=== PATIENT | female | born 1970 | race Caucasian/White ===

== ENCOUNTER 2020-07-30 12:25 | Outpatient (REF) | payer MEDICARE, MEDICAID, SELFPAY | END 2020-07-30 12:26 | disposition home or self-care (01) | LOC: HO.LAB 12:25 | PROVIDERS: PCP Physician Assistant; Visit Provider Internal Medicine | DX: Z20.828 Contact with and (suspected) exposure to other viral communicable diseases (principal) | CPT/HCPCS: C9803; U0003 ==

== ENCOUNTER 2021-07-30 14:31 | Emergency (ER) | payer MEDICARE, MEDICAID, SELFPAY ==
--- NOTE | ~2021-07-30 | XR_ITS ---
EXAMINATION: XR CHEST CLINICAL INFORMATION: Shortness of breath, orthopnea, leg swelling COMPARISON: Chest radiograph 04/30/2013 TECHNIQUE: Frontal view of the chest was obtained. FINDINGS: Heart is within normal size. The vascularity is normal. There is no lobar or segmental airspace consolidation or effusion. Some mild coarsening bronchiolar markings are seen centrally. No atelectasis. The costophrenic sulci are clear. The hilar and mediastinal contours are normal. Bony structures show dextrocurvature thoracic spine with multilevel degenerative changes. XR/XR chest 1V IMPRESSION: Mild coarsening bronchiolar markings. Lungs clear. No vascular congestion or effusion.
--- NOTE | ~2021-07-30 | XR_ITS ---
EXAMINATION: XR SHOULDER, RIGHT CLINICAL INFORMATION: Pain right shoulder COMPARISON: Radiographs right shoulder 06/02/2018 TECHNIQUE: Right shoulder is imaged in 3 views. FINDINGS: There are osteoarthritic changes involving the glenohumeral joint with joint narrowing and subchondral sclerosis and spurring at the inferior medial humeral head. There are lesser degenerative changes acromioclavicular joint. The acromioclavicular alignment is normal. There is no fracture or dislocation or destructive process. No visible nano humeral rotator cuff calcifications. Right lung apex shows no pneumothorax or pleural reaction. XR/XR shoulder RT min 2V IMPRESSION: 1. Osteoarthritic changes glenohumeral joint and acromioclavicular joint. 2. No visible rotator cuff calcifications. 3. No fracture or destructive process.
--- NOTE | ~2021-07-30 | CT_ITS ---
EXAMINATION: CT ANGIOGRAM OF THE CHEST WITH AND WITHOUT CONTRAST (CT PULMONARY ANGIOGRAM FOR PE) CLINICAL INFORMATION: Reason for Exam SOB, leg swelling, elevated DDIMER COMPARISON: Chest x-ray 07/30/2021 TECHNIQUE: Prior to contrast administration, noncontrast localization images were obtained. Subsequently, multidetector volumetric imaging was performed from the thoracic inlet to below the diaphragms following the administration of 65 mL Omnipaque 350 intravenous contrast. No contrast reaction reported Sagittal, coronal, and MIP oblique sagittal reformatted images were obtained on the CT workstation, uploaded to PACS, and reviewed. This CT examination was performed using dose optimization techniques as appropriate, variously including the following: *Automated exposure control *Adjustment of mA and/or kV according to patient size (this includes techniques or standardized protocols for targeted exams where dose is matched to indication/reason for exam; i.e. extremities or head) *Use of iterative reconstruction technique Total exam dose-length product 561 mGy-cm FINDINGS: QUALITY OF STUDY/CONTRAST BOLUS: Satisfactory. PULMONARY ARTERIES: No central or segmental pulmonary emboli. THORACIC AORTA: No aneurysm or dissection. LUNG: No focal consolidation, nodules or masses. PLEURA: No pleural effusion or pneumothorax. MEDIASTINUM: Heart size is prominent. No pericardial effusion. No hilar or mediastinal lymphadenopathy. No evidence of septal bowing or right heart strain. CHEST WALL/AXILLA: No axillary or internal mammary lymphadenopathy. OSSEOUS STRUCTURES: No acute or suspicious osseous abnormality. Degenerative spondylosis of the dorsal spine. UPPER ABDOMEN: Unremarkable. No reflux of contrast into the hepatic veins to suggest elevated right heart pressures. CT/CT angio chest PE protocol IMPRESSION: No acute abnormality of chest. No evidence of pulmonary embolism. VTE: negative
--- NOTE | ~2021-07-30 | US_ITS ---
EXAMINATION: US VENOUS ULTRASOUND WITH DOPPLER LOWER EXTREMITY, BILATERAL CLINICAL INFORMATION: Swelling COMPARISON: None TECHNIQUE: Ultrasound of the deep veins is performed from the hip to the calf with compression sonography and color and pulse Doppler assessment. Spectral analysis with color-flow imaging is performed. FINDINGS: RIGHT: There is normal venous compression and respiratory variation and augmented flow. The visualized common femoral vein, superficial femoral vein, profunda femoral vein, popliteal vein, and the trifurcation region shows no evidence of deep venous thrombosis. There is no significant popliteal fossa cyst. The motel clerk notes the peroneals are not seen LEFT: There is normal venous compression and respiratory variation and augmented flow. The visualized common femoral vein, superficial femoral vein, profunda femoral vein, popliteal vein, and the trifurcation region shows no evidence of deep venous thrombosis. There is no significant popliteal fossa cyst. Government Documents Librarian notes the peroneals are not seen If the patient's symptoms persist, followup ultrasound in 5 days 7 days might be of value to exclude proximal propagation from a non-visualized calf vein. US/US venous duplex LE IMPRESSION: Limited exam due to patient body habitus. The motel clerk notes the peroneal veins in the calves are not visualized bilaterally. Given this there is No DVT demonstrated in the bilateral lower extremity.
[2021-07-30 14:46] VITALS: BP 151/66; PULSE 71; RESP 20; TEMP 36.9; O2SAT 99; BMI 48.6
--- NOTE | 2021-07-30 15:29 | ECG_ITS ---
Test Reason : edema Blood Pressure : / mmHG Vent. Rate : 070 BPM Atrial Rate : 070 BPM P-R Int : 162 ms QRS Dur : 082 ms QT Int : 390 ms P-R-T Axes : 031 016 008 degrees QTc Int : 421 ms Normal sinus rhythm Normal ECG When compared with ECG of 30-APR-2013 18:12, No significant change was found Referred By: Vivian Reyna Electronically Signed By:CHIO MICHAELS MD
--- NOTE | 2021-07-30 15:30 | ED_ITS ---
HPI - General Adult General Chief complaint: General Medical Stated complaint: swollen legs, constipation, heart murmur Time Seen by Provider: 07/30/21 15:07 Source: patient Mode of arrival: ambulatory Limitations: no limitations History of Present Illness HPI narrative: 51 y/o female with history of opiate dependence on methadone, SLE, asthma, chronic constipation, depression, anxiety, chronic low back pain who presents to the ER from Urgent Care clinic for evaluation of 2 weeks of worsening LE edema and reports of newly diagnosed murmur while at the clinic today. Patient reports initially going to the clinic acute on chronic right shoulder pain that has been present for years, constipation with no BM since Wednesday, and for evaluation of her leg swelling for the last 2 weeks. She states she has been having fatigue and dyspnea with exertion, mild orthopnea, difficulty sleeping because of her swelling. She denies any history of heart failure, she is not on any diuretic medications. She has no chest pain. She denies history of a murmur and has never had ultrasound of her heart. She reports her right shoulder pain has been ongoing for several years but getting worse. No recent trauma. She also states she has been using enemas and MiraLax for her chronic constipation. No bowel movement since Wednesday. No nausea or vomiting. No fever or chills. No abdominal pain. MD complaint: leg swelling and heart murmur Onset (ago): week(s) (2) Location: left, right and lower extremity Radiation: proximal Severity: moderate Severity scale (1-10): 5 Quality: aching Pain Consistency: intermittent Relieving factors: none Exacerbating factors: movement Associated symptoms: malaise, shortness of breath and weakness Treatments prior to arrival: none Related Data Home Medications Medication Instructions Recorded Confirmed fluticasone propionate 110 2 puff INHALATION BID 07/03/20 07/03/21 mcg/actuation HFA aerosol inhaler (Flovent HFA) methadone 40 mg soluble tablet 60 mg PO DAILY tab 07/03/21 07/03/21 Previous Rx's Medication Instructions Recorded gabapentin 300 mg capsule 300 mg PO TID 30 Days #90 cap 09/03/20 lidocaine HCl 2 % mucosal solution 15 ml MUCOUS MEMBRANE Q3H PRN 10 12/03/20 (Lidocaine Viscous) Days #100 ml alprazolam 0.5 mg tablet 0.5 mg PO BID 30 Days #60 tab 04/02/21 polyethylene glycol 3350 17 gram 17 g PO DAILY 30 Days #30 ea 06/04/21 oral powder packet (Miralax) albuterol sulfate 90 mcg/actuation 2 puff INHALATION Q6H PRN 30 Days 06/14/21 aerosol inhaler #8.5 g albuterol sulfate 2.5 mg (3 mL) INHALATION Q4-6H PRN 06/16/21 30 Days #90 ml clotrimazole-betamethasone 1 1 appl TOPICAL BID PRN 30 Days #45 06/22/21 %-0.05 % topical cream g gabapentin 400 mg capsule See Rx Instructions PO .COMPLEX 30 07/01/21 Days #150 cap acetaminophen 500 mg tablet 500 mg PO Q6H PRN 30 Days #120 tab 07/03/21 baclofen 20 mg tablet 20 mg PO Q8H #90 tab 07/03/21 bisacodyl 10 mg rectal suppository 10 mg [place] DAILY PRN #12 ea 07/30/21 (Gentle Laxative (bisacodyl)) ibuprofen 600 mg tablet 600 mg PO Q8H PRN #20 tab 07/30/21 sennosides 8.6 mg-docusate sodium 1 tab-cap PO BEDTIME #20 tab 07/30/21 50 mg tablet (Senna with Docusate Sodium) Allergies Allergy/AdvReac Type Severity Reaction Status Date / Time latex [Latex] Allergy Mild RASH Verified 07/30/21 13:20 Benadryl Allergy Unknown Rash Verified 07/30/21 13:20 diphenhydramine Allergy Unknown HIVES Verified 07/30/21 13:20 [From Benadryl] Review of Systems Review of Systems: Constitutional: No Fever, No Chills ENT/Mouth: No sore throat, No Rhinorrhea, No Swallowing Difficulty Eyes: No Eye Pain, No Swelling, No Redness Cardiovascular: No Chest Pain, + SOB, + Orthopnea, + Edema Respiratory: No Cough, No Sputum, + Wheezing, + dyspnea Gastrointestinal: No Nausea, No Vomiting, No Diarrhea, No abdominal Pain, No Hematochezia, No Melena, +Constipation Genitourinary: No Dysuria, + Urinary Frequency, No Hematuria Musculoskeletal: No joint pain, No Myalgias Skin: No Skin Lesions, No rash Neuro: + Weakness, No Numbness, No Dizziness, No Headache Psych: + Anxiety/Panic, +Depression Heme/Lymph: No Bruising, No Lymphadenopathy Endocrine: + Polyuria, No Polydipsia PMF Past Medical History Medical History (Updated 07/30/21 @ 18:58 by KAREN Rosales) Right shoulder pain Tinea Surgical History History of section History of umbilical hernia repair History of varicose vein ligation Plantar fasciitis of left foot Family History Family History Father High cholesterol High blood pressure Dementia Mother Diabetes Arthritis High blood pressure Paternal Grandmother Colon cancer Social History Social History (Updated 09/04/20 @ 20:53 by Rony Carr PA-C) Housing: House Alcohol intake: never Patient Tobacco Use Status: Never used Tobacco e-Cigarette/Vaping Use: Never Used Second Hand Smoke Exposure: No Substance Use Type: Opiates Advance Directives: No Advance Directives Information Provided: No Current occupational status: unemployed Physical Exam Vital Signs: Vital Signs: Last Vital Signs Temp 98.4 F 07/30/21 14:46 Pulse 66 07/30/21 16:25 Resp 18 07/30/21 16:25 BP 140/70 H 07/30/21 16:25 Pulse Ox 96 07/30/21 16:25 Body Mass Index 48.6 Appearance: Alert. Oriented X3. No acute distress. Eyes: Pupils equal, round and reactive to light. ENT: Pharynx normal. Neck: Normal inspection. Neck supple. CVS: Normal heart rate and rhythm. Pulses normal. Respiratory: No respiratory distress. Breath sounds normal. Abdomen: Obese, Softly distended and nontender. +BS x4 Skin: Skin warm and dry. Normal skin color. Normal skin turgor. No rashes. Extremities: 2+ lower extremity edema, pitting. No calf tenderness, warmth or erythema. Neuro: Oriented X 3. No motor deficit. No sensory deficit. Course Course Course Narrative: 51 y/o female with history of morbid obesity, asthma, anxiety/depression, lupus who presents to the ER for multiple complaints including bilateral LE edema x2 weeks along with SOB, nontraumatic right shoulder pain x several years, & constipation x2 days. No appreciated murmur on examination. Will get CXR, shoulder XR, EKG and basic lab workup. Reevaluation(s) Reevaluation #1: Lab workup showing no leukocytosis, normal renal function and electrolytes. Troponin is negative. BNP 22. D-dimer is elevated in the 500 range. Will need to rule out lower extremity DVT and pulmonary embolism. Lower extremity Dopplers have been ordered. CT is also ordered. Reevaluation #2: Lower extremity Dopplers are negative for DVT. CTA negative for PE or any pulmonary abnormality. She remains hemodynamically stable. Re- auscultated and not appreciate any murmur. We discussed supportive care for her new lower extremity swelling including compression stockings, leg elevation, salt restriction. She will follow-up with her PCP within 1 week and monitor her weights daily. She is also interested in seeing a supervisor harvesting for further eval uation so referral has been made for her to call. She is stable for discharge home with supportive care and plan to follow-up with her outpatient PCP. Medical Decision Making Lab Data Result diagrams: 07/30/21 16:24 07/30/21 16:24 Labs: Lab Results 07/30/21 07/30/21 07/30/21 Range/Units 16:17 16:17 16:24 WBC 8.8 (4.8-10.8) X10*3/uL RBC 4.43 (4.20-5.50) X10*6/uL Hgb 9.7 L (12.0-16.0) g/dl Hct 32.5 L (37.0-47.0) % MCV 73.4 L (80.0-98.0) fL MCH 21.9 L (27.0-33.0) pg MCHC 29.8 L (31.0-35.0) g/dl RDW 17.2 H (11.0-16.0) % Plt Count 257 (160-400) X10*3/uL MPV 10.2 (9.4-12.3) fL Immature Gran % (Auto) 0.3 (0.0-0.4) % Neut % (Auto) 68.3 (45-73) % Lymph % (Auto) 20.1 (20-40) % Pershing % (Auto) 7.4 (2-11) % Eos % (Auto) 3.4 (0-4) % Baso % (Auto) 0.5 (0-2) % Lymph # (Auto) 1.8 (1.2-4.9) X10*3/uL Pershing # (Auto) 0.7 (0.1-1.2) X10*3/uL Eos # (Auto) 0.3 (0.0-0.4) X10*3/uL Baso # (Auto) 0.0 (0.0-0.2) X10*3/uL Abs Immat Gran (auto) 0.03 (0.00-0.03) X10*3/uL Absolute Neuts (auto) 6.0 (2.0-8.3) x10*3/uL Absolute Nucleated RBC 0.000 (0.0-0.012) X10*3/uL Nucleated RBC % (auto) 0.0 (0.0-0.2) /100WBC D-Dimer High Sensitivty NG/ML Sodium (135-145) mmol/L Potassium (3.3-5.1) mmol/L Chloride (96-108) mmol/L Carbon Dioxide (22-29) mmol/L Anion Gap (12-20) BUN (9-16) mg/dL Creatinine (0.5-1.4) mg/dL Estim Creat Clear Calc Estimated GFR Random Glucose (60-115) mg/dL Calcium (8.4-10.2) mg/dL Magnesium (1.6-2.6) mg/dL Total Bilirubin (0.0-1.0) mg/dL Direct Bilirubin (0.0-0.5) mg/dL AST (5-31) U/L ALT (0-31) U/L Alkaline Phosphatase (39-117) U/L Troponin I High Sens (<3.5-17.0) ng/L B-Natriuretic Peptide (<100) pg/mL Total Protein (6.5-8.0) g/dL Albumin (3.5-5.0) g/dL Urine Color YELLOW Urine Appearance CLEAR Urine pH 7.0 (5.0-8.0) Ur Specific Jenner 1.015 (1.005-1.025) Urine Protein NEG (NEG-TRACE) MG/DL Urine Glucose (UA) NEG (NEG) MG/DL Urine Ketones NEG (NEG) MG/DL Urine Blood NEG (NEG) Urine Nitrite NEG (NEG) Ur Leukocyte Esterase NEG (NEG) COVID-19 (GRACIE) Negative (Negative) COVID-19 Clin Com See Note 07/30/21 07/30/21 07/30/21 Range/Units 16:24 16:24 16:25 WBC (4.8-10.8) X10*3/uL RBC (4.20-5.50) X10*6/uL Hgb (12.0-16.0) g/dl Hct (37.0-47.0) % MCV (80.0-98.0) fL MCH (27.0-33.0) pg MCHC (31.0-35.0) g/dl RDW (11.0-16.0) % Plt Count (160-400) X10*3/uL MPV (9.4-12.3) fL Immature Gran % (Auto) (0.0-0.4) % Neut % (Auto) (45-73) % Lymph % (Auto) (20-40) % Pershing % (Auto) (2-11) % Eos % (Auto) (0-4) % Baso % (Auto) (0-2) % Lymph # (Auto) (1.2-4.9) X10*3/uL Pershing # (Auto) (0.1-1.2) X10*3/uL Eos # (Auto) (0.0-0.4) X10*3/uL Baso # (Auto) (0.0-0.2) X10*3/uL Abs Immat Gran (auto) (0.00-0.03) X10*3/uL Absolute Neuts (auto) (2.0-8.3) x10*3/uL Absolute Nucleated RBC (0.0-0.012) X10*3/uL Nucleated RBC % (auto) (0.0-0.2) /100WBC D-Dimer High Sensitivty 530 NG/ML Sodium 139 (135-145) mmol/L Potassium 3.8 (3.3-5.1) mmol/L Chloride 102 (96-108) mmol/L Carbon Dioxide 29 (22-29) mmol/L Anion Gap 12 (12-20) BUN 9 (9-16) mg/dL Creatinine 0.70 (0.5-1.4) mg/dL Estim Creat Clear Calc 114.8 Estimated GFR > 60 Random Glucose 89 (60-115) mg/dL Calcium 9.4 (8.4-10.2) mg/dL Magnesium 1.9 (1.6-2.6) mg/dL Total Bilirubin 0.4 (0.0-1.0) mg/dL Direct Bilirubin 0.2 (0.0-0.5) mg/dL AST 23 (5-31) U/L ALT 16 (0-31) U/L Alkaline Phosphatase 92 (39-117) U/L Troponin I High Sens < 3.5 (<3.5-17.0) ng/L B-Natriuretic Peptide 22 (<100) pg/mL Total Protein 8.0 (6.5-8.0) g/dL Albumin 4.2 (3.5-5.0) g/dL Urine Color Urine Appearance Urine pH (5.0-8.0) Ur Specific Jenner (1.005-1.025) Urine Protein (NEG-TRACE) MG/DL Urine Glucose (UA) (NEG) MG/DL Urine Ketones (NEG) MG/DL Urine Blood (NEG) Urine Nitrite (NEG) Ur Leukocyte Esterase (NEG) COVID-19 (GRACIE) (Negative) COVID-19 Clin Com ECG Data Attestation: I personally reviewed and interpreted this ECG as follows: Prior ECG tracings: available for review Interpretation: normal sinus rhythm, HR 70 bpm, normal WY interval, normal QRS, no ST segment elevations or depressions. No change from 2013 Discharge Plan Discharge Clinical Impression: Bilateral edema of lower extremity, Primary osteoarthritis, right shoulder Constipation Qualifiers: Constipation type: unspecified constipation type Qualified Code(s): K59.00 - Constipation, unspecified Patient Disposition: Home, Self-Care Instructions: Constipation (ED), Osteoarthritis (ED), Edema (ED) Additional Instructions: Your lab workup today was largely unremarkable. Your shoulder x-ray showed osteoarthritis of the right shoulder. Wear the sling for the next 1-2 days as needed for pain and discomfort, then start to slowly do gentle [id number] exercises. Recommend [id number] Motrin and/or Tylenol as needed for pain. Follow-up with your orthopedic doctor for this. Your lower extremity ultrasounds did not show any blood clots. He your CT scan of your chest not show any blood clots in her lungs. No murmur was heard on examination today. For your lower leg swelling recommend getting compression stockings. When you are sitting at home make sure to elevate her legs. Decrease your salt intake. Measure your weight daily. Follow-up with your primary care doctor in 1 week. If you develop new or worsening symptoms call 911 or come back to the ER for further evaluation. Prescriptions: New sennosides-docusate sodium [Senna with Docusate Sodium] 8.6-50 mg tablet 1 tab-cap PO BEDTIME Qty: 20 RF: 0 bisacodyl [Gentle Laxative (bisacodyl)] 10 mg suppository 10 mg WY DAILY PRN (Reason: constipation) Qty: 12 RF: 0 ibuprofen 600 mg tablet 600 mg PO Q8H PRN (Reason: pain) Qty: 20 RF: 0 No Action Lidocaine Viscous 2 % solution 15 ml mucous membrane Q3H PRN (Reason: mouth pain) 10 Days Qty: 100 RF: 2 alprazolam 0.5 mg tablet 0.5 mg PO BID 30 Days Qty: 60 RF: 1 polyethylene glycol 3350 [Miralax] 17 gram powder in packet 17 g PO DAILY 30 Days Qty: 30 RF: 0 albuterol sulfate 90 mcg/actuation HFA aerosol inhaler 2 puff inhalation Q6H PRN (Reason: shortness of breath or wheezing) 30 Days Qty: 8.5 RF: 1 albuterol sulfate 2.5 mg /3 mL (0.083 %) solution for nebulization 2.5 mg inhalation Q4-6H PRN (Reason: shortness of breath or wheezing) 30 Days Qty: 90 RF: 3 clotrimazole-betamethasone 1-0.05 % cream 1 appl topical BID PRN (Reason: skin irritation) 30 Days Qty: 45 RF: 2 gabapentin 400 mg capsule See Rx Instructions PO .COMPLEX 30 Days Qty: 150 RF: 3 Flovent HFA 110 mcg/actuation HFA aerosol inhaler 2 puff inhalation BID RF: 0 gabapentin 300 mg capsule 300 mg PO TID 30 Days Qty: 90 RF: 3 methadone 40 mg tablet,soluble 60 mg PO DAILY RF: 0 baclofen 20 mg tablet 20 mg PO Q8H Qty: 90 RF: 1 acetaminophen 500 mg tablet 500 mg PO Q6H PRN (Reason: pain) 30 Days Qty: 120 RF: 3 Referrals: Rony Carr PA-C [Primary Care Provider] - 5 days (New lower extremity e doug, osteoarthritis of the right shoulder, chronic constipation) Severiano Briseno MD [Physician] - 1 week (New lower extremity edema, sob)
[2021-07-30 16:25] VITALS: BP 140/70; PULSE 66; RESP 18; O2SAT 96
[2021-07-30 16:32] LABS: MANUAL DIFF FLAG NO
[2021-07-30 16:37] LABS: Basophils Percent Auto 0.5 % (0-2); Eosinophils Absolute Auto 0.3 X10*3/uL (0.0-0.4); Eosinophils Percent Auto 3.4 % (0-4); Hematocrit 32.5 % (37.0-47.0); Hemoglobin 9.7 g/dl (12.0-16.0); Imm Gran Abs Auto 0.03 X10*3/uL (0.00-0.03); Imm Gran Pct Auto 0.3 % (0.0-0.4); Lymphocytes Absolute Auto 1.8 X10*3/uL (1.2-4.9); Lymphocytes Percent Auto 20.1 % (20-40); Mean Corpuscular HGB Conc 29.8 g/dl (31.0-35.0); Mean Corpuscular Hemoglobin 21.9 pg (27.0-33.0); Mean Corpuscular Volume 73.4 fL (80.0-98.0); Mean Platelet Volume 10.2 fL (9.4-12.3); Monocytes Absolute Auto 0.7 X10*3/uL (0.1-1.2); Monocytes Percent Auto 7.4 % (2-11); Neutrophils Percent Auto 68.3 % (45-73); Platelet Count 257 X10*3/uL (160-400); Red Blood Count 4.43 X10*6/uL (4.20-5.50); Red Cell Distribution Width 17.2 % (11.0-16.0); White Blood Count 8.8 X10*3/uL (4.8-10.8)
[2021-07-30 16:49] LABS: Appearance Urine CLEAR; Color Urine YELLOW; Glucose Urine UA NEG (NEG); Leukocyte Esterase Urine NEG (NEG); Nitrite Urine NEG (NEG); Specific Gravity - Urine 1.015 (1.005-1.025); Urine Blood NEG (NEG); Urine Ketones NEG (NEG); Urine Protein NEG (NEG-TRACE)
[2021-07-30 16:51] LABS: Alanine Aminotransferase 16 U/L (0-31); Albumin Level 4.2 g/dL (3.5-5.0); Alkaline Phosphatase 92 U/L (39-117); Anion Gap 12 (12-20); Aspartate Amino Transferase 23 U/L (5-31); Bilirubin Direct 0.2 mg/dL (0.0-0.5); Bilirubin Total 0.4 mg/dL (0.0-1.0); Blood Urea Nitrogen 9 mg/dL (9-16); Calcium 9.4 mg/dL (8.4-10.2); Carbon Dioxide 29 mmol/L (22-29); Chloride 102 mmol/L (96-108); Creatinine Clr Calc Pharmacy 114.8; Estimated Glomerular Filt Rate > 60; Glucose Random 89 mg/dL (60-115); Magnesium 1.9 mg/dL (1.6-2.6); Potassium 3.8 mmol/L (3.3-5.1); Sodium 139 mmol/L (135-145)
[2021-07-30 16:51] LABS: D Dimer High Sensitivity 530 NG/ML
[2021-07-30 16:56] LABS: B Type Natriuretic Peptide 22 pg/mL (<100); Troponin-I High Sensitivity < 3.5 ng/L (<3.5-17.0)
[2021-07-30 17:04] LABS: COVID-19 Test Negative (Negative)
[2021-07-30] MEDS: iohexoL 350 MG/ML 100 ML INFUS..BTL IV (18:09)
== END 2021-07-30 19:12 | disposition home or self-care (01) ==
PROVIDERS: Physician Assistant; Emergency Provider Emergency Medicine; PCP Physician Assistant
DX: R60.0 Localized edema (principal); M19.011 Primary osteoarthritis, right shoulder; F11.20 Opioid dependence, uncomplicated; M32.9 Systemic lupus erythematosus, unspecified; Z20.822 Contact with and (suspected) exposure to COVID-19
CPT/HCPCS: 36415; 71045; 71275; 73030; 80048; 80076; 81003; 83735; 83880; 84484; 85025; 85379; 87635; 93005; 93970; 99283; 99284; Q9967

== ENCOUNTER 2021-09-03 05:39 | Emergency (ER) | payer MEDICARE, MEDICAID, SELFPAY ==
--- NOTE | ~2021-09-03 | XR_ITS ---
EXAMINATION: XR CHEST CLINICAL INFORMATION: Chest pain on inspiration COMPARISON: 07/30/2021 TECHNIQUE: Frontal view of the chest was obtained. FINDINGS: Cardiac leads overlie the chest. The lungs are well expanded. There is no focal consolidation, edema, or effusion. No pneumothorax. The cardiomediastinal silhouette is within normal limits. No acute osseous abnormality. XR/XR chest 1V IMPRESSION: Clear lungs.
[2021-09-03 05:53] VITALS: BP 176/109; PULSE 72; RESP 16; TEMP 36.9; O2SAT 99; BMI 47.5
[2021-09-03 06:21] LABS: COVID-19 Test Negative (Negative); IDNOW Serial# 9DD0AD1C
[2021-09-03 06:27] LABS: Basophils Absolute Auto 0.1 X10*3/uL (0.0-0.2); Basophils Percent Auto 0.7 % (0-2); Eosinophils Absolute Auto 0.4 X10*3/uL (0.0-0.4); Eosinophils Percent Auto 5.9 % (0-4); Hematocrit 30.4 % (37.0-47.0); Imm Gran Abs Auto 0.02 X10*3/uL (0.00-0.03); Imm Gran Pct Auto 0.3 % (0.0-0.4); Lymphocytes Percent Auto 28.9 % (20-40); MANUAL DIFF FLAG NO; Mean Corpuscular HGB Conc 29.6 g/dl (31.0-35.0); Mean Corpuscular Hemoglobin 22.1 pg (27.0-33.0); Mean Corpuscular Volume 74.5 fL (80.0-98.0); Mean Platelet Volume 10.5 fL (9.4-12.3); Monocytes Absolute Auto 0.7 X10*3/uL (0.1-1.2); Neutrophils Absolute Auto 3.7 x10*3/uL (2.0-8.3); Neutrophils Percent Auto 54.2 % (45-73); Platelet Count 274 X10*3/uL (160-400); Red Blood Count 4.08 X10*6/uL (4.20-5.50); White Blood Count 6.8 X10*3/uL (4.8-10.8)
[2021-09-03 06:50] LABS: Anion Gap 11 (12-20); Blood Urea Nitrogen 9 mg/dL (9-16); Calcium 9.4 mg/dL (8.4-10.2); Carbon Dioxide 29 mmol/L (22-29); Chloride 105 mmol/L (96-108); Creatinine Clr Calc Pharmacy 111.7; Estimated Glomerular Filt Rate > 60; Glucose Random 103 mg/dL (60-115); Potassium 3.7 mmol/L (3.3-5.1); Sodium 141 mmol/L (135-145)
[2021-09-03 06:53] LABS: Troponin-I High Sensitivity 3.7 ng/L (<3.5-17.0)
--- NOTE | 2021-09-03 06:58 | ED_ITS ---
HPI - Chest Pain General Chief Complaint: Chest Pain Stated Complaint: chest pain, nausea Time Seen by Provider: 09/03/21 06:41 Source: patient Mode of arrival: ambulatory Limitations: no limitations History of Present Illness HPI narrative: 51-year-old female who presents emergency department for evaluation of right-sided chest pain, right shoulder pain and nausea. Patient states that yesterday at 7:00 p.m. while she was eating she developed pain and her right shoulder and right anterior chest. She states that the pain is a intermittent, sharp pain which lasts approximately 20 minutes. She states she has had 4-5 episodes of this pain since it started. The pain is worse if she moves her right shoulder. She states that she has arthritis of the right shoulder and she often gets pain in her right shoulder and chest, 1 to 2 times a month. She states that yesterday when the pain started she did take gabapentin baclofen and Tylenol. She also is on methadone for chronic pain. She states that her pain did improve however at 3:00 a.m. this morning she woke up with pain again in her right shoulder and chest which was moderate to severe in intensity. She states she also had associated nausea. She denied fever, chills, cough, shortness of breath, dyspnea on exertion. She states she has noted some swelling in her feet but this is not new. The patient has not been vaccinated against COVID-19. Related Data Home Medications Medication Instructions Recorded Confirmed fluticasone propionate 110 2 puff INHALATION BID 07/03/20 07/03/21 mcg/actuation HFA aerosol inhaler (Flovent HFA) methadone 40 mg soluble tablet 60 mg PO DAILY tab 07/03/21 07/03/21 Previous Rx's Medication Instructions Recorded gabapentin 300 mg capsule 300 mg PO TID 30 Days #90 cap 09/03/20 lidocaine HCl 2 % mucosal solution 15 ml MUCOUS MEMBRANE Q3H PRN 10 12/03/20 (Lidocaine Viscous) Days #100 ml alprazolam 0.5 mg tablet 0.5 mg PO BID 30 Days #60 tab 04/02/21 polyethylene glycol 3350 17 gram 17 g PO DAILY 30 Days #30 ea 06/04/21 oral powder packet (Miralax) albuterol sulfate 90 mcg/actuation 2 puff INHALATION Q6H PRN 30 Days 06/14/21 aerosol inhaler #8.5 g albuterol sulfate 2.5 mg (3 mL) INHALATION Q4-6H PRN 06/16/21 30 Days #90 ml clotrimazole-betamethasone 1 1 appl TOPICAL BID PRN 30 Days #45 06/22/21 %-0.05 % topical cream g gabapentin 400 mg capsule See Rx Instructions PO .COMPLEX 30 07/01/21 Days #150 cap acetaminophen 500 mg tablet 500 mg PO Q6H PRN 30 Days #120 tab 07/03/21 baclofen 20 mg tablet 20 mg PO Q8H #90 tab 07/03/21 bisacodyl 10 mg rectal suppository 10 mg OH DAILY PRN #12 ea 07/30/21 (Gentle Laxative (bisacodyl)) ibuprofen 600 mg tablet 600 mg PO Q8H PRN #20 tab 07/30/21 sennosides 8.6 mg-docusate sodium 1 tab-cap PO BEDTIME #20 tab 07/30/21 50 mg tablet (Senna with Docusate Sodium) Allergies Allergy/AdvReac Type Severity Reaction Status Date / Time latex [Latex] Allergy Mild RASH Verified 07/30/21 13:20 Benadryl Allergy Unknown Rash Verified 07/30/21 13:20 diphenhydramine Allergy Unknown HIVES Verified 07/30/21 13:20 [From Benadryl] Review of Systems Review of Systems: Yes all other systems are reviewed and are negative [facility] Past Medical History [facility] Narrative: Past medical history: Asthma, depression, anxiety, substance /opiate use disorder on methadone, lupus, chronic right shoulder pain, lumbar radiculopathy. Social history: She denies tobacco, alcohol and drug use. Medical History Right shoulder pain Tinea Surgical History History of section History of umbilical hernia repair History of varicose vein ligation Plantar fasciitis of left foot Family History Family History Father High cholesterol High blood pressure Dementia Mother Diabetes Arthritis High blood pressure Paternal Grandmother Colon cancer Social History Social History (Updated 09/04/20 @ 20:53 by TYSON Parra Housing: House Alcohol intake: never Patient Tobacco Use Status: Never used Tobacco e-Cigarette/Vaping Use: Never Used Second Hand Smoke Exposure: No Use of substances other than those prescribed or required for medical reasons: No Substance Use Type: Opiates Advance Directives: No Patient : No Current occupational status: unemployed Physical Exam Vital Signs: Vital Signs: Last Vital Signs Temp 98.5 F 09/03/21 05:53 Pulse 72 09/03/21 05:53 Resp 16 09/03/21 05:53 BP 176/109 H 09/03/21 05:53 Pulse Ox 99 09/03/21 05:53 BMI result Body Mass Index 47.5 Const: General: cooperative and no acute distress Orientation/consciousness: oriented to person and oriented to place Limitations: no limitations HENMT: Head: Yes normal to inspection, Yes normocephalic and Yes atraumatic Ears: external ears normal General nose exam: Normal external nose present Face and sinus: Yes normal facial exam Mouth: Normal oral and palatal mucosa present Throat: Yes posterior oropharynx normal Eyes: General: appearance normal, both eyes and all related structures Pupils: Equal, round and reactive pupils present Neck: Neck: Yes normal visual inspection, Yes no lymphadenopathy, Yes trachea midline and Yes supple Chest: Chest palpation & inspection: normal inspection of the chest and tenderness pectoral muscle (Moderate) Resp: Effort & Inspection: normal respiratory effort and able to speak in complete sentences Auscultation: clear to auscultation bilaterally Cardio: Rate: regular rate Rhythm: regular rhythm Heart sounds: S1 normal heart sound present, S2 normal heart sound present and no murmurs GI: Inspection: Yes normal to inspection Palpation (GI): Soft to palpation, nontender and no guarding Auscultation: normal bowel sounds : General: Yes no CVA tenderness Back/Spine/Pelvis: Back: no CVA tenderness Skin: General skin exam: no rashes or lesions noted Neuro: General: oriented to person and oriented to place Cranial nerves: Yes CN's II-XII intact bilaterally and Yes Equal, round and reactive pupils pres ent Cognition (Neuro): normal cognition Motor exam (neuro): 5/5 motor strength present throughout Extrem: Other: Pain with palpation of the right shoulder and increased pain with passive and active movement of the right shoulder General: Yes normal to inspection Psych: Appearance: grossly normal Speech and movement: Normal speech and movement present Affect: normal affect Attitude: cooperative Thought process: Normal thought process present Thought content: Normal thought content present Course Course Course Narrative: 51-year-old female who presents emergency department for evaluation of intermittent right-sided chest pain, right shoulder pain and nausea with symptoms coming on gradually yesterday at 7:00 p.m. and got worse at 3:00 a.m. on the day of arrival. The patient has had similar pain in the past and she gets at 1 to 2 times a week. She states this secondary to arthritis in her right shoulder. Vital signs did reveal an elevated blood pressure of 176/109 otherwise was unremarkable. Physical examination did reveal tenderness palpation of the right anterior chest as well as tenderness for [place] of the right shoulder and increased pain with movement of her right shoulder. The patient's 12 EKG was unremarkable. Laboratory evaluation revealed anemia with an H&H of 9 and 30.4. The patient has a detectable but not elevated troponin of 3.7. COVID-19 was negative. Chest x-ray was unremarkable. the presentation, character and physical examination of the patient's pain, I do not think that the patient has had a myocardial infarction or coronary artery disease is the cause of her symptoms. Patient's pain is most likely secondary to arthritis of her right shoulder and of her costochondral joints. Patient was treated with Toradol 15 mg IV. She was advised to continue taking her medications as prescribed by her doctor advised to follow-up with her PCP for re-evaluation and return if her symptoms get worse. MDM - Chest Pain Lab Data Result diagrams: 09/03/21 06:23 09/03/21 06:23 Labs: Lab Results 09/03/21 09/03/21 09/03/21 Range/Units 06:02 06:23 06:23 WBC 6.8 (4.8-10.8) X10*3/uL RBC 4.08 L (4.20-5.50) X10*6/uL Hgb 9.0 L (12.0-16.0) g/dl Hct 30.4 L (37.0-47.0) % MCV 74.5 L (80.0-98.0) fL MCH 22.1 L (27.0-33.0) pg MCHC 29.6 L (31.0-35.0) g/dl RDW 17.0 H (11.0-16.0) % Plt Count 274 (160-400) X10*3/uL MPV 10.5 (9.4-12.3) fL Immature Gran % (Auto) 0.3 (0.0-0.4) % Neut % (Auto) 54.2 (45-73) % Lymph % (Auto) 28.9 (20-40) % [place] % (Auto) 10.0 (2-11) % Eos % (Auto) 5.9 H (0-4) % Baso % (Auto) 0.7 (0-2) % Lymph # (Auto) 2.0 (1.2-4.9) X10*3/uL [place] # (Auto) 0.7 (0.1-1.2) X10*3/uL Eos # (Auto) 0.4 (0.0-0.4) X10*3/uL Baso # (Auto) 0.1 (0.0-0.2) X10*3/uL Abs Immat Gran (auto) 0.02 (0.00-0.03) X10*3/uL Absolute Neuts (auto) 3.7 (2.0-8.3) x10*3/uL Absolute Nucleated RBC 0.000 (0.0-0.012) X10*3/uL Nucleated RBC % (auto) 0.0 (0.0-0.2) /100WBC Sodium 141 (135-145) mmol/L Potassium 3.7 (3.3-5.1) mmol/L Chloride 105 (96-108) mmol/L Carbon Dioxide 29 (22-29) mmol/L Anion Gap 11 L (12-20) BUN 9 (9-16) mg/dL Creatinine 0.71 (0.5-1.4) mg/dL Estim Creat Clear Calc 111.7 Estimated GFR > 60 Random Glucose 103 (60-115) mg/dL Calcium 9.4 (8.4-10.2) mg/dL Troponin I High Sens (<3.5-17.0) ng/L COVID-19 (GRACIE) Negative (Negative) COVID-19 Clin Com See Note 09/03/21 Range/Units 06:23 WBC (4.8-10.8) X10*3/uL RBC (4.20-5.50) X10*6/uL Hgb (12.0-16.0) g/dl Hct (37.0-47.0) % MCV (80.0-98.0) fL MCH (27.0-33.0) pg MCHC (31.0-35.0) g/dl RDW (11.0-16.0) % Plt Count (160-400) X10*3/uL MPV (9.4-12.3) fL Immature Gran % (Auto) (0.0-0.4) % Neut % (Auto) (45-73) % Lymph % (Auto) (20-40) % [place] % (Auto) (2-11) % Eos % (Auto) (0-4) % Baso % (Auto) (0-2) % Lymph # (Auto) (1.2-4.9) X10*3/uL [place] # (Auto) (0.1-1.2) X10*3/uL Eos # (Auto) (0.0-0.4) X10*3/uL Baso # (Auto) (0.0-0.2) X10*3/uL Abs Immat Gran (auto) (0.00-0.03) X10*3/uL Absolute Neuts (auto) (2.0-8.3) x10*3/uL Absolute Nucleated RBC (0.0-0.012) X10*3/uL Nucleated RBC % (auto) (0.0-0.2) /100WBC Sodium (135-145) mmol/L Potassium (3.3-5.1) mmol/L Chloride (96-108) mmol/L Carbon Dioxide (22-29) mmol/L Anion Gap (12-20) BUN (9-16) mg/dL Creatinine (0.5-1.4) mg/dL Estim Creat Clear Calc Estimated GFR Random Glucose (60-115) mg/dL Calcium (8.4-10.2) mg/dL Troponin I High Sens 3.7 (<3.5-17.0) ng/L COVID-19 (GRACIE) (Negative) COVID-19 Clin Com ECG Data ECG #1: Interpretation: 0547: Normal sinus rhythm rate of 82, normal OH interval QRS duration QTC interval, RR prime in lead 3 with inverted T-wave in lead 3, no ST segment elevation, no ST segment depression, no PACs, no PVCs. Discharge Plan Discharge Clinical Impression: Acute costochondritis Patient Disposition: Home, Self-Care Instructions: Costochondritis (ED) Additional Instructions: Your blood work was unremarkable except for some mild anemia. Your troponin which is a marker of heart and lungs was detectable but not elevated, this is reassuring I do not think that your pain is caused by a heart attack. Your 12 EKG was normal. Your chest x-ray was normal as well. Your COVID-19 test was negative. Your pain is most likely related to arthritis of your right shoulder and arthritis of your joints in your chest. Continue taking your pain medications as prescribed by your doctor. Follow-up with your doctor in 2 days. Please return to the emergency department if your symptoms get worse or if you develop any symptoms that are concerning to you. Prescriptions: No Action Lidocaine Viscous 2 % solution 15 ml mucous membrane Q3H PRN (Reason: mouth pain) 10 Days Qty: 100 RF: 2 alprazolam 0.5 mg tablet 0.5 mg PO BID 30 Days Qty: 60 RF: 1 polyethylene glycol 3350 [Miralax] 17 gram powder in packet 17 g PO DAILY 30 Days Qty: 30 RF: 0 albuterol sulfate 90 mcg/actuation HFA aerosol inhaler 2 puff inhalation Q6H PRN (Reason: shortness of breath or wheezing) 30 Days Qty: 8.5 RF: 1 albuterol sulfate 2.5 mg /3 mL (0.083 %) solution for nebulization 2.5 mg inhalation Q4-6H PRN (Reason: shortness of breath or wheezing) 30 Days Qty: 90 RF: 3 clotrimazole-betamethasone 1-0.05 % cream 1 appl topical BID PRN (Reason: skin irritation) 30 Days Qty: 45 RF: 2 gabapentin 400 mg capsule See Rx Instructions PO .COMPLEX 30 Days Qty: 150 RF: 3 sennosides-docusate sodium [Senna with Docusate Sodium] 8.6-50 mg tablet 1 tab-cap PO BEDTIME Qty: 20 RF: 0 bisacodyl [Gentle Laxative (bisacodyl)] 10 mg suppository 10 mg OH DAILY PRN (Reason: constipation) Qty: 12 RF: 0 ibuprofen 600 mg tablet 600 mg PO Q8H PRN (Reason: pain) Qty: 20 RF: 0 Flovent HFA 110 mcg/actuation HFA aerosol inhaler 2 puff inhalation BID RF: 0 gabapentin 300 mg capsule 300 mg PO TID 30 Days Qty: 90 RF: 3 methadone 40 mg tablet,soluble 60 mg PO DAILY RF: 0 baclofen 20 mg tablet 20 mg PO Q8H Qty: 90 RF: 1 acetaminophen 500 mg tablet 500 mg PO Q6H PRN (Reason: pain) 30 Days Qty: 120 RF: 3
[2021-09-03 07:23] VITALS: BP 130/59; PULSE 64; RESP 11; TEMP 36.6; O2SAT 98
[2021-09-03 07:29] VITALS: PULSE 64
[2021-09-03] MEDS: Ketorolac Tromethamine 30 MG/ML VIAL 15 MG IVPUSH (07:32)
--- NOTE | 2021-09-03 11:21 | ECG_ITS ---
Test Reason : CHEST PAIN Blood Pressure : / mmHG Vent. Rate : 082 BPM Atrial Rate : 082 BPM P-R Int : 150 ms QRS Dur : 084 ms QT Int : 362 ms P-R-T Axes : 034 025 017 degrees QTc Int : 422 ms Normal sinus rhythm Normal EKG No previous ECGs available Referred By: Kingston Alarcon Electronically Signed By:JOYCE LUDWIG
== END 2021-09-03 07:48 | disposition home or self-care (01) ==
PROVIDERS: Emergency Provider Emergency Medicine Emergency Medical Services; PCP Physician Assistant
DX: M94.0 Chondrocostal junction syndrome [Tietze] (principal); R07.9 Chest pain, unspecified; M25.511 Pain in right shoulder; Z20.822 Contact with and (suspected) exposure to COVID-19; Z79.899 Other long term (current) drug therapy
CPT/HCPCS: 36415; 71045; 80048; 84484; 85025; 87635; 93005; 96374; 99284; 99285; J1885

== ENCOUNTER 2021-09-18 21:36 | Emergency (ER) | payer MEDICARE, MEDICAID, SELFPAY ==
--- NOTE | ~2021-09-18 | XR_ITS ---
EXAMINATION: XR CHEST CLINICAL INFORMATION: Cough. COMPARISON: None TECHNIQUE: 2 views of the chest were obtained. FINDINGS: The lungs are well-expanded and clear of acute process. The heart size and pulmonary vascularity. No gross bony abnormality seen. There is moderate spondylosis. XR/XR chest 2V IMPRESSION: Unremarkable chest exam.
[2021-09-18 22:44] VITALS: BP 1417/86; PULSE 79; RESP 97; TEMP 36.7; BMI 47.5
--- NOTE | 2021-09-18 22:53 | ECG_ITS ---
Test Reason : cp Blood Pressure : / mmHG Vent. Rate : 070 BPM Atrial Rate : 070 BPM P-R Int : 148 ms QRS Dur : 082 ms QT Int : 386 ms P-R-T Axes : 074 027 023 degrees QTc Int : 416 ms Normal sinus rhythm Normal ECG When compared with ECG of 03-SEP-2021 05:47, No significant change was found Referred By: Generic ED Physician Electronically Signed By:ABIGAIL ROJAS MD
[2021-09-19 01:39] LABS: Alanine Aminotransferase 12 U/L (0-31); Albumin Level 4.1 g/dL (3.5-5.0); Alkaline Phosphatase 71 U/L (39-117); Anion Gap 11 (12-20); Aspartate Amino Transferase 19 U/L (5-31); Bilirubin Total 0.3 mg/dL (0.0-1.0); Blood Urea Nitrogen 8 mg/dL (9-16); Calcium 9.2 mg/dL (8.4-10.2); Carbon Dioxide 28 mmol/L (22-29); Chloride 105 mmol/L (96-108); Creatinine Clr Calc Pharmacy 111.7; Estimated Glomerular Filt Rate > 60; Glucose Random 85 mg/dL (60-115); Potassium 3.9 mmol/L (3.3-5.1); Sodium 140 mmol/L (135-145); Total Protein 7.8 g/dL (6.5-8.0)
[2021-09-19 01:46] LABS: Basophils Percent Auto 0.4 % (0-2); Monocytes Absolute Auto 0.5 X10*3/uL (0.1-1.2); PLT CLUMP 1; SCAN SMEAR FLAG 1
[2021-09-19 01:47] LABS: Eosinophils Absolute Auto 0.1 X10*3/uL (0.0-0.4); Eosinophils Percent Auto 2.6 % (0-4); Hematocrit 29.3 % (37.0-47.0); Hemoglobin 8.9 g/dl (12.0-16.0); Lymphocytes Absolute Auto 1.3 X10*3/uL (1.2-4.9); Lymphocytes Percent Auto 27.8 % (20-40); MANUAL DIFF FLAG SCAN; Mean Corpuscular HGB Conc 30.4 g/dl (31.0-35.0); Mean Corpuscular Hemoglobin 22.6 pg (27.0-33.0); Mean Corpuscular Volume 74.6 fL (80.0-98.0); Monocytes Percent Auto 10.4 % (2-11); Neutrophils Absolute Auto 2.7 x10*3/uL (2.0-8.3); Neutrophils Percent Auto 58.8 % (45-73); Red Blood Count 3.93 X10*6/uL (4.20-5.50); Red Cell Distribution Width 16.4 % (11.0-16.0)
[2021-09-19 01:49] LABS: PLT ABN DIST 1; White Blood Count 4.5 X10*3/uL (4.8-10.8)
[2021-09-19 01:51] LABS: SLIDE REVIEW VERIFIED
[2021-09-19 06:18] LABS: COVID-19 Test Positive (Negative)
--- NOTE | 2021-09-19 08:15 | PC.NURSE ---
sx since wednesday. unvaccinated. c/o BLE pain and wheezing unlabored at rest. ski pwd.
[2021-09-19 08:18] VITALS: BP 176/88; PULSE 90; RESP 20; TEMP 37.2; O2SAT 100
--- NOTE | 2021-09-19 11:54 | ED.CHESTPAIN ---
HPI - Chest Pain General Chief Complaint: Chest Pain Stated Complaint: Lupus, chest pain Time Seen by Provider: 09/19/21 11:39 Source: patient Mode of arrival: ambulatory Limitations: no limitations History of Present Illness HPI narrative: Patient comes to the emergency room complaining of flu-like symptoms, chronic right-sided and left-sided chest pain. Patient states that she has had similar chest pain sensations in the past. Also, when patient came in, she was tested for COVID-19. Patient tested positive. Patient states that she has not been immunized due to anabaptist believes. Patient also complaining of shortness of breath. Related Data Home Medications Medication Instructions Recorded Confirmed fluticasone propionate 110 2 puff INHALATION BID 07/03/20 07/03/21 mcg/actuation HFA aerosol inhaler (Flovent HFA) methadone 40 mg soluble tablet 60 mg PO DAILY tab 07/03/21 07/03/21 Previous Rx's Medication Instructions Recorded gabapentin 300 mg capsule 300 mg PO TID 30 Days #90 cap 09/03/20 lidocaine HCl 2 % mucosal solution 15 ml MUCOUS MEMBRANE Q3H PRN 10 12/03/20 (Lidocaine Viscous) Days #100 ml alprazolam 0.5 mg tablet 0.5 mg PO BID 30 Days #60 tab 04/02/21 polyethylene glycol 3350 17 gram 17 g PO DAILY 30 Days #30 ea 06/04/21 oral powder packet (Miralax) albuterol sulfate 90 mcg/actuation 2 puff INHALATION Q6H PRN 30 Days 06/14/21 aerosol inhaler #8.5 g albuterol sulfate 2.5 mg (3 mL) INHALATION Q4-6H PRN 06/16/21 30 Days #90 ml clotrimazole-betamethasone 1 1 appl TOPICAL BID PRN 30 Days #45 06/22/21 %-0.05 % topical cream g gabapentin 400 mg capsule See Rx Instructions PO .COMPLEX 30 07/01/21 Days #150 cap acetaminophen 500 mg tablet 500 mg PO Q6H PRN 30 Days #120 tab 07/03/21 baclofen 20 mg tablet 20 mg PO Q8H #90 tab 07/03/21 bisacodyl 10 mg rectal suppository 10 mg NM DAILY PRN #12 ea 07/30/21 (Gentle Laxative (bisacodyl)) ibuprofen 600 mg tablet 600 mg PO Q8H PRN #20 tab 07/30/21 sennosides 8.6 mg-docusate sodium 1 tab-cap PO BEDTIME #20 tab 07/30/21 50 mg tablet (Senna with Docusate Sodium) ketorolac 10 mg tablet 10 mg PO TID PRN 5 Days #10 tab 09/19/21 Allergies Allergy/AdvReac Type Severity Reaction Status Date / Time latex [Latex] Allergy Mild RASH Verified 07/30/21 13:20 Benadryl Allergy Unknown Rash Verified 07/30/21 13:20 diphenhydramine Allergy Unknown HIVES Verified 07/30/21 13:20 [From Benadryl] Review of Systems Review of Systems: Constitutional : No Weight loss, No Fever, No Chills, No Night Sweats, No Fatigue, No Malaise ENT/Mouth : No Hearing loss, No Ear Pain, No Nasal Congestion, No Sinus Pain, No Hoarseness, No sore throat, No Rhinorrhea, No Swallowing Difficulty Eyes: No Eye Pain, No Swelling, No Redness, No Foreign Body, No Discharge, No Vision Changes Cardiovascular : Complaining of bilateral frontal Chest Pain, No SOB, No Dyspnea on Exertion, No Orthopnea, No Edema, No Palpitations Respiratory : Complaining of dry Cough, No Sputum, complaining of Wheezing, No Smoke Exposure, complaining of intermittent Dyspnea Gastrointestinal : No Nausea, No Vomiting, No Diarrhea, No Constipation, No abdominal Pain, No Hematochezia, No Melena Genitourinary : no irregular bleeding, No Dysuria, No Urinary Frequency, No Hematuria, No Urinary Incontinence, No Urgency, No Flank Pain, No Urinary Flow Changes, No Hesitancy Musculoskeletal : No joint pain, No Myalgias, No Joint Swelling Skin : No Skin Lesions, No rash Neuro : No Weakness, No Numbness, No Paresthesias, No Loss of Consciousness, No Dizziness, No Headache Psych : No Anxiety/Panic, No Depression, No SI/HI/AH/VH, No Social Issues, Heme/Lymph: No Bruising, No Bleeding,No Lymphadenopathy Endocrine : No Polyuria, No Polydipsia, No Temperature Intolerance PMFSH Past Medical History Medical History Right shoulder pain Tinea Surgical History History of section History of umbilical hernia repair History of varicose vein ligation Plantar fasciitis of left foot Family History Family History Father High cholesterol High blood pressure Dementia Mother Diabetes Arthritis High blood pressure Paternal Grandmother Colon cancer Social History Social History (Updated 09/04/20 @ 20:53 by Rony Carr PA-C) Housing: House Alcohol intake: never Patient Tobacco Use Status: Never used Tobacco e-Cigarette/Vaping Use: Never Used Second Hand Smoke Exposure: No Substance Use Type: Opiates Advance Directives: No Advance Directives Information Provided: Yes Current occupational status: unemployed Physical Exam Vital Signs: Vital Signs: Last Vital Signs Temp 98.9 F 09/19/21 08:18 Pulse 90 09/19/21 08:18 Resp 20 09/19/21 08:18 BP 176/88 H 09/19/21 08:18 Pulse Ox 100 09/19/21 08:18 BMI result Body Mass Index 47.5 Const: Other: Appearance: Alert. Oriented X3. No acute distress. Very anxious Eyes: Pupils equal, round and reactive to light. ENT: Pharynx normal. Neck: Normal inspection. Neck supple. No lymph nodes noted. No crepitus CVS: Normal heart rate and rhythm. Pulses normal. Normal S1 and S2 Respiratory: No respiratory distress. Breath sounds normal. No Wheezing. No rales Abdomen: Soft and nontender. No rigidity. No distention. Skin: Skin warm and dry. Normal skin color. Normal skin turgor. Extremities: No lower extremity edema. No Lacerations. No Rash Neuro: Oriented X 3. No motor deficit. No sensory deficit. Moving all extermities. No slurred speech. Course Course Course Narrative: Troponin 2. Negative. We tried getting blood several times to get a D-dimer. Patient refused to be stuck again. At this time, patient has no new symptoms, no shortness of breath, patient is not tachycardic, oxygen saturation is 100% on room air, P is not suspected. We will go ahead and discharge patient home. Patient aware that she tested positive for COVID-19. Patient states that IV Toradol helped her a lot with her arm pain. Patient requesting a dose. MDM - Chest Pain Lab Data Result diagrams: 09/19/21 00:37 09/19/21 00:37 Labs: Lab Results 09/19/21 09/19/21 09/19/21 Range/Units 00:37 00:37 06:03 WBC 4.5 L (4.8-10.8) X10*3/uL RBC 3.93 L (4.20-5.50) X10*6/uL Hgb 8.9 L (12.0-16.0) g/dl Hct 29.3 L (37.0-47.0) % MCV 74.6 L (80.0-98.0) fL MCH 22.6 L (27.0-33.0) pg MCHC 30.4 L (31.0-35.0) g/dl RDW 16.4 H (11.0-16.0) % Plt Count TNP MPV TNP Immature Gran % (Auto) 0.0 (0.0-0.4) % Neut % (Auto) 58.8 (45-73) % Lymph % (Auto) 27.8 (20-40) % Jerome % (Auto) 10.4 (2-11) % Eos % (Auto) 2.6 (0-4) % Baso % (Auto) 0.4 (0-2) % Lymph # (Auto) 1.3 (1.2-4.9) X10*3/uL Jerome # (Auto) 0.5 (0.1-1.2) X10*3/uL Eos # (Auto) 0.1 (0.0-0.4) X10*3/uL Baso # (Auto) 0.0 (0.0-0.2) X10*3/uL Abs Immat Gran (auto) 0.00 (0.00-0.03) X10*3/uL Absolute Neuts (auto) 2.7 (2.0-8.3) x10*3/uL Absolute Nucleated RBC 0.000 (0.0-0.012) X10*3/uL Nucleated RBC % (auto) 0.0 (0.0-0.2) /100WBC Smear Tech's Comments VERIFIED Sodium 140 (135-145) mmol/L Potassium 3.9 (3.3-5.1) mmol/L Chloride 105 (96-108) mmol/L Carbon Dioxide 28 (22-29) mmol/L Anion Gap 11 L (12-20) BUN 8 L (9-16) mg/dL Creatinine 0.71 (0.5-1.4) mg/dL Estim Creat Clear Calc 111.7 Estimated GFR > 60 Random Glucose 85 (60-115) mg/dL Calcium 9.2 (8.4-10.2) mg/dL Total Bilirubin 0.3 (0.0-1.0) mg/dL AST 19 (5-31) U/L ALT 12 (0-31) U/L Alkaline Phosphatase 71 D (39-117) U/L Troponin I High Sens (<3.5-17.0) ng/L Total Protein 7.8 (6.5-8.0) g/dL Albumin 4.1 (3.5-5.0) g/dL COVID-19 ([facility]) Positive A (Negative) COVID-19 Clin Com See Note 09/19/21 Range/Units 14:03 WBC (4.8-10.8) X10*3/uL RBC (4.20-5.50) X10*6/uL Hgb (12.0-16.0) g/dl Hct (37.0-47.0) % MCV (80.0-98.0) fL MCH (27.0-33.0) pg MCHC (31.0-35.0) g/dl RDW (11.0-16.0) % Plt Count MPV Immature Gran % (Auto) (0.0-0.4) % Neut % (Auto) (45-73) % Lymph % (Auto) (20-40) % Jerome % (Auto) (2-11) % Eos % (Auto) (0-4) % Baso % (Auto) (0-2) % Lymph # (Auto) (1.2-4.9) X10*3/uL Jerome # (Auto) (0.1-1.2) X10*3/uL Eos # (Auto) (0.0-0.4) X10*3/uL Baso # (Auto) (0.0-0.2) X10*3/uL Abs Immat Gran (auto) (0.00-0.03) X10*3/uL Absolute Neuts (auto) (2.0-8.3) x10*3/uL Absolute Nucleated RBC (0.0-0.012) X10*3/uL Nucleated RBC % (auto) (0.0-0.2) /100WBC Smear Tech's Comments Sodium (135-145) mmol/L Potassium (3.3-5.1) mmol/L Chloride (96-108) mmol/L Carbon Dioxide (22-29) mmol/L Anion Gap (12-20) BUN (9-16) mg/dL Creatinine (0.5-1.4) mg/dL Estim Creat Clear Calc Estimated GFR Random Glucose (60-115) mg/dL Calcium (8.4-10.2) mg/dL Total Bilirubin (0.0-1.0) mg/dL AST (5-31) U/L ALT (0-31) U/L Alkaline Phosphatase (39-117) U/L Troponin I High Sens 4.2 (<3.5-17.0) ng/L Total Protein (6.5-8.0) g/dL Albumin (3.5-5.0) g/dL COVID-19 ([facility]) (Negative) COVID-19 Clin Com Discharge Plan Discharge Clinical Impression: COVID-19, Chronic chest pain Patient Disposition: Home, Self-Care Instructions: COVID-19 (Coronavirus Disease 2019) (ED) Additional Instructions: Please follow-up with your primary care physician tomorrow. If you have any worsening or new symptoms, please return to the emergency room or call 911 Prescriptions: New ketorolac 10 mg tablet 10 mg PO TID PRN (Reason: pain) 5 Days Qty: 10 RF: 0 No Action Lidocaine Viscous 2 % solution 15 ml mucous membrane Q3H PRN (Reason: mouth pain) 10 Days Qty: 100 RF: 2 alprazolam 0.5 mg tablet 0.5 mg PO BID 30 Days Qty: 60 RF: 1 polyethylene glycol 3350 [Miralax] 17 gram powder in packet 17 g PO DAILY 30 Days Qty: 30 RF: 0 albuterol sulfate 90 mcg/actuation HFA aerosol inhaler 2 puff inhalation Q6H PRN (Reason: shortness of breath or wheezing) 30 Days Qty: 8.5 RF: 1 albuterol sulfate 2.5 mg /3 mL (0.083 %) solution for nebulization 2.5 mg inhalation Q4-6H PRN (Reason: shortness of breath or wheezing) 30 Days Qty: 90 RF: 3 clotrimazole-betamethasone 1-0.05 % cream 1 appl topical BID PRN (Reason: skin irritation) 30 Days Qty: 45 RF: 2 gabapentin 400 mg capsule See Rx Instructions PO .COMPLEX 30 Days Qty: 150 RF: 3 sennosides-docusate sodium [Senna with Docusate Sodium] 8.6-50 mg tablet 1 tab-cap PO BEDTIME Qty: 20 RF: 0 bisacodyl [Gentle Laxative (bisacodyl)] 10 mg suppository 10 mg NM DAILY PRN (Reason: constipation) Qty: 12 RF: 0 ibuprofen 600 mg tablet 600 mg PO Q8H PRN (Reason: pain) Qty: 20 RF: 0 Flovent HFA 110 mcg/actuation HFA aerosol inhaler 2 puff inhalation BID RF: 0 gabapentin 300 mg capsule 300 mg PO TID 30 Days Qty: 90 RF: 3 methadone 40 mg tablet,soluble 60 mg PO DAILY RF: 0 baclofen 20 mg tablet 20 mg PO Q8H Qty: 90 RF: 1 acetaminophen 500 mg tablet 500 mg PO Q6H PRN (Reason: pain) 30 Days Qty: 120 RF: 3
[2021-09-19] MEDS: Ondansetron ODT 4 MG TAB.RAPDIS TRANSLINGU (12:31)
[2021-09-19 14:40] LABS: Troponin-I High Sensitivity 4.2 ng/L (<3.5-17.0)
[2021-09-19] MEDS: Ketorolac Tromethamine 30 MG/ML VIAL 15 MG IVPUSH (15:35)
[2021-09-19 15:42] VITALS: BP 146/92; PULSE 95; RESP 16; TEMP 36.2; O2SAT 95
== END 2021-09-19 15:57 | disposition home or self-care (01) ==
PROVIDERS: Emergency Provider Emergency Medicine; PCP Physician Assistant
DX: U07.1 COVID-19 (principal); R07.9 Chest pain, unspecified
CPT/HCPCS: 36415; 71046; 80053; 84484; 85025; 87635; 93005; 96374; 99284; J1885

== ENCOUNTER 2021-09-25 10:50 | Emergency (ER) | payer MEDICARE, MEDICAID, SELFPAY ==
--- NOTE | ~2021-09-25 | XR_ITS ---
EXAMINATION: XR CHEST CLINICAL INFORMATION: Covid positive, SOB and cough COMPARISON: Chest 09/19/2021 TECHNIQUE: 2 views of the chest were obtained. FINDINGS: The lungs are well-expanded and clear of acute pneumonic process. Heart size and pulmonary vascularity is normal. There is no pleural effusion. No gross bony abnormality. XR/XR chest 2V IMPRESSION: Unremarkable chest exam
[2021-09-25 12:05] VITALS: BP 156/65; PULSE 70; RESP 18; O2SAT 98; BMI 48.4
--- NOTE | 2021-09-25 22:32 | ED.SOB ---
HPI - SOB/Dyspnea General Chief Complaint: Dyspnea Stated Complaint: chest pain dif breathing wheezing Time Seen by Provider: 09/25/21 22:32 Source: patient Mode of arrival: ambulatory Limitations: no limitations History of Present Illness HPI Narrative: patient feels nauseaous with coughing and wheezing at home. Patient was diagnosed with COVID 09/18/21. Today she was not feeling well MD elicited complaint: shortness of breath and cough Onset (ago): week(s) Context: recent illness Timing: constant Severity: mild Associated symptoms: cough, wheezing and nausea/vomiting Related Data Home Medications Medication Instructions Recorded Confirmed fluticasone propionate 110 2 puff INHALATION BID 07/03/20 07/03/21 mcg/actuation HFA aerosol inhaler (Flovent HFA) methadone 40 mg soluble tablet 60 mg PO DAILY tab 07/03/21 07/03/21 Previous Rx's Medication Instructions Recorded gabapentin 300 mg capsule 300 mg PO TID 30 Days #90 cap 09/03/20 lidocaine HCl 2 % mucosal solution 15 ml MUCOUS MEMBRANE Q3H PRN 10 12/03/20 (Lidocaine Viscous) Days #100 ml alprazolam 0.5 mg tablet 0.5 mg PO BID 30 Days #60 tab 04/02/21 albuterol sulfate 90 mcg/actuation 2 puff INHALATION Q6H PRN 30 Days 06/14/21 aerosol inhaler #8.5 g albuterol sulfate 2.5 mg (3 mL) INHALATION Q4-6H PRN 06/16/21 30 Days #90 ml clotrimazole-betamethasone 1 1 appl TOPICAL BID PRN 30 Days #45 06/22/21 %-0.05 % topical cream g gabapentin 400 mg capsule See Rx Instructions PO .COMPLEX 30 07/01/21 Days #150 cap acetaminophen 500 mg tablet 500 mg PO Q6H PRN 30 Days #120 tab 07/03/21 baclofen 20 mg tablet 20 mg PO Q8H #90 tab 07/03/21 bisacodyl 10 mg rectal suppository 10 mg [place] DAILY PRN #12 ea 07/30/21 (Gentle Laxative (bisacodyl)) ibuprofen 600 mg tablet 600 mg PO Q8H PRN #20 tab 07/30/21 sennosides 8.6 mg-docusate sodium 1 tab-cap PO BEDTIME #20 tab 07/30/21 50 mg tablet (Senna with Docusate Sodium) ketorolac 10 mg tablet 10 mg PO TID PRN 5 Days #10 tab 09/19/21 polyethylene glycol 3350 17 gram 17 g PO DAILY PRN 30 Days #30 ea 09/22/21 oral powder packet (Miralax) promethazine 12.5 mg tablet 12.5 mg PO TID PRN 4 Days #12 tab 09/22/21 ondansetron 4 mg disintegrating 4 mg PO Q8H 4 Days #12 tab 09/25/21 tablet qesfayiaoofmy-KE-iwnfswqihqy 2.5 20 ml PO Q4H PRN #118 ml 09/25/21 mg-5 mg-50 mg/5 mL oral liquid (Robitussin Cough and Cold CF) Allergies Allergy/AdvReac Type Severity Reaction Status Date / Time latex [Latex] Allergy Mild RASH Verified 07/30/21 13:20 Benadryl Allergy Unknown Rash Verified 07/30/21 13:20 diphenhydramine Allergy Unknown HIVES Verified 07/30/21 13:20 [From Benadryl] Review of Systems Constitutional: Constitutional: Reports no additional constitutional complaints Eyes: Eyes: Reports no additional eye complaints ENT: Denies dizziness Cardiovascular: Cardiovascular: Reports no additional cardiovascular complaints Respiratory: Respiratory: Reports as per HPI Gastrointestinal: Gastrointestinal: Reports no additional gastrointestinal complaints Genitourinary: Genitourinary: Reports no additional female genitourinary complaints Musculoskeletal: Musculoskeletal: Reports no additional musculoskeletal complaints Integumentary/Breasts: Skin/Breast: Denies rash Neurologic: Reports system reviewed and no additional complaints, except as documented, Denies dizziness and Denies Sensory deficit (Neuro) Psychiatric: Psychiatric: Denies anxiety PMFSH Past Medical History Medical History Right shoulder pain Tinea Surgical History History of section History of umbilical hernia repair History of varicose vein ligation Plantar fasciitis of left foot Family History Family History Father High cholesterol High blood pressure Dementia Mother Diabetes Arthritis High blood pressure Paternal Grandmother Colon cancer Social History Social History (Updated 09/04/20 @ 20:53 by Rony Carr PA-C) Housing: House Alcohol intake: never Patient Tobacco Use Status: Never used Tobacco e-Cigarette/Vaping Use: Never Used Second Hand Smoke Exposure: No Substance Use Type: Opiates Advance Directives: No Advance Directives Information Provided: No Current occupational status: unemployed Physical Exam Vital Signs: Vital Signs: Last Vital Signs Pulse 70 09/25/21 23:41 Resp 18 09/25/21 12:05 BP 136/79 09/25/21 23:41 Pulse Ox 99 09/25/21 23:41 BMI result Body Mass Index 48.4 Const: Other: obese female anxious Nutritional Appearance: average body habitus Orientation/consciousness: oriented to person and patient oriented x3 Limitations: no limitations HENMT: Head: Yes normal to inspection Ears: external ears normal General nose exam: Normal external nose present Mouth: Normal oral and palatal mucosa present and oropharynx normal Throat: Yes posterior oropharynx normal Eyes: General: appearance normal, both eyes and all related structures Neck: Other: supple Neck: Yes normal visual inspection Chest: Chest palpation & inspection: normal inspection of the chest Resp: Other: cough no wheeze Auscultation: clear to auscultation bilaterally Cardio: Jugular venous distension: no JVD Rate: regular rate Rhythm: regular rhythm Heart sounds: S1 normal heart sound present and S2 normal heart sound present GI: Inspection: Yes normal to inspection Palpation (GI): Soft to palpation, nontender and No hepatosplenomegaly present Auscultation: normal bowel sounds : General: Yes no CVA tenderness Back/Spine/Pelvis: Back: no CVA tenderness Skin: General skin exam: no rashes or lesions noted Neuro: General: oriented to person and patient oriented x3 Cranial nerves: Yes CN's II-XII intact bilaterally Motor exam (neuro): 5/5 motor strength present throughout Sensory Exam: No Sensory deficit (Neuro) Extrem: General: Yes normal to inspection Psych: Other: slightly anxious Course Reevaluation(s) Reevaluation #1: patient is resting comfortably, lungs clear will dc home Time: 23:54 MDM - SOB/Dyspnea Imaging Data Chest x-ray: Radiologist's impression: FINDINGS: The lungs are well-expanded and clear of acute pneumonic process. Heart size and pulmonary vascularity is normal. There is no pleural effusion. No gross bony abnormality. XR/XR chest 2V IMPRESSION: Unremarkable chest exam Discharge Plan Discharge Clinical Impression: COVID-19 Patient Disposition: Home, Self-Care Instructions: COVID-19 (Coronavirus Disease 2019) (ED) Prescriptions: New ondansetron 4 mg tablet,disintegrating 4 mg PO Q8H 4 Days Qty: 12 RF: 0 Robitussin Cough and Cold CF 2.5-5-50 mg/5 mL liquid 20 ml PO Q4H PRN (Reason: cough) Qty: 118 RF: 0 No Action Lidocaine Viscous 2 % solution 15 ml mucous membrane Q3H PRN (Reason: mouth pain) 10 Days Qty: 100 RF: 2 alprazolam 0.5 mg tablet 0.5 mg PO BID 30 Days Qty: 60 RF: 1 albuterol sulfate 90 mcg/actuation HFA aerosol inhaler 2 puff inhalation Q6H PRN (Reason: shortness of breath or wheezing) 30 Days Qty: 8.5 RF: 1 albuterol sulfate 2.5 mg /3 mL (0.083 %) solution for nebulization 2.5 mg inhalation Q4-6H PRN (Reason: shortness of breath or wheezing) 30 Days Qty: 90 RF: 3 clotrimazole-betamethasone 1-0.05 % cream 1 appl topical BID PRN (Reason: skin irritation) 30 Days Qty: 45 RF: 2 gabapentin 400 mg capsule See Rx Instructions PO .COMPLEX 30 Days Qty: 150 RF: 3 polyethylene glycol 3350 [Miralax] 17 gram powder in packet 17 g PO DAILY PRN (Reason: constipation) 30 Days Qty: 30 RF: 3 promethazine 12.5 mg tablet 12.5 mg PO TID PRN (Reason: nausea) 4 Days Qty: 12 RF: 0 ketorolac 10 mg tablet 10 mg PO TID PRN (Reason: pain) 5 Days Qty: 10 RF: 0 sennosides-docusate sodium [Senna with Docusate Sodium] 8.6-50 mg tablet 1 tab-cap PO BEDTIME Qty: 20 RF: 0 bisacodyl [Gentle Laxative (bisacodyl)] 10 mg suppository 10 mg [place] DAILY PRN (Reason: constipation) Qty: 12 RF: 0 ibuprofen 600 mg tablet 600 mg PO Q8H PRN (Reason: pain) Qty: 20 RF: 0 Flovent HFA 110 mcg/actuation HFA aerosol inhaler 2 puff inhalation BID RF: 0 gabapentin 300 mg capsule 300 mg PO TID 30 Days Qty: 90 RF: 3 methadone 40 mg tablet,soluble 60 mg PO DAILY RF: 0 baclofen 20 mg tablet 20 mg PO Q8H Qty: 90 RF: 1 acetaminophen 500 mg tablet 500 mg PO Q6H PRN (Reason: pain) 30 Days Qty: 120 RF: 3
[2021-09-25] MEDS: Ondansetron ODT 4 MG TAB.RAPDIS TRANSLINGU (23:40)
[2021-09-25] MEDS: guaiFENesin 200 MG/10 ML 10 ML LIQUID PO (23:40)
[2021-09-25 23:41] VITALS: BP 136/79; PULSE 70; O2SAT 99
[2021-09-26] MEDS: Albuterol Sulfate 90 MCG 8 GM INHALER 4 PUFF INHALE (00:31)
== END 2021-09-26 00:55 | disposition home or self-care (01) ==
PROVIDERS: Emergency Provider Emergency Medicine; PCP Physician Assistant
DX: U07.1 COVID-19 (principal)
CPT/HCPCS: 71046; 96372; 99283; 99284; 99285

== ENCOUNTER 2021-09-26 07:08 | Emergency (ER) | payer MEDICARE, MEDICAID, SELFPAY ==
[2021-09-26 07:13] VITALS: BP 160/80; PULSE 67; O2SAT 98
[2021-09-26 07:31] VITALS: BP 138/60; PULSE 67; RESP 18; TEMP 35.8; O2SAT 97; BMI 47.5
--- NOTE | 2021-09-26 08:05 | ED.URI ---
HPI - URI/Sore Throat General Chief Complaint: Upper Respiratory Symptoms Stated Complaint: covid + Time Seen by Provider: 09/26/21 08:03 Source: patient Mode of arrival: ambulatory Limitations: no limitations History of Present Illness HPI Narrative: 51-year-old female with a history of lupus and asthma presents for nausea and coughing. Patient was diagnosed with COVID September 18, 8 days ago. She was seen here today and discharged just 2 hours ago. She was prescribed a Zofran and Robitussin cough syrup, but the pharmacy was closed. She went home and she vomited, and has continued to cough despite her use of her albuterol inhaler. She had a negative chest x-ray earlier this morning. States she did take half of a Zofran that she had from a different prescription, but she is still feeling nauseous. States she vomited twice and it was mostly phlegm. She has no appetite. She requests a nebulizer treatment. She is able to tolerate fluids. States she has had low-grade fevers, she is afebrile here with stable vitals Related Data Home Medications Medication Instructions Recorded Confirmed fluticasone propionate 110 2 puff INHALATION BID 07/03/20 07/03/21 mcg/actuation HFA aerosol inhaler (Flovent HFA) methadone 40 mg soluble tablet 60 mg PO DAILY tab 07/03/21 07/03/21 Previous Rx's Medication Instructions Recorded gabapentin 300 mg capsule 300 mg PO TID 30 Days #90 cap 09/03/20 lidocaine HCl 2 % mucosal solution 15 ml MUCOUS MEMBRANE Q3H PRN 10 12/03/20 (Lidocaine Viscous) Days #100 ml alprazolam 0.5 mg tablet 0.5 mg PO BID 30 Days #60 tab 04/02/21 albuterol sulfate 90 mcg/actuation 2 puff INHALATION Q6H PRN 30 Days 06/14/21 aerosol inhaler #8.5 g albuterol sulfate 2.5 mg (3 mL) INHALATION Q4-6H PRN 06/16/21 30 Days #90 ml clotrimazole-betamethasone 1 1 appl TOPICAL BID PRN 30 Days #45 06/22/21 %-0.05 % topical cream g gabapentin 400 mg capsule See Rx Instructions PO .COMPLEX 30 07/01/21 Days #150 cap acetaminophen 500 mg tablet 500 mg PO Q6H PRN 30 Days #120 tab 10/21/21 baclofen 20 mg tablet 20 mg PO Q8H #90 tab 07/03/21 bisacodyl 10 mg rectal suppository 10 mg [place] DAILY PRN #12 ea 07/30/21 (Gentle Laxative (bisacodyl)) ibuprofen 600 mg tablet 600 mg PO Q8H PRN #20 tab 07/30/21 sennosides 8.6 mg-docusate sodium 1 tab-cap PO BEDTIME #20 tab 07/30/21 50 mg tablet (Senna with Docusate Sodium) ketorolac 10 mg tablet 10 mg PO TID PRN 5 Days #10 tab 09/19/21 polyethylene glycol 3350 17 gram 17 g PO DAILY PRN 30 Days #30 ea 09/22/21 oral powder packet (Miralax) promethazine 12.5 mg tablet 12.5 mg PO TID PRN 4 Days #12 tab 09/22/21 ondansetron 4 mg disintegrating 4 mg PO Q8H 4 Days #12 tab 09/25/21 tablet [id number] 2.5 20 ml PO Q4H PRN #118 ml 09/25/21 mg-5 mg-50 mg/5 mL oral liquid (Robitussin Cough and Cold CF) dexamethasone 6 mg tablet 6 mg PO DAILY 3 Days #3 tab 09/26/21 Allergies Allergy/AdvReac Type Severity Reaction Status Date / Time latex [Latex] Allergy Mild RASH Verified 07/30/21 13:20 Benadryl Allergy Unknown Rash Verified 07/30/21 13:20 diphenhydramine Allergy Unknown HIVES Verified 07/30/21 13:20 [From Benadryl] Review of Systems Constitutional: Constitutional: Reports body ache(s), Reports chills, Reports fatigue, Reports fever(s), Reports headache(s), Reports malaise and Denies weakness Eyes: Eyes: Denies diplopia ENT: Denies vertigo, Denies dizziness, Denies otalgia, Reports headache(s), Denies mouth pain, Denies post nasal drip, Denies sinus pain, Denies sinus pressure, Reports sore throat and Denies throat swelling Cardiovascular: Cardiovascular: Denies chest pain, Denies syncope, Denies leg edema, Denies lightheadedness, Denies Loss of Consciousness, Denies palpitations and Denies dyspnea Respiratory: Respiratory: Denies chest congestion, Reports cough and Denies dyspnea Gastrointestinal: Gastrointestinal: Denies abdominal pain, Denies hematochezia, Denies constipation, Denies diarrhea, Reports nausea and Reports vomiting Musculoskeletal: Musculoskeletal: Reports myalgias Integumentary/Breasts: Skin/Breast: Denies rash Neurologic: Denies confusion, Denies vertigo, Denies dizziness, Denies syncope, Reports headache(s) and Denies weakness Psychiatric: Psychiatric: Denies anxiety, Denies confusion and Denies depression Endocrine: Endocrine: Reports fatigue and Denies palpitations Allergic/Immunologic: Allergic/Immunologic: Denies throat swelling PMFSH Past Medical History Medical History Right shoulder pain Tinea Surgical History History of section History of umbilical hernia repair History of varicose vein ligation Plantar fasciitis of left foot Family History Family History Father High cholesterol High blood pressure Dementia Mother Diabetes Arthritis High blood pressure Paternal Grandmother Colon cancer Social History Social History (Updated 09/04/20 @ 20:53 by Rony Carr PA-C) Housing: House Alcohol intake: never Patient Tobacco Use Status: Never used Tobacco e-Cigarette/Vaping Use: Never Used Second Hand Smoke Exposure: No Substance Use Type: Opiates Advance Directives: No Advance Directives Information Provided: No Patient : No Current occupational status: unemployed Physical Exam Vital Signs: Vital Signs: Last Vital Signs Temp 98.7 F 09/26/21 09:06 Pulse 80 09/26/21 09:06 Resp 19 09/26/21 09:06 BP 138/60 09/26/21 07:31 Pulse Ox 97 09/26/21 09:06 BMI result Body Mass Index 47.5 Const: General: no acute distress, alert and awake; No confusion Nutritional Appearance: obese centrally obese Orientation/consciousness: patient oriented x3 and No confusion Limitations: no limitations HENMT: Head: Yes normal to inspection, Yes normocephalic and Yes atraumatic Ears: hearing grossly normal bilaterally, external ears normal, TM's normal bilaterally and EAC's normal General nose exam: Normal external nose present Face and sinus: Yes normal facial exam and Yes sinuses nontender Mouth: Normal oral and palatal mucosa present Throat: Yes posterior oropharynx normal Eyes: Conjunctivae: conjunctivae normal Pupils: Equal, round and reactive pupils present EOM: EOMs intact bilaterally Neck: Neck: Yes full ROM, Yes no lymphadenopathy and Yes supple Resp: Effort & Inspection: normal respiratory effort and able to speak in complete sentences Auscultation: clear to auscultation bilaterally, no crackles, no rales, no rhonchi and no wheezes Cardio: Rate: regular rate Rhythm: regular rhythm Heart sounds: S1 normal heart sound present and S2 normal heart sound present GI: Inspection: Yes normal to inspection Palpation (GI): Soft to palpation, nontender, no guarding and not rigid Percussion: Yes normal to percussion Auscultation: normal bowel sounds Skin: General skin exam: no rashes or lesions noted Neuro: General: patient oriented x3 and No confusion Cranial nerves: Yes Equal, round and reactive pupils present Extrem: General: Yes normal to inspection and Yes full ROM Psych: Appearance: grossly normal Affect: normal affect Attitude: cooperative Thought process: Normal thought process present Course Course Course Narrative: 51-year-old female with a history of asthma and lupus presents for the 2nd time this morning for a COVID symptoms. 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 States she has continued to cough and feels nauseous. The patient would like a nebulizer treatment here. States she is using her albuterol inhaler, last use was 5 hours ago. On exam, morbidly obese female with lungs clear to auscultation bilaterally, abdomen soft nontender, with stable vitals. Patient has a respiratory rate of 18 and is satting 97% on room air. Discussed with patient that COVID symptoms may continue for the next several days, that she should take her Zofran, and due to her history of asthma, I will prescribe dexamethasone. Because she has a history of lupus and is obese I will refer her to for monoclonal antibody treatment. Discussed she should get a pulse oximeter and should and make sure her oxygen saturation stays above 89%. Counseled her to push fluids, take Tylenol, use her albuterol inhaler, 2 puffs every 4 hours while she is awake. Patient verbalized agreement and understanding of the plan, all her questions were answered, patient was encouraged to return if she has worsening symptoms. Discharge Plan Discharge Clinical Impression: COVID-19 Patient Disposition: Home, Self-Care Instructions: COVID-19 (Coronavirus Disease 2019) (ED) Additional Instructions: Please call the following [phone], this is the company that provides the monoclonal antibody treatment that we discussed. I have referred you to them. Please fill your prescriptions for both dexamethasone and Zofran. Please take the dexamethasone daily, you received your dexamethasone dose today. Please take Zofran, 1 tablet every 8 hours for the next 2 days, and drink plenty of fluids. I want you to drink 2-3 L of water a day. In addition, I want you to buy a pulse oximeter, and if your oxygen saturation goes below 89%, or you feel worsening shortness of breath or chest pain, I want you to return to the emergency room. Please use your inhaler, 2 puffs every 4 hours while you are awake. Please take Tylenol. Please rest. Prescriptions: New dexamethasone 6 mg tablet 6 mg PO DAILY 3 Days Qty: 3 RF: 0 No Action Lidocaine Viscous 2 % solution 15 ml mucous membrane Q3H PRN (Reason: mouth pain) 10 Days Qty: 100 RF: 2 alprazolam 0.5 mg tablet 0.5 mg PO BID 30 Days Qty: 60 RF: 1 albuterol sulfate 90 mcg/actuation HFA aerosol inhaler 2 puff inhalation Q6H PRN (Reason: shortness of breath or wheezing) 30 Days Qty: 8.5 RF: 1 albuterol sulfate 2.5 mg /3 mL (0.083 %) solution for nebulization 2.5 mg inhalation Q4-6H PRN (Reason: shortness of breath or wheezing) 30 Days Qty: 90 RF: 3 clotrimazole-betamethasone 1-0.05 % cream 1 appl topical BID PRN (Reason: skin irritation) 30 Days Qty: 45 RF: 2 gabapentin 400 mg capsule See Rx Instructions PO .COMPLEX 30 Days Qty: 150 RF: 3 polyethylene glycol 3350 [Miralax] 17 gram powder in packet 17 g PO DAILY PRN (Reason: constipation) 30 Days Qty: 30 RF: 3 promethazine 12.5 mg tablet 12.5 mg PO TID PRN (Reason: nausea) 4 Days Qty: 12 RF: 0 ketorolac 10 mg tablet 10 mg PO TID PRN (Reason: pain) 5 Days Qty: 10 RF: 0 ondansetron 4 mg tablet,disintegrating 4 mg PO Q8H 4 Days Qty: 12 RF: 0 Robitussin Cough and Cold CF 2.5-5-50 mg/5 mL liquid 20 ml PO Q4H PRN (Reason: cough) Qty: 118 RF: 0 sennosides-docusate sodium [Senna with Docusate Sodium] 8.6-50 mg tablet 1 tab-cap PO BEDTIME Qty: 20 RF: 0 bisacodyl [Gentle Laxative (bisacodyl)] 10 mg suppository 10 mg FL DAILY PRN (Reason: constipation) Qty: 12 RF: 0 ibuprofen 600 mg tablet 600 mg PO Q8H PRN (Reason: pain) Qty: 20 RF: 0 Flovent HFA 110 mcg/actuation HFA aerosol inhaler 2 puff inhalation BID RF: 0 gabapentin 300 mg capsule 300 mg PO TID 30 Days Qty: 90 RF: 3 methadone 40 mg tablet,soluble 60 mg PO DAILY RF: 0 baclofen 20 mg tablet 20 mg PO Q8H Qty: 90 RF: 1 acetaminophen 500 mg tablet 500 mg PO Q6H PRN (Reason: pain) 30 Days Qty: 120 RF: 3 Interventions: ED Discharge Assessment Last Done: 09/26/21 09:10 Discharge Date/Time: 09/26/21 09:21
[2021-09-26 08:51] VITALS: PULSE 77; RESP 18; O2SAT 98
[2021-09-26] MEDS: Albuterol/Iprat 2.5/0.5MG 3 ML AMPUL.NEB INHALE (08:51)
[2021-09-26] MEDS: dexAMETHasone 6 MG TABLET PO (08:57)
[2021-09-26 09:06] VITALS: PULSE 80; RESP 19; TEMP 37.1; O2SAT 97
== END 2021-09-26 09:21 | disposition home or self-care (01) ==
PROVIDERS: Emergency Provider Emergency Medicine; PCP Physician Assistant
DX: U07.1 COVID-19 (principal); Z79.899 Other long term (current) drug therapy
CPT/HCPCS: 94640; 99284; J8540

== ENCOUNTER 2021-11-02 23:13 | Emergency (ER) | payer MEDICARE, MEDICAID, SELFPAY ==
--- NOTE | ~2021-11-02 | XR_ITS ---
EXAMINATION: XR CHEST CLINICAL INFORMATION: Chest pain COMPARISON: 09/25/2021 TECHNIQUE: 2 views of the chest were obtained. FINDINGS: No significant abnormality is noted involving the heart, lungs, mediastinum, bony thorax or soft tissues. XR/XR chest 2V IMPRESSION: Unremarkable examination.
[2021-11-02 23:34] VITALS: BP 162/74; PULSE 76; RESP 22; TEMP 36.8; O2SAT 96
[2021-11-02 23:52] VITALS: BP 162/74; PULSE 76; RESP 22; TEMP 36.8; O2SAT 96; BMI 46.0
--- NOTE | 2021-11-03 02:44 | ECG_ITS ---
Test Reason : N/V Blood Pressure : / mmHG Vent. Rate : 070 BPM Atrial Rate : 070 BPM P-R Int : 156 ms QRS Dur : 088 ms QT Int : 392 ms P-R-T Axes : 028 018 025 degrees QTc Int : 423 ms Normal sinus rhythm Normal ECG When compared with ECG of 19-SEP-2021 06:09, No significant change was found Referred By: Nata Gallegos Electronically Signed By:JOYCE LUDWIG
[2021-11-03 03:28] LABS: Appearance Urine HAZY; Color Urine YELLOW; Glucose Urine UA NEG (NEG); Leukocyte Esterase Urine TRACE (NEG); Nitrite Urine NEG (NEG); PH 5.5 (5.0-8.0); Specific Gravity - Urine >= 1.030 (1.005-1.025); UACC Culture Trigger YES; Urine Blood NEG (NEG); Urine Ketones NEG (NEG); Urine Protein NEG (NEG-TRACE)
--- NOTE | 2021-11-03 03:31 | ED.GENADULT ---
HPI - General Adult General Chief complaint: Back Pain/Injury Stated complaint: lupus; R shoulder, back & chest pain, nauseas Time Seen by Provider: 11/03/21 02:42 Source: patient Mode of arrival: ambulatory History of Present Illness HPI narrative: 51-year-old female with known lupus and has a history of right rotator cuff tear and presents with right upper extremity/shoulder pain that has gradually resulted in decreased range of motion but she denies any numbness or tingling into the hand. She states that she has had x-rays by her primary care provider and that they have not shown any acute problems. Patient also states that she has chronic nausea for which she takes Zofran and has a follow-up appointment with her filter press tender this next month to adjust her medications. She states that her primary care provider thinks that some of her symptoms are secondary to her lupus. Otherwise, she denies any fever, chills, chest pain, new cough. Related Data Home Medications Medication Instructions Recorded Confirmed fluticasone propionate 110 2 puff INHALATION BID 07/03/20 10/06/21 mcg/actuation HFA aerosol inhaler (Flovent HFA) methadone 40 mg soluble tablet 60 mg PO DAILY tab 07/03/21 10/06/21 Previous Rx's Medication Instructions Recorded lidocaine HCl 2 % mucosal solution 15 ml MUCOUS MEMBRANE Q3H PRN 10 12/03/20 (Lidocaine Viscous) Days #100 ml alprazolam 0.5 mg tablet 0.5 mg PO BID 30 Days #60 tab 04/02/21 albuterol sulfate 90 mcg/actuation 2 puff INHALATION Q6H PRN 30 Days 06/14/21 aerosol inhaler #8.5 g albuterol sulfate 2.5 mg (3 mL) INHALATION Q4-6H PRN 06/16/21 30 Days #90 ml acetaminophen 500 mg tablet 500 mg PO Q6H PRN 30 Days #120 tab 07/03/21 baclofen 20 mg tablet 20 mg PO Q8H #90 tab 07/03/21 bisacodyl 10 mg rectal suppository 10 mg [place] DAILY PRN #12 ea 07/30/21 (Gentle Laxative (bisacodyl)) sennosides 8.6 mg-docusate sodium 1 tab-cap PO BEDTIME #20 tab 07/30/21 50 mg tablet (Senna with Docusate Sodium) polyethylene glycol 3350 17 gram 17 g PO DAILY PRN 30 Days #30 ea 09/22/21 oral powder packet (Miralax) [id number] 2.5 20 ml PO Q4H PRN #118 ml 09/25/21 mg-5 mg-50 mg/5 mL oral liquid (Robitussin Cough and Cold CF) diclofenac sodium 50 mg 50 mg PO BID 15 Days #30 tab 10/06/21 tablet,delayed release gabapentin 300 mg capsule 300 mg PO TID 30 Days #90 cap 10/06/21 gabapentin 400 mg capsule See Rx Instructions PO .COMPLEX 30 10/06/21 Days #150 cap miscellaneous medical supply 1 ea MISCELLANEOUS DAILY 99 Days 10/06/21 #1 ea clotrimazole-betamethasone 1 1 appl TOPICAL BID PRN 30 Days #45 10/08/21 %-0.05 % topical cream g ondansetron 4 mg disintegrating 4 mg PO Q8H 4 Days #12 tab 10/29/21 tablet omeprazole 40 mg capsule,delayed 40 mg PO DAILY #30 cap 11/03/21 release Allergies Allergy/AdvReac Type Severity Reaction Status Date / Time latex [Latex] Allergy Mild RASH Verified 10/06/21 15:14 Benadryl Allergy Unknown Rash Verified 10/06/21 15:14 diphenhydramine Allergy Unknown HIVES Verified 10/06/21 15:14 [From Benadryl] Review of Systems Review of Systems: Pertinent positives and negatives as stated in HPI 10 point review of systems is otherwise negative. COUNT INCLUDES THE [facility] Past Medical History Source: nursing notes reviewed Medical History Right shoulder pain Tinea Surgical History History of section History of umbilical hernia repair History of varicose vein ligation Plantar fasciitis of left foot Family History Family History Father High cholesterol High blood pressure Dementia Mother Diabetes Arthritis High blood pressure Paternal Grandmother Colon cancer Social History Social History Housing: House Alcohol intake: never Patient Tobacco Use Status: Never used Tobacco e-Cigarette/Vaping Use: Never Used Second Hand Smoke Exposure: No Substance Use Type: Opiates Advance Directives: No Current occupational status: unemployed Physical Exam ED Vital Signs: Vital Signs - 24 hr 11/02/21 23:34 11/02/21 23:52 11/03/21 04:36 Temperature 98.3 F 98.3 F 98.1 F Pulse Rate 76 76 74 Respiratory Rate 22 H 22 H 16 Blood Pressure 162/74 H 162/74 H 100/56 L Pulse Oximetry 96 96 97 BMI result Body Mass Index 46.0 VITAL SIGNS: Reviewed. GENERAL: Well developed, well nourished, in no acute distress. HEAD: Normocephalic/atraumatic EYES: PERRLA, EOMI EARS: Ext canals without abnormality OROPHARYNX: no oral lesions noted, posterior pharynx clear and non-erythematous without noted tonsillar enlargement/erythema/exudates NECK: Supple, no adenopathy LUNGS: Normal breath sounds. No adventitious sounds or accessory muscle use. SpO2<96> CARDIOVASCULAR: Regular rate and rhythm without noted murmurs, no JVD or lower extremity edema. ABDOMEN: Elevated BMI, Soft, non-tender, non-distended with bowel sounds. RIGHT UPPER EXTREMITY: No deformity, no erythema, no swelling, neurovascularly intact distal and attempt to passive range of motion at the shoulder demonstrate limitation on ABduction to about 55 degrees NEUROLOGIC: Alert and oriented x 4. Strength and sensation to light touch were grossly intact x 4. Course Course Course Narrative: 51-year-old female with history and clinical presentation of chronic pain complaints of right shoulder with noted injury in the past. Evaluated patient for possible lupus flare but ESR was minimally elevated at 34, chest x-ray an EKG were without acute findings. Urinalysis was negative as well. All results were discussed with patient bedside and she was discharged with instructions to follow-up with her primary care provider for further outpatient management as well as discussion regarding possible physical therapy for developing frozen shoulder. Medical Decision Making Lab Data Labs: Lab Results 11/03/21 11/03/21 Range/Units 03:22 03:34 ESR 34 H (0-20) MM/HR Urine Color YELLOW Urine Appearance HAZY Urine pH 5.5 (5.0-8.0) Ur Specific [place] >= 1.030 H (1.005-1.025) Urine Protein NEG (NEG-TRACE) MG/DL Urine Glucose (UA) NEG (NEG) MG/DL Urine Ketones NEG (NEG) MG/DL Urine Blood NEG (NEG) Urine Nitrite NEG (NEG) Ur Leukocyte Esterase TRACE H (NEG) Urine RBC 0-2 (0) /HPF Urine WBC 1-4 (0-4) /HPF Ur Squamous Epith Cells 3+ /LPF Urine Bacteria 1+ /LPF Hyaline Casts 0-2 /LPF Urine Mucus 2+ /LPF ECG Data Attestation: I personally reviewed and interpreted this ECG as follows: Prior ECG tracings: available for review Interpretation: NSR, HR-70, no STEMI, WV/QRS/QTC are within normal limits. Discharge Plan Discharge Clinical Impression: Pain in right shoulder, Chronic nausea Patient Disposition: Home, Self-Care Instructions: Shoulder Pain (ED) Additional Instructions: 1. Please follow-up with your primary care provider to discuss possible physical therapy for right shoulder pain. 2. Please keep your scheduled appointment with rheumatology. Return to the ER for worsening symptoms. Prescriptions: New omeprazole 40 mg capsule,delayed release(DR/EC) 40 mg PO DAILY Qty: 30 0RF No Action Lidocaine Viscous 2 % solution 15 ml mucous membrane Q3H PRN (Reason: mouth pain) 10 Days Qty: 100 2RF alprazolam 0.5 mg tablet 0.5 mg PO BID 30 Days Qty: 60 1RF albuterol sulfate 90 mcg/actuation HFA aerosol inhaler 2 puff inhalation Q6H PRN (Reason: shortness of breath or wheezing) 30 Days Qty: 8.5 1RF albuterol sulfate 2.5 mg /3 mL (0.083 %) solution for nebulization 2.5 mg inhalation Q4-6H PRN (Reason: shortness of breath or wheezing) 30 Days Qty: 90 3RF polyethylene glycol 3350 [Miralax] 17 gram powder in packet 17 g PO DAILY PRN (Reason: constipation) 30 Days Qty: 30 3RF Rx Instructions: Mixed 17 g into 8 oz of water once per day/as needed for constipation diclofenac sodium 50 mg tablet,delayed release (DR/EC) 50 mg PO BID 15 Days Qty: 30 0RF clotrimazole-betamethasone 1-0.05 % cream 1 appl topical BID PRN (Reason: skin irritation) 30 Days Qty: 45 2RF ondansetron 4 mg tablet,disintegrating 4 mg PO Q8H 4 Days Qty: 12 0RF Robitussin Cough and Cold CF 2.5-5-50 mg/5 mL liquid 20 ml PO Q4H PRN (Reason: cough) Qty: 118 0RF sennosides-docusate sodium [Senna with Docusate Sodium] 8.6-50 mg tablet 1 tab-cap PO BEDTIME Qty: 20 0RF bisacodyl [Gentle Laxative (bisacodyl)] 10 mg suppository 10 mg [place] DAILY PRN (Reason: constipation) Qty: 12 0RF Flovent HFA 110 mcg/actuation HFA aerosol inhaler 2 puff inhalation BID 0RF methadone 40 mg tablet,soluble 60 mg PO DAILY 0RF baclofen 20 mg tablet 20 mg PO Q8H Qty: 90 1RF acetaminophen 500 mg tablet 500 mg PO Q6H PRN (Reason: pain) 30 Days Qty: 120 3RF gabapentin 300 mg capsule 300 mg PO TID 30 Days Qty: 90 3RF gabapentin 400 mg capsule See Rx Instructions PO .COMPLEX 30 Days Qty: 150 3RF Rx Instructions: PO; take 1 capsule in the morning, 2 capsules midday, 2 capsules in the p.m. miscellaneous medical supply Misc 1 ea miscellaneous DAILY 99 Days Qty: 1 0RF Referrals: Rony Carr PA-C [Primary Care Provider] - 2 days
[2021-11-03 03:34] LABS: Bacteria Urine 1+ /LPF; Hyaline Casts Urine 0-2 /LPF; Mucus Urine 2+ /LPF; RBC Urine 0-2 /HPF (0); Squamous Epithelial Cell Urine 3+ /LPF
[2021-11-03 04:09] LABS: Erythrocyte Sedimentation Rate 34 MM/HR (0-20)
[2021-11-03 04:36] VITALS: BP 100/56; PULSE 74; RESP 16; TEMP 36.7; O2SAT 97
[2021-11-03] MEDS: Magnesium Hydrox/Alum Hydrox 30 ML ORAL.SUSP PO (06:37)
[2021-11-03] MEDS: Lidocaine HCl Viscous 2 % 15 ML SOLUTION 10 ML MUCOUS MEM (06:37)
== END 2021-11-03 06:40 | disposition home or self-care (01) ==
PROVIDERS: Emergency Provider Student in an Organized Health Care Education/Training Program; PCP Physician Assistant
DX: M25.511 Pain in right shoulder (principal); A18.4 Tuberculosis of skin and subcutaneous tissue; R07.81 Pleurodynia; R11.2 Nausea with vomiting, unspecified; Z79.899 Other long term (current) drug therapy
CPT/HCPCS: 36415; 71046; 81001; 85652; 87086; 93005; 99283

== ENCOUNTER 2021-11-10 19:29 | Emergency (ER) | payer MEDICARE, MEDICAID, SELFPAY ==
--- NOTE | ~2021-11-10 | XR_ITS ---
EXAMINATION: XR CHEST CLINICAL INFORMATION: Shortness of breath. COMPARISON: 11/03/2021 chest radiographs. TECHNIQUE: Frontal view of the chest was obtained. FINDINGS: No significant abnormality is noted involving the heart, lungs, mediastinum, bony thorax or soft tissues. XR/XR chest 1V IMPRESSION: No acute cardiopulmonary process.
--- NOTE | ~2021-11-10 | US_ITS ---
EXAMINATION: US VENOUS ULTRASOUND WITH DOPPLER LOWER EXTREMITY, RIGHT CLINICAL INFORMATION: Pain in popliteal area COMPARISON: 07/30/2021 TECHNIQUE: Ultrasound of the deep veins is performed from the hip to the calf with compression sonography and color and pulse Doppler assessment. Spectral analysis with color-flow imaging is performed. FINDINGS: There is normal venous compression and respiratory variation and augmented flow. The visualized common femoral vein, superficial femoral vein, profunda femoral vein, popliteal vein, and the trifurcation region shows no evidence of deep venous thrombosis. The peroneal and posterior tibial veins are not seen, similar to prior. There is no significant popliteal fossa cyst. The contralateral left common femoral vein appeared normal. If the patient's symptoms persist, followup ultrasound in 5 days 7 days might be of value to exclude proximal propagation from a non-visualized calf vein. US/US venous duplex LE RT IMPRESSION: No DVT demonstrated in the right lower extremity.
[2021-11-10 19:57] VITALS: BP 158/82; PULSE 85; RESP 18; TEMP 36.9; O2SAT 97; BMI 45.7
[2021-11-10 20:14] LABS: MANUAL DIFF FLAG NO
[2021-11-10 20:30] LABS: Basophils Percent Auto 0.6 % (0-2); Eosinophils Absolute Auto 0.4 X10*3/uL (0.0-0.4); Eosinophils Percent Auto 5.9 % (0-4); Hematocrit 29.9 % (37.0-47.0); Hemoglobin 8.6 g/dl (12.0-16.0); Imm Gran Abs Auto 0.02 X10*3/uL (0.00-0.03); Imm Gran Pct Auto 0.3 % (0.0-0.4); Lymphocytes Absolute Auto 1.5 X10*3/uL (1.2-4.9); Mean Corpuscular HGB Conc 28.8 g/dl (31.0-35.0); Mean Corpuscular Hemoglobin 21.4 pg (27.0-33.0); Mean Corpuscular Volume 74.6 fL (80.0-98.0); Mean Platelet Volume 11.4 fL (9.4-12.3); Monocytes Absolute Auto 0.5 X10*3/uL (0.1-1.2); Monocytes Percent Auto 7.8 % (2-11); Neutrophils Absolute Auto 4.3 x10*3/uL (2.0-8.3); Neutrophils Percent Auto 63.4 % (45-73); Platelet Count 246 X10*3/uL (160-400); Red Blood Count 4.01 X10*6/uL (4.20-5.50); White Blood Count 6.8 X10*3/uL (4.8-10.8)
[2021-11-10 20:35] LABS: Anion Gap 12 (12-20); Blood Urea Nitrogen 12 mg/dL (9-16); Calcium 9.5 mg/dL (8.4-10.2); Carbon Dioxide 28 mmol/L (22-29); Chloride 105 mmol/L (96-108); Creatinine Clr Calc Pharmacy 109.1; Estimated Glomerular Filt Rate > 60; Glucose Random 91 mg/dL (60-115); Potassium 4.2 mmol/L (3.3-5.1); Sodium 141 mmol/L (135-145)
[2021-11-10 20:42] LABS: COVID-19 Test Negative (Negative); IDNOW Serial# 16C4AD1C
--- NOTE | 2021-11-10 22:08 | ED_ITS ---
HPI - General Adult General Chief complaint: General Medical Stated complaint: sob,fever nausea Time Seen by Provider: 11/10/21 22:08 Source: patient Mode of arrival: ambulatory History of Present Illness HPI narrative: Patient complaining of headache nausea subjective fever body aches the last 24 hours other family member positive with COVID last week patient was positive with COVID last month. Patient afraid that she might her COVID Related Data Home Medications Medication Instructions Recorded Confirmed fluticasone propionate 110 2 puff INHALATION BID 07/03/20 10/06/21 mcg/actuation HFA aerosol inhaler (Flovent HFA) methadone 40 mg soluble tablet 60 mg PO DAILY tab 07/03/21 10/06/21 Previous Rx's Medication Instructions Recorded lidocaine HCl 2 % mucosal solution 15 ml MUCOUS MEMBRANE Q3H PRN 10 12/03/20 (Lidocaine Viscous) Days #100 ml alprazolam 0.5 mg tablet 0.5 mg PO BID 30 Days #60 tab 04/02/21 albuterol sulfate 90 mcg/actuation 2 puff INHALATION Q6H PRN 30 Days 06/14/21 aerosol inhaler #8.5 g albuterol sulfate 2.5 mg (3 mL) INHALATION Q4-6H PRN 06/16/21 30 Days #90 ml acetaminophen 500 mg tablet 500 mg PO Q6H PRN 30 Days #120 tab 07/03/21 baclofen 20 mg tablet 20 mg PO Q8H #90 tab 07/03/21 bisacodyl 10 mg rectal suppository 10 mg NC DAILY PRN #12 ea 07/30/21 (Gentle Laxative (bisacodyl)) sennosides 8.6 mg-docusate sodium 1 tab-cap PO BEDTIME #20 tab 07/30/21 50 mg tablet (Senna with Docusate Sodium) polyethylene glycol 3350 17 gram 17 g PO DAILY PRN 30 Days #30 ea 09/22/21 oral powder packet (Miralax) mreiqvbdyjmum-YP-yhutqlzpqnd 2.5 20 ml PO Q4H PRN #118 ml 09/25/21 mg-5 mg-50 mg/5 mL oral liquid (Robitussin Cough and Cold CF) diclofenac sodium 50 mg 50 mg PO BID 15 Days #30 tab 10/06/21 tablet,delayed release gabapentin 300 mg capsule 300 mg PO TID 30 Days #90 cap 10/06/21 gabapentin 400 mg capsule See Rx Instructions PO .COMPLEX 30 10/06/21 Days #150 cap miscellaneous medical supply 1 ea MISCELLANEOUS DAILY 99 Days 10/06/21 #1 ea clotrimazole-betamethasone 1 1 appl TOPICAL BID PRN 30 Days #45 10/08/21 %-0.05 % topical cream g ondansetron 4 mg disintegrating 4 mg PO Q8H 4 Days #12 tab 10/29/21 tablet omeprazole 40 mg capsule,delayed 40 mg PO DAILY #30 cap 11/03/21 release promethazine 25 mg tablet 25 mg PO TID PRN 7 Days #21 tab 11/04/21 Allergies Allergy/AdvReac Type Severity Reaction Status Date / Time latex [Latex] Allergy Mild RASH Verified 11/10/21 19:57 Benadryl Allergy Unknown Rash Verified 11/10/21 19:57 diphenhydramine Allergy Unknown HIVES Verified 11/10/21 19:57 [From Benadryl] Review of Systems Review of Systems: Yes all other systems are reviewed and are negative [facility] Past Medical History Medical History Asthma Lupus Right shoulder pain Tinea Surgical History History of section History of umbilical hernia repair History of varicose vein ligation Plantar fasciitis of left foot Family History Family History Father High cholesterol High blood pressure Dementia Mother Diabetes Arthritis High blood pressure Paternal Grandmother Colon cancer Social History Social History Housing: House Alcohol intake: never Patient Tobacco Use Status: Never used Tobacco e-Cigarette/Vaping Use: Never Used Second Hand Smoke Exposure: No Use of substances other than those prescribed or required for medical reasons: No Substance Use Type: Opiates Advance Directives: No Patient : No Current occupational status: unemployed Physical Exam ED Vital Signs: Vital Signs - 24 hr 11/10/21 19:57 11/10/21 23:18 Temperature 98.4 F Pulse Rate 85 78 Respiratory Rate 18 16 Blood Pressure 158/82 H 143/65 H Pulse Oximetry 97 98 BMI result Body Mass Index 45.7 Appearance: Alert. Oriented X3. No acute distress. Eyes: PERRLA, No Nystagmus ENT: Pharynx normal. Oral Mucosa moist Neck: Normal inspection. Neck supple. CVS: Normal heart rate and rhythm. Pulses normal. Respiratory: No respiratory distress. Equal air entry bilateral, no wheezing/rales/rhonchi Abdomen: Soft and nontender. Bowel sounds are present, no mass palpable, no CVA tenderness Skin: Skin warm and dry. Normal skin color. Normal skin turgor. Extremities: 2+ lower extremity edema. No calf tenderness , tenderness at popliteal area right leg Neuro: Oriented X 3. Medical Decision Making MDM Narrative Medical decision making narrative: Patient with generalized body symptoms worried about the COVID which was negative also complaining of any pain in the right leg venous Doppler was done which was negative for DVT discharge patient home advised for supportive treatment Lab Data Lab results reviewed: Yes I reviewed the patient's lab results. Result diagrams: 11/10/21 20:07 11/10/21 20:07 Labs: Lab Results 11/10/21 11/10/21 11/10/21 Range/Units 20:07 20:07 20:07 WBC 6.8 (4.8-10.8) X10*3/uL RBC 4.01 L (4.20-5.50) X10*6/uL Hgb 8.6 L (12.0-16.0) g/dl Hct 29.9 L (37.0-47.0) % MCV 74.6 L (80.0-98.0) fL MCH 21.4 L (27.0-33.0) pg MCHC 28.8 L (31.0-35.0) g/dl RDW 16.0 (11.0-16.0) % Plt Count 246 (160-400) X10*3/uL MPV 11.4 (9.4-12.3) fL Immature Gran % (Auto) 0.3 (0.0-0.4) % Neut % (Auto) 63.4 (45-73) % Lymph % (Auto) 22.0 (20-40) % [place] % (Auto) 7.8 (2-11) % Eos % (Auto) 5.9 H (0-4) % Baso % (Auto) 0.6 (0-2) % Lymph # (Auto) 1.5 (1.2-4.9) X10*3/uL [place] # (Auto) 0.5 (0.1-1.2) X10*3/uL Eos # (Auto) 0.4 (0.0-0.4) X10*3/uL Baso # (Auto) 0.0 (0.0-0.2) X10*3/uL Abs Immat Gran (auto) 0.02 (0.00-0.03) X10*3/uL Absolute Neuts (auto) 4.3 (2.0-8.3) x10*3/uL Absolute Nucleated RBC 0.000 (0.0-0.012) X10*3/uL Nucleated RBC % (auto) 0.0 (0.0-0.2) /100WBC Sodium 141 (135-145) mmol/L Potassium 4.2 (3.3-5.1) mmol/L Chloride 105 (96-108) mmol/L Carbon Dioxide 28 (22-29) mmol/L Anion Gap 12 (12-20) BUN 12 (9-16) mg/dL Creatinine 0.71 (0.5-1.4) mg/dL Estim Creat Clear Calc 109.1 Estimated GFR > 60 Random Glucose 91 (60-115) mg/dL Calcium 9.5 (8.4-10.2) mg/dL COVID-19 (GRACIE) Negative (Negative) COVID-19 Clin Com See Note Discharge Plan Discharge Clinical Impression: Acute viral syndrome Patient Disposition: Home, Self-Care Instructions: Viral Syndrome (ED) Additional Instructions: Drink plenty of fluids your COVID-19 is negative Chest x-ray negative Labs are stable Doppler test of your leg negative for blood clots Report to ER/PCP if not feeling better Prescriptions: No Action Lidocaine Viscous 2 % solution 15 ml mucous membrane Q3H PRN (Reason: mouth pain) 10 Days Qty: 100 2RF alprazolam 0.5 mg tablet 0.5 mg PO BID 30 Days Qty: 60 1RF albuterol sulfate 90 mcg/actuation HFA aerosol inhaler 2 puff inhalation Q6H PRN (Reason: shortness of breath or wheezing) 30 Days Qty: 8.5 1RF albuterol sulfate 2.5 mg /3 mL (0.083 %) solution for nebulization 2.5 mg inhalation Q4-6H PRN (Reason: shortness of breath or wheezing) 30 Days Qty: 90 3RF polyethylene glycol 3350 [Miralax] 17 gram powder in packet 17 g PO DAILY PRN (Reason: constipation) 30 Days Qty: 30 3RF Rx Instructions: Mixed 17 g into 8 oz of water once per day/as needed for constipation diclofenac sodium 50 mg tablet,delayed release (DR/EC) 50 mg PO BID 15 Days Qty: 30 0RF clotrimazole-betamethasone 1-0.05 % cream 1 appl topical BID PRN (Reason: skin irritation) 30 Days Qty: 45 2RF ondansetron 4 mg tablet,disintegrating 4 mg PO Q8H 4 Days Qty: 12 0RF promethazine 25 mg tablet 25 mg PO TID PRN (Reason: nausea and vomiting) 7 Days Qty: 21 0RF Robitussin Cough and Cold CF 2.5-5-50 mg/5 mL liquid 20 ml PO Q4H PRN (Reason: cough) Qty: 118 0RF sennosides-docusate sodium [Senna with Docusate Sodium] 8.6-50 mg tablet 1 tab-cap PO BEDTIME Qty: 20 0RF bisacodyl [Gentle Laxative (bisacodyl)] 10 mg suppository 10 mg NC DAILY PRN (Reason: constipation) Qty: 12 0RF omeprazole 40 mg capsule,delayed release(DR/EC) 40 mg PO DAILY Qty: 30 0RF Flovent HFA 110 mcg/actuation HFA aerosol inhaler 2 puff inhalation BID 0RF methadone 40 mg tablet,soluble 60 mg PO DAILY 0RF baclofen 20 mg tablet 20 mg PO Q8H Qty: 90 1RF acetaminophen 500 mg tablet 500 mg PO Q6H PRN (Reason: pain) 30 Days Qty: 120 3RF gabapentin 300 mg capsule 300 mg PO TID 30 Days Qty: 90 3RF gabapentin 400 mg capsule See Rx Instructions PO .COMPLEX 30 Days Qty: 150 3RF Rx Instructions: PO; take 1 capsule in the morning, 2 capsules midday, 2 capsules in the p.m. miscellaneous medical supply Misc 1 ea miscellaneous DAILY 99 Days Qty: 1 0RF Interventions: ED Discharge Assessment Last Done: 11/10/21 23:38 Discharge Date/Time: 11/10/21 23:47
[2021-11-10 23:18] VITALS: BP 143/65; PULSE 78; RESP 16; O2SAT 98
== END 2021-11-10 23:47 | disposition home or self-care (01) ==
PROVIDERS: Emergency Provider Internal Medicine; PCP Physician Assistant
DX: B34.9 Viral infection, unspecified (principal); Z20.822 Contact with and (suspected) exposure to COVID-19; R51.9 Headache, unspecified; M79.10 Myalgia, unspecified site; R60.0 Localized edema; M32.9 Systemic lupus erythematosus, unspecified
CPT/HCPCS: 71045; 80048; 85025; 87635; 93971; 99284

== ENCOUNTER 2021-11-16 12:56 | Emergency (ER) | payer MEDICARE, MEDICAID, SELFPAY ==
--- NOTE | ~2021-11-16 | XR_ITS ---
EXAMINATION: XR CHEST CLINICAL INFORMATION: Shortness of breath COMPARISON: Previous chest x-ray most recent October 2021 TECHNIQUE: 2 views of the chest were obtained. FINDINGS: The cardiac and mediastinal contours are stable. The lungs are clear. There is no pleural effusion or pneumothorax. There are degenerative changes of the spine. XR/XR chest 2V IMPRESSION: No evidence for acute disease in the chest.
--- NOTE | ~2021-11-16 | US_ITS ---
EXAMINATION: US VENOUS ULTRASOUND WITH DOPPLER LOWER EXTREMITY, BILATERAL CLINICAL INFORMATION: Swelling and pain. COMPARISON: Previous exams most recent October 2021 TECHNIQUE: Ultrasound of the deep veins is performed from the hip to the calf with compression sonography and color and pulse Doppler assessment. Spectral analysis with color-flow imaging is performed. Exam is limited due to patient body habitus. FINDINGS: RIGHT: There is normal venous compression and respiratory variation and augmented flow. The visualized common femoral vein, superficial femoral vein, profunda femoral vein, popliteal vein, and the posterior tibial vein shows no evidence of deep venous thrombosis. The peroneal vein is not visualized. There is no significant popliteal fossa cyst. LEFT: There is normal venous compression and respiratory variation and augmented flow. The visualized common femoral vein, superficial femoral vein, profunda femoral vein, popliteal vein, and the posterior tibial vein shows no evidence of deep venous thrombosis. The peroneal vein is not visualized. There is no significant popliteal fossa cyst. US/US venous duplex LE BI IMPRESSION: Limited exam. No DVT demonstrated in the bilateral lower extremity.
[2021-11-16 14:07] VITALS: BP 153/94; PULSE 74; RESP 18; TEMP 36.4; O2SAT 98; BMI 50.5
[2021-11-16 16:42] LABS: Appearance Urine CLEAR; Color Urine YELLOW; Glucose Urine UA NEG (NEG); Leukocyte Esterase Urine NEG (NEG); Nitrite Urine NEG (NEG); PH 6.5 (5.0-8.0); Urine Blood NEG (NEG); Urine Ketones NEG (NEG); Urine Protein NEG (NEG-TRACE)
[2021-11-16 16:51] LABS: RBC Urine 0 /HPF (0); Squamous Epithelial Cell Urine TRACE /LPF; WBC Urine 0-2 /HPF (0-4)
--- NOTE | 2021-11-16 18:51 | ECG_ITS ---
Test Reason : SWELLING Blood Pressure : / mmHG Vent. Rate : 069 BPM Atrial Rate : 069 BPM P-R Int : 152 ms QRS Dur : 086 ms QT Int : 392 ms P-R-T Axes : 019 019 021 degrees QTc Int : 420 ms Normal sinus rhythm Normal ECG When compared with ECG of 03-NOV-2021 03:15, No significant change was found Referred By: Tiffanie Houston Electronically Signed By:ABIGAIL ROJAS MD
--- NOTE | 2021-11-16 18:52 | ED.EXTPRO ---
HPI - Extremity Problem General Chief complaint: Extremity Problem Stated complaint: swollen feet Time Seen by Provider: 11/16/21 18:38 Source: patient Mode of arrival: ambulatory Limitations: no limitations History of Present Illness HPI Narrative: 51-year-old female with a past medical history of anxiety, asthma, depression, iron deficiency anemia, fibromyalgia, osteoarthritis, lupus for the last week worsened over the last 48 hours. No redness, warmth, fevers, chills. No reports of shortness of breath, chest pain, cough, fever. Related Data Home Medications Medication Instructions Recorded Confirmed fluticasone propionate 110 2 puff INHALATION BID 07/03/20 10/06/21 mcg/actuation HFA aerosol inhaler (Flovent HFA) methadone 40 mg soluble tablet 60 mg PO DAILY tab 07/03/21 10/06/21 Previous Rx's Medication Instructions Recorded lidocaine HCl 2 % mucosal solution 15 ml MUCOUS MEMBRANE Q3H PRN 10 12/03/20 (Lidocaine Viscous) Days #100 ml alprazolam 0.5 mg tablet 0.5 mg PO BID 30 Days #60 tab 04/02/21 albuterol sulfate 90 mcg/actuation 2 puff INHALATION Q6H PRN 30 Days 06/14/21 aerosol inhaler #8.5 g albuterol sulfate 2.5 mg (3 mL) INHALATION Q4-6H PRN 06/16/21 30 Days #90 ml acetaminophen 500 mg tablet 500 mg PO Q6H PRN 30 Days #120 tab 07/03/21 baclofen 20 mg tablet 20 mg PO Q8H #90 tab 07/03/21 bisacodyl 10 mg rectal suppository 10 mg VT DAILY PRN #12 ea 07/30/21 (Gentle Laxative (bisacodyl)) sennosides 8.6 mg-docusate sodium 1 tab-cap PO BEDTIME #20 tab 07/30/21 50 mg tablet (Senna with Docusate Sodium) polyethylene glycol 3350 17 gram 17 g PO DAILY PRN 30 Days #30 ea 09/22/21 oral powder packet (Miralax) [id number] 2.5 20 ml PO Q4H PRN #118 ml 09/25/21 mg-5 mg-50 mg/5 mL oral liquid (Robitussin Cough and Cold CF) diclofenac sodium 50 mg 50 mg PO BID 15 Days #30 tab 10/06/21 tablet,delayed release gabapentin 300 mg capsule 300 mg PO TID 30 Days #90 cap 10/06/21 gabapentin 400 mg capsule See Rx Instructions PO .COMPLEX 30 10/06/21 Days #150 cap miscellaneous medical supply 1 ea MISCELLANEOUS DAILY 99 Days 10/06/21 #1 ea clotrimazole-betamethasone 1 1 appl TOPICAL BID PRN 30 Days #45 10/08/21 %-0.05 % topical cream g ondansetron 4 mg disintegrating 4 mg PO Q8H 4 Days #12 tab 10/29/21 tablet omeprazole 40 mg capsule,delayed 40 mg PO DAILY #30 cap 11/03/21 release promethazine 25 mg tablet 25 mg PO TID PRN 7 Days #21 tab 11/04/21 Allergies Allergy/AdvReac Type Severity Reaction Status Date / Time latex [Latex] Allergy Mild RASH Verified 11/16/21 14:13 Benadryl Allergy Unknown Rash Verified 11/16/21 14:13 diphenhydramine Allergy Unknown HIVES Verified 11/16/21 14:13 [From Benadryl] Review of Systems Review of Systems: Yes all other systems are reviewed and are negative Constitutional: Constitutional: Reports no additional constitutional complaints, Denies body ache(s), Denies chills, Denies fever(s), Denies headache(s) and Denies weakness Eyes: Eyes: Reports no additional eye complaints and Denies change in vision ENT: Reports system reviewed and no additional complaints, except as documented, Denies dizziness, Denies headache(s), Denies nasal congestion, Denies nasal discharge and Denies neck pain Cardiovascular: Cardiovascular: Reports no additional cardiovascular complaints, Denies chest pain, Reports leg edema and Denies dyspnea Respiratory: Respiratory: Reports no additional respiratory complaints, Denies cough and Denies dyspnea Gastrointestinal: Gastrointestinal: Reports no additional gastrointestinal complaints, Denies abdominal pain, Denies diarrhea, Denies nausea and Denies vomiting Genitourinary: Genitourinary: Reports no additional female genitourinary complaints and Denies urinary incontinence Musculoskeletal: Musculoskeletal: Reports no additional musculoskeletal complaints, Denies back pain, Denies arthralgias, Denies joint swelling, Denies neck pain, Denies numbness and Denies tingling Integumentary/Breasts: Skin/Breast: Reports system reviewed and no additional complaints, except as docu and Denies rash Neurologic: Reports system reviewed and no additional complaints, except as documented, Denies Abnormal speech present, Denies dizziness, Denies headache(s), Denies numbness, Denies tingling and Denies weakness PMFSH Past Medical History Attestation statement: The following information was validated with the patient. Source: old records reviewed and nursing notes reviewed Medical History Asthma Lupus Right shoulder pain Tinea Surgical History History of section History of umbilical hernia repair History of varicose vein ligation Plantar fasciitis of left foot Family History Family History Father High cholesterol High blood pressure Dementia Mother Diabetes Arthritis High blood pressure Paternal Grandmother Colon cancer Social History Social History Housing: House Alcohol intake: never Patient Tobacco Use Status: Never used Tobacco e-Cigarette/Vaping Use: Never Used Second Hand Smoke Exposure: No Substance Use Type: Opiates Advance Directives: No Advance Directives Information Provided: No Patient : No Current occupational status: unemployed Physical Exam Vital Signs: Vital Signs: Last Vital Signs Temp 97.5 F 11/16/21 14:07 Pulse 74 11/16/21 14:07 Resp 18 11/16/21 14:07 BP 153/94 H 11/16/21 14:07 Pulse Ox 98 11/16/21 14:07 BMI result Body Mass Index 50.5 Const: General: cooperative, healthy appearing, comfortable and no acute distress Orientation/consciousness: patient oriented x3 Limitations: no limitations HENMT: Head: Yes normal to inspection Ears: hearing grossly normal bilaterally General nose exam: Normal external nose present Face and sinus: Yes normal facial exam Mouth: Normal oral and palatal mucosa present Throat: Yes posterior oropharynx normal Eyes: General: appearance normal, both eyes and all related structures Pupils: Equal, round and reactive pupils present Neck: Neck: Yes normal visual inspection Chest: Chest palpation & inspection: normal inspection of the chest Resp: Effort & Inspection: normal respiratory effort Auscultation: clear to auscultation bilaterally Cardio: Rate: regular rate Rhythm: regular rhythm Peripheral pulses: Peripheral pulses 2+ throughout GI: Inspection: Yes normal to inspection Palpation (GI): Soft to palpation and nontender Auscultation: normal bowel sounds Back/Spine/Pelvis: Thoracic/Lumbar Spine: thoracic and lumbar spine normal to inspection Skin: General skin exam: no rashes or lesions noted Neuro: General: patient oriented x3, no focal motor deficits and normal sensation to monofilament Cranial nerves: Yes Equal, round and reactive pupils present Cognition (Neuro): normal cognition Speech: No Abnormal speech present Gait exam (Neuro): Normal gait present Motor exam (neuro): 5/5 motor strength present throughout Extrem: General: Yes normal to inspection and Yes edema (bilateral edema from calf down foot-non pitting) Course Course Course Narrative: 51-year-old female here with reports of bilateral lower leg swelling over the last 1 week which is worsened over the last 48 hours. No Shortness breath or chest pain On exam patient has moderate swelling. Nonpitting. There is pain throughout. Patient does have a history of lupus. Not currently on any anticoagulation or aspirin. Will check ultrasound lower extremities, labs, chest x-ray 2139-ultrasound shows no evidence of DVTs. X-ray and EKG are unremarkable. Labs are normal.? Chronic venous insufficiency versus dependent edema. We discussed elevation, compression stockings and limiting salt intake. Patient may also follow up with her primary care doctor. Reviewed worrisome signs and symptoms of when to return to the emergency department. Comfortable discharge home. MDM - Extremity (Nontraumatic) MDM Narrative Medical decision making narrative: chf, dvt, liver disease, CVI Medical Records Attestation: I reviewed the patient's medical records. Lab Data Attestation: I reviewed the patient's lab results. Result diagrams: 11/16/21 20:39 11/16/21 20:39 Labs: Lab Results 11/16/21 11/16/21 11/16/21 Range/Units 16:32 20:39 20:39 WBC 8.4 (4.8-10.8) X10*3/uL RBC 4.02 L (4.20-5.50) X10*6/uL Hgb 8.7 L (12.0-16.0) g/dl Hct 29.3 L (37.0-47.0) % MCV 72.9 L (80.0-98.0) fL MCH 21.6 L (27.0-33.0) pg MCHC 29.7 L (31.0-35.0) g/dl RDW 16.3 H (11.0-16.0) % Plt Count 213 (160-400) X10*3/uL MPV 10.5 (9.4-12.3) fL Immature Gran % (Auto) 0.4 (0.0-0.4) % Neut % (Auto) 52.6 (45-73) % Lymph % (Auto) 33.6 (20-40) % [place] % (Auto) 7.7 (2-11) % Eos % (Auto) 5.1 H (0-4) % Baso % (Auto) 0.6 (0-2) % Lymph # (Auto) 2.8 (1.2-4.9) X10*3/uL [place] # (Auto) 0.7 (0.1-1.2) X10*3/uL Eos # (Auto) 0.4 (0.0-0.4) X10*3/uL Baso # (Auto) 0.1 (0.0-0.2) X10*3/uL Abs Immat Gran (auto) 0.03 (0.00-0.03) X10*3/uL Absolute Neuts (auto) 4.4 (2.0-8.3) x10*3/uL Absolute Nucleated RBC 0.000 (0.0-0.012) X10*3/uL Nucleated RBC % (auto) 0.0 (0.0-0.2) /100WBC PT (9.9-13.0) SEC INR (0.9-1.1) Sodium 141 (135-145) mmol/L Potassium 4.0 (3.3-5.1) mmol/L Chloride 104 (96-108) mmol/L Carbon Dioxide 29 (22-29) mmol/L Anion Gap 12 (12-20) BUN 12 (9-16) mg/dL Creatinine 0.66 (0.5-1.4) mg/dL Estim Creat Clear Calc 124.7 Estimated GFR > 60 Random Glucose 70 (60-115) mg/dL Calcium 9.6 (8.4-10.2) mg/dL Total Bilirubin 0.3 (0.0-1.0) mg/dL Direct Bilirubin (0.0-0.5) mg/dL AST 22 (5-31) U/L ALT 17 (0-31) U/L Alkaline Phosphatase 79 (39-117) U/L B-Natriuretic Peptide (<100) pg/mL Total Protein 7.8 (6.5-8.0) g/dL Albumin 4.0 (3.5-5.0) g/dL Urine Color YELLOW Urine Appearance CLEAR Urine pH 6.5 (5.0-8.0) Ur Specific [place] 1.020 (1.005-1.025) Urine Protein NEG (NEG-TRACE) MG/DL Urine Glucose (UA) NEG (NEG) MG/DL Urine Ketones NEG (NEG) MG/DL Urine Blood NEG (NEG) Urine Nitrite NEG (NEG) Ur Leukocyte Esterase NEG (NEG) Urine RBC 0 (0) /HPF Urine WBC 0-2 (0-4) /HPF Ur Squamous Epith Cells TRACE /LPF Urine Bacteria NONE /LPF 11/16/21 11/16/21 11/16/21 Range/Units 20:39 20:39 20:39 WBC (4.8-10.8) X10*3/uL RBC (4.20-5.50) X10*6/uL Hgb (12.0-16.0) g/dl Hct (37.0-47.0) % MCV (80.0-98.0) fL MCH (27.0-33.0) pg MCHC (31.0-35.0) g/dl RDW (11.0-16.0) % Plt Count (160-400) X10*3/uL MPV (9.4-12.3) fL Immature Gran % (Auto) (0.0-0.4) % Neut % (Auto) (45-73) % Lymph % (Auto) (20-40) % [place] % (Auto) (2-11) % Eos % (Auto) (0-4) % Baso % (Auto) (0-2) % Lymph # (Auto) (1.2-4.9) X10*3/uL [place] # (Auto) (0.1-1.2) X10*3/uL Eos # (Auto) (0.0-0.4) X10*3/uL Baso # (Auto) (0.0-0.2) X10*3/uL Abs Immat Gran (auto) (0.00-0.03) X10*3/uL Absolute Neuts (auto) (2.0-8.3) x10*3/uL Absolute Nucleated RBC (0.0-0.012) X10*3/uL Nucleated RBC % (auto) (0.0-0.2) /100WBC PT 11.6 (9.9-13.0) SEC INR 1.0 (0.9-1.1) Sodium (135-145) mmol/L Potassium (3.3-5.1) mmol/L Chloride (96-108) mmol/L Carbon Dioxide (22-29) mmol/L Anion Gap (12-20) BUN (9-16) mg/dL Creatinine (0.5-1.4) mg/dL Estim Creat Clear Calc Estimated GFR Random Glucose (60-115) mg/dL Calcium (8.4-10.2) mg/dL Total Bilirubin 0.2 (0.0-1.0) mg/dL Direct Bilirubin < 0.2 (0.0-0.5) mg/dL AST 27 (5-31) U/L ALT 17 (0-31) U/L Alkaline Phosphatase 79 (39-117) U/L B-Natriuretic Peptide 83 (<100) pg/mL Total Protein 7.8 (6.5-8.0) g/dL Albumin 3.9 (3.5-5.0) g/dL Urine Color Urine Appearance Urine pH (5.0-8.0) Ur Specific [place] (1.005-1.025) Urine Protein (NEG-TRACE) MG/DL Urine Glucose (UA) (NEG) MG/DL Urine Ketones (NEG) MG/DL Urine Blood (NEG) Urine Nitrite (NEG) Ur Leukocyte Esterase (NEG) Urine RBC (0) /HPF Urine WBC (0-4) /HPF Ur Squamous Epith Cells /LPF Urine Bacteria /LPF Imaging Data Venous US: Attestation: I personally reviewed and interpreted this imaging study as follows: Radiologist's impression: [address] [address] Ultrasound Report Signed Patient: Abril Choudhary MR#: [id number] : 1970 Acct:[id number] Age/Sex: 51 / F ADM Date: 11/16/21 Loc: HO.ED Attending Dr: Ordering Physician: Tiffanie Houston NP Date of Service: 11/16/21 Procedure(s): US venous duplex LE BI Accession Number(s): [id number] cc: Tiffanie Houston NP~ EXAMINATION:? US VENOUS ULTRASOUND WITH DOPPLER LOWER EXTREMITY, BILATERAL CLINICAL INFORMATION:? Swelling and pain. COMPARISON:? Previous exams most recent October 2021 TECHNIQUE: Ultrasound of the deep veins is performed from the hip to the calf with compression sonography and color and pulse Doppler assessment. Spectral analysis with color-flow imaging is performed. Exam is limited due to patient body habitus. FINDINGS: RIGHT: There is normal venous compression and respiratory variation and augmented flow. The visualized common femoral vein, superficial femoral vein, profunda femoral vein, popliteal vein, and the posterior tibial vein shows no evidence of deep venous thrombosis.? The peroneal vein is not visualized. There is no significant popliteal fossa cyst. LEFT: There is normal venous compression and respiratory variation and augmented flow. The visualized common femoral vein, superficial femoral vein, profunda femoral vein, popliteal vein, and the posterior tibial vein shows no evidence of deep venous thrombosis.? The peroneal vein is not visualized. There is no significant popliteal fossa cyst. US/US venous duplex LE BI IMPRESSION: Limited exam. No DVT demonstrated in the bilateral lower extremity. Chest x-ray: Attestation: I personally reviewed and interpreted this imaging study as follows: Radiologist's impression: [address] [address] XRay Report Signed Patient: Abril Choudhary MR#: [id number] : 1970 Acct:[id number] Age/Sex: 51 / F ADM Date: 11/16/21 Loc: .ED Attending Dr: Ordering Physician: Tiffanie Houston NP Date of Service: 11/16/21 Procedure(s): XR chest 2V Accession Number(s): [id number] cc: Tiffanie Houston GLASSWARE VERIFIER~ EXAMINATION: XR CHEST CLINICAL INFORMATION: Shortness of breath COMPARISON: Previous chest x-ray most recent October 2021 TECHNIQUE: 2 views of the chest were obtained. FINDINGS: The cardiac and mediastinal contours are stable. The lungs are clear. There is no pleural effusion or pneumothorax. There are degenerative changes of the spine. XR/XR chest 2V IMPRESSION: No evidence for acute disease in the chest. ECG Data Attestation EKG: I personally reviewed and interpreted this ECG as follows: ECG interpretation date: 11/16/21 ECG interpretation time: 20:42 Interpretation: Normal sinus rhythm with a rate of 69, normal VT, normal QRS, normal QT Discharge Plan Discharge Clinical Impression: Pedal edema, Lower extremity edema Patient Disposition: Home, Self-Care Instructions: Leg Edema (ED), Venous Insufficiency (DC) Additional Instructions: Limit salt in the diet Elevate your legs Buy compression stocking Your lab work, ultrasound, chest x-ray and EKG are all normal Follow-up with your primary care doctor as discussed Prescriptions: No Action Lidocaine Viscous 2 % solution 15 ml mucous membrane Q3H PRN (Reason: mouth pain) 10 Days Qty: 100 2RF alprazolam 0.5 mg tablet 0.5 mg PO BID 30 Days Qty: 60 1RF albuterol sulfate 90 mcg/actuation HFA aerosol inhaler 2 puff inhalation Q6H PRN (Reason: shortness of breath or wheezing) 30 Days Qty: 8.5 1RF albuterol sulfate 2.5 mg /3 mL (0.083 %) solution for nebulization 2.5 mg inhalation Q4-6H PRN (Reason: shortness of breath or wheezing) 30 Days Qty: 90 3RF polyethylene glycol 3350 [Miralax] 17 gram powder in packet 17 g PO DAILY PRN (Reason: constipation) 30 Days Qty: 30 3RF Rx Instructions: Mixed 17 g into 8 oz of water once per day/as needed for constipation diclofenac sodium 50 mg tablet,delayed release (DR/EC) 50 mg PO BID 15 Days Qty: 30 0RF clotrimazole-betamethasone 1-0.05 % cream 1 appl topical BID PRN (Reason: skin irritation) 30 Days Qty: 45 2RF ondansetron 4 mg tablet,disintegrating 4 mg PO Q8H 4 Days Qty: 12 0RF promethazine 25 mg tablet 25 mg PO TID PRN (Reason: nausea and vomiting) 7 Days Qty: 21 0RF Robitussin Cough and Cold CF 2.5-5-50 mg/5 mL liquid 20 ml PO Q4H PRN (Reason: cough) Qty: 118 0RF sennosides-docusate sodium [Senna with Docusate Sodium] 8.6-50 mg tablet 1 tab-cap PO BEDTIME Qty: 20 0RF bisacodyl [Gentle Laxative (bisacodyl)] 10 mg suppository 10 mg VT DAILY PRN (Reason: constipation) Qty: 12 0RF omeprazole 40 mg capsule,delayed release(DR/EC) 40 mg PO DAILY Qty: 30 0RF Flovent HFA 110 mcg/actuation HFA aerosol inhaler 2 puff inhalation BID 0RF methadone 40 mg tablet,soluble 60 mg PO DAILY 0RF baclofen 20 mg tablet 20 mg PO Q8H Qty: 90 1RF acetaminophen 500 mg tablet 500 mg PO Q6H PRN (Reason: pain) 30 Days Qty: 120 3RF gabapentin 300 mg capsule 300 mg PO TID 30 Days Qty: 90 3RF gabapentin 400 mg capsule See Rx Instructions PO .COMPLEX 30 Days Qty: 150 3RF Rx Instructions: PO; take 1 capsule in the morning, 2 capsules midday, 2 capsules in the p.m. miscellaneous medical supply Misc 1 ea miscellaneous DAILY 99 Days Qty: 1 0RF Referrals: Rony Carr PA-C [Primary Care Provider] - 1 week
[2021-11-16 20:56] LABS: MANUAL DIFF FLAG NO
[2021-11-16 21:15] LABS: Basophils Absolute Auto 0.1 X10*3/uL (0.0-0.2); Basophils Percent Auto 0.6 % (0-2); Eosinophils Absolute Auto 0.4 X10*3/uL (0.0-0.4); Eosinophils Percent Auto 5.1 % (0-4); Hematocrit 29.3 % (37.0-47.0); Hemoglobin 8.7 g/dl (12.0-16.0); Imm Gran Abs Auto 0.03 X10*3/uL (0.00-0.03); Imm Gran Pct Auto 0.4 % (0.0-0.4); Lymphocytes Absolute Auto 2.8 X10*3/uL (1.2-4.9); Lymphocytes Percent Auto 33.6 % (20-40); Mean Corpuscular HGB Conc 29.7 g/dl (31.0-35.0); Mean Corpuscular Hemoglobin 21.6 pg (27.0-33.0); Mean Corpuscular Volume 72.9 fL (80.0-98.0); Mean Platelet Volume 10.5 fL (9.4-12.3); Monocytes Absolute Auto 0.7 X10*3/uL (0.1-1.2); Monocytes Percent Auto 7.7 % (2-11); Neutrophils Absolute Auto 4.4 x10*3/uL (2.0-8.3); Neutrophils Percent Auto 52.6 % (45-73); Platelet Count 213 X10*3/uL (160-400); Red Blood Count 4.02 X10*6/uL (4.20-5.50); Red Cell Distribution Width 16.3 % (11.0-16.0); White Blood Count 8.4 X10*3/uL (4.8-10.8)
[2021-11-16 21:20] LABS: Prothrombin Time 11.6 SEC (9.9-13.0)
[2021-11-16 21:26] LABS: Alanine Aminotransferase 17 U/L (0-31); Alkaline Phosphatase 79 U/L (39-117); Anion Gap 12 (12-20); Aspartate Amino Transferase 22 U/L (5-31); Bilirubin Total 0.3 mg/dL (0.0-1.0); Blood Urea Nitrogen 12 mg/dL (9-16); Calcium 9.6 mg/dL (8.4-10.2); Carbon Dioxide 29 mmol/L (22-29); Chloride 104 mmol/L (96-108); Creatinine Clr Calc Pharmacy 124.7; Estimated Glomerular Filt Rate > 60; Glucose Random 70 mg/dL (60-115); Sodium 141 mmol/L (135-145); Total Protein 7.8 g/dL (6.5-8.0)
[2021-11-16 21:28] LABS: Alanine Aminotransferase 17 U/L (0-31); Albumin Level 3.9 g/dL (3.5-5.0); Alkaline Phosphatase 79 U/L (39-117); Aspartate Amino Transferase 27 U/L (5-31); Bilirubin Direct < 0.2 mg/dL (0.0-0.5); Bilirubin Total 0.2 mg/dL (0.0-1.0); Total Protein 7.8 g/dL (6.5-8.0)
[2021-11-16 21:32] LABS: B Type Natriuretic Peptide 83 pg/mL (<100)
== END 2021-11-16 21:47 | disposition home or self-care (01) ==
PROVIDERS: Nurse Practitioner Family; Emergency Provider Internal Medicine; PCP Physician Assistant
DX: R60.0 Localized edema (principal); F41.1 Generalized anxiety disorder; F33.1 Major depressive disorder, recurrent, moderate; R06.02 Shortness of breath; Z79.899 Other long term (current) drug therapy
CPT/HCPCS: 36415; 71046; 80053; 80076; 81001; 82248; 83880; 85025; 85610; 93005; 93970; 99283

== ENCOUNTER 2022-02-01 19:11 | Emergency (ER) | payer MEDICARE, MEDICAID, SELFPAY ==
--- NOTE | 2022-02-01 | ECG_ITS ---
Test Reason : CHEST PAIN Blood Pressure : / mmHG Vent. Rate : 068 BPM Atrial Rate : 068 BPM P-R Int : 140 ms QRS Dur : 078 ms QT Int : 378 ms P-R-T Axes : 066 011 003 degrees QTc Int : 401 ms Normal sinus rhythm Normal ECG When compared with ECG of 16-NOV-2021 20:42, No significant change was found Referred By: Generic ED Physician Electronically Signed By:Yonis Gagnon
--- NOTE | ~2022-02-01 | XR_ITS ---
EXAMINATION: XR CHEST CLINICAL INFORMATION: Chest pain COMPARISON: 11/16/2021 TECHNIQUE: Frontal view of the chest was obtained. FINDINGS: The lungs are well expanded. There is no focal consolidation, edema, or effusion. No pneumothorax. The cardiomediastinal silhouette is within normal limits. No acute osseous abnormality. XR/XR chest 1V IMPRESSION: No acute pulmonary finding.
[2022-02-01 19:40] VITALS: BP 177/90; PULSE 73; RESP 19; TEMP 36.8; O2SAT 97; BMI 43.9
[2022-02-01 20:04] LABS: MANUAL DIFF FLAG NO
[2022-02-01 20:19] LABS: Anion Gap 12 (12-20); Blood Urea Nitrogen 9 mg/dL (9-16); Calcium 9.6 mg/dL (8.4-10.2); Carbon Dioxide 28 mmol/L (22-29); Chloride 105 mmol/L (96-108); Estimated Glomerular Filt Rate > 60; Glucose Random 84 mg/dL (60-115); Potassium 4.1 mmol/L (3.3-5.1); Sodium 141 mmol/L (135-145)
[2022-02-01 20:25] LABS: Troponin-I High Sensitivity 4.4 ng/L (<3.5-17.0)
[2022-02-01 20:27] LABS: Basophils Absolute Auto 0.1 X10*3/uL (0.0-0.2); Basophils Percent Auto 0.6 % (0-2); Eosinophils Absolute Auto 0.7 X10*3/uL (0.0-0.4); Eosinophils Percent Auto 7.8 % (0-4); Hematocrit 29.4 % (37.0-47.0); Hemoglobin 8.7 g/dl (12.0-16.0); Imm Gran Abs Auto 0.02 X10*3/uL (0.00-0.03); Imm Gran Pct Auto 0.2 % (0.0-0.4); Lymphocytes Absolute Auto 1.5 X10*3/uL (1.2-4.9); Lymphocytes Percent Auto 17.8 % (20-40); Mean Corpuscular HGB Conc 29.6 g/dl (31.0-35.0); Mean Corpuscular Hemoglobin 21.5 pg (27.0-33.0); Mean Corpuscular Volume 72.8 fL (80.0-98.0); Mean Platelet Volume 10.4 fL (9.4-12.3); Monocytes Absolute Auto 0.6 X10*3/uL (0.1-1.2); Monocytes Percent Auto 6.6 % (2-11); Neutrophils Absolute Auto 5.8 x10*3/uL (2.0-8.3); Platelet Count 250 X10*3/uL (160-400); Red Blood Count 4.04 X10*6/uL (4.20-5.50); Red Cell Distribution Width 16.7 % (11.0-16.0); White Blood Count 8.6 X10*3/uL (4.8-10.8)
--- NOTE | 2022-02-01 21:06 | ED.CHESTPAIN ---
HPI - Chest Pain General Chief Complaint: Chest Pain Stated Complaint: dental pain, radiates to chest? Time Seen by Provider: 02/01/22 20:55 Source: patient Mode of arrival: ambulatory Limitations: no limitations History of Present Illness HPI narrative: Patient comes to emergency room complaining of chest pain for 2 days. Patient states it is pressure-like sensation, nonradiating, no cough, no fever or chills. Also, patient complaining of dental pain. Patient had a procedure done several days ago. Patient is on Augmentin, she still needs to go back to the dentist to finish the procedure. No bleeding, no fever chills, no pus drainage. Related Data Home Medications Medication Instructions Recorded Confirmed fluticasone propionate 110 2 puff INHALATION BID 07/03/20 10/06/21 mcg/actuation HFA aerosol inhaler (Flovent HFA) methadone 40 mg soluble tablet 60 mg PO DAILY tab 07/03/21 10/06/21 Previous Rx's Medication Instructions Recorded lidocaine HCl 2 % mucosal solution 15 ml MUCOUS MEMBRANE Q3H PRN 10 12/03/20 (Lidocaine Viscous) Days #100 ml alprazolam 0.5 mg tablet 0.5 mg PO BID 30 Days #60 tab 04/02/21 albuterol sulfate 90 mcg/actuation 2 puff INHALATION Q6H PRN 30 Days 06/14/21 aerosol inhaler #8.5 g albuterol sulfate 2.5 mg (3 mL) INHALATION Q4-6H PRN 06/16/21 30 Days #90 ml acetaminophen 500 mg tablet 500 mg PO Q6H PRN 30 Days #120 tab 07/03/21 baclofen 20 mg tablet 20 mg PO Q8H #90 tab 07/03/21 bisacodyl 10 mg rectal suppository 10 mg NM DAILY PRN #12 ea 07/30/21 (Gentle Laxative (bisacodyl)) sennosides 8.6 mg-docusate sodium 1 tab-cap PO BEDTIME #20 tab 07/30/21 50 mg tablet (Senna with Docusate Sodium) polyethylene glycol 3350 17 gram 17 g PO DAILY PRN 30 Days #30 ea 09/22/21 oral powder packet (Miralax) [id number] 2.5 20 ml PO Q4H PRN #118 ml 01/13/22 mg-5 mg-50 mg/5 mL oral liquid (Robitussin Cough and Cold CF) diclofenac sodium 50 mg 50 mg PO BID 15 Days #30 tab 10/06/21 tablet,delayed release gabapentin 300 mg capsule 300 mg PO TID 30 Days #90 cap 10/06/21 miscellaneous medical supply 1 ea MISCELLANEOUS DAILY 99 Days 10/06/21 #1 ea clotrimazole-betamethasone 1 1 appl TOPICAL BID PRN 30 Days #45 10/08/21 %-0.05 % topical cream g ondansetron 4 mg disintegrating 4 mg PO Q8H 4 Days #12 tab 10/29/21 tablet omeprazole 40 mg capsule,delayed 40 mg PO DAILY #30 cap 11/03/21 release walker (Ultra-Light Rollator) #1 ea 12/09/21 promethazine 25 mg tablet 25 mg PO TID PRN 7 Days #21 tab 01/14/22 gabapentin 400 mg capsule See Rx Instructions PO .COMPLEX 30 01/26/22 Days #150 cap tramadol 50 mg tablet 50 mg PO Q8H PRN #6 tab 02/01/22 Allergies Allergy/AdvReac Type Severity Reaction Status Date / Time latex [Latex] Allergy Mild RASH Verified 02/01/22 19:40 Benadryl Allergy Unknown Rash Verified 02/01/22 19:40 diphenhydramine Allergy Unknown HIVES Verified 02/01/22 19:40 [From Benadryl] Review of Systems Review of Systems: Constitutional : No Weight loss, No Fever, No Chills, No Night Sweats, No Fatigue, No Malaise ENT/Mouth : No Hearing loss, No Ear Pain, No Nasal Congestion, No Sinus Pain, No Hoarseness, No sore throat, No Rhinorrhea, No Swallowing Difficulty, complaining of dental pain status post procedure Eyes: No Eye Pain, No Swelling, No Redness, No Foreign Body, No Discharge, No Vision Changes Cardiovascular : Complaining 48 hours of chest pressure, No SOB, No Dyspnea on Exertion, No Orthopnea, No Edema, No Palpitations Respiratory : No Cough, No Sputum, No Wheezing, No Smoke Exposure, No Dyspnea Gastrointestinal : No Nausea, No Vomiting, No Diarrhea, No Constipation, No abdominal Pain, No Hematochezia, No Melena Genitourinary : no irregular bleeding, No Dysuria, No Urinary Frequency, No Hematuria, No Urinary Incontinence, No Urgency, No Flank Pain, No Urinary Flow Changes, No Hesitancy Musculoskeletal : No joint pain, No Myalgias, No Joint Swelling Skin : No Skin Lesions, No rash Neuro : No Weakness, No Numbness, No Paresthesias, No Loss of Consciousness, No Dizziness, No Headache Psych : No Anxiety/Panic, No Depression, No SI/HI/AH/VH, No Social Issues, Heme/Lymph: No Bruising, No Bleeding,No Lymphadenopathy Endocrine : No Polyuria, No Polydipsia, No Temperature Intolerance [facility] Past Medical History Medical History Asthma Lupus Right shoulder pain Tinea Surgical History History of section History of umbilical hernia repair History of varicose vein ligation Plantar fasciitis of left foot Family History Family History Father High cholesterol High blood pressure Dementia Mother Diabetes Arthritis High blood pressure Paternal Grandmother Colon cancer Social History Social History Housing: House Alcohol intake: never Patient Tobacco Use Status: Never used Tobacco e-Cigarette/Vaping Use: Never Used Second Hand Smoke Exposure: No Substance Use Type: Opiates Advance Directives: No Advance Directives Information Provided: No Current occupational status: unemployed Physical Exam Vital Signs: Vital Signs: Last Vital Signs Temp 98.0 F 02/01/22 22:00 Pulse 61 02/01/22 22:00 Resp 16 02/01/22 22:00 BP 136/73 02/01/22 22:00 Pulse Ox 100 02/01/22 22:00 BMI result Body Mass Index 43.9 Const: Other: Appearance: Alert. Oriented X3. No acute distress. Eyes: Pupils equal, round and reactive to light. ENT: Pharynx normal. Maxillary left side, no abscesses, mild erythema around the teeth that that currently being worked on. No bleeding, no vesicles Neck: Normal inspection. Neck supple. No lymph nodes noted. No crepitus CVS: Normal heart rate and rhythm. Pulses normal. Normal S1 and S2 Respiratory: No respiratory distress. Breath sounds normal. No Wheezing. No rales Abdomen: Soft and nontender. No rigidity. No distention. Skin: Skin warm and dry. Normal skin color. Normal skin turgor. Extremities: No lower extremity edema. No Lacerations. No Rash Neuro: Oriented X 3. No motor deficit. No sensory deficit. Moving all extremities. No slurred speech. CN 2 through 12 grossly intact Psych: calm, cooperative, normal affect, slightly anxious Course Course Course Narrative: I discussed with the patient that her troponin, EKG within normal limits, chest x-ray pending. Patient does not seem to have any current dental infection, patient is already on Augmentin. Patient will be provided with pain medication, 1 dose of p.o. Toradol Chest x-ray within normal limits. Patient tolerated well p.o., patient well-appearing, vitals stable, blood pressure 136/73, heart rate 61, oxygen saturation 100% on room air, respirations 16 MDM - Chest Pain Lab Data Result diagrams: 02/01/22 19:57 02/01/22 19:57 Labs: Lab Results 02/01/22 02/01/22 02/01/22 Range/Units 19:57 19:57 19:57 WBC 8.6 (4.8-10.8) X10*3/uL RBC 4.04 L (4.20-5.50) X10*6/uL Hgb 8.7 L (12.0-16.0) g/dl Hct 29.4 L (37.0-47.0) % MCV 72.8 L (80.0-98.0) fL MCH 21.5 L (27.0-33.0) pg MCHC 29.6 L (31.0-35.0) g/dl RDW 16.7 H (11.0-16.0) % Plt Count 250 (160-400) X10*3/uL MPV 10.4 (9.4-12.3) fL Immature Gran % (Auto) 0.2 (0.0-0.4) % Neut % (Auto) 67.0 (45-73) % Lymph % (Auto) 17.8 L (20-40) % Owen % (Auto) 6.6 (2-11) % Eos % (Auto) 7.8 H (0-4) % Baso % (Auto) 0.6 (0-2) % Lymph # (Auto) 1.5 (1.2-4.9) X10*3/uL Owen # (Auto) 0.6 (0.1-1.2) X10*3/uL Eos # (Auto) 0.7 H (0.0-0.4) X10*3/uL Baso # (Auto) 0.1 (0.0-0.2) X10*3/uL Abs Immat Gran (auto) 0.02 (0.00-0.03) X10*3/uL Absolute Neuts (auto) 5.8 (2.0-8.3) x10*3/uL Absolute Nucleated RBC 0.000 (0.0-0.012) X10*3/uL Nucleated RBC % (auto) 0.0 (0.0-0.2) /100WBC Sodium 141 (135-145) mmol/L Potassium 4.1 (3.3-5.1) mmol/L Chloride 105 (96-108) mmol/L Carbon Dioxide 28 (22-29) mmol/L Anion Gap 12 (12-20) BUN 9 (9-16) mg/dL Creatinine 0.70 (0.5-1.4) mg/dL Estim Creat Clear Calc 108.0 Estimated GFR > 60 Random Glucose 84 (60-115) mg/dL Calcium 9.6 (8.4-10.2) mg/dL Troponin I High Sens 4.4 (<3.5-17.0) ng/L Imaging Data Chest x-ray: Radiologist's impression: The lungs are well expanded. There is no focal consolidation, edema, or effusion. No pneumothorax. The cardiomediastinal silhouette is within normal limits. No acute osseous abnormality. XR/XR chest 1V IMPRESSION: No acute pulmonary finding. ECG Data ECG #1: Attestation: I personally reviewed and interpreted this ECG as follows: (Heart rate 60, segment depression or elevation, no T-wave inversion, QTC 401) Discharge Plan Discharge Clinical Impression: Atypical chest pain, Pain, dental Patient Disposition: Home, Self-Care Instructions: Chest Pain (ED), Toothache (ED) Additional Instructions: Please follow-up with your primary care physician tomorrow. Continue taking your antibiotic as prescribed. You have any worsening or new symptoms, please return to the emergency room or call 911 Prescriptions: New tramadol 50 mg tablet 50 mg PO Q8H PRN (Reason: pain) Qty: 6 0RF No Action Lidocaine Viscous 2 % solution 15 ml mucous membrane Q3H PRN (Reason: mouth pain) 10 Days Qty: 100 2RF alprazolam 0.5 mg tablet 0.5 mg PO BID 30 Days Qty: 60 1RF albuterol sulfate 90 mcg/actuation HFA aerosol inhaler 2 puff inhalation Q6H PRN (Reason: shortness of breath or wheezing) 30 Days Qty: 8.5 1RF albuterol sulfate 2.5 mg /3 mL (0.083 %) solution for nebulization 2.5 mg inhalation Q4-6H PRN (Reason: shortness of breath or wheezing) 30 Days Qty: 90 3RF polyethylene glycol 3350 [Miralax] 17 gram powder in packet 17 g PO DAILY PRN (Reason: constipation) 30 Days Qty: 30 3RF Rx Instructions: Mixed 17 g into 8 oz of water once per day/as needed for constipation diclofenac sodium 50 mg tablet,delayed release (DR/EC) 50 mg PO BID 15 Days Qty: 30 0RF clotrimazole-betamethasone 1-0.05 % cream 1 appl topical BID PRN (Reason: skin irritation) 30 Days Qty: 45 2RF ondansetron 4 mg tablet,disintegrating 4 mg PO Q8H 4 Days Qty: 12 0RF (DME) Ultra-Light Rollator Misc See Rx Instructions .Route Qty: 1 0RF Rx Instructions: As directed promethazine 25 mg tablet 25 mg PO TID PRN (Reason: nausea and vomiting) 7 Days Qty: 21 2RF gabapentin 400 mg capsule See Rx Instructions PO .COMPLEX 30 Days Qty: 150 3RF Rx Instructions: PO; take 1 capsule in the morning, 2 capsules midday, 2 capsules in the p.m. Robitussin Cough and Cold CF 2.5-5-50 mg/5 mL liquid 20 ml PO Q4H PRN (Reason: cough) Qty: 118 0RF sennosides-docusate sodium [Senna with Docusate Sodium] 8.6-50 mg tablet 1 tab-cap PO BEDTIME Qty: 20 0RF bisacodyl [Gentle Laxative (bisacodyl)] 10 mg suppository 10 mg NM DAILY PRN (Reason: constipation) Qty: 12 0RF omeprazole 40 mg capsule,delayed release(DR/EC) 40 mg PO DAILY Qty: 30 0RF Flovent HFA 110 mcg/actuation HFA aerosol inhaler 2 puff inhalation BID 0RF methadone 40 mg tablet,soluble 60 mg PO DAILY 0RF baclofen 20 mg tablet 20 mg PO Q8H Qty: 90 1RF acetaminophen 500 mg tablet 500 mg PO Q6H PRN (Reason: pain) 30 Days Qty: 120 3RF gabapentin 300 mg capsule 300 mg PO TID 30 Days Qty: 90 3RF miscellaneous medical supply Misc 1 ea miscellaneous DAILY 99 Days Qty: 1 0RF
[2022-02-01 21:18] VITALS: BP 128/49; PULSE 66; RESP 16; TEMP 36.7; O2SAT 97
[2022-02-01 21:49] VITALS: BP 147/69; PULSE 66; RESP 11; TEMP 36.8; O2SAT 97
[2022-02-01 22:00] VITALS: BP 136/73; PULSE 61; RESP 16; TEMP 36.7; O2SAT 100
[2022-02-01] MEDS: traMADoL HCL 50 MG TABLET PO (22:00)
--- NOTE | 2022-02-01 23:23 | PC.NURSE ---
Abril is discharged at this time. She verbalized an understanding of all DC orders and she ambulated out of the ED independently and with steady gait. Prior to Dc we reviewed proper uses and indications for PO Tramadol and she verbalized an understanding.
== END 2022-02-01 23:25 | disposition home or self-care (01) ==
PROVIDERS: Emergency Provider Emergency Medicine; PCP Physician Assistant
DX: R07.89 Other chest pain (principal); K08.89 Other specified disorders of teeth and supporting structures; J45.909 Unspecified asthma, uncomplicated
CPT/HCPCS: 36415; 71045; 80048; 84484; 85025; 93005; 99283; 99284

== ENCOUNTER → 2022-02-02 13:31 | Outpatient (BNVA) | payer MEDICARE, MEDICAID, SELFPAY | PROVIDERS: PCP Physician Assistant; Visit Provider Physician Assistant Surgical | DX: Z13.89 Encounter for screening for other disorder (principal) ==

== ENCOUNTER 2022-02-20 20:46 | Emergency (ER) | payer MEDICARE, MEDICAID, SELFPAY ==
--- NOTE | 2022-02-20 | ECG_ITS ---
Test Reason : HYPERTENSION Blood Pressure : / mmHG Vent. Rate : 083 BPM Atrial Rate : 083 BPM P-R Int : 156 ms QRS Dur : 088 ms QT Int : 358 ms P-R-T Axes : 036 020 019 degrees QTc Int : 420 ms Normal sinus rhythm Normal ECG When compared with ECG of 01-FEB-2022 19:43, No significant change was found Referred By: Generic ED Physician Electronically Signed By:JOYCE LUDWIG
--- NOTE | ~2022-02-20 | XR_ITS ---
EXAMINATION: XR CHEST CLINICAL INFORMATION: Wheezing COMPARISON: 02/01/2022 TECHNIQUE: 2 views of the chest were obtained. FINDINGS: Low lung volumes. Bronchovascular crowding but no ya pulmonary edema. No focal consolidation or mass. No pleural effusion or pneumothorax. Normal heart size. Degenerative changes of the shoulders and spine. XR/XR chest 2V IMPRESSION: No acute pulmonary edema.
--- NOTE | ~2022-02-20 | CT_ITS ---
EXAMINATION: CT ANGIOGRAM OF THE CHEST WITH AND WITHOUT CONTRAST (CT PULMONARY ANGIOGRAM FOR PE) CLINICAL INFORMATION: Reason for Exam cp COMPARISON: 07/30/2021 TECHNIQUE: Prior to contrast administration, noncontrast localization images were obtained. Subsequently, multidetector volumetric imaging was performed from the thoracic inlet to below the diaphragms following the administration of 75 mL Omnipaque 350 intravenous contrast. No contrast reaction reported Sagittal, coronal, and MIP oblique sagittal reformatted images were obtained on the CT workstation, uploaded to PACS, and reviewed. This CT examination was performed using dose optimization techniques as appropriate, variously including the following: *Automated exposure control *Adjustment of mA and/or kV according to patient size (this includes techniques or standardized protocols for targeted exams where dose is matched to indication/reason for exam; i.e. extremities or head) *Use of iterative reconstruction technique Total exam dose-length product 595 mGy-cm FINDINGS: QUALITY OF STUDY/CONTRAST BOLUS: Satisfactory. PULMONARY ARTERIES: No central or segmental pulmonary emboli. THORACIC AORTA: No aneurysm or dissection. LUNG: No focal consolidation, nodules or masses. Diffuse mild bronchial wall thickening without bronchiectasis. PLEURA: No pleural effusion or pneumothorax. MEDIASTINUM: Moderate cardiomegaly. No pericardial effusion. No hilar or mediastinal lymphadenopathy. No evidence of septal bowing or right heart strain. CHEST WALL/AXILLA: No axillary or internal mammary lymphadenopathy. OSSEOUS STRUCTURES: No acute or suspicious osseous abnormality. UPPER ABDOMEN: Hepatic steatosis. Severe fatty atrophy of the pancreas. No reflux of contrast into the hepatic veins to suggest elevated right heart pressures. CT/CT angio chest PE protocol IMPRESSION: * No pulmonary embolism. * No aortic aneurysm or dissection. * Cardiomegaly. * Diffuse mild bronchial wall thickening without bronchiectasis VTE: negative
[2022-02-20 22:26] VITALS: BP 201/93; PULSE 91; RESP 18; TEMP 36.8; O2SAT 96; BMI 49.1
[2022-02-20 22:46] LABS: MANUAL DIFF FLAG NO
[2022-02-20 22:47] LABS: Basophils Percent Auto 0.5 % (0-2); Eosinophils Absolute Auto 0.5 X10*3/uL (0.0-0.4); Eosinophils Percent Auto 5.9 % (0-4); Hematocrit 30.8 % (37.0-47.0); Hemoglobin 9.1 g/dl (12.0-16.0); Imm Gran Abs Auto 0.02 X10*3/uL (0.00-0.03); Imm Gran Pct Auto 0.2 % (0.0-0.4); Lymphocytes Percent Auto 23.7 % (20-40); Mean Corpuscular HGB Conc 29.5 g/dl (31.0-35.0); Mean Corpuscular Hemoglobin 21.5 pg (27.0-33.0); Mean Corpuscular Volume 72.6 fL (80.0-98.0); Mean Platelet Volume 10.1 fL (9.4-12.3); Monocytes Absolute Auto 0.7 X10*3/uL (0.1-1.2); Monocytes Percent Auto 7.9 % (2-11); Neutrophils Absolute Auto 5.2 x10*3/uL (2.0-8.3); Neutrophils Percent Auto 61.8 % (45-73); Platelet Count 276 X10*3/uL (160-400); Red Blood Count 4.24 X10*6/uL (4.20-5.50); Red Cell Distribution Width 16.7 % (11.0-16.0); White Blood Count 8.4 X10*3/uL (4.8-10.8)
[2022-02-20 23:04] LABS: Alanine Aminotransferase 20 U/L (0-31); Albumin Level 4.1 g/dL (3.5-5.0); Alkaline Phosphatase 95 U/L (39-117); Anion Gap 14 (12-20); Aspartate Amino Transferase 21 U/L (5-31); Bilirubin Total 0.3 mg/dL (0.0-1.0); Blood Urea Nitrogen 9 mg/dL (9-16); Calcium 9.4 mg/dL (8.4-10.2); Carbon Dioxide 28 mmol/L (22-29); Chloride 104 mmol/L (96-108); Creatinine Clr Calc Pharmacy 102.4; Estimated Glomerular Filt Rate > 60; Glucose Random 96 mg/dL (60-115); Potassium 4.1 mmol/L (3.3-5.1); Sodium 142 mmol/L (135-145); Total Protein 7.9 g/dL (6.5-8.0)
[2022-02-21 00:03] VITALS: BP 165/89; PULSE 81; RESP 17; O2SAT 99
--- NOTE | 2022-02-21 00:13 | ED.CHESTPAIN ---
HPI - Chest Pain General Chief Complaint: Chest Pain Stated Complaint: High B/P Time Seen by Provider: 02/20/22 23:10 History of Present Illness HPI narrative: Patient is a 51-year-old female presents today with having elevated blood pressure. Also has a history of lupus. Presents today with having pain on the right chest pain, Goes to the arm. Not associated with any shortness breath no diaphoresis. Patient from home. No cough no congestion or upper respiratory symptoms. No diaphoresis. Baseline not on any blood pressure medication. Patient on Plaquenil for lupus. No history of blood clots in the past. No fever no chills. No abdominal pain. No nausea. No diaphoresis. No abdominal pain. Related Data Home Medications Medication Instructions Recorded Confirmed fluticasone propionate 110 2 puff inhalation BID 07/03/20 02/19/22 mcg/actuation HFA aerosol inhaler (Flovent HFA) methadone 40 mg soluble tablet 51 mg PO DAILY 02/19/22 02/19/22 Previous Rx's Medication Instructions Recorded lidocaine HCl 2 % mucosal solution 15 ml mucous membrane Q3H PRN 12/03/20 (Lidocaine Viscous) mouth pain 10 days #100 mL alprazolam 0.5 mg tablet 0.5 mg PO BID 30 days #60 tabs 04/02/21 albuterol sulfate 90 mcg/actuation 2 puff inhalation Q6H PRN 06/14/21 aerosol inhaler shortness of breath or wheezing 30 days #8.5 grams albuterol sulfate 2.5 mg (3 mL) inhalation Q4-6H PRN 06/16/21 shortness of breath or wheezing 30 days #90 mL acetaminophen 500 mg tablet 500 mg PO Q6H PRN pain 30 days 07/03/21 #120 tabs baclofen 20 mg tablet 20 mg PO Q8H #90 tabs 07/03/21 bisacodyl 10 mg rectal suppository 10 mg MT DAILY PRN constipation 07/30/21 (Gentle Laxative (bisacodyl)) #12 ea sennosides 8.6 mg-docusate sodium 1 tab-cap PO BEDTIME #20 tabs 07/30/21 50 mg tablet (Senna with Docusate Sodium) polyethylene glycol 3350 17 gram 17 g PO DAILY PRN constipation 30 09/22/21 oral powder packet (Miralax) days #30 ea diclofenac sodium 50 mg 50 mg PO BID 15 days #30 tabs 10/06/21 tablet,delayed release miscellaneous medical supply 1 ea miscellaneous DAILY 99 days 10/06/21 #1 ea ondansetron 4 mg disintegrating 4 mg PO Q8H 4 days #12 tabs 10/29/21 tablet omeprazole 40 mg capsule,delayed 40 mg PO DAILY #30 caps 11/03/21 release walker (Ultra-Light Rollator) #1 ea 12/09/21 promethazine 25 mg tablet 25 mg PO TID PRN nausea and 01/14/22 vomiting 7 days #21 tabs tramadol 50 mg tablet 50 mg PO Q8H PRN pain #6 tabs 02/01/22 blood pressure test kit-large #1 ea 02/19/22 carboxymethylcellulose-citric acid 3 cap PO BID 30 days #180 caps 02/19/22 0.75 gram capsule (Plenity) clotrimazole-betamethasone 1 1 appl topical BID PRN skin 02/19/22 %-0.05 % topical cream irritation 30 days #45 grams gabapentin 300 mg capsule 300 mg PO TID 30 days #90 caps 02/19/22 gabapentin 400 mg capsule See Rx Instructions PO .COMPLEX 30 02/19/22 days #150 caps hydrochlorothiazide 12.5 mg tablet 12.5 mg PO DAILY #30 tabs 02/19/22 triamcinolone acetonide 0.025 % 1 appl topical DAILY PRN skin 02/19/22 topical cream irritation 30 days #80 grams Allergies Allergy/AdvReac Type Severity Reaction Status Date / Time latex [Latex] Allergy Mild RASH Verified 02/19/22 15:29 Benadryl Allergy Unknown Rash Verified 02/19/22 15:29 diphenhydramine Allergy Unknown HIVES Verified 02/19/22 15:29 [From Benadryl] [facility] Past Medical History Medical History Asthma Lupus Right shoulder pain Tinea Surgical History History of section History of umbilical hernia repair History of varicose vein ligation Plantar fasciitis of left foot Family History Family History Father High cholesterol High blood pressure Dementia Mother Diabetes Arthritis High blood pressure Paternal Grandmother Colon cancer Social History Social History Housing: House Alcohol intake: never Patient Tobacco Use Status: Never used Tobacco e-Cigarette/Vaping Use: Never Used Second Hand Smoke Exposure: No Use of substances other than those prescribed or required for medical reasons: No Substance Use Type: Opiates Advance Directives: No Current occupational status: unemployed Cognitive needs: Yes Hearing needs: No Vision needs: Yes Physical Exam Vital Signs: Vital Signs: Last Vital Signs Temp 98.3 F 02/20/22 22:26 Pulse 66 02/21/22 02:47 Resp 13 02/21/22 02:47 BP 140/70 H 02/21/22 02:47 Pulse Ox 99 02/21/22 02:47 O2 Del Method 02/21/22 02:47 BMI result Body Mass Index 49.1 Appearance: Alert. Oriented X3. No acute distress. Eyes: Pupils equal, round and reactive to light. ENT: Pharynx normal. Neck: Normal inspection. Neck supple. No lymph nodes noted. No crepitus CVS: Normal heart rate and rhythm. Pulses normal. Normal S1 and S2 Respiratory: No respiratory distress. Breath sounds normal. No Wheezing. No rales Abdomen: Soft and nontender. No rigidity. No distention. good BS x4 Skin: Skin warm and dry. Normal skin color. Normal skin turgor. Extremities: No lower extremity edema. Neurovascular intact to all extremities. No Lacerations. No Rash Neuro: Oriented X 3. No motor deficit. No sensory deficit. Moving all extermities. No slurred speech MDM - Chest Pain MDM Narrative Medical decision making narrative: Patient's chest pain atypical. She is 51 years old. Has a history of hypertension. Two sets of cardiac enzymes are negative. CTA of the chest was grossly negative for any acute evidence of pulmonary emboli. No pneumonia no pneumothorax. Patient is in stable condition. Will discharge home with follow-up on an outpatient basis. Discussed with patient need for follow-up for her chest pain. She states understanding. Small risk for ACS still exists. Patient states understanding. Patient's EKG showed a sinus pattern heart rate is 80 MT QRS QT within normal limits there is no acute ST segment elevation noted. Medical Records Data Attestation: I reviewed the patient's medical records. Lab Data Attestation: I reviewed the patient's lab results. Result diagrams: 02/20/22 22:37 02/20/22 22:37 Labs: Lab Results 02/20/22 02/20/22 02/21/22 Range/Units 22:37 22:37 00:46 WBC 8.4 (4.8-10.8) X10*3/uL RBC 4.24 (4.20-5.50) X10*6/uL Hgb 9.1 L (12.0-16.0) g/dl Hct 30.8 L (37.0-47.0) % MCV 72.6 L (80.0-98.0) fL MCH 21.5 L (27.0-33.0) pg MCHC 29.5 L (31.0-35.0) g/dl RDW 16.7 H (11.0-16.0) % Plt Count 276 (160-400) X10*3/uL MPV 10.1 (9.4-12.3) fL Immature Gran % (Auto) 0.2 (0.0-0.4) % Neut % (Auto) 61.8 (45-73) % Lymph % (Auto) 23.7 (20-40) % Tate % (Auto) 7.9 (2-11) % Eos % (Auto) 5.9 H (0-4) % Baso % (Auto) 0.5 (0-2) % Lymph # (Auto) 2.0 (1.2-4.9) X10*3/uL Tate # (Auto) 0.7 (0.1-1.2) X10*3/uL Eos # (Auto) 0.5 H (0.0-0.4) X10*3/uL Baso # (Auto) 0.0 (0.0-0.2) X10*3/uL Abs Immat Gran (auto) 0.02 (0.00-0.03) X10*3/uL Absolute Neuts (auto) 5.2 (2.0-8.3) x10*3/uL Absolute Nucleated RBC 0.000 (0.0-0.012) X10*3/uL Nucleated RBC % (auto) 0.0 (0.0-0.2) /100WBC D-Dimer High Sensitivty NG/ML Sodium 142 (135-145) mmol/L Potassium 4.1 (3.3-5.1) mmol/L Chloride 104 (96-108) mmol/L Carbon Dioxide 28 (22-29) mmol/L Anion Gap 14 (12-20) BUN 9 (9-16) mg/dL Creatinine 0.82 (0.5-1.4) mg/dL Estim Creat Clear Calc 102.4 Estimated GFR > 60 Random Glucose 96 (60-115) mg/dL Calcium 9.4 (8.4-10.2) mg/dL Total Bilirubin 0.3 (0.0-1.0) mg/dL AST 21 (5-31) U/L ALT 20 (0-31) U/L Alkaline Phosphatase 95 D (39-117) U/L Troponin I High Sens < 3.5 (<3.5-17.0) ng/L Total Protein 7.9 (6.5-8.0) g/dL Albumin 4.1 (3.5-5.0) g/dL 02/21/22 02/21/22 Range/Units 00:46 04:18 WBC (4.8-10.8) X10*3/uL RBC (4.20-5.50) X10*6/uL Hgb (12.0-16.0) g/dl Hct (37.0-47.0) % MCV (80.0-98.0) fL MCH (27.0-33.0) pg MCHC (31.0-35.0) g/dl RDW (11.0-16.0) % Plt Count (160-400) X10*3/uL MPV (9.4-12.3) fL Immature Gran % (Auto) (0.0-0.4) % Neut % (Auto) (45-73) % Lymph % (Auto) (20-40) % Tate % (Auto) (2-11) % Eos % (Auto) (0-4) % Baso % (Auto) (0-2) % Lymph # (Auto) (1.2-4.9) X10*3/uL Tate # (Auto) (0.1-1.2) X10*3/uL Eos # (Auto) (0.0-0.4) X10*3/uL Baso # (Auto) (0.0-0.2) X10*3/uL Abs Immat Gran (auto) (0.00-0.03) X10*3/uL Absolute Neuts (auto) (2.0-8.3) x10*3/uL Absolute Nucleated RBC (0.0-0.012) X10*3/uL Nucleated RBC % (auto) (0.0-0.2) /100WBC D-Dimer High Sensitivty 650 NG/ML Sodium (135-145) mmol/L Potassium (3.3-5.1) mmol/L Chloride (96-108) mmol/L Carbon Dioxide (22-29) mmol/L Anion Gap (12-20) BUN (9-16) mg/dL Creatinine (0.5-1.4) mg/dL Estim Creat Clear Calc Estimated GFR Random Glucose (60-115) mg/dL Calcium (8.4-10.2) mg/dL Total Bilirubin (0.0-1.0) mg/dL AST (5-31) U/L ALT (0-31) U/L Alkaline Phosphatase (39-117) U/L Troponin I High Sens 4.3 (<3.5-17.0) ng/L Total Protein (6.5-8.0) g/dL Albumin (3.5-5.0) g/dL Discharge Plan Discharge Clinical Impression: Chest pain Patient Disposition: Home, Self-Care Instructions: Chest Pain (DC) Prescriptions: No Action Lidocaine Viscous 2 % solution 15 ml mucous membrane Q3H PRN (Reason: mouth pain) 10 Days Qty: 100 2RF alprazolam 0.5 mg tablet 0.5 mg PO BID 30 Days Qty: 60 1RF albuterol sulfate 90 mcg/actuation HFA aerosol inhaler 2 puff inhalation Q6H PRN (Reason: shortness of breath or wheezing) 30 Days Qty: 8.5 1RF albuterol sulfate 2.5 mg /3 mL (0.083 %) solution for nebulization 2.5 mg inhalation Q4-6H PRN (Reason: shortness of breath or wheezing) 30 Days Qty: 90 3RF polyethylene glycol 3350 [Miralax] 17 gram powder in packet 17 g PO DAILY PRN (Reason: constipation) 30 Days Qty: 30 3RF Rx Instructions: Mixed 17 g into 8 oz of water once per day/as needed for constipation diclofenac sodium 50 mg tablet,delayed release (DR/EC) 50 mg PO BID 15 Days Qty: 30 0RF ondansetron 4 mg tablet,disintegrating 4 mg PO Q8H 4 Days Qty: 12 0RF (DME) Ultra-Light Rollator Misc See Rx Instructions .Route Qty: 1 0RF Rx Instructions: As directed promethazine 25 mg tablet 25 mg PO TID PRN (Reason: nausea and vomiting) 7 Days Qty: 21 2RF tramadol 50 mg tablet 50 mg PO Q8H PRN (Reason: pain) Qty: 6 0RF sennosides-docusate sodium [Senna with Docusate Sodium] 8.6-50 mg tablet 1 tab-cap PO BEDTIME Qty: 20 0RF bisacodyl [Gentle Laxative (bisacodyl)] 10 mg suppository 10 mg MT DAILY PRN (Reason: constipation) Qty: 12 0RF omeprazole 40 mg capsule,delayed release(DR/EC) 40 mg PO DAILY Qty: 30 0RF Flovent HFA 110 mcg/actuation HFA aerosol inhaler 2 puff inhalation BID methadone 40 mg tablet,soluble 51 mg PO DAILY baclofen 20 mg tablet 20 mg PO Q8H Qty: 90 1RF acetaminophen 500 mg tablet 500 mg PO Q6H PRN (Reason: pain) 30 Days Qty: 120 3RF gabapentin 300 mg capsule 300 mg PO TID 30 Days Qty: 90 3RF hydrochlorothiazide 12.5 mg tablet 12.5 mg PO DAILY Qty: 30 1RF (DME) blood pressure test kit-large Kit See Rx Instructions .Route Qty: 1 0RF Rx Instructions: As directed gabapentin 400 mg capsule See Rx Instructions PO .COMPLEX 30 Days Qty: 150 3RF Rx Instructions: PO; take 1 capsule in the morning, 2 capsules midday, 2 capsules in the p.m. clotrimazole-betamethasone 1-0.05 % cream 1 appl topical BID PRN (Reason: skin irritation) 30 Days Qty: 45 2RF triamcinolone acetonide 0.025 % cream 1 appl topical DAILY PRN (Reason: skin irritation) 30 Days Qty: 80 3RF Plenity 0.75 gram capsule 3 cap PO BID 30 Days Qty: 180 3RF Rx Instructions: administer before lunch and evening meal/dinner miscellaneous medical supply Misc 1 ea miscellaneous DAILY 99 Days Qty: 1 0RF Referrals: Rony Carr PA-C [Primary Care Provider] -
[2022-02-21 01:02] LABS: D Dimer High Sensitivity 650 NG/ML
[2022-02-21] MEDS: Aspirin 81 MG TAB.CHEW 324 MG PO (01:09)
[2022-02-21 01:13] LABS: Troponin-I High Sensitivity < 3.5 ng/L (<3.5-17.0)
[2022-02-21] MEDS: iohexoL 350 MG/ML 100 ML INFUS..BTL 75 ML IV (02:24)
[2022-02-21 02:47] VITALS: BP 140/70; PULSE 66; RESP 13; O2SAT 99
[2022-02-21 04:48] LABS: Troponin-I High Sensitivity 4.3 ng/L (<3.5-17.0)
[2022-02-21 05:21] VITALS: BP 143/76; PULSE 71; RESP 17; TEMP 36.8; O2SAT 99
== END 2022-02-21 05:49 | disposition home or self-care (01) ==
PROVIDERS: Emergency Provider Emergency Medicine Emergency Medical Services; PCP Physician Assistant
DX: R07.9 Chest pain, unspecified (principal); I10 Essential (primary) hypertension; J45.909 Unspecified asthma, uncomplicated; M32.9 Systemic lupus erythematosus, unspecified
CPT/HCPCS: 36415; 71046; 71275; 80053; 84484; 85025; 85379; 93005; 99284; 99285; Q9967

== ENCOUNTER 2022-04-04 11:26 | Emergency (ER) | payer MEDICARE, MEDICAID, SELFPAY ==
--- NOTE | ~2022-04-04 | CT_ITS ---
EXAMINATION: CT ABDOMEN AND PELVIS WITHOUT CONTRAST CLINICAL INFORMATION: Upper abdominal pain radiating to right shoulder COMPARISON: 03/23/2017 TECHNIQUE: Multidetector volumetric imaging was performed from the superior aspect of the liver through the pubic symphysis. Sagittal and coronal reformatted images were obtained on the technologist's workstation. This CT examination was performed using dose optimization techniques as appropriate, variously including the following: *Automated exposure control *Adjustment of mA and/or kV according to patient size (this includes techniques or standardized protocols for targeted exams where dose is matched to indication/reason for exam; i.e. extremities or head) *Use of iterative reconstruction technique DLP: 1329 mGy-cm FINDINGS: LUNG BASES: The visualized lung bases are unremarkable. LIVER, GALLBLADDER, AND BILIARY TREE: The liver is normal in size, shape, and attenuation. No focal hepatic lesion or biliary ductal dilatation is present. The gallbladder is unremarkable with no evidence of radiopaque gallstones, gallbladder wall thickening, or obvious pericholecystic inflammatory changes. PANCREAS: There is partial fatty atrophy of the pancreas. SPLEEN: Unremarkable. ADRENAL GLANDS: Unremarkable. KIDNEYS AND URETERS: The kidneys are normal in size, shape, and attenuation. No hydronephrosis, hydroureter, or calculi seen. No perinephric stranding. BLADDER: Empty and not adequately evaluated. GASTROINTESTINAL TRACT: The small and large bowel are unremarkable. The appendix is unremarkable. No free fluid or free air is seen. ABDOMINAL WALL: No significant hernia is appreciated. LYMPH NODES: Scattered mesenteric, retroperitoneal, and inguinal subcentimeter lymph nodes are present, without significant enlargement by size criteria. VASCULAR: Unremarkable. PELVIC VISCERA: Unremarkable. OSSEOUS STRUCTURES: There are degenerative changes in the lumbar spine. CT/CT abdomen pelvis wo con IMPRESSION: No acute findings identified in the abdomen/pelvis.
[2022-04-04 12:26] VITALS: BP 181/92; PULSE 69; RESP 18; TEMP 36.9; O2SAT 99; BMI 22.8
[2022-04-04 18:18] LABS: MANUAL DIFF FLAG NO
[2022-04-04 18:25] LABS: Basophils Percent Auto 0.5 % (0-2); Eosinophils Absolute Auto 0.4 X10*3/uL (0.0-0.4); Hematocrit 33.2 % (37.0-47.0); Hemoglobin 9.7 g/dl (12.0-16.0); Imm Gran Abs Auto 0.03 X10*3/uL (0.00-0.03); Imm Gran Pct Auto 0.3 % (0.0-0.4); Lymphocytes Absolute Auto 2.2 X10*3/uL (1.2-4.9); Lymphocytes Percent Auto 25.1 % (20-40); Mean Corpuscular HGB Conc 29.2 g/dl (31.0-35.0); Mean Corpuscular Hemoglobin 21.1 pg (27.0-33.0); Mean Corpuscular Volume 72.3 fL (80.0-98.0); Mean Platelet Volume 10.7 fL (9.4-12.3); Monocytes Absolute Auto 0.7 X10*3/uL (0.1-1.2); Monocytes Percent Auto 7.7 % (2-11); Neutrophils Absolute Auto 5.5 x10*3/uL (2.0-8.3); Neutrophils Percent Auto 62.4 % (45-73); Platelet Count 265 X10*3/uL (160-400); Red Blood Count 4.59 X10*6/uL (4.20-5.50); Red Cell Distribution Width 17.3 % (11.0-16.0); White Blood Count 8.9 X10*3/uL (4.8-10.8)
[2022-04-04 18:33] LABS: Anion Gap 10 (12-20); Blood Urea Nitrogen 11 mg/dL (9-16); Calcium 9.2 mg/dL (8.4-10.2); Carbon Dioxide 30 mmol/L (22-29); Chloride 105 mmol/L (96-108); Creatinine Clr Calc Pharmacy 70.6; Estimated Glomerular Filt Rate > 60; Glucose Random 86 mg/dL (60-115); Lipase 10 U/L (8-78); Sodium 141 mmol/L (135-145)
[2022-04-04 18:43] VITALS: BP 156/85; PULSE 66; TEMP 36.9; O2SAT 97
[2022-04-05 02:53] LABS: Alanine Aminotransferase 15 U/L (0-31); Albumin Level 4.1 g/dL (3.5-5.0); Alkaline Phosphatase 92 U/L (39-117); Aspartate Amino Transferase 20 U/L (5-31); Bilirubin Direct 0.2 mg/dL (0.0-0.5); Bilirubin Total 0.3 mg/dL (0.0-1.0)
[2022-04-05] MEDS: Ketorolac Tromethamine 60 MG/2 ML VIAL IM (03:14)
[2022-04-05 03:37] LABS: Appearance Urine HAZY; Color Urine YELLOW; Glucose Urine UA NEG (NEG); Leukocyte Esterase Urine NEG (NEG); Nitrite Urine NEG (NEG); Specific Gravity - Urine 1.025 (1.005-1.025); Urine Blood NEG (NEG); Urine Ketones NEG (NEG); Urine Protein NEG (NEG-TRACE)
--- NOTE | 2022-04-05 05:47 | ED.ABDPAIN ---
HPI - Abdominal Pain General Chief Complaint: Abdominal Pain Stated Complaint: Lupus Stomach Body Pain Time Seen by Provider: 04/05/22 02:32 Source: patient Mode of arrival: ambulatory Limitations: no limitations History of Present Illness HPI narrative: 52-year-old female who presents emergency department for evaluation of abdominal pain x2 days. Patient points to her epigastric and upper abdominal area when asked to localize the pain. She states that the pain is a sharp pain which is constant but waxes and wanes in intensity. The pain does radiate to her right shoulder. The pain is worse with eating. She has had associated nausea with no vomiting. She denied fever, chills. She denied chest pain or shortness of breath. The patient took promethazine for her nausea with no relief. MD elicited complaint: abdominal pain Pertinent past history: none Onset (ago): day(s) (2) Pain Consistency: constant (Waxes and wanes in intensity) Location: epigastric, LUQ and RUQ Severity: severe Pain scale (0-10): 8 Quality: sharp Radiation: other (Right shoulder) Migration to: no migration Exacerbating factors: eating Relieving factors: nothing Associated symptoms: nausea Treatments prior to arrival: other (Promethazine for nausea) Related Data Home Medications Medication Instructions Recorded Confirmed fluticasone propionate 110 2 puff inhalation BID 07/03/20 02/19/22 mcg/actuation HFA aerosol inhaler (Flovent HFA) methadone 40 mg soluble tablet 51 mg PO DAILY 02/19/22 02/19/22 Previous Rx's Medication Instructions Recorded lidocaine HCl 2 % mucosal solution 15 ml mucous membrane Q3H PRN 12/03/20 (Lidocaine Viscous) mouth pain 10 days #100 mL alprazolam 0.5 mg tablet 0.5 mg PO BID 30 days #60 tabs 04/02/21 albuterol sulfate 90 mcg/actuation 2 puff inhalation Q6H PRN 06/14/21 aerosol inhaler shortness of breath or wheezing 30 days #8.5 grams albuterol sulfate 2.5 mg/3 mL 2.5 mg (3 mL) inhalation Q4-6H PRN 06/16/21 (0.083 %) solution for nebulization shortness of breath or wheezing 30 days #90 mL acetaminophen 500 mg tablet 500 mg PO Q6H PRN pain 30 days 07/03/21 #120 tabs baclofen 20 mg tablet 20 mg PO Q8H #90 tabs 07/03/21 bisacodyl 10 mg rectal suppository 10 mg NH DAILY PRN constipation 07/30/21 (Gentle Laxative (bisacodyl)) #12 ea sennosides 8.6 mg-docusate sodium 1 tab-cap PO BEDTIME #20 tabs 07/30/21 50 mg tablet (Senna with Docusate Sodium) polyethylene glycol 3350 17 gram 17 g PO DAILY PRN constipation 30 09/22/21 oral powder packet (Miralax) days #30 ea diclofenac sodium 50 mg 50 mg PO BID 15 days #30 tabs 10/06/21 tablet,delayed release miscellaneous medical supply 1 ea miscellaneous DAILY 99 days 10/06/21 #1 ea ondansetron 4 mg disintegrating 4 mg PO Q8H 4 days #12 tabs 10/29/21 tablet omeprazole 40 mg capsule,delayed 40 mg PO DAILY #30 caps 11/03/21 release walker (Ultra-Light Rollator misc) #1 ea 12/09/21 promethazine 25 mg tablet 25 mg PO TID PRN nausea and 01/14/22 vomiting 7 days #21 tabs tramadol 50 mg tablet 50 mg PO Q8H PRN pain #6 tabs 02/01/22 blood pressure test kit-large #1 ea 02/19/22 carboxymethylcellulose-citric acid 3 cap PO BID 30 days #180 caps 02/19/22 0.75 gram capsule (Plenity) clotrimazole-betamethasone 1 1 appl topical BID PRN skin 02/19/22 %-0.05 % topical cream irritation 30 days #45 grams gabapentin 300 mg capsule 300 mg PO TID 30 days #90 caps 02/19/22 gabapentin 400 mg capsule See Rx Instructions PO .COMPLEX 30 02/19/22 days #150 caps hydrochlorothiazide 12.5 mg tablet 12.5 mg PO DAILY #30 tabs 02/19/22 triamcinolone acetonide 0.025 % 1 appl topical DAILY PRN skin 02/19/22 topical cream irritation 30 days #80 grams nitrofurantoin 100 mg PO Q12H 5 days #10 caps 04/01/22 monohydrate/macrocrystals 100 mg capsule (Macrobid) omeprazole 20 mg capsule,delayed 20 mg PO DAILY 30 days #30 caps 04/05/22 release ondansetron 4 mg disintegrating 4 mg PO Q6-8H PRN nausea and 04/05/22 tablet vomiting #14 tabs Allergies Allergy/AdvReac Type Severity Reaction Status Date / Time latex [Latex] Allergy Mild RASH Verified 02/19/22 15:29 Benadryl Allergy Unknown Rash Verified 02/19/22 15:29 diphenhydramine Allergy Unknown HIVES Verified 02/19/22 15:29 [From Benadryl] Review of Systems Review of Systems Yes all other systems are reviewed and are negative ON LICENSE OF [facility] Past Medical History ON LICENSE OF [facility] Narrative: Social history: The patient denies tobacco use. She denies alcohol use. 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 Medical History Asthma Lupus Right shoulder pain Tinea Surgical History History of section History of umbilical hernia repair History of varicose vein ligation Plantar fasciitis of left foot Family History Family History Father High cholesterol High blood pressure Dementia Mother Diabetes Arthritis High blood pressure Paternal Grandmother Colon cancer Social History Social History Housing: House Alcohol intake: never Patient Tobacco Use Status: Never used Tobacco e-Cigarette/Vaping Use: Never Used Second Hand Smoke Exposure: No Use of substances other than those prescribed or required for medical reasons: No Substance Use Type: Opiates Advance Directives: No Current occupational status: unemployed Cognitive needs: Yes Hearing needs: No Vision needs: Yes Physical Exam ED Vital Signs: Vital Signs - 24 hr 04/04/22 12:26 04/04/22 18:43 Temperature 98.4 F 98.5 F Pulse Rate 69 66 Respiratory Rate 18 Blood Pressure 181/92 H 156/85 H Pulse Oximetry 99 97 Oxygen Delivery Method Room Air Room Air BMI result Body Mass Index 22.8 Const Other: Awake, alert, female patient, pleasant and cooperative, in no distress, patient is obese [facility] Head: Yes normal to inspection, Yes normocephalic and Yes atraumatic Ears: external ears normal General nose exam: Normal external nose present Face and sinus: Yes normal facial exam Mouth: Normal oral and palatal mucosa present Throat: Yes posterior oropharynx normal Eyes General: appearance normal, both eyes and all related structures Pupils: Equal, round and reactive pupils present Neck Neck: Yes normal visual inspection, Yes no lymphadenopathy, Yes trachea midline and Yes supple Chest Chest palpation & inspection: normal inspection of the chest and normal palpation of entire chest wall Resp Effort & Inspection: normal respiratory effort and able to speak in complete sentences Auscultation: clear to auscultation bilaterally Cardio Rate: regular rate Rhythm: regular rhythm Heart sounds: S1 normal heart sound present, S2 normal heart sound present and no murmurs GI Inspection: Yes normal to inspection Palpation (GI): Soft to palpation, Tenderness to palpation present (GI) in the epigastrum (Moderate) and no guarding Auscultation: normal bowel sounds General: Yes no CVA tenderness Back/Spine/Pelvis Back: no CVA tenderness Skin General skin exam: no rashes or lesions noted Neuro Cranial nerves: Yes CN's II-XII intact bilaterally and Yes Equal, round and reactive pupils present Cognition (Neuro): normal cognition Motor exam (neuro): 5/5 motor strength present throughout Extrem General: Yes normal to inspection Psych Appearance: grossly normal Speech and movement: Normal speech and movement present Affect: normal affect Attitude: cooperative Thought process: Normal thought process present Thought content: Normal thought content present Course Course Course Narrative: 52-year-old female who presents emergency department for evaluation upper abdominal pain x2 days with pain radiating to her right shoulder. She had associated nausea as well. Patient's physical examination did reveal epigastric tenderness. Laboratory evaluation revealed mild anemia with an H&H of 9.7 and 33.2. Patient's LFTs and lipase were normal. CT scan of the abdomen pelvis without IV contrast did not reveal a clear cause for pain. Patient did receive Toradol 60 mg IM with some improvement of her pain. She continued to have epigastric tenderness and she was treated with Maalox 30 cc, 10 cc and viscous lidocaine 10 cc orally. Patient's pain is most likely secondary to gastritis I did discuss this with her. She was started on omeprazole 20 mg once a day for 1 month and Zofran ODT 8 mg every 6-8 hours as needed for nausea and vomiting. She was given printed and verbal instructions and discharged home. MDM - Abdominal Pain Lab Data Result diagrams: 04/04/22 18:11 04/04/22 18:11 Labs: Lab Results 04/04/22 04/04/22 04/05/22 Range/Units 18:11 18:11 03:31 WBC 8.9 (4.8-10.8) X10*3/uL RBC 4.59 (4.20-5.50) X10*6/uL Hgb 9.7 L (12.0-16.0) g/dl Hct 33.2 L (37.0-47.0) % MCV 72.3 L (80.0-98.0) fL MCH 21.1 L (27.0-33.0) pg MCHC 29.2 L (31.0-35.0) g/dl RDW 17.3 H (11.0-16.0) % Plt Count 265 (160-400) X10*3/uL MPV 10.7 (9.4-12.3) fL Immature Gran % (Auto) 0.3 (0.0-0.4) % Neut % (Auto) 62.4 (45-73) % Lymph % (Auto) 25.1 (20-40) % [place] % (Auto) 7.7 (2-11) % Eos % (Auto) 4.0 (0-4) % Baso % (Auto) 0.5 (0-2) % Lymph # (Auto) 2.2 (1.2-4.9) X10*3/uL [place] # (Auto) 0.7 (0.1-1.2) X10*3/uL Eos # (Auto) 0.4 (0.0-0.4) X10*3/uL Baso # (Auto) 0.0 (0.0-0.2) X10*3/uL Abs Immat Gran (auto) 0.03 (0.00-0.03) X10*3/uL Absolute Neuts (auto) 5.5 (2.0-8.3) x10*3/uL Absolute Nucleated RBC 0.000 (0.0-0.012) X10*3/uL Nucleated RBC % (auto) 0.0 (0.0-0.2) /100WBC Sodium 141 (135-145) mmol/L Potassium 4.0 (3.3-5.1) mmol/L Chloride 105 (96-108) mmol/L Carbon Dioxide 30 H (22-29) mmol/L Anion Gap 10 L (12-20) BUN 11 (9-16) mg/dL Creatinine 0.72 (0.5-1.4) mg/dL Estim Creat Clear Calc 70.6 Estimated GFR > 60 Random Glucose 86 (60-115) mg/dL Calcium 9.2 (8.4-10.2) mg/dL Total Bilirubin 0.3 (0.0-1.0) mg/dL Direct Bilirubin 0.2 (0.0-0.5) mg/dL AST 20 (5-31) U/L ALT 15 (0-31) U/L Alkaline Phosphatase 92 (39-117) U/L Total Protein 8.0 (6.5-8.0) g/dL Albumin 4.1 (3.5-5.0) g/dL Lipase 10 (8-78) U/L Urine Color YELLOW Urine Appearance HAZY Urine pH 6.0 (5.0-8.0) Ur Specific [place] 1.025 (1.005-1.025) Urine Protein NEG (NEG-TRACE) MG/DL Urine Glucose (UA) NEG (NEG) MG/DL Urine Ketones NEG (NEG) MG/DL Urine Blood NEG (NEG) Urine Nitrite NEG (NEG) Ur Leukocyte Esterase NEG (NEG) Discharge Plan Discharge Clinical Impression: Gastritis Qualifiers: Chronicity: acute Gastritis bleeding: without bleeding Patient Disposition: Home, Self-Care Instructions: Gastritis (ED) Additional Instructions: Your laboratory evaluation was unremarkable. Your CT scan of the abdomen pelvis did not reveal a clear cause for your pain. At this time, I suspect that your pain is caused by inflammation of her stomach (gastritis) Take Prilosec (omeprazole) 20 mg pills, 1 pill once a day for 1 month. This medication shuts off your acid production and let us the inflammation in your esophagus and stomach heal. Take Zofran ODT 4 mg pills, 1 pill dissolved in your mouth every 8 hours as needed for nausea and vomiting. Take Tylenol (acetaminophen) 500 mg pills, 2 pills every 4 to 6 hours as needed for pain. Follow-up with your doctor in 2 days. Please return to the emergency department if your symptoms get worse or if you develop any symptoms that are concerning to you. Prescriptions: New omeprazole 20 mg capsule,delayed release(DR/EC) 20 mg PO DAILY 30 Days Qty: 30 0RF ondansetron 4 mg tablet,disintegrating 4 mg PO Q6-8H PRN (Reason: nausea and vomiting) Qty: 14 0RF No Action Lidocaine Viscous 2 % solution 15 ml mucous membrane Q3H PRN (Reason: mouth pain) 10 Days Qty: 100 2RF alprazolam 0.5 mg tablet 0.5 mg PO BID 30 Days Qty: 60 1RF albuterol sulfate 90 mcg/actuation HFA aerosol inhaler 2 puff inhalation Q6H PRN (Reason: shortness of breath or wheezing) 30 Days Qty: 8.5 1RF albuterol sulfate 2.5 mg /3 mL (0.083 %) solution for nebulization 2.5 mg inhalation Q4-6H PRN (Reason: shortness of breath or wheezing) 30 Days Qty: 90 3RF polyethylene glycol 3350 [Miralax] 17 gram powder in packet 17 g PO DAILY PRN (Reason: constipation) 30 Days Qty: 30 3RF Rx Instructions: Mixed 17 g into 8 oz of water once per day/as needed for constipation diclofenac sodium 50 mg tablet,delayed release (DR/EC) 50 mg PO BID 15 Days Qty: 30 0RF ondansetron 4 mg tablet,disintegrating 4 mg PO Q8H 4 Days Qty: 12 0RF (DME) Ultra-Light Rollator Misc See Rx Instructions .Route Qty: 1 0RF Rx Instructions: As directed promethazine 25 mg tablet 25 mg PO TID PRN (Reason: nausea and vomiting) 7 Days Qty: 21 2RF nitrofurantoin monohyd/m-cryst [Macrobid] 100 mg capsule 100 mg PO Q12H 5 Days Qty: 10 0RF Rx Instructions: must administer with a meal/food tramadol 50 mg tablet 50 mg PO Q8H PRN (Reason: pain) Qty: 6 0RF sennosides-docusate sodium [Senna with Docusate Sodium] 8.6-50 mg tablet 1 tab-cap PO BEDTIME Qty: 20 0RF bisacodyl [Gentle Laxative (bisacodyl)] 10 mg suppository 10 mg NH DAILY PRN (Reason: constipation) Qty: 12 0RF omeprazole 40 mg capsule,delayed release(DR/EC) 40 mg PO DAILY Qty: 30 0RF Flovent HFA 110 mcg/actuation HFA aerosol inhaler 2 puff inhalation BID methadone 40 mg tablet,soluble 51 mg PO DAILY baclofen 20 mg tablet 20 mg PO Q8H Qty: 90 1RF acetaminophen 500 mg tablet 500 mg PO Q6H PRN (Reason: pain) 30 Days Qty: 120 3RF gabapentin 300 mg capsule 300 mg PO TID 30 Days Qty: 90 3RF hydrochlorothiazide 12.5 mg tablet 12.5 mg PO DAILY Qty: 30 1RF (DME) blood pressure test kit-large Kit See Rx Instructions .Route Qty: 1 0RF Rx Instructions: As directed gabapentin 400 mg capsule See Rx Instructions PO .COMPLEX 30 Days Qty: 150 3RF Rx Instructions: PO; take 1 capsule in the morning, 2 capsules midday, 2 capsules in the p.m. clotrimazole-betamethasone 1-0.05 % cream 1 appl topical BID PRN (Reason: skin irritation) 30 Days Qty: 45 2RF triamcinolone acetonide 0.025 % cream 1 appl topical DAILY PRN (Reason: skin irritation) 30 Days Qty: 80 3RF Plenity 0.75 gram capsule 3 cap PO BID 30 Days Qty: 180 3RF Rx Instructions: administer before lunch and evening meal/dinner miscellaneous medical supply Misc 1 ea miscellaneous DAILY 99 Days Qty: 1 0RF
[2022-04-05 06:18] VITALS: BP 111/51; PULSE 63; RESP 14; O2SAT 97
== END 2022-04-05 06:23 | disposition home or self-care (01) ==
PROVIDERS: Emergency Medicine; Emergency Provider Emergency Medicine Emergency Medical Services; PCP Physician Assistant
DX: K29.70 Gastritis, unspecified, without bleeding (principal); R10.13 Epigastric pain; Z79.899 Other long term (current) drug therapy
CPT/HCPCS: 36415; 74176; 80048; 80076; 81003; 83690; 85025; 99284; J1885

== ENCOUNTER 2022-04-16 22:07 | Emergency (ER) | payer MEDICARE, MEDICAID, SELFPAY ==
--- NOTE | ~2022-04-16 | CT_ITS ---
EXAMINATION: CT ABDOMEN AND PELVIS WITH CONTRAST CLINICAL INFORMATION: Abdominal pain COMPARISON: 04/05/2022 TECHNIQUE: Multidetector volumetric images were obtained from the superior aspect of the liver through the pubic symphysis following administration 96 mL of Omnipaque 350 intravenous contrast. Sagittal and coronal reformatted images were obtained on the technologist's workstation. Oral contrast: No This CT examination was performed using dose optimization techniques as appropriate, variously including the following: *Automated exposure control *Adjustment of mA and/or kV according to patient size (this includes techniques or standardized protocols for targeted exams where dose is matched to indication/reason for exam; i.e. extremities or head) *Use of iterative reconstruction technique DLP: 1703 mGy-cm FINDINGS: LUNG BASES: The visualized lung bases are unremarkable. LIVER, GALLBLADDER, AND BILIARY TREE: The liver is normal in size, shape, and attenuation. No focal hepatic lesion or biliary ductal dilatation is present. The gallbladder is unremarkable with no evidence of radiopaque gallstones, gallbladder wall thickening, or obvious pericholecystic inflammatory changes. PANCREAS: Fatty atrophy of the pancreas. No pancreatic mass or inflammation. SPLEEN: Unremarkable. ADRENAL GLANDS: Unremarkable. KIDNEYS AND URETERS: The kidneys are normal in size, shape, and attenuation. No hydronephrosis, hydroureter, or calculi seen. No perinephric stranding. BLADDER: Unremarkable. GASTROINTESTINAL TRACT: There are a few scattered colonic diverticula. No evidence of diverticulitis. Normal stomach and small bowel. Normal appendix. ABDOMINAL WALL: No significant hernia is appreciated. LYMPH NODES: Normal. VASCULAR: Unremarkable. PELVIC VISCERA: Unremarkable. OSSEOUS STRUCTURES: No acute or suspicious osseous abnormality is. Degenerative changes present throughout the lumbar spine. CT/CT abdomen pelvis w con IMPRESSION: No acute findings within the abdomen or pelvis
[2022-04-16 22:39] VITALS: BP 147/74; PULSE 88; RESP 16; TEMP 36.5; O2SAT 100; BMI 46.7
[2022-04-16 23:26] LABS: Alanine Aminotransferase 18 U/L (0-31); Albumin Level 4.1 g/dL (3.5-5.0); Alkaline Phosphatase 90 U/L (39-117); Anion Gap 13 (12-20); Aspartate Amino Transferase 23 U/L (5-31); Bilirubin Total 0.3 mg/dL (0.0-1.0); Blood Urea Nitrogen 11 mg/dL (9-16); Calcium 9.2 mg/dL (8.4-10.2); Carbon Dioxide 28 mmol/L (22-29); Chloride 105 mmol/L (96-108); Creatinine Clr Calc Pharmacy 109.4; Estimated Glomerular Filt Rate > 60; Glucose Random 96 mg/dL (60-115); Sodium 142 mmol/L (135-145); Total Protein 7.9 g/dL (6.5-8.0)
[2022-04-16 23:42] LABS: Hematocrit 29.4 % (37.0-47.0); Hemoglobin 8.8 g/dl (12.0-16.0); Mean Corpuscular HGB Conc 29.9 g/dl (31.0-35.0); Mean Corpuscular Hemoglobin 21.5 pg (27.0-33.0); Mean Corpuscular Volume 71.9 fL (80.0-98.0); Mean Platelet Volume 10.3 fL (9.4-12.3); Platelet Count 242 X10*3/uL (160-400); Red Blood Count 4.09 X10*6/uL (4.20-5.50); Red Cell Distribution Width 17.2 % (11.0-16.0); White Blood Count 8.6 X10*3/uL (4.8-10.8)
[2022-04-17 01:40] VITALS: BP 140/68; PULSE 90; RESP 17; TEMP 36.6; O2SAT 97
--- NOTE | 2022-04-17 02:30 | ED_ITS ---
HPI - Abdominal Pain General Chief Complaint: Abdominal Pain Stated Complaint: lupus flare up Time Seen by Provider: 04/17/22 02:22 History of Present Illness HPI narrative: Patient is a 52-year-old female presented today with having abdominal pain that is in ongoing few days. Has a history of lupus. Has a history of general anxiety. Has a history of rheumatoid arthritis. Patient also complain of hard stool with visible blood noted in the toilet bowl. She has a history of hemorr hoids. This has been ongoing for a long period of time. Actually got better in the last day or so. Patient denies any coughing congestion upper respiratory symptoms. No chest pain. No pain on urination. Patient from home.. Related Data Home Medications Medication Instructions Recorded Confirmed fluticasone propionate 110 2 puff inhalation BID 07/03/20 02/19/22 mcg/actuation HFA aerosol inhaler (Flovent HFA) methadone 40 mg soluble tablet 51 mg PO DAILY 02/19/22 02/19/22 Previous Rx's Medication Instructions Recorded lidocaine HCl 2 % mucosal solution 15 ml mucous membrane Q3H PRN 12/03/20 (Lidocaine Viscous) mouth pain 10 days #100 mL alprazolam 0.5 mg tablet 0.5 mg PO BID 30 days #60 tabs 04/02/21 albuterol sulfate 90 mcg/actuation 2 puff inhalation Q6H PRN 06/14/21 aerosol inhaler shortness of breath or wheezing 30 days #8.5 grams albuterol sulfate 2.5 mg/3 mL 2.5 mg (3 mL) inhalation Q4-6H PRN 06/16/21 (0.083 %) solution for nebulization shortness of breath or wheezing 30 days #90 mL acetaminophen 500 mg tablet 500 mg PO Q6H PRN pain 30 days 07/03/21 #120 tabs baclofen 20 mg tablet 20 mg PO Q8H #90 tabs 07/03/21 bisacodyl 10 mg rectal suppository 10 mg OR DAILY PRN constipation 07/30/21 (Gentle Laxative (bisacodyl)) #12 ea sennosides 8.6 mg-docusate sodium 1 tab-cap PO BEDTIME #20 tabs 07/30/21 50 mg tablet (Senna with Docusate Sodium) polyethylene glycol 3350 17 gram 17 g PO DAILY PRN constipation 30 09/22/21 oral powder packet (Miralax) days #30 ea diclofenac sodium 50 mg 50 mg PO BID 15 days #30 tabs 10/06/21 tablet,delayed release miscellaneous medical supply 1 ea miscellaneous DAILY 99 days 10/06/21 #1 ea ondansetron 4 mg disintegrating 4 mg PO Q8H 4 days #12 tabs 10/29/21 tablet omeprazole 40 mg capsule,delayed 40 mg PO DAILY #30 caps 11/03/21 release walker (Ultra-Light Rollator misc) #1 ea 12/09/21 promethazine 25 mg tablet 25 mg PO TID PRN nausea and 01/14/22 vomiting 7 days #21 tabs tramadol 50 mg tablet 50 mg PO Q8H PRN pain #6 tabs 02/01/22 blood pressure test kit-large #1 ea 02/19/22 carboxymethylcellulose-citric acid 3 cap PO BID 30 days #180 caps 02/19/22 0.75 gram capsule (Plenity) clotrimazole-betamethasone 1 1 appl topical BID PRN skin 02/19/22 %-0.05 % topical cream irritation 30 days #45 grams gabapentin 300 mg capsule 300 mg PO TID 30 days #90 caps 02/19/22 gabapentin 400 mg capsule See Rx Instructions PO .COMPLEX 30 02/19/22 days #150 caps hydrochlorothiazide 12.5 mg tablet 12.5 mg PO DAILY #30 tabs 02/19/22 triamcinolone acetonide 0.025 % 1 appl topical DAILY PRN skin 02/19/22 topical cream irritation 30 days #80 grams nitrofurantoin 100 mg PO Q12H 5 days #10 caps 04/01/22 monohydrate/macrocrystals 100 mg capsule (Macrobid) omeprazole 20 mg capsule,delayed 20 mg PO DAILY 30 days #30 caps 04/05/22 release ondansetron 4 mg disintegrating 4 mg PO Q6-8H PRN nausea and 04/05/22 tablet vomiting #14 tabs Allergies Allergy/AdvReac Type Severity Reaction Status Date / Time latex [Latex] Allergy Mild RASH Verified 02/19/22 15:29 Benadryl Allergy Unknown Rash Verified 02/19/22 15:29 diphenhydramine Allergy Unknown HIVES Verified 02/19/22 15:29 [From Benadryl] Review of Systems Review of Systems No fever no chills no chest pain or shortness of breath no nausea no vomiting All system reviewed otherwise negative Yes all other systems are reviewed and are negative [facility] Past Medical History Attestation statement: The following information was validated with the patient. Medical History Asthma Lupus Right shoulder pain Tinea Surgical History History of section History of umbilical hernia repair History of varicose vein ligation Plantar fasciitis of left foot Family History Family History Father High cholesterol High blood pressure Dementia Mother Diabetes Arthritis High blood pressure Paternal Grandmother Colon cancer Social History Social History Housing: House Alcohol intake: never Patient Tobacco Use Status: Never used Tobacco e-Cigarette/Vaping Use: Never Used Second Hand Smoke Exposure: No Substance Use Type: Opiates Advance Directives: No Advance Directives Information Provided: Yes Current occupational status: unemployed Cognitive needs: Yes Hearing needs: No Vision needs: Yes Physical Exam ED Vital Signs: Vital Signs - 24 hr 04/16/22 22:39 04/17/22 01:40 Temperature 97.7 F 97.8 F Pulse Rate 88 90 Respiratory Rate 16 17 Blood Pressure 147/74 H 140/68 H Pulse Oximetry 100 97 Oxygen Delivery Method Room Air Room Air BMI result Body Mass Index 46.7 Appearance: Alert. Oriented X3. No acute distress. Eyes: Pupils equal, round and reactive to light. ENT: Pharynx normal. Neck: Normal inspection. Neck supple. No lymph nodes noted. No crepitus CVS: Normal heart rate and rhythm. Pulses normal. Normal S1 and S2 Respiratory: No respiratory distress. Breath sounds normal. No Wheezing. No rales Abdomen: Soft and nontender. No rigidity. No distention. good BS x4 Rectal exam done with nurse Chelsea present. It showed brown stool. Hemoccult was sent off to the lab. Skin: Skin warm and dry. Normal skin color. Normal skin turgor. Extremities: No lower extremity edema. Neurovascular intact to all extremities. No Lacerations. No Rash Neuro: Oriented X 3. No motor deficit. No sensory deficit. Moving all extermities. No slurred speech MDM - Abdominal Pain MDM Narrative Medical decision making narrative: CT of the abdomen pelvis did not show any acute evidence of obstruction, abscess, perforation could patient's white count is normal. Hemoglobin is 9 which is approximately baseline. Patient's rectal exam shows heart brown stool heme positive. Patient does have large hemorrhoid that was visible. Will discharge patient home. Close follow-up on an outpatient basis. She is in stable condition. Differential Diagnosis Differential diagnosis: Likely abdominal pain Medical Records Attestation: I reviewed the patient's medical records. Lab Data Attestation: I reviewed the patient's lab results. Result diagrams: 04/16/22 23:06 04/16/22 23:06 Labs: Lab Results 04/16/22 04/16/22 04/17/22 Range/Units 23:06 23:06 02:30 WBC 8.6 (4.8-10.8) X10*3/uL RBC 4.09 L (4.20-5.50) X10*6/uL Hgb 8.8 L (12.0-16.0) g/dl Hct 29.4 L (37.0-47.0) % MCV 71.9 L (80.0-98.0) fL MCH 21.5 L (27.0-33.0) pg MCHC 29.9 L (31.0-35.0) g/dl RDW 17.2 H (11.0-16.0) % Plt Count 242 (160-400) X10*3/uL MPV 10.3 (9.4-12.3) fL Absolute Nucleated RBC 0.000 (0.0-0.012) X10*3/uL Nucleated RBC % (auto) 0.0 (0.0-0.2) /100WBC Sodium 142 (135-145) mmol/L Potassium 4.0 (3.3-5.1) mmol/L Chloride 105 (96-108) mmol/L Carbon Dioxide 28 (22-29) mmol/L Anion Gap 13 (12-20) BUN 11 (9-16) mg/dL Creatinine 0.71 (0.5-1.4) mg/dL Estim Creat Clear Calc 109.4 Estimated GFR > 60 Random Glucose 96 (60-115) mg/dL Calcium 9.2 (8.4-10.2) mg/dL Total Bilirubin 0.3 (0.0-1.0) mg/dL AST 23 (5-31) U/L ALT 18 (0-31) U/L Alkaline Phosphatase 90 (39-117) U/L Total Protein 7.9 (6.5-8.0) g/dL Albumin 4.1 (3.5-5.0) g/dL Stool Occult Blood POSITIVE (NEGATIVE) Discharge Plan Discharge Clinical Impression: Abdominal pain, Hemorrhoid Patient Disposition: Home, Self-Care Instructions: Hemorrhoids (ED), Abdominal Pain (ED) Prescriptions: No Action Lidocaine Viscous 2 % solution 15 ml mucous membrane Q3H PRN (Reason: mouth pain) 10 Days Qty: 100 2RF alprazolam 0.5 mg tablet 0.5 mg PO BID 30 Days Qty: 60 1RF albuterol sulfate 90 mcg/actuation HFA aerosol inhaler 2 puff inhalation Q6H PRN (Reason: shortness of breath or wheezing) 30 Days Qty: 8.5 1RF albuterol sulfate 2.5 mg /3 mL (0.083 %) solution for nebulization 2.5 mg inhalation Q4-6H PRN (Reason: shortness of breath or wheezing) 30 Days Qty: 90 3RF polyethylene glycol 3350 [Miralax] 17 gram powder in packet 17 g PO DAILY PRN (Reason: constipation) 30 Days Qty: 30 3RF Rx Instructions: Mixed 17 g into 8 oz of water once per day/as needed for constipation diclofenac sodium 50 mg tablet,delayed release (DR/EC) 50 mg PO BID 15 Days Qty: 30 0RF ondansetron 4 mg tablet,disintegrating 4 mg PO Q8H 4 Days Qty: 12 0RF (DME) Ultra-Light Rollator Misc See Rx Instructions .Route Qty: 1 0RF Rx Instructions: As directed promethazine 25 mg tablet 25 mg PO TID PRN (Reason: nausea and vomiting) 7 Days Qty: 21 2RF nitrofurantoin monohyd/m-cryst [Macrobid] 100 mg capsule 100 mg PO Q12H 5 Days Qty: 10 0RF Rx Instructions: must administer with a meal/food tramadol 50 mg tablet 50 mg PO Q8H PRN (Reason: pain) Qty: 6 0RF omeprazole 20 mg capsule,delayed release(DR/EC) 20 mg PO DAILY 30 Days Qty: 30 0RF ondansetron 4 mg tablet,disintegrating 4 mg PO Q6-8H PRN (Reason: nausea and vomiting) Qty: 14 0RF sennosides-docusate sodium [Senna with Docusate Sodium] 8.6-50 mg tablet 1 tab-cap PO BEDTIME Qty: 20 0RF bisacodyl [Gentle Laxative (bisacodyl)] 10 mg suppository 10 mg OR DAILY PRN (Reason: constipation) Qty: 12 0RF omeprazole 40 mg capsule,delayed release(DR/EC) 40 mg PO DAILY Qty: 30 0RF Flovent HFA 110 mcg/actuation HFA aerosol inhaler 2 puff inhalation BID methadone 40 mg tablet,soluble 51 mg PO DAILY baclofen 20 mg tablet 20 mg PO Q8H Qty: 90 1RF acetaminophen 500 mg tablet 500 mg PO Q6H PRN (Reason: pain) 30 Days Qty: 120 3RF gabapentin 300 mg capsule 300 mg PO TID 30 Days Qty: 90 3RF hydrochlorothiazide 12.5 mg tablet 12.5 mg PO DAILY Qty: 30 1RF (DME) blood pressure test kit-large Kit See Rx Instructions .Route Qty: 1 0RF Rx Instructions: As directed gabapentin 400 mg capsule See Rx Instructions PO .COMPLEX 30 Days Qty: 150 3RF Rx Instructions: PO; take 1 capsule in the morning, 2 capsules midday, 2 capsules in the p.m. clotrimazole-betamethasone 1-0.05 % cream 1 appl topical BID PRN (Reason: skin irritation) 30 Days Qty: 45 2RF triamcinolone acetonide 0.025 % cream 1 appl topical DAILY PRN (Reason: skin irritation) 30 Days Qty: 80 3RF Plenity 0.75 gram capsule 3 cap PO BID 30 Days Qty: 180 3RF Rx Instructions: administer before lunch and evening meal/dinner miscellaneous medical supply Misc 1 ea miscellaneous DAILY 99 Days Qty: 1 0RF Referrals: Rony Carr PA-C [Primary Care Provider] - Interventions: LWBS Worksheet Last Done: 04/16/22 23:12
[2022-04-17 02:33] LABS: OBS Int Ctl Valid YES; OBS1 POSITIVE (NEGATIVE)
--- NOTE | 2022-04-17 02:33 | PC.NURSE ---
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 OBS sent to lab for analysis per order.
[2022-04-17] MEDS: iohexoL 350 MG/ML 100 ML INFUS..BTL IV (03:48)
== END 2022-04-17 05:21 | disposition home or self-care (01) ==
PROVIDERS: Emergency Provider Emergency Medicine Emergency Medical Services; PCP Physician Assistant
DX: K64.9 Unspecified hemorrhoids (principal); M32.9 Systemic lupus erythematosus, unspecified; Z79.899 Other long term (current) drug therapy
CPT/HCPCS: 36415; 74177; 80053; 82272; 85027; 99283; 99284; Q9967

== ENCOUNTER 2022-04-17 07:37 | Emergency (ER) | payer MEDICARE, MEDICAID, SELFPAY ==
[2022-04-17 07:51] VITALS: BP 182/79; PULSE 68; RESP 22; TEMP 36.2; BMI 46.7
--- NOTE | 2022-04-17 08:16 | ECG_ITS ---
Test Reason : cp Blood Pressure : / mmHG Vent. Rate : 075 BPM Atrial Rate : 075 BPM P-R Int : 170 ms QRS Dur : 090 ms QT Int : 382 ms P-R-T Axes : 032 017 018 degrees QTc Int : 426 ms Normal sinus rhythm Normal ECG When compared with ECG of 20-FEB-2022 22:21, No significant change was found Referred By: Tiffanie Houston Electronically Signed By:JOYCE LUDWIG
--- NOTE | 2022-04-17 08:40 | ED_ITS ---
HPI - Abdominal Pain General Chief Complaint: Abdominal Pain Stated Complaint: vomiting/abd pain/headaches Time Seen by Provider: 04/17/22 08:03 Source: patient Mode of arrival: ambulatory Limitations: no limitations History of Present Illness HPI narrative: 52-year-old female with a history of anxiety, asthma, depression, iron deficiency anemia, fibromyalgia, osteoarthritis, lupus, on methadone presents to the emergency room with reports of upper abdominal pain with nausea and headache. Patient tells me she was seen here last night in the emergency room. At that time she was having some rectal bleeding and pain and the rectum. She had labs which showed an microcytic anemia at baseline. She had a CT scan of the abdomen pelvis which showed no acute finding. Clinically she had a hemorrhoid and was discharged home with supportive care. Patient returns with upper abdominal pain, nausea which is on relieved with her home promethazine and headache. Patient tells me she has dry heaves but no vomiting. She denies any diarrhea, constipation, urinary symptoms, fevers or chills. Patient has a history of gastritis and takes 20 mg of omeprazole daily. She does not see GI. She cannot recall her last endoscopy. Related Data Home Medications Medication Instructions Recorded Confirmed fluticasone propionate 110 2 puff inhalation BID 07/03/20 02/19/22 mcg/actuation HFA aerosol inhaler (Flovent HFA) methadone 40 mg soluble tablet 51 mg PO DAILY 02/19/22 02/19/22 Previous Rx's Medication Instructions Recorded lidocaine HCl 2 % mucosal solution 15 ml mucous membrane Q3H PRN 12/03/20 (Lidocaine Viscous) mouth pain 10 days #100 mL alprazolam 0.5 mg tablet 0.5 mg PO BID 30 days #60 tabs 04/02/21 albuterol sulfate 90 mcg/actuation 2 puff inhalation Q6H PRN 06/14/21 aerosol inhaler shortness of breath or wheezing 30 days #8.5 grams albuterol sulfate 2.5 mg/3 mL 2.5 mg (3 mL) inhalation Q4-6H PRN 06/16/21 (0.083 %) solution for nebulization shortness of breath or wheezing 30 days #90 mL acetaminophen 500 mg tablet 500 mg PO Q6H PRN pain 30 days 07/03/21 #120 tabs baclofen 20 mg tablet 20 mg PO Q8H #90 tabs 07/03/21 bisacodyl 10 mg rectal suppository 10 mg [place] DAILY PRN constipation 07/30/21 (Gentle Laxative (bisacodyl)) #12 ea sennosides 8.6 mg-docusate sodium 1 tab-cap PO BEDTIME #20 tabs 07/30/21 50 mg tablet (Senna with Docusate Sodium) polyethylene glycol 3350 17 gram 17 g PO DAILY PRN constipation 30 09/22/21 oral powder packet (Miralax) days #30 ea diclofenac sodium 50 mg 50 mg PO BID 15 days #30 tabs 10/06/21 tablet,delayed release miscellaneous medical supply 1 ea miscellaneous DAILY 99 days 10/06/21 #1 ea ondansetron 4 mg disintegrating 4 mg PO Q8H 4 days #12 tabs 10/29/21 tablet omeprazole 40 mg capsule,delayed 40 mg PO DAILY #30 caps 11/03/21 release walker (Ultra-Light Rollator misc) #1 ea 12/09/21 promethazine 25 mg tablet 25 mg PO TID PRN nausea and 01/14/22 vomiting 7 days #21 tabs tramadol 50 mg tablet 50 mg PO Q8H PRN pain #6 tabs 02/01/22 blood pressure test kit-large #1 ea 02/19/22 carboxymethylcellulose-citric acid 3 cap PO BID 30 days #180 caps 02/19/22 0.75 gram capsule (Plenity) clotrimazole-betamethasone 1 1 appl topical BID PRN skin 02/19/22 %-0.05 % topical cream irritation 30 days #45 grams gabapentin 300 mg capsule 300 mg PO TID 30 days #90 caps 02/19/22 gabapentin 400 mg capsule See Rx Instructions PO .COMPLEX 30 02/19/22 days #150 caps hydrochlorothiazide 12.5 mg tablet 12.5 mg PO DAILY #30 tabs 02/19/22 triamcinolone acetonide 0.025 % 1 appl topical DAILY PRN skin 02/19/22 topical cream irritation 30 days #80 grams nitrofurantoin 100 mg PO Q12H 5 days #10 caps 04/01/22 monohydrate/macrocrystals 100 mg capsule (Macrobid) omeprazole 20 mg capsule,delayed 20 mg PO DAILY 30 days #30 caps 04/05/22 release ondansetron 4 mg disintegrating 4 mg PO Q6-8H PRN nausea and 04/05/22 tablet vomiting #14 tabs omeprazole 40 mg capsule,delayed 40 mg PO DAILY #30 caps 04/17/22 release ondansetron 4 mg disintegrating 4 mg PO Q6H PRN nausea and 04/17/22 tablet vomiting #14 tabs sucralfate 1 gram tablet (Carafate) 1 g PO TID #90 tabs 04/17/22 Allergies Allergy/AdvReac Type Severity Reaction Status Date / Time latex [Latex] Allergy Mild RASH Verified 02/19/22 15:29 Benadryl Allergy Unknown Rash Verified 02/19/22 15:29 diphenhydramine Allergy Unknown HIVES Verified 02/19/22 15:29 [From Benadryl] Review of Systems Review of Systems Yes all other systems are reviewed and are negative Constitutional: Reports no additional constitutional complaints, Denies body ache(s), Denies chills, Denies fever(s), Reports headache(s) and Denies weakness Eyes: Reports no additional eye complaints and Denies change in vision Reports system reviewed and no additional complaints, except as documented, Denies dizziness, Reports headache(s), Denies nasal congestion, Denies nasal discharge and Denies neck pain Cardiovascular: Reports no additional cardiovascular complaints, Denies chest pain, Denies leg edema and Denies dyspnea Respiratory: Reports no additional respiratory complaints, Denies cough and Denies dyspnea Gastrointestinal: Reports no additional gastrointestinal complaints, Reports a bdominal pain, Denies diarrhea, Reports nausea and Denies vomiting Genitourinary: Reports no additional female genitourinary complaints and Denies urinary incontinence Musculoskeletal: Reports no additional musculoskeletal complaints, Denies back pain, Denies arthralgias, Denies joint swelling, Denies neck pain, Denies numbness and Denies tingling Skin/Breast: Reports system reviewed and no additional complaints, except as d ocu and Denies rash Reports system reviewed and no additional complaints, except as documented, Cj es dizziness, Reports headache(s), Denies numbness, Denies tingling and Denies weakness PMFSH Past Medical History Attestation statement: The following information was validated with the patient. Source: old records reviewed and nursing notes reviewed Medical History Asthma Lupus Right shoulder pain Tinea Surgical History History of section History of umbilical hernia repair History of varicose vein ligation Plantar fasciitis of left foot Family History Family History Father High cholesterol High blood pressure Dementia Mother Diabetes Arthritis High blood pressure Paternal Grandmother Colon cancer Social History Social History Housing: House Alcohol intake: never Patient Tobacco Use Status: Never used Tobacco e-Cigarette/Vaping Use: Never Used Second Hand Smoke Exposure: No Use of substances other than those prescribed or required for medical reasons: No Substance Use Type: Opiates Advance Directives: Yes Advance Directives Information Provided: Yes Advance Directives on File: No Current occupational status: unemployed Cognitive needs: Yes Hearing needs: No Vision needs: Yes Physical Exam ED Vital Signs: Vital Signs - 24 hr 04/17/22 07:51 04/17/22 10:43 04/17/22 11:22 Temperature 97.1 F 98.1 F Pulse Rate 68 98 86 Respiratory Rate 22 H 22 H 18 Blood Pressure 182/79 H 192/99 H 146/68 H Pulse Oximetry 97 95 Oxygen Delivery Method Room Air Room Air BMI result Body Mass Index 46.7 Const General: cooperative, healthy appearing, comfortable and no acute distress Orientation/consciousness: patient oriented x3 Limitations: no limitations HENMT Head: Yes normal to inspection Ears: hearing grossly normal bilaterally Eyes General: appearance normal, both eyes and all related structures Pupils: Equal, round and reactive pupils present Neck Neck: Yes normal visual inspection, Yes full ROM and Yes no lymphadenopathy Chest Chest palpation & inspection: normal inspection of the chest Resp Effort & Inspection: normal respiratory effort Auscultation: clear to auscultation bilaterally Cardio Rate: regular rate Rhythm: regular rhythm Peripheral pulses: Peripheral pulses 2+ throughout GI Inspection: Yes normal to inspection Palpation (GI): Soft to palpation and Tenderness to palpation present (GI) (Epigastric tenderness with no rebound or guarding) Auscultation: normal bowel sounds General: Yes no CVA tenderness Back/Spine/Pelvis Back: no CVA tenderness Thoracic/Lumbar Spine: thoracic and lumbar spine normal to inspection Skin General skin exam: no rashes or lesions noted Neuro General: patient oriented x3 and moves all extremities Cranial nerves: Yes Equal, round and reactive pupils present Cognition (Neuro): normal cognition Gait exam (Neuro): Normal gait present Extrem General: Yes normal to inspection, Yes no pedal edema and Yes no calf tenderness Course Course Course Narrative: Reviewed labs which are unremarkable with the exception of a chronic microcytic anemia. UA shows no sign infection. COVID screen is negative. Patient reports continued epigastric burning but has not vomited since arriving here in the emergency room. She was offered a GI cocktail as I do believe this is gastritis related. However she declined this. Reviewed labs with patient. I reviewed this is likely yesterday tried this. I recommend she increase her Prilosec to 40 mg daily., add Carafate and Zofran p.r.n.. Reviewed worrisome signs and symptoms of when to return to the emergency department. Comfortable discharge home. MDM - Abdominal Pain MDM Narrative Medical decision making narrative: This is a 52-year-old female who presents with epigastric pain with associated nausea and headache after being discharged this morning from this emergency r oom. Patient was seen overnight for rectal pain and bleeding. She had a negative CT scan and clinically had an external hemorrhoid and was discharged home early this morning. Patient reports since being home she has had upper abdominal pain with nausea that is unrelieved with her home promethazine. On arrival patient has some epigastric tenderness with no rebound or guarding. She has a history of gastritis and is currently on a PPI. Will obtain labs, COVID screen, EKG. Will place PIV and give normal saline bolus, Zofran, famotidine and haldol Consider gastritis, GERD, gastric ulcer Medical Records Attestation: I reviewed the patient's medical records. Lab Data Attestation: I reviewed the patient's lab results. Result diagrams: 04/17/22 08:49 04/17/22 08:49 Labs: Lab Results 04/17/22 04/17/22 04/17/22 Range/Units 08:49 08:49 08:51 WBC 8.1 (4.8-10.8) X10*3/uL RBC 4.14 L (4.20-5.50) X10*6/uL Hgb 9.0 L (12.0-16.0) g/dl Hct 29.7 L (37.0-47.0) % MCV 71.7 L (80.0-98.0) fL MCH 21.7 L (27.0-33.0) pg MCHC 30.3 L (31.0-35.0) g/dl RDW 17.2 H (11.0-16.0) % Plt Count 237 (160-400) X10*3/uL MPV 10.2 (9.4-12.3) fL Immature Gran % (Auto) 0.4 (0.0-0.4) % Neut % (Auto) 67.7 (45-73) % Lymph % (Auto) 21.0 (20-40) % Cooper % (Auto) 6.1 (2-11) % Eos % (Auto) 4.3 H (0-4) % Baso % (Auto) 0.5 (0-2) % Lymph # (Auto) 1.7 (1.2-4.9) X10*3/uL Cooper # (Auto) 0.5 (0.1-1.2) X10*3/uL Eos # (Auto) 0.4 (0.0-0.4) X10*3/uL Baso # (Auto) 0.0 (0.0-0.2) X10*3/uL Abs Immat Gran (auto) 0.03 (0.00-0.03) X10*3/uL Absolute Neuts (auto) 5.5 (2.0-8.3) x10*3/uL Absolute Nucleated RBC 0.000 (0.0-0.012) X10*3/uL Nucleated RBC % (auto) 0.0 (0.0-0.2) /100WBC Sodium 140 (135-145) mmol/L Potassium 3.9 (3.3-5.1) mmol/L Chloride 104 (96-108) mmol/L Carbon Dioxide 26 (22-29) mmol/L Anion Gap 14 (12-20) BUN 9 (9-16) mg/dL Creatinine 0.66 (0.5-1.4) mg/dL Estim Creat Clear Calc 117.6 Estimated GFR > 60 Random Glucose 114 (60-115) mg/dL Calcium 9.2 (8.4-10.2) mg/dL Magnesium 1.9 (1.6-2.6) mg/dL Total Bilirubin 0.4 (0.0-1.0) mg/dL Direct Bilirubin 0.2 (0.0-0.5) mg/dL AST 23 (5-31) U/L ALT 19 (0-31) U/L Alkaline Phosphatase 88 (39-117) U/L Total Protein 7.9 (6.5-8.0) g/dL Albumin 4.1 (3.5-5.0) g/dL Urine Color Urine Appearance Urine pH (5.0-8.0) Ur Specific Drifting (1.005-1.025) Urine Protein (NEG-TRACE) MG/DL Urine Glucose (UA) (NEG) MG/DL Urine Ketones (NEG) MG/DL Urine Blood (NEG) Urine Nitrite (NEG) Ur Leukocyte Esterase (NEG) COVID-19 (GRACIE) Negative (Negative) COVID-19 Clin Com See Note 04/17/22 Range/Units 09:17 WBC (4.8-10.8) X10*3/uL RBC (4.20-5.50) X10*6/uL Hgb (12.0-16.0) g/dl Hct (37.0-47.0) % MCV (80.0-98.0) fL MCH (27.0-33.0) pg MCHC (31.0-35.0) g/dl RDW (11.0-16.0) % Plt Count (160-400) X10*3/uL MPV (9.4-12.3) fL Immature Gran % (Auto) (0.0-0.4) % Neut % (Auto) (45-73) % Lymph % (Auto) (20-40) % Cooper % (Auto) (2-11) % Eos % (Auto) (0-4) % Baso % (Auto) (0-2) % Lymph # (Auto) (1.2-4.9) X10*3/uL Cooper # (Auto) (0.1-1.2) X10*3/uL Eos # (Auto) (0.0-0.4) X10*3/uL Baso # (Auto) (0.0-0.2) X10*3/uL Abs Immat Gran (auto) (0.00-0.03) X10*3/uL Absolute Neuts (auto) (2.0-8.3) x10*3/uL Absolute Nucleated RBC (0.0-0.012) X10*3/uL Nucleated RBC % (auto) (0.0-0.2) /100WBC Sodium (135-145) mmol/L Potassium (3.3-5.1) mmol/L Chloride (96-108) mmol/L Carbon Dioxide (22-29) mmol/L Anion Gap (12-20) BUN (9-16) mg/dL Creatinine (0.5-1.4) mg/dL Estim Creat Clear Calc Estimated GFR Random Glucose (60-115) mg/dL Calcium (8.4-10.2) mg/dL Magnesium (1.6-2.6) mg/dL Total Bilirubin (0.0-1.0) mg/dL Direct Bilirubin (0.0-0.5) mg/dL AST (5-31) U/L ALT (0-31) U/L Alkaline Phosphatase (39-117) U/L Total Protein (6.5-8.0) g/dL Albumin (3.5-5.0) g/dL Urine Color STRAW Urine Appearance CLEAR Urine pH 8.0 (5.0-8.0) Ur Specific Drifting 1.010 (1.005-1.025) Urine Protein NEG (NEG-TRACE) MG/DL Urine Glucose (UA) NEG (NEG) MG/DL Urine Ketones NEG (NEG) MG/DL Urine Blood NEG (NEG) Urine Nitrite NEG (NEG) Ur Leukocyte Esterase NEG (NEG) COVID-19 (GRACIE) (Negative) COVID-19 Clin Com ECG Data Attestation: I personally reviewed and interpreted this ECG as follows: ECG interpretation date: 04/17/22 ECG interpretation time: 09:13 Interpretation: Normal sinus rhythm with a rate of 75, normal [place], normal QRS, QTC 426 Discharge Plan Discharge Clinical Impression: Gastritis Patient Disposition: Home, Self-Care Instructions: Gastritis (ED) Additional Instructions: bland diet then advance diet as tolerated increase omeprazole to 40mg daily. add carafate see your pcp next week to discuss a GI referral Prescriptions: New omeprazole 40 mg capsule,delayed release(DR/EC) 40 mg PO DAILY Qty: 30 0RF sucralfate [Carafate] 1 gram tablet 1 g PO TID Qty: 90 0RF ondansetron 4 mg tablet,disintegrating 4 mg PO Q6H PRN (Reason: nausea and vomiting) Qty: 14 0RF No Action Lidocaine Viscous 2 % solution 15 ml mucous membrane Q3H PRN (Reason: mouth pain) 10 Days Qty: 100 2RF alprazolam 0.5 mg tablet 0.5 mg PO BID 30 Days Qty: 60 1RF albuterol sulfate 90 mcg/actuation HFA aerosol inhaler 2 puff inhalation Q6H PRN (Reason: shortness of breath or wheezing) 30 Days Qty: 8.5 1RF albuterol sulfate 2.5 mg /3 mL (0.083 %) solution for nebulization 2.5 mg inhalation Q4-6H PRN (Reason: shortness of breath or wheezing) 30 Days Qty: 90 3RF polyethylene glycol 3350 [Miralax] 17 gram powder in packet 17 g PO DAILY PRN (Reason: constipation) 30 Days Qty: 30 3RF Rx Instructions: Mixed 17 g into 8 oz of water once per day/as needed for constipation diclofenac sodium 50 mg tablet,delayed release (DR/EC) 50 mg PO BID 15 Days Qty: 30 0RF ondansetron 4 mg tablet,disintegrating 4 mg PO Q8H 4 Days Qty: 12 0RF (DME) Ultra-Light Rollator Misc See Rx Instructions .Route Qty: 1 0RF Rx Instructions: As directed promethazine 25 mg tablet 25 mg PO TID PRN (Reason: nausea and vomiting) 7 Days Qty: 21 2RF nitrofurantoin monohyd/m-cryst [Macrobid] 100 mg capsule 100 mg PO Q12H 5 Days Qty: 10 0RF Rx Instructions: must administer with a meal/food tramadol 50 mg tablet 50 mg PO Q8H PRN (Reason: pain) Qty: 6 0RF omeprazole 20 mg capsule,delayed release(DR/EC) 20 mg PO DAILY 30 Days Qty: 30 0RF ondansetron 4 mg tablet,disintegrating 4 mg PO Q6-8H PRN (Reason: nausea and vomiting) Qty: 14 0RF sennosides-docusate sodium [Senna with Docusate Sodium] 8.6-50 mg tablet 1 tab-cap PO BEDTIME Qty: 20 0RF bisacodyl [Gentle Laxative (bisacodyl)] 10 mg suppository 10 mg [place] DAILY PRN (Reason: constipation) Qty: 12 0RF omeprazole 40 mg capsule,delayed release(DR/EC) 40 mg PO DAILY Qty: 30 0RF Flovent HFA 110 mcg/actuation HFA aerosol inhaler 2 puff inhalation BID methadone 40 mg tablet,soluble 51 mg PO DAILY baclofen 20 mg tablet 20 mg PO Q8H Qty: 90 1RF acetaminophen 500 mg tablet 500 mg PO Q6H PRN (Reason: pain) 30 Days Qty: 120 3RF gabapentin 300 mg capsule 300 mg PO TID 30 Days Qty: 90 3RF hydrochlorothiazide 12.5 mg tablet 12.5 mg PO DAILY Qty: 30 1RF (DME) blood pressure test kit-large Kit See Rx Instructions .Route Qty: 1 0RF Rx Instructions: As directed gabapentin 400 mg capsule See Rx Instructions PO .COMPLEX 30 Days Qty: 150 3RF Rx Instructions: PO; take 1 capsule in the morning, 2 capsules midday, 2 capsules in the p.m. clotrimazole-betamethasone 1-0.05 % cream 1 appl topical BID PRN (Reason: skin irritation) 30 Days Qty: 45 2RF triamcinolone acetonide 0.025 % cream 1 appl topical DAILY PRN (Reason: skin irritation) 30 Days Qty: 80 3RF Plenity 0.75 gram capsule 3 cap PO BID 30 Days Qty: 180 3RF Rx Instructions: administer before lunch and evening meal/dinner miscellaneous medical supply Misc 1 ea miscellaneous DAILY 99 Days Qty: 1 0RF Referrals: Rony Carr PA-C [Primary Care Provider] - 5 days Interventions: ED Discharge Assessment Last Done: 04/17/22 12:26 Discharge Date/Time: 04/17/22 12:26
[2022-04-17 08:52] LABS: MANUAL DIFF FLAG NO
[2022-04-17 08:58] LABS: Basophils Percent Auto 0.5 % (0-2); Eosinophils Absolute Auto 0.4 X10*3/uL (0.0-0.4); Eosinophils Percent Auto 4.3 % (0-4); Hematocrit 29.7 % (37.0-47.0); Imm Gran Abs Auto 0.03 X10*3/uL (0.00-0.03); Imm Gran Pct Auto 0.4 % (0.0-0.4); Lymphocytes Absolute Auto 1.7 X10*3/uL (1.2-4.9); Mean Corpuscular HGB Conc 30.3 g/dl (31.0-35.0); Mean Corpuscular Hemoglobin 21.7 pg (27.0-33.0); Mean Corpuscular Volume 71.7 fL (80.0-98.0); Mean Platelet Volume 10.2 fL (9.4-12.3); Monocytes Absolute Auto 0.5 X10*3/uL (0.1-1.2); Monocytes Percent Auto 6.1 % (2-11); Neutrophils Absolute Auto 5.5 x10*3/uL (2.0-8.3); Neutrophils Percent Auto 67.7 % (45-73); Platelet Count 237 X10*3/uL (160-400); Red Blood Count 4.14 X10*6/uL (4.20-5.50); Red Cell Distribution Width 17.2 % (11.0-16.0); White Blood Count 8.1 X10*3/uL (4.8-10.8)
[2022-04-17] MEDS: ondansetron HCL 4 MG/2 ML VIAL IVPUSH (09:04)
[2022-04-17] MEDS: 0.9 % Sodium Chloride 1,000 ML 999 ML IV (09:04)
[2022-04-17] MEDS: Famotidine/PF 20 MG/2 ML VIAL IVPUSH (09:04)
[2022-04-17 09:12] LABS: Alanine Aminotransferase 19 U/L (0-31); Albumin Level 4.1 g/dL (3.5-5.0); Alkaline Phosphatase 88 U/L (39-117); Anion Gap 14 (12-20); Aspartate Amino Transferase 23 U/L (5-31); Bilirubin Direct 0.2 mg/dL (0.0-0.5); Bilirubin Total 0.4 mg/dL (0.0-1.0); Blood Urea Nitrogen 9 mg/dL (9-16); Calcium 9.2 mg/dL (8.4-10.2); Carbon Dioxide 26 mmol/L (22-29); Chloride 104 mmol/L (96-108); Creatinine Clr Calc Pharmacy 117.6; Estimated Glomerular Filt Rate > 60; Glucose Random 114 mg/dL (60-115); Magnesium 1.9 mg/dL (1.6-2.6); Potassium 3.9 mmol/L (3.3-5.1); Sodium 140 mmol/L (135-145); Total Protein 7.9 g/dL (6.5-8.0)
[2022-04-17 09:23] LABS: Appearance Urine CLEAR; Color Urine STRAW; Glucose Urine UA NEG (NEG); Leukocyte Esterase Urine NEG (NEG); Nitrite Urine NEG (NEG); Urine Blood NEG (NEG); Urine Ketones NEG (NEG); Urine Protein NEG (NEG-TRACE)
[2022-04-17 09:27] LABS: COVID-19 Test Negative (Negative)
[2022-04-17] MEDS: Haloperidol Lactate 5 MG/ML VIAL 2 MG IVPUSH (09:58)
--- NOTE | 2022-04-17 10:30 | PC.NURSE ---
pt called to go use the bathroom after coming from the pt is yelling that she is having anxiety, wont stay still, states that she has had anxiety but never to this point, feeling hot/
[2022-04-17] MEDS: LORazepam 1 MG TABLET 2 MG PO (10:38)
[2022-04-17 10:43] VITALS: BP 192/99; PULSE 98; RESP 22; O2SAT 97
--- NOTE | 2022-04-17 11:17 | PC.NURSE ---
pt is currently resting in the chair with her eyes shut, calm, pt states that she does not want the gi cocktail at this time
[2022-04-17 11:22] VITALS: BP 146/68; PULSE 86; RESP 18; TEMP 36.7; O2SAT 95
== END 2022-04-17 12:26 | disposition home or self-care (01) ==
PROVIDERS: Nurse Practitioner Family; Emergency Provider Emergency Medicine; PCP Physician Assistant
DX: K29.70 Gastritis, unspecified, without bleeding (principal); R07.89 Other chest pain; R51.9 Headache, unspecified; F11.10 Opioid abuse, uncomplicated; Z79.899 Other long term (current) drug therapy; Z20.822 Contact with and (suspected) exposure to COVID-19
CPT/HCPCS: 36415; 74177; 80048; 80053; 80076; 81003; 82272; 83735; 85025; 85027; 87635; 93005; 96361; 96374; 96375; 99283; 99284; 99285; J2405; Q9967

== ENCOUNTER 2022-08-17 11:00 | Outpatient (REF) | payer MEDICARE, MEDICAID, SELFPAY ==
[2022-08-17 14:03] LABS: Hematocrit 32.4 % (37.0-47.0); Hemoglobin 9.5 g/dl (12.0-16.0); Mean Corpuscular HGB Conc 29.3 g/dl (31.0-35.0); Mean Corpuscular Hemoglobin 21.9 pg (27.0-33.0); Mean Corpuscular Volume 74.8 fL (80.0-98.0); PLT CLUMP 1; Red Blood Count 4.33 X10*6/uL (4.20-5.50); Red Cell Distribution Width 17.2 % (11.0-16.0)
[2022-08-17 14:10] LABS: Estimated Average Glucose 105 mg/dL; Hemoglobin A1c % 5.3 %
[2022-08-17 14:39] LABS: White Blood Count 7.5 X10*3/uL (4.8-10.8)
[2022-08-17 15:09] LABS: Alanine Aminotransferase 14 U/L (0-31); Albumin Level 4.2 g/dL (3.5-5.0); Alkaline Phosphatase 92 U/L (39-117); Anion Gap 13 (12-20); Aspartate Amino Transferase 16 U/L (5-31); Bilirubin Total 0.4 mg/dL (0.0-1.0); Blood Urea Nitrogen 14 mg/dL (9-16); Calcium 9.5 mg/dL (8.4-10.2); Carbon Dioxide 29 mmol/L (22-29); Chloride 105 mmol/L (96-108); Cholesterol 202 mg/dL; Estimated Glomerular Filt Rate > 60; Glucose Fasting 110 mg/dL (60-99); HDL Cholesterol 80 mg/dL; Iron 24 mcg/dL (30-160); LDL Cholesterol Calculated 111 mg/dl; Percent Iron Saturation 6 % (15-50); Potassium 4.1 mmol/L (3.3-5.1); Sodium 143 mmol/L (135-145); TSH reflex Free T4 1.37 uIU/mL (0.32-4.0); Total Iron Binding Capacity 399 mcg/dL (228-428); Triglycerides 57 mg/dL; Unsaturated Iron Binding 375 ug/dL
== END 2022-08-17 11:01 | disposition home or self-care (01) ==
LOC: HO.HMGCLDS 11:00
PROVIDERS: PCP Physician Assistant; Visit Provider Physician Assistant
DX: Z13.1 Encounter for screening for diabetes mellitus (principal); Z13.220 Encounter for screening for lipoid disorders; D50.0 Iron deficiency anemia secondary to blood loss (chronic); I10 Essential (primary) hypertension; E66.01 Morbid (severe) obesity due to excess calories; Z68.42 Body mass index [BMI] 45.0-49.9, adult
CPT/HCPCS: 36415; 80053; 80061; 83036; 83540; 84443; 85027

== ENCOUNTER 2022-08-22 10:10 | Emergency (ER) | payer MEDICARE, MEDICAID, SELFPAY ==
[2022-08-22 10:13] VITALS: BP 148/82; PULSE 74; RESP 18; TEMP 37; O2SAT 98; BMI 36.2
--- NOTE | 2022-08-22 10:50 | ED.GENADULT ---
HPI - General Adult General Chief complaint: General Medical Stated complaint: vomiting Time Seen by Provider: 08/22/22 10:41 Source: patient Mode of arrival: ambulatory Limitations: no limitations History of Present Illness HPI narrative: 52-year-old female with history of lupus, anxiety, GERD, HTN, asthma, obesity, iron deficiency anemia, depression who presents to the ER with several complaints. She reports acute on chronic daily morning nausea for the last 11 months. She also reports constipation for the last 8-9 days, fatigue for about a week and body aches. She states her doctor recently gave her a prescription for supposities that she has used 2ce in the last week with good effect. She also take miralax, colace and drinks prune juice. She had a large, hard BM yesterday and had some blood streaked around the stool from her hemorrhoids. No ongoing bleeding today. She still feels like she is constipated. She is passing gas and has not vomited at all. She is taking zofran with ongoing nausea. She denies fever, chills, SOB or chest pain. MD complaint: nausea, constipation, fatigue and body aches. Onset (ago): week(s) Location: abdomen Radiation: non-radiation Severity: moderate Quality: aching Pain Consistency: intermittent Relieving factors: none Exacerbating factors: none Associated symptoms: loss of appetite, malaise, nausea/vomiting and weakness Treatments prior to arrival: none Related Data Home Medications Medication Instructions Recorded Confirmed fluticasone propionate 110 2 puff inhalation BID 07/03/20 02/19/22 mcg/actuation HFA aerosol inhaler (Flovent HFA) methadone 40 mg soluble tablet 51 mg PO DAILY 02/19/22 02/19/22 Previous Rx's Medication Instructions Recorded lidocaine HCl 2 % mucosal solution 15 ml mucous membrane Q3H PRN 12/03/20 (Lidocaine Viscous) mouth pain 10 days #100 mL alprazolam 0.5 mg tablet 0.5 mg PO BID 30 days #60 tabs 04/02/21 albuterol sulfate 90 mcg/actuation 2 puff inhalation Q6H PRN 06/14/21 aerosol inhaler shortness of breath or wheezing 30 days #8.5 grams albuterol sulfate 2.5 mg/3 mL 2.5 mg (3 mL) inhalation Q4-6H PRN 06/16/21 (0.083 %) solution for nebulization shortness of breath or wheezing 30 days #90 mL acetaminophen 500 mg tablet 500 mg PO Q6H PRN pain 30 days 07/03/21 #120 tabs baclofen 20 mg tablet 20 mg PO Q8H #90 tabs 07/03/21 bisacodyl 10 mg rectal suppository 10 mg [place] DAILY PRN constipation 07/30/21 (Gentle Laxative (bisacodyl)) #12 ea sennosides 8.6 mg-docusate sodium 1 tab-cap PO BEDTIME #20 tabs 07/30/21 50 mg tablet (Senna with Docusate Sodium) polyethylene glycol 3350 17 gram 17 g PO DAILY PRN constipation 30 09/22/21 oral powder packet (Miralax) days #30 ea diclofenac sodium 50 mg 50 mg PO BID 15 days #30 tabs 10/06/21 tablet,delayed release miscellaneous medical supply 1 ea miscellaneous DAILY 99 days 10/06/21 #1 ea omeprazole 40 mg capsule,delayed 40 mg PO DAILY #30 caps 11/03/21 release walker (Ultra-Light Rollator misc) #1 ea 12/09/21 promethazine 25 mg tablet 25 mg PO TID PRN nausea and 01/14/22 vomiting 7 days #21 tabs tramadol 50 mg tablet 50 mg PO Q8H PRN pain #6 tabs 02/01/22 blood pressure test kit-large #1 ea 02/19/22 carboxymethylcellulose-citric acid 3 cap PO BID 30 days #180 caps 02/19/22 0.75 gram capsule (Plenity) clotrimazole-betamethasone 1 1 appl topical BID PRN skin 02/19/22 %-0.05 % topical cream irritation 30 days #45 grams gabapentin 300 mg capsule 300 mg PO TID 30 days #90 caps 02/19/22 hydrochlorothiazide 12.5 mg tablet 12.5 mg PO DAILY #30 tabs 02/19/22 triamcinolone acetonide 0.025 % 1 appl topical DAILY PRN skin 02/19/22 topical cream irritation 30 days #80 grams nitrofurantoin 100 mg PO Q12H 5 days #10 caps 04/01/22 monohydrate/macrocrystals 100 mg capsule (Macrobid) omeprazole 20 mg capsule,delayed 20 mg PO DAILY 30 days #30 caps 04/05/22 release omeprazole 40 mg capsule,delayed 40 mg PO DAILY #30 caps 04/17/22 release sucralfate 1 gram tablet (Carafate) 1 g PO TID #90 tabs 04/17/22 gabapentin 400 mg capsule See Rx Instructions PO .COMPLEX 30 07/07/22 days #150 caps ferrous sulfate 325 mg (65 mg 325 mg PO BID 30 days #60 tabs 08/18/22 iron) tablet ondansetron 4 mg disintegrating 4 mg PO Q6-8H PRN nausea and 08/18/22 tablet vomiting #14 tabs Allergies Allergy/AdvReac Type Severity Reaction Status Date / Time latex [Latex] Allergy Mild RASH Verified 02/19/22 15:29 Benadryl Allergy Unknown Rash Verified 02/19/22 15:29 diphenhydramine Allergy Unknown HIVES Verified 02/19/22 15:29 [From Benadryl] Review of Systems Review of Systems: Constitutional: No Fever, No Chills ENT/Mouth: No sore throat, No Rhinorrhea, No Swallowing Difficulty Eyes: No Eye Pain, No Swelling, No Redness Cardiovascular: No Chest Pain, No SOB, No Orthopnea, No Edema Respiratory: No Cough, No Sputum, No Wheezing, No dyspnea Gastrointestinal: + Nausea, No Vomiting, No Diarrhea, No abdominal Pain, No Hematochezia, No Melena, +Constipation, +Bloating Genitourinary: No Dysuria, No Urinary Frequency, No Hematuria Musculoskeletal: + joint pain, + Myalgias Skin: No Skin Lesions, No rash Neuro: + Weakness, No Numbness, No Dizziness, +Headache Psych: + Anxiety/Panic, + Depression Heme/Lymph: No Bruising, No Lymphadenopathy Endocrine: No Polyuria, No Polydipsia PMFSH Past Medical History Medical History Asthma Lupus Right shoulder pain Tinea Surgical History History of section History of umbilical hernia repair History of varicose vein ligation Plantar fasciitis of left foot Family History Family History Father High cholesterol High blood pressure Dementia Mother Diabetes Arthritis High blood pressure Paternal Grandmother Colon cancer Social History Social History Housing: House Alcohol intake: never Patient Tobacco Use Status: Never used Tobacco e-Cigarette/Vaping Use: Never Used Second Hand Smoke Exposure: No Substance Use Type: Opiates Advance Directives: No Advance Directives Information Provided: No Current occupational status: unemployed Cognitive needs: Yes Hearing needs: No Vision needs: Yes Physical Exam ED Vital Signs: Vital Signs - 24 hr 08/22/22 10:13 Temperature 98.6 F Pulse Rate 74 Respiratory Rate 18 Blood Pressure 148/82 H Pulse Oximetry 98 Oxygen Delivery Method Room Air BMI result Body Mass Index 36.2 Appearance: Alert. Oriented X3. No acute distress. Eyes: Pupils equal, round and reactive to light. ENT: Pharynx normal. Moist mucus membranes Neck: Normal inspection. Neck supple. CVS: Normal heart rate and rhythm. Pulses normal. Respiratory: No respiratory distress. Breath sounds normal. Abdomen: Obese, Soft and nontender. +BS x4 Skin: Skin warm and dry. Normal skin color. Normal skin turgor. No rashes. Extremities: No lower extremity edema. Normal ROM x4. Neuro: Oriented X 3. No motor deficit. No sensory deficit. Nonfocal Course Course Course Narrative: 52-year-old female presents to the ER for evaluation of acute on chronic nausea, constipation times a week and a half as well as generalized fatigue and body aches for the last 1 week. Patient reports her p.o. intake has decreased and she feels dehydrated. No clinical evidence of dehydration on exam. Mucous membranes are moist with normal skin turgor. Her vital signs are stable and her physical exam is unremarkable. Her abdomen is soft and nontender. No evidence of bowel obstruction. She did have a large bowel movement yesterday but still feels like there is more stool. She has an appointment coming up with technical solutions consultant on Wednesday. Will plan to give oral laxatives, encourage oral hydration, she is requesting IV fluids so will give 1 L of normal saline. Will check viral PCR given her fatigue and body aches. This may be due to her lupus however. Will reassess Reevaluation(s) Reevaluation #1: UA normal. Viral PCR normal. Tolerating PO and took oral laxatives. Comfortable with d/c home - will add senna to her regimen and she will follow up with GI on Wednesday. Medications Administered Generic Name Dose Route Start Last Admin Trade Name Freq PRN Reason Stop Dose Admin Sodium Chloride 1,000 mls @ 999 mls/hr 08/22/22 11:15 08/22/22 11:25 Ns IVCONT 08/22/22 12:15 999 mls/hr .Q1H1M DUNG Administration Discontinued Medications Generic Name Dose Route Start Last Admin Trade Name Freq PRN Reason Stop Dose Admin Lactulose 20 gm 08/22/22 11:07 08/22/22 11:28 Lactulose 20 Gm/30 Ml Solution PO 08/22/22 11:08 20 gm ONCE ONE Administration Senna 15 ml 08/22/22 11:07 08/22/22 11:28 Senna [place] Extract Oral Syrup 15 Ml Syrup PO 08/22/22 11:08 15 ml ONCE ONE Administration Discharge Plan Discharge Clinical Impression: Constipation, Nausea Patient Disposition: Home, Self-Care Instructions: Constipation (ED) Additional Instructions: You tested negative for COVID-19, Influenza and RSV today. Your urine test was normal. Recommend adding senna to your daily bowel regimen. You can use your prescribed suppositories once per day as needed for constipation. Recommend continuing your MiraLax as well as your senna. You can also take Mirlax two times per day if needed. Follow up with GI on Wednesday as scheduled. Rest and stay hydrated. If you develop new or worsening symptoms call 911 or come back to the ER for further evaluation. Prescriptions: No Action Lidocaine Viscous 2 % solution 15 ml mucous membrane Q3H PRN (Reason: mouth pain) 10 Days Qty: 100 2RF alprazolam 0.5 mg tablet 0.5 mg PO BID 30 Days Qty: 60 1RF albuterol sulfate 90 mcg/actuation HFA aerosol inhaler 2 puff inhalation Q6H PRN (Reason: shortness of breath or wheezing) 30 Days Qty: 8.5 1RF albuterol sulfate 2.5 mg /3 mL (0.083 %) solution for nebulization 2.5 mg inhalation Q4-6H PRN (Reason: shortness of breath or wheezing) 30 Days Qty: 90 3RF polyethylene glycol 3350 [Miralax] 17 gram powder in packet 17 g PO DAILY PRN (Reason: constipation) 30 Days Qty: 30 3RF Rx Instructions: Mixed 17 g into 8 oz of water once per day/as needed for constipation diclofenac sodium 50 mg tablet,delayed release (DR/EC) 50 mg PO BID 15 Days Qty: 30 0RF (DME) Ultra-Light Rollator Misc See Rx Instructions .Route Qty: 1 0RF Rx Instructions: As directed promethazine 25 mg tablet 25 mg PO TID PRN (Reason: nausea and vomiting) 7 Days Qty: 21 2RF nitrofurantoin monohyd/m-cryst [Macrobid] 100 mg capsule 100 mg PO Q12H 5 Days Qty: 10 0RF Rx Instructions: must administer with a meal/food gabapentin 400 mg capsule See Rx Instructions PO .COMPLEX 30 Days Qty: 150 6RF Rx Instructions: PO; take 1 capsule in the morning, 2 capsules midday, 2 capsules in the p.m. ferrous sulfate 325 mg (65 mg iron) tablet 325 mg PO BID 30 Days Qty: 60 3RF ondansetron 4 mg tablet,disintegrating 4 mg PO Q6-8H PRN (Reason: nausea and vomiting) Qty: 14 0RF tramadol 50 mg tablet 50 mg PO Q8H PRN (Reason: pain) Qty: 6 0RF omeprazole 20 mg capsule,delayed release(DR/EC) 20 mg PO DAILY 30 Days Qty: 30 0RF sennosides-docusate sodium [Senna with Docusate Sodium] 8.6-50 mg tablet 1 tab-cap PO BEDTIME Qty: 20 0RF bisacodyl [Gentle Laxative (bisacodyl)] 10 mg suppository 10 mg [place] DAILY PRN (Reason: constipation) Qty: 12 0RF omeprazole 40 mg capsule,delayed release(DR/EC) 40 mg PO DAILY Qty: 30 0RF omeprazole 40 mg capsule,delayed release(DR/EC) 40 mg PO DAILY Qty: 30 0RF sucralfate [Carafate] 1 gram tablet 1 g PO TID Qty: 90 0RF Flovent HFA 110 mcg/actuation HFA aerosol inhaler 2 puff inhalation BID methadone 40 mg tablet,soluble 51 mg PO DAILY baclofen 20 mg tablet 20 mg PO Q8H Qty: 90 1RF acetaminophen 500 mg tablet 500 mg PO Q6H PRN (Reason: pain) 30 Days Qty: 120 3RF gabapentin 300 mg capsule 300 mg PO TID 30 Days Qty: 90 3RF hydrochlorothiazide 12.5 mg tablet 12.5 mg PO DAILY Qty: 30 1RF (DME) blood pressure test kit-large Kit See Rx Instructions .Route Qty: 1 0RF Rx Instructions: As directed clotrimazole-betamethasone 1-0.05 % cream 1 appl topical BID PRN (Reason: skin irritation) 30 Days Qty: 45 2RF triamcinolone acetonide 0.025 % cream 1 appl topical DAILY PRN (Reason: skin irritation) 30 Days Qty: 80 3RF Plenity 0.75 gram capsule 3 cap PO BID 30 Days Qty: 180 3RF Rx Instructions: administer before lunch and evening meal/dinner miscellaneous medical supply Misc 1 ea miscellaneous DAILY 99 Days Qty: 1 0RF Referrals: Rony Carr PA-C [Primary Care Provider] -
[2022-08-22 11:10] LABS: Appearance Urine Clear; Color Urine Yellow; Glucose Urine UA Negative (Negative); Leukocyte Esterase Urine Negative (Negative); Nitrite Urine Negative (Negative); Urine Blood Negative (Negative); Urine Ketones Negative (Negative); Urine Protein Negative (Neg-Trace)
[2022-08-22] MEDS: 0.9 % Sodium Chloride 1,000 ML 999 ML IVCONT (11:25)
[2022-08-22] MEDS: Lactulose 20 GM/30 ML SOLUTION PO (11:28)
[2022-08-22 11:32] LABS: Influenza A PCR NEGATIVE (Negative); Influenza B PCR NEGATIVE (Negative); Resp Syncy Virus RNA Qual PCR NEGATIVE (Negative); SARS COV2 PCR INHOUSE NEGATIVE (Negative)
== END 2022-08-22 13:07 | disposition home or self-care (01) ==
PROVIDERS: Nurse Practitioner Family; Physician Assistant; Emergency Provider Emergency Medicine; PCP Physician Assistant
DX: K59.00 Constipation, unspecified (principal); R11.0 Nausea; Z20.822 Contact with and (suspected) exposure to COVID-19
CPT/HCPCS: 0241U; 81003; 99283

== ENCOUNTER 2022-08-24 14:05 | Outpatient (REF) | payer MEDICARE, MEDICAID, SELFPAY ==
[2022-08-24 15:29] LABS: Alanine Aminotransferase 15 U/L (0-31); Albumin Level 4.1 g/dL (3.5-5.0); Alkaline Phosphatase 90 U/L (39-117); Anion Gap 11 (12-20); Aspartate Amino Transferase 19 U/L (5-31); Bilirubin Total 0.4 mg/dL (0.0-1.0); Blood Urea Nitrogen 8 mg/dL (9-16); Carbon Dioxide 31 mmol/L (22-29); Chloride 103 mmol/L (96-108); Cholesterol 204 mg/dL; Estimated Glomerular Filt Rate > 60; Glucose Fasting 96 mg/dL (60-99); HDL Cholesterol 79 mg/dL; LDL Cholesterol Calculated 116 mg/dl; Lipase 18 U/L (8-78); Potassium 4.1 mmol/L (3.3-5.1); Sodium 141 mmol/L (135-145); TSH reflex Free T4 0.82 uIU/mL (0.32-4.0); Total Protein 7.8 g/dL (6.5-8.0); Triglycerides 46 mg/dL
[2022-08-24 17:35] LABS: Appearance Urine Clear; Color Urine Yellow; Glucose Urine UA Negative (Negative); Leukocyte Esterase Urine Negative (Negative); Nitrite Urine Negative (Negative); PH 8.5 (5.0-9.0); Urine Blood Negative (Negative); Urine Ketones Negative (Negative); Urine Protein Negative (Neg-Trace)
== END 2022-08-24 14:06 | disposition home or self-care (01) ==
LOC: HO.LAB 14:05
PROVIDERS: PCP Physician Assistant; Visit Provider Nurse Practitioner Family
DX: I10 Essential (primary) hypertension (principal); R30.0 Dysuria; E66.01 Morbid (severe) obesity due to excess calories; R10.9 Unspecified abdominal pain; K21.9 Gastro-esophageal reflux disease without esophagitis; Z13.1 Encounter for screening for diabetes mellitus; Z68.42 Body mass index [BMI] 45.0-49.9, adult
CPT/HCPCS: 36415; 80053; 80061; 81003; 83690; 84443; 99202

== ENCOUNTER 2022-09-03 13:09 | Outpatient (REF) | payer MEDICARE, MEDICAID, SELFPAY ==
[2022-09-11 17:29] LABS: Pancreatic Elastase-1 150 mcg/g
== END 2022-09-03 13:10 | disposition home or self-care (01) ==
LOC: HO.LNP 13:09
PROVIDERS: Visit Provider Nurse Practitioner Family
DX: R10.9 Unspecified abdominal pain (principal); K21.9 Gastro-esophageal reflux disease without esophagitis
CPT/HCPCS: 82656; 87338

== ENCOUNTER 2022-09-28 07:46 | Emergency (ER) | payer MEDICARE, MEDICAID, SELFPAY ==
[2022-09-28 07:55] VITALS: BP 201/170; PULSE 65; O2SAT 98
[2022-09-28 08:00] VITALS: BP 146/69; PULSE 62; RESP 18; TEMP 36.9; O2SAT 98
[2022-09-28 08:06] VITALS: BMI 48.6
[2022-09-28] MEDS: Lidocaine HCl Viscous 2 % 15 ML SOLUTION MUCOUS MEM (08:34)
[2022-09-28] MEDS: Magnesium Hydrox/Alum Hydrox 30 ML ORAL.SUSP PO (08:34)
--- NOTE | 2022-09-28 08:39 | ED_ITS ---
HPI - Abdominal Pain General Chief Complaint: Abdominal Pain Stated Complaint: ABD PAIN,ANTIBIOTICS NOT WORKING PER EMS Time Seen by Provider: 09/28/22 08:05 Source: patient and EMS Mode of arrival: EMS Limitations: no limitations History of Present Illness HPI narrative: 52-year-old female with a history of anxiety, asthma, depression, iron deficiency anemia, fibromyalgia, osteoarthritis, lupus, on methadone here with complaints of acute on chronic upper abdominal pain and nausea. Patient reports she was diagnosed with H pylori and started on Flagyl September 18. At that time she was also started on omeprazole 20 mg twice daily. Patient reports a 2nd antibiotic was added on September 23 which was doxycycline twice daily. Patient reports she is taking these antibiotics as prescribed. She reports upper a bdominal pain worsened in the morning described as a gnawing hungry sensation. Sometimes she has burning. She reports nausea mainly in the morning. She does have Zofran which he takes p.r.n. as needed. Over the last 3 days she feels like her upper abdominal discomfort and nausea is worse. She did have some vomiting on Wednesday but none yesterday or today. Patient reports she has an appointment tomorrow to see GI. Patient felt that she may be dehydrated and that she should be evaluated in the emergency room today. Patient also reports chronic constipation and takes milk of magnesia and Linzess. Last BM was Wednesday. This is not unusual for her. She denies any fevers, urinary sympto ms, chest pain, shortness of breath. Related Data Home Medications Medication Instructions Recorded Confirmed fluticasone propionate 110 2 puff inhalation BID 07/03/20 02/19/22 mcg/actuation HFA aerosol inhaler (Flovent HFA) methadone 40 mg soluble tablet 51 mg PO DAILY 02/19/22 02/19/22 Previous Rx's Medication Instructions Recorded lidocaine HCl 2 % mucosal solution 15 ml mucous membrane Q3H PRN 12/03/20 (Lidocaine Viscous) mouth pain 10 days #100 mL alprazolam 0.5 mg tablet 0.5 mg PO BID 30 days #60 tabs 04/02/21 albuterol sulfate 2.5 mg/3 mL 2.5 mg (3 mL) inhalation Q4-6H PRN 06/16/21 (0.083 %) solution for nebulization shortness of breath or wheezing 30 days #90 mL baclofen 20 mg tablet 20 mg PO Q8H #90 tabs 07/03/21 polyethylene glycol 3350 17 gram 17 g PO DAILY PRN constipation 30 09/22/21 oral powder packet (Miralax) days #30 ea diclofenac sodium 50 mg 50 mg PO BID 15 days #30 tabs 10/06/21 tablet,delayed release miscellaneous medical supply 1 ea miscellaneous DAILY 99 days 10/06/21 #1 ea nehemiah (Ultra-Light Rollator mis) #1 ea 12/09/21 blood pressure test kit-large #1 ea 02/19/22 clotrimazole-betamethasone 1 1 appl topical BID PRN skin 02/19/22 %-0.05 % topical cream irritation 30 days #45 grams gabapentin 300 mg capsule 300 mg PO TID 30 days #90 caps 02/19/22 triamcinolone acetonide 0.025 % 1 appl topical DAILY PRN skin 02/19/22 topical cream irritation 30 days #80 grams gabapentin 400 mg capsule See Rx Instructions PO .COMPLEX 30 07/07/22 days #150 caps ferrous sulfate 325 mg (65 mg 325 mg PO BID 30 days #60 tabs 08/18/22 iron) tablet docusate sodium 100 mg capsule 200 mg PO BEDTIME #180 caps 08/24/22 hydrocortisone 2.5 % topical cream 1 appl [place] BID-QID PRN hemorrhoids 08/24/22 with perineal applicator #30 grams (Proctosol HC) linaclotide 145 mcg capsule 145 mcg PO DAILY #30 caps 08/24/22 (Linzess) ondansetron 4 mg disintegrating 4 mg PO Q6-8H PRN nausea and 09/08/22 tablet vomiting #14 tabs magnesium hydroxide 400 mg/5 mL 10 ml PO BID PRN stomach upset 09/16/22 oral suspension #355 mL bismuth subsalicylate 262 mg 2 tab PO QID 14 days #112 tabs 09/18/22 chewable tablet metronidazole 500 mg tablet 1,000 mg PO BID #56 tabs 09/18/22 omeprazole 20 mg capsule,delayed 20 mg PO DAILY #90 caps 09/22/22 release doxycycline hyclate 100 mg capsule 100 mg PO BID 14 days #28 caps 09/23/22 albuterol sulfate 90 mcg/actuation 2 puff inhalation Q6H PRN 09/25/22 aerosol inhaler shortness of breath or wheezing 30 days #8.5 grams Allergies Allergy/AdvReac Type Severity Reaction Status Date / Time latex [Latex] Allergy Mild RASH Verified 08/24/22 12:18 Benadryl Allergy Unknown Rash Verified 08/24/22 12:18 diphenhydramine Allergy Unknown HIVES Verified 08/24/22 12:18 [From Benadryl] Review of Systems Review of Systems Yes all other systems are reviewed and are negative Constitutional: Reports no additional constitutional complaints, Denies body ache(s), Denies chills, Denies fever(s), Denies headache(s) and Denies weakness Eyes: Reports no additional eye complaints and Denies change in vision Reports system reviewed and no additional complaints, except as documented, Denies dizziness, Denies headache(s), Denies nasal congestion, Denies nasal discharge and Denies neck pain Cardiovascular: Reports no additional cardiovascular complaints, Denies chest pain, Denies leg edema and Denies dyspnea Respiratory: Reports no additional respiratory complaints, Denies cough and Denies dyspnea Gastrointestinal: Reports no additional gastrointestinal complaints, Reports abdominal pain, Reports constipation, Denies diarrhea, Reports nausea and Denies vomiting Genitourinary: Reports no additional female genitourinary complaints and Denies urinary incontinence Musculoskeletal: Reports no additional musculoskeletal complaints, Denies back pain, Denies arthralgias, Denies joint swelling, Denies neck pain, Denies numbness and Denies tingling Skin/Breast: Reports system reviewed and no additional complaints, except as docu and Denies rash Reports system reviewed and no additional complaints, except as documented, Denies dizziness, Denies headache(s), Denies numbness, Denies tingling and Denies weakness [facility] Past Medical History Attestation statement: The following information was validated with the patient. Source: old records reviewed and nursing notes reviewed Medical History Asthma Lupus Right shoulder pain Tinea Surgical History History of section History of umbilical hernia repair History of varicose vein ligation Plantar fasciitis of left foot Family History Family History Father High cholesterol High blood pressure Dementia Mother Diabetes Arthritis High blood pressure Paternal Grandmother Colon cancer Social History Social History Housing: House Alcohol intake: never Patient Tobacco Use Status: Never used Tobacco e-Cigarette/Vaping Use: Never Used Second Hand Smoke Exposure: No Substance Use Type: Opiates Advance Directives: No Advance Directives Information Provided: No Current occupational status: unemployed Cognitive needs: Yes Hearing needs: No Vision needs: Yes Physical Exam ED Vital Signs: Vital Signs - 24 hr 09/28/22 08:00 Temperature 98.4 F Pulse Rate 62 Respiratory Rate 18 Blood Pressure 146/69 H Pulse Oximetry 98 BMI result Body Mass Index 48.6 Const General: cooperative, healthy appearing, comfortable and no acute distress Orientation/consciousness: patient oriented x3 Limitations: no limitations HENMT Head: Yes normal to inspection Ears: hearing grossly normal bilaterally Eyes General: appearance normal, both eyes and all related structures Neck Neck: Yes normal visual inspection Chest Chest palpation & inspection: normal inspection of the chest Resp Effort & Inspection: normal respiratory effort Auscultation: clear to auscultation bilaterally Cardio Rate: regular rate Rhythm: regular rhythm Peripheral pulses: Peripheral pulses 2+ throughout GI Inspection: Yes normal to inspection Palpation (GI): Soft to palpation and nontender Auscultation: normal bowel sounds General: Yes no CVA tenderness Back/Spine/Pelvis Back: no CVA tenderness Thoracic/Lumbar Spine: thoracic and lumbar spine normal to inspection Skin General skin exam: no rashes or lesions noted Neuro General: patient oriented x3 and moves all extremities Cognition (Neuro): normal cognition Gait exam (Neuro): Normal gait present Extrem General: Yes normal to inspection, Yes no pedal edema and Yes no calf tenderness Course Course Course Narrative: Labs and UA are unremarkable. Patient feels improved after GI cocktail. Abdomen benign. No focal tenderness. Patient overall nontoxic appearing. Patient has follow-up with GI tomorrow. Recommend continue her home medications. Reviewed worrisome signs and symptoms when to return to the emergency room. Comfortable discharge home. Medical Decision Making Medical Decision Making MDM Narrative: 52-year-old female here with acute on chronic upper abdominal pain and nausea as well as chronic constipation. Patient currently has H pylori and is taking metronidazole and doxycycline reportedly. Patient also on 40 mg omeprazole daily, Linzess and milk of magnesia. Patient reports increasing symptoms over the last 3 days. Patient has a in a follow-up appointment tomorrow with GI. Patient here today because she is concerned that she may be dehydrated due to some vomiting she had on Wednesday and poor p.o. intake yesterday and today due to nausea and abdominal pain. On arrival vitals are stable. Abdomen soft nontender. Overall patient nontoxic appearing Will obtain labs. Patient will be given GI cocktail. Anticipate discharge with GI follow-up Differential Diagnosis Differential Diagnoses: The differential diagnosis associated with the presentation includes Lab Data MDM Lab Attestation statement: I reviewed the patient's lab results. 09/28/22 08:51 09/28/22 08:51 Labs: Lab Results 09/28/22 09/28/22 09/28/22 Range/Units 08:51 08:51 08:52 WBC 7.8 (4.8-10.8) X10*3/uL RBC 4.37 (4.20-5.50) X10*6/uL Hgb 9.6 L (12.0-16.0) g/dl Hct 32.2 L (37.0-47.0) % MCV 73.7 L (80.0-98.0) fL MCH 22.0 L (27.0-33.0) pg MCHC 29.8 L (31.0-35.0) g/dl RDW 16.8 H (11.0-16.0) % Plt Count 283 (160-400) X10*3/uL MPV 10.4 (9.4-12.3) fL Immature Gran % (Auto) 0.4 (0.0-0.4) % Neut % (Auto) 80.7 H (45-73) % Lymph % (Auto) 12.1 L (20-40) % Lawrence % (Auto) 5.2 (2-11) % Eos % (Auto) 1.0 (0-4) % Baso % (Auto) 0.6 (0-2) % Lymph # (Auto) 1.0 L (1.2-4.9) X10*3/uL Lawrence # (Auto) 0.4 (0.1-1.2) X10*3/uL Eos # (Auto) 0.1 (0.0-0.4) X10*3/uL Baso # (Auto) 0.1 (0.0-0.2) X10*3/uL Abs Immat Gran (auto) 0.03 (0.00-0.03) X10*3/uL Absolute Neuts (auto) 6.3 (2.0-8.3) x10*3/uL Absolute Nucleated RBC 0.000 (0.0-0.012) X10*3/uL Nucleated RBC % (auto) 0.0 (0.0-0.2) /100WBC Sodium 140 (135-145) mmol/L Potassium 3.9 (3.3-5.1) mmol/L Chloride 103 (96-108) mmol/L Carbon Dioxide 29 (22-29) mmol/L Anion Gap 12 (12-20) BUN 11 (9-16) mg/dL Creatinine 0.70 (0.5-1.4) mg/dL Estim Creat Clear Calc 113.6 Estimated GFR > 60 Random Glucose 119 H (60-115) mg/dL Calcium 9.4 (8.4-10.2) mg/dL Total Bilirubin 0.3 (0.0-1.0) mg/dL Direct Bilirubin < 0.2 (0.0-0.5) mg/dL AST 21 (5-31) U/L ALT 15 (0-31) U/L Alkaline Phosphatase 89 (39-117) U/L Total Protein 7.8 (6.5-8.0) g/dL Albumin 3.9 (3.5-5.0) g/dL Lipase 15 (8-78) U/L Urine Color Yellow Urine Appearance Clear Urine pH 8.0 (5.0-9.0) Ur Specific Kittrell 1.020 (1.005-1.025) Urine Protein Negative (Neg-Trace) mg/dL Urine Glucose (UA) Negative (Negative) mg/dL Urine Ketones Negative (Negative) mg/dL Urine Blood Negative (Negative) Urine Nitrite Negative (Negative) Ur Leukocyte Esterase Trace H (Negative) Urine RBC 3-5 H (0-2) /HPF Urine WBC 0-5 (0-5) /HPF Ur Squamous Epith Cells 0-2 (0-2) /HPF Urine Bacteria None Seen (None Seen) Hyaline Casts 0-2 (0-2) /LPF Medications Administered Discontinued Medications Generic Name Dose Route Start Last Admin Trade Name Freq PRN Reason Stop Dose Admin Al Hydroxide/Mg Hydroxide 30 ml 09/28/22 08:29 09/28/22 08:34 Magnesium Hydrox/Alum Hydrox 30 Ml Oral.Susp PO 09/28/22 08:30 30 ml ONCE ONE Administration Lidocaine HCl 15 ml 09/28/22 08:29 09/28/22 08:34 Lidocaine Hcl Viscous 2 % 15 Ml Solution MUCOUS MEM 09/28/22 08:30 15 ml ONCE ONE Administration Discharge Plan Discharge Clinical Impression: Abdominal pain Patient Disposition: Home, Self-Care Instructions: Abdominal Pain (ED) Additional Instructions: Lab work and urine testing are normal. Please continue your home medication Keep your appointment tomorrow with electronic maintenance supervisor Prescriptions: No Action Lidocaine Viscous 2 % solution 15 ml mucous membrane Q3H PRN (Reason: mouth pain) 10 Days Qty: 100 2RF alprazolam 0.5 mg tablet 0.5 mg PO BID 30 Days Qty: 60 1RF albuterol sulfate 2.5 mg /3 mL (0.083 %) solution for nebulization 2.5 mg inhalation Q4-6H PRN (Reason: shortness of breath or wheezing) 30 Days Qty: 90 3RF polyethylene glycol 3350 [Miralax] 17 gram powder in packet 17 g PO DAILY PRN (Reason: constipation) 30 Days Qty: 30 3RF Rx Instructions: Mixed 17 g into 8 oz of water once per day/as needed for constipation diclofenac sodium 50 mg tablet,delayed release (DR/EC) 50 mg PO BID 15 Days Qty: 30 0RF (DME) Ultra-Light Rollator Misc See Rx Instructions .Route Qty: 1 0RF Rx Instructions: As directed gabapentin 400 mg capsule See Rx Instructions PO .COMPLEX 30 Days Qty: 150 6RF Rx Instructions: PO; take 1 capsule in the morning, 2 capsules midday, 2 capsules in the p.m. ferrous sulfate 325 mg (65 mg iron) tablet 325 mg PO BID 30 Days Qty: 60 3RF ondansetron 4 mg tablet,disintegrating 4 mg PO Q6-8H PRN (Reason: nausea and vomiting) Qty: 14 0RF magnesium hydroxide 400 mg/5 mL suspension 10 ml PO BID PRN (Reason: stomach upset) Qty: 355 3RF bismuth subsalicylate 262 mg tablet,chewable 2 tab PO QID 14 Days Qty: 112 0RF metronidazole 500 mg tablet 1,000 mg PO BID Qty: 56 0RF omeprazole 20 mg capsule,delayed release(DR/EC) 20 mg PO DAILY Qty: 90 2RF doxycycline hyclate 100 mg capsule 100 mg PO BID 14 Days Qty: 28 0RF albuterol sulfate 90 mcg/actuation HFA aerosol inhaler 2 puff inhalation Q6H PRN (Reason: shortness of breath or wheezing) 30 Days Qty: 8.5 1RF Flovent HFA 110 mcg/actuation HFA aerosol inhaler 2 puff inhalation BID methadone 40 mg tablet,soluble 51 mg PO DAILY baclofen 20 mg tablet 20 mg PO Q8H Qty: 90 1RF gabapentin 300 mg capsule 300 mg PO TID 30 Days Qty: 90 3RF (DME) blood pressure test kit-large Kit See Rx Instructions .Route Qty: 1 0RF Rx Instructions: As directed clotrimazole-betamethasone 1-0.05 % cream 1 appl topical BID PRN (Reason: skin irritation) 30 Days Qty: 45 2RF triamcinolone acetonide 0.025 % cream 1 appl topical DAILY PRN (Reason: skin irritation) 30 Days Qty: 80 3RF miscellaneous medical supply Misc 1 ea miscellaneous DAILY 99 Days Qty: 1 0RF Linzess 145 mcg capsule 145 mcg PO DAILY Qty: 30 2RF docusate sodium 100 mg capsule 200 mg PO BEDTIME Qty: 180 3RF hydrocortisone [Proctosol HC] 2.5 % cream with perineal applicator 1 appl [place] BID-QID PRN (Reason: hemorrhoids) Qty: 30 2RF Referrals: Stefanie Wray, [employer] [Nurse Practitioner] - 1 day Interventions: ED Discharge Assessment Last Done: 09/28/22 09:52 Discharge Date/Time: 09/28/22 09:54
[2022-09-28 08:58] LABS: MANUAL DIFF FLAG NO
[2022-09-28 09:03] LABS: Appearance Urine Clear; Color Urine Yellow; Glucose Urine UA Negative (Negative); Leukocyte Esterase Urine Trace (Negative); Nitrite Urine Negative (Negative); UMIC TRIGGER UACC YES; Urine Blood Negative (Negative); Urine Ketones Negative (Negative); Urine Protein Negative (Neg-Trace)
[2022-09-28 09:03] LABS: Basophils Absolute Auto 0.1 X10*3/uL (0.0-0.2); Basophils Percent Auto 0.6 % (0-2); Eosinophils Absolute Auto 0.1 X10*3/uL (0.0-0.4); Hematocrit 32.2 % (37.0-47.0); Hemoglobin 9.6 g/dl (12.0-16.0); Imm Gran Abs Auto 0.03 X10*3/uL (0.00-0.03); Imm Gran Pct Auto 0.4 % (0.0-0.4); Lymphocytes Percent Auto 12.1 % (20-40); Mean Corpuscular HGB Conc 29.8 g/dl (31.0-35.0); Mean Corpuscular Volume 73.7 fL (80.0-98.0); Mean Platelet Volume 10.4 fL (9.4-12.3); Monocytes Absolute Auto 0.4 X10*3/uL (0.1-1.2); Monocytes Percent Auto 5.2 % (2-11); Neutrophils Absolute Auto 6.3 x10*3/uL (2.0-8.3); Neutrophils Percent Auto 80.7 % (45-73); Platelet Count 283 X10*3/uL (160-400); Red Blood Count 4.37 X10*6/uL (4.20-5.50); Red Cell Distribution Width 16.8 % (11.0-16.0); White Blood Count 7.8 X10*3/uL (4.8-10.8)
[2022-09-28 09:08] LABS: Bacteria Urine None Seen (None Seen); Hyaline Casts Urine 0-2 /LPF (0-2); Squamous Epithelial Cell Urine 0-2 /HPF (0-2); WBC Urine 0-5 /HPF (0-5)
[2022-09-28 09:15] LABS: Alanine Aminotransferase 15 U/L (0-31); Albumin Level 3.9 g/dL (3.5-5.0); Alkaline Phosphatase 89 U/L (39-117); Anion Gap 12 (12-20); Aspartate Amino Transferase 21 U/L (5-31); Bilirubin Direct < 0.2 mg/dL (0.0-0.5); Bilirubin Total 0.3 mg/dL (0.0-1.0); Blood Urea Nitrogen 11 mg/dL (9-16); Calcium 9.4 mg/dL (8.4-10.2); Carbon Dioxide 29 mmol/L (22-29); Chloride 103 mmol/L (96-108); Creatinine Clr Calc Pharmacy 113.6; Estimated Glomerular Filt Rate > 60; Glucose Random 119 mg/dL (60-115); Lipase 15 U/L (8-78); Potassium 3.9 mmol/L (3.3-5.1); Sodium 140 mmol/L (135-145); Total Protein 7.8 g/dL (6.5-8.0)
== END 2022-09-28 09:54 | disposition home or self-care (01) ==
PROVIDERS: Nurse Practitioner Family; Emergency Provider Emergency Medicine; PCP Physician Assistant
DX: R10.10 Upper abdominal pain, unspecified (principal); A04.8 Other specified bacterial intestinal infections; I10 Essential (primary) hypertension; K21.9 Gastro-esophageal reflux disease without esophagitis; M32.9 Systemic lupus erythematosus, unspecified; F11.20 Opioid dependence, uncomplicated; Z79.899 Other long term (current) drug therapy
CPT/HCPCS: 36415; 80048; 80076; 81001; 81003; 83690; 85025; 99283

== ENCOUNTER 2022-09-28 20:23 | Emergency (ER) | payer MEDICARE, MEDICAID, SELFPAY ==
[2022-09-28 20:40] VITALS: BP 136/74; PULSE 67; RESP 18; TEMP 36.6; O2SAT 97; BMI 48.8
[2022-09-29] VITALS: BP 109/45; PULSE 69; RESP 13; TEMP 36.7; O2SAT 97
--- NOTE | 2022-09-29 00:13 | ED_ITS ---
HPI - Abdominal Pain General Chief Complaint: Abdominal Pain Stated Complaint: abd pain..sent here this am Time Seen by Provider: 09/29/22 00:13 Source: patient Mode of arrival: ambulatory Limitations: no limitations History of Present Illness HPI narrative: 52 years old with history of anxiety depression asthma fibromyalgia lupus and methadone with recent diagnosis of H pylori gastritis on doxycycline , Flagyl a nd omeprazole since 09/17 patient is still having burning sensation able to drink or eat much was seen here earlier today and had lab workup which was stable no pain medicine was given and no fluids were given. Related Data Home Medications Medication Instructions Recorded Confirmed fluticasone propionate 110 2 puff inhalation BID 07/03/20 02/19/22 mcg/actuation HFA aerosol inhaler (Flovent HFA) methadone 40 mg soluble tablet 51 mg PO DAILY 02/19/22 02/19/22 Previous Rx's Medication Instructions Recorded lidocaine HCl 2 % mucosal solution 15 ml mucous membrane Q3H PRN 12/03/20 (Lidocaine Viscous) mouth pain 10 days #100 mL alprazolam 0.5 mg tablet 0.5 mg PO BID 30 days #60 tabs 04/02/21 albuterol sulfate 2.5 mg/3 mL 2.5 mg (3 mL) inhalation Q4-6H PRN 06/16/21 (0.083 %) solution for nebulization shortness of breath or wheezing 30 days #90 mL baclofen 20 mg tablet 20 mg PO Q8H #90 tabs 07/03/21 polyethylene glycol 3350 17 gram 17 g PO DAILY PRN constipation 30 09/22/21 oral powder packet (Miralax) days #30 ea diclofenac sodium 50 mg 50 mg PO BID 15 days #30 tabs 10/06/21 tablet,delayed release miscellaneous medical supply 1 ea miscellaneous DAILY 99 days 10/06/21 #1 cornelio cerna (Ultra-Light Rollator [facility] [place]) #1 ea 12/09/21 blood pressure test kit-large #1 ea 02/19/22 clotrimazole-betamethasone 1 1 appl topical BID PRN skin 02/19/22 %-0.05 % topical cream irritation 30 days #45 grams gabapentin 300 mg capsule 300 mg PO TID 30 days #90 caps 02/19/22 triamcinolone acetonide 0.025 % 1 appl topical DAILY PRN skin 02/19/22 topical cream irritation 30 days #80 grams gabapentin 400 mg capsule See Rx Instructions PO .COMPLEX 30 07/07/22 days #150 caps ferrous sulfate 325 mg (65 mg 325 mg PO BID 30 days #60 tabs 08/18/22 iron) tablet docusate sodium 100 mg capsule 200 mg PO BEDTIME #180 caps 08/24/22 hydrocortisone 2.5 % topical cream 1 appl [place] BID-QID PRN hemorrhoids 08/24/22 with perineal applicator #30 grams (Proctosol HC) linaclotide 145 mcg capsule 145 mcg PO DAILY #30 caps 08/24/22 (Linzess) ondansetron 4 mg disintegrating 4 mg PO Q6-8H PRN nausea and 09/08/22 tablet vomiting #14 tabs magnesium hydroxide 400 mg/5 mL 10 ml PO BID PRN stomach upset 09/16/22 oral suspension #355 mL bismuth subsalicylate 262 mg 2 tab PO QID 14 days #112 tabs 09/18/22 chewable tablet metronidazole 500 mg tablet 1,000 mg PO BID #56 tabs 09/18/22 omeprazole 20 mg capsule,delayed 20 mg PO DAILY #90 caps 09/22/22 release doxycycline hyclate 100 mg capsule 100 mg PO BID 14 days #28 caps 09/23/22 albuterol sulfate 90 mcg/actuation 2 puff inhalation Q6H PRN 09/25/22 aerosol inhaler shortness of breath or wheezing 30 days #8.5 grams Allergies Allergy/AdvReac Type Severity Reaction Status Date / Time latex [Latex] Allergy Mild RASH Verified 08/24/22 12:18 Benadryl Allergy Unknown Rash Verified 08/24/22 12:18 diphenhydramine Allergy Unknown HIVES Verified 08/24/22 12:18 [From Benadryl] Review of Systems Review of Systems Yes all other systems are reviewed and are negative PMFSH Past Medical History Medical History Asthma Lupus Right shoulder pain Tinea Surgical History History of section History of umbilical hernia repair History of varicose vein ligation Plantar fasciitis of left foot Family History Family History Father High cholesterol High blood pressure Dementia Mother Diabetes Arthritis High blood pressure Paternal Grandmother Colon cancer Social History Social History Housing: House Alcohol intake: never Patient Tobacco Use Status: Never used Tobacco e-Cigarette/Vaping Use: Never Used Second Hand Smoke Exposure: No Substance Use Type: Opiates Advance Directives: No Current occupational status: unemployed Cognitive needs: Yes Hearing needs: No Vision needs: Yes Physical Exam ED Vital Signs: Vital Signs - 24 hr 09/28/22 20:40 09/29/22 00:00 Temperature 97.9 F 98.1 F Pulse Rate 67 69 Respiratory Rate 18 13 Blood Pressure 136/74 109/45 L Pulse Oximetry 97 97 Oxygen Delivery Method Room Air Room Air BMI result Body Mass Index 48.8 Appearance: Alert. Oriented X3. No acute distress. ENT: Pharynx normal. Oral Mucosa moist Neck: Normal inspection. Neck supple. CVS: Normal heart rate and rhythm. Pulses normal. Respiratory: No respiratory distress. Equal air entry bilateral, no wheezing/rales/rhonchi Abdomen: Soft and tender epig Bowel sounds are present, no mass palpable, no CVA tenderness Skin: Skin warm and dry. Normal skin color. Normal skin turgor. Extremities: No lower extremity edema. No calf tenderness Neuro: Oriented X 3. Medications Administered Generic Name Dose Route Start Last Admin Trade Name Freq PRN Reason Stop Dose Admin Sodium Chloride 1,000 mls @ 999 mls/hr 09/29/22 00:20 09/29/22 00:31 Ns IV 09/29/22 01:20 999 mls/hr .Q1H1M ONE Administration Discontinued Medications Generic Name Dose Route Start Last Admin Trade Name Freq PRN Reason Stop Dose Admin Morphine Sulfate 4 mg 09/29/22 00:20 09/29/22 00:31 Morphine Sulfate 4 Mg/Ml Cartridge IVPUSH 09/29/22 00:21 4 mg ONCE ONE Administration Protocol Ondansetron HCl 4 mg 09/29/22 00:20 09/29/22 00:32 Ondansetron Hcl 4 Mg/2 Ml Vial IVPUSH 09/29/22 00:21 4 mg ONCE ONE Administration Discharge Plan Discharge Clinical Impression: Gastritis, Helicobacter pylori Patient Disposition: Home, Self-Care Instructions: Gastritis (ED), Helicobacter Pylori (ED) Additional Instructions: Continue medication as provided by your certified massage therapist Follow with GI Prescriptions: No Action Lidocaine Viscous 2 % solution 15 ml mucous membrane Q3H PRN (Reason: mouth pain) 10 Days Qty: 100 2RF alprazolam 0.5 mg tablet 0.5 mg PO BID 30 Days Qty: 60 1RF albuterol sulfate 2.5 mg /3 mL (0.083 %) solution for nebulization 2.5 mg inhalation Q4-6H PRN (Reason: shortness of breath or wheezing) 30 Days Qty: 90 3RF polyethylene glycol 3350 [Miralax] 17 gram powder in packet 17 g PO DAILY PRN (Reason: constipation) 30 Days Qty: 30 3RF Rx Instructions: Mixed 17 g into 8 oz of water once per day/as needed for constipation diclofenac sodium 50 mg tablet,delayed release (DR/EC) 50 mg PO BID 15 Days Qty: 30 0RF (DME) Ultra-Light Rollator Misc See Rx Instructions .Route Qty: 1 0RF Rx Instructions: As directed gabapentin 400 mg capsule See Rx Instructions PO .COMPLEX 30 Days Qty: 150 6RF Rx Instructions: PO; take 1 capsule in the morning, 2 capsules midday, 2 capsules in the p.m. ferrous sulfate 325 mg (65 mg iron) tablet 325 mg PO BID 30 Days Qty: 60 3RF ondansetron 4 mg tablet,disintegrating 4 mg PO Q6-8H PRN (Reason: nausea and vomiting) Qty: 14 0RF magnesium hydroxide 400 mg/5 mL suspension 10 ml PO BID PRN (Reason: stomach upset) Qty: 355 3RF bismuth subsalicylate 262 mg tablet,chewable 2 tab PO QID 14 Days Qty: 112 0RF metronidazole 500 mg tablet 1,000 mg PO BID Qty: 56 0RF omeprazole 20 mg capsule,delayed release(DR/EC) 20 mg PO DAILY Qty: 90 2RF doxycycline hyclate 100 mg capsule 100 mg PO BID 14 Days Qty: 28 0RF albuterol sulfate 90 mcg/actuation HFA aerosol inhaler 2 puff inhalation Q6H PRN (Reason: shortness of breath or wheezing) 30 Days Qty: 8.5 1RF Flovent HFA 110 mcg/actuation HFA aerosol inhaler 2 puff inhalation BID methadone 40 mg tablet,soluble 51 mg PO DAILY baclofen 20 mg tablet 20 mg PO Q8H Qty: 90 1RF gabapentin 300 mg capsule 300 mg PO TID 30 Days Qty: 90 3RF (DME) blood pressure test kit-large Kit See Rx Instructions .Route Qty: 1 0RF Rx Instructions: As directed clotrimazole-betamethasone 1-0.05 % cream 1 appl topical BID PRN (Reason: skin irritation) 30 Days Qty: 45 2RF triamcinolone acetonide 0.025 % cream 1 appl topical DAILY PRN (Reason: skin irritation) 30 Days Qty: 80 3RF miscellaneous medical supply Misc 1 ea miscellaneous DAILY 99 Days Qty: 1 0RF Linzess 145 mcg capsule 145 mcg PO DAILY Qty: 30 2RF docusate sodium 100 mg capsule 200 mg PO BEDTIME Qty: 180 3RF hydrocortisone [Proctosol HC] 2.5 % cream with perineal applicator 1 appl MD BID-QID PRN (Reason: hemorrhoids) Qty: 30 2RF
[2022-09-29] MEDS: 0.9 % Sodium Chloride 1,000 ML 999 ML IV (00:31)
[2022-09-29] MEDS: Morphine Sulfate 4 MG/ML CARTRIDGE IVPUSH (00:31)
[2022-09-29] MEDS: ondansetron HCL 4 MG/2 ML VIAL IVPUSH (00:32)
== END 2022-09-29 01:51 | disposition home or self-care (01) ==
PROVIDERS: Emergency Provider Internal Medicine; PCP Physician Assistant
DX: K29.70 Gastritis, unspecified, without bleeding (principal); B96.81 Helicobacter pylori [H. pylori] as the cause of diseases classified elsewhere; I10 Essential (primary) hypertension; F41.1 Generalized anxiety disorder; M32.9 Systemic lupus erythematosus, unspecified; K21.9 Gastro-esophageal reflux disease without esophagitis; F11.20 Opioid dependence, uncomplicated; Z79.899 Other long term (current) drug therapy
CPT/HCPCS: 36415; 80048; 80076; 81001; 83690; 85025; 96374; 96375; 99283; 99284; J2270; J2405

== ENCOUNTER 2022-09-29 08:28 | Emergency (ER) | payer MEDICARE, MEDICAID, SELFPAY ==
--- NOTE | ~2022-09-29 | CT_ITS ---
EXAMINATION: CT abdomen pelvis w IV con CLINICAL INFORMATION: Upper abdominal pain. COMPARISON: No prior CT available for comparison. TECHNIQUE: Multidetector volumetric imaging was performed from the superior aspect of the liver through the pubic symphysis 100 mL of Omnipaque 350 injected Sagittal and coronal reformatted images were obtained on the technologist's workstation. This CT examination was performed using dose optimization techniques as appropriate, variously including the following: *Automated exposure control *Adjustment of mA and/or kV according to patient size (this includes techniques or standardized protocols for targeted exams where dose is matched to indication/reason for exam; i.e. extremities or head) *Use of iterative reconstruction technique DLP: 1405 mGy-cm FINDINGS: LOWER THORAX: Included lung bases are clear. HEPATOBILIARY: No focal hepatic lesions. No biliary ductal dilatation. GALLBLADDER: Gallbladder unremarkable. SPLEEN: Spleen is mildly enlarged measuring 14 cm. PANCREAS: The pancreas is diffusely hypodense suggesting pancreatic atrophy fatty replacement. STOMACH AND GASTROINTESTINAL TRACT: Stomach is grossly unremarkable. There is no bowel distention or thickening. No CT evidence of appendicitis. ADRENALS: No adrenal nodules. KIDNEYS/URETERS: No hydronephrosis, stones or solid mass lesions. URINARY BLADDER: Partially decompressed. PELVIC VISCERA: Unremarkable PERITONEUM: No free air or fluid. LYMPH NODES: No lymphadenopathy. VASCULAR:Abdominal aorta normal in size, no aneurysm found. BONES, ABDOMINAL WALL AND SOFT TISSUES: Age-appropriate changes of the spine and skeletal system, no destructive osteolytic or osteosclerotic bone lesion found CT/CT abdomen pelvis w IV con IMPRESSION: * No CT evidence of acute intra-abdominal process to explain patient's pain symptoms. * Spleen is mildly enlarged measuring 14 cm. * Atrophic pancreas.
[2022-09-29 08:37] VITALS: BP 154/78; PULSE 65; RESP 18; TEMP 36.6; O2SAT 97; BMI 47.9
--- NOTE | 2022-09-29 08:44 | ED.ABDPAIN ---
HPI - Abdominal Pain General Chief Complaint: Abdominal Pain Stated Complaint: LUQ PAIN PER EMS Time Seen by Provider: 09/29/22 08:33 Source: patient Mode of arrival: EMS Limitations: no limitations History of Present Illness HPI narrative: pt presented by ambulancve c/o upper abdominal pain,she was seen here Yesterday and she is followed by GI She has hx of fibromyalgia/depression/anxiety/lupus MD elicited complaint: abdominal pain Pertinent past history: other (H.pylori) Onset (ago): month(s) Pain Consistency: constant Location: epigastric Severity: moderate Radiation: none Migration to: no migration Exacerbating factors: nothing Associated symptoms: denies other symptoms Related Data Home Medications Medication Instructions Recorded Confirmed fluticasone propionate 110 2 puff inhalation BID 07/03/20 02/19/22 mcg/actuation HFA aerosol inhaler (Flovent HFA) methadone 40 mg soluble tablet 51 mg PO DAILY 02/19/22 02/19/22 Previous Rx's Medication Instructions Recorded lidocaine HCl 2 % mucosal solution 15 ml mucous membrane Q3H PRN 12/03/20 (Lidocaine Viscous) mouth pain 10 days #100 mL alprazolam 0.5 mg tablet 0.5 mg PO BID 30 days #60 tabs 04/02/21 albuterol sulfate 2.5 mg/3 mL 2.5 mg (3 mL) inhalation Q4-6H PRN 06/16/21 (0.083 %) solution for nebulization shortness of breath or wheezing 30 days #90 mL baclofen 20 mg tablet 20 mg PO Q8H #90 tabs 07/03/21 polyethylene glycol 3350 17 gram 17 g PO DAILY PRN constipation 30 09/22/21 oral powder packet (Miralax) days #30 ea diclofenac sodium 50 mg 50 mg PO BID 15 days #30 tabs 10/06/21 tablet,delayed release miscellaneous medical supply 1 ea miscellaneous DAILY 99 days 10/06/21 #1 cornelio cerna (Ultra-Light Rollator mis) #1 ea 12/09/21 blood pressure test kit-large #1 ea 02/19/22 clotrimazole-betamethasone 1 1 appl topical BID PRN skin 02/19/22 %-0.05 % topical cream irritation 30 days #45 grams gabapentin 300 mg capsule 300 mg PO TID 30 days #90 caps 02/19/22 triamcinolone acetonide 0.025 % 1 appl topical DAILY PRN skin 02/19/22 topical cream irritation 30 days #80 grams gabapentin 400 mg capsule See Rx Instructions PO .COMPLEX 30 07/07/22 days #150 caps ferrous sulfate 325 mg (65 mg 325 mg PO BID 30 days #60 tabs 08/18/22 iron) tablet docusate sodium 100 mg capsule 200 mg PO BEDTIME #180 caps 08/24/22 hydrocortisone 2.5 % topical cream 1 appl NV BID-QID PRN hemorrhoids 08/24/22 with perineal applicator #30 grams (Proctosol HC) linaclotide 145 mcg capsule 145 mcg PO DAILY #30 caps 08/24/22 (Linzess) magnesium hydroxide 400 mg/5 mL 10 ml PO BID PRN stomach upset 09/16/22 oral suspension #355 mL bismuth subsalicylate 262 mg 2 tab PO QID 14 days #112 tabs 09/18/22 chewable tablet metronidazole 500 mg tablet 1,000 mg PO BID #56 tabs 09/18/22 doxycycline hyclate 100 mg capsule 100 mg PO BID 14 days #28 caps 09/23/22 albuterol sulfate 90 mcg/actuation 2 puff inhalation Q6H PRN 09/25/22 aerosol inhaler shortness of breath or wheezing 30 days #8.5 grams ondansetron 4 mg disintegrating 4 mg PO Q6-8H PRN nausea and 09/29/22 tablet vomiting #14 tabs pantoprazole 40 mg tablet,delayed 40 mg PO DAILY #30 tabs 09/29/22 release sucralfate 100 mg/mL oral 10 ml PO BEDTIME #400 mL 09/29/22 suspension Allergies Allergy/AdvReac Type Severity Reaction Status Date / Time latex [Latex] Allergy Mild RASH Verified 08/24/22 12:18 Benadryl Allergy Unknown Rash Verified 08/24/22 12:18 diphenhydramine Allergy Unknown HIVES Verified 08/24/22 12:18 [From Benadryl] Review of Systems Constitutional: Reports no additional constitutional complaints Reports system reviewed and no additional complaints, except as documented Gastrointestinal: Reports abdominal pain PMFSH Past Medical History Medical History Asthma Lupus Right shoulder pain Tinea Surgical History History of section History of umbilical hernia repair History of varicose vein ligation Plantar fasciitis of left foot Family History Family History Father High cholesterol High blood pressure Dementia Mother Diabetes Arthritis High blood pressure Paternal Grandmother Colon cancer Social History Social History Housing: House Alcohol intake: never Patient Tobacco Use Status: Never used Tobacco e-Cigarette/Vaping Use: Never Used Second Hand Smoke Exposure: No Substance Use Type: Opiates Current occupational status: unemployed Cognitive needs: Yes Hearing needs: No Vision needs: Yes Physical Exam ED Vital Signs: Vital Signs - 24 hr 09/29/22 08:37 09/29/22 10:58 Temperature 97.9 F Pulse Rate 65 82 Respiratory Rate 18 18 Blood Pressure 154/78 H 124/62 Pulse Oximetry 97 97 Oxygen Delivery Method Room Air Room Air BMI result Body Mass Index 47.9 Const General: cooperative Nutritional Appearance: average body habitus and well nourished Orientation/consciousness: patient oriented x3 HENMT Head: Yes normal to inspection General nose exam: Normal external nose present Face and sinus: Yes normal facial exam Throat: Yes posterior oropharynx normal Neck Neck: Yes normal visual inspection Chest Chest palpation & inspection: normal inspection of the chest Resp Effort & Inspection: normal respiratory effort Cardio Jugular venous distension: no JVD Rate: regular rate Rhythm: regular rhythm GI Other: tenferness epigastrium Palpation (GI): Soft to palpation and Tenderness to palpation present (GI) (epigastrium) Skin General skin exam: no rashes or lesions noted and elasticity normal Lesions: no lesions Rashes: no rashes Neuro General: patient oriented x3 Cranial nerves: Yes CN's II-XII intact bilaterally Course Reevaluation(s) Reevaluation #1: she is doing better labs and ct OK I spoke with The [facility] [employer] Kamala she will follow up the pt as outpatient and schedule for endoscopy Time: 12:10 Medical Decision Making Medical Decision Making MDM Narrative: presented with chronic abdominal pain will get labs fluids pain meds Differential Diagnosis gastritis/ulcer/constipation/pancreatitis Admission/Observation Consideration of admission/observation: Escalation of care including admission/observation considered labs normal ct normal reasonable to d/c home Lab Data [facility] Lab Attestation statement: I reviewed the patient's lab results. 09/29/22 08:49 09/29/22 09:20 Labs: Lab Results 09/29/22 09/29/22 Range/Units 08:49 09:20 WBC 6.9 (4.8-10.8) X10*3/uL RBC 4.18 L (4.20-5.50) X10*6/uL Hgb 9.3 L (12.0-16.0) g/dl Hct 30.8 L (37.0-47.0) % MCV 73.7 L (80.0-98.0) fL MCH 22.2 L (27.0-33.0) pg MCHC 30.2 L (31.0-35.0) g/dl RDW 16.9 H (11.0-16.0) % Plt Count TNP MPV Not Reportable Immature Gran % (Auto) 0.1 (0.0-0.4) % Neut % (Auto) 69.4 (45-73) % Lymph % (Auto) 19.3 L (20-40) % [place] % (Auto) 7.6 (2-11) % Eos % (Auto) 3.0 (0-4) % Baso % (Auto) 0.6 (0-2) % Lymph # (Auto) 1.3 (1.2-4.9) X10*3/uL [place] # (Auto) 0.5 (0.1-1.2) X10*3/uL Eos # (Auto) 0.2 (0.0-0.4) X10*3/uL Baso # (Auto) 0.0 (0.0-0.2) X10*3/uL Abs Immat Gran (auto) 0.01 (0.00-0.03) X10*3/uL Absolute Neuts (auto) 4.8 (2.0-8.3) x10*3/uL Absolute Nucleated RBC 0.000 (0.0-0.012) X10*3/uL Nucleated RBC % (auto) 0.0 (0.0-0.2) /100WBC Sodium 141 (135-145) mmol/L Potassium 3.6 (3.3-5.1) mmol/L Chloride 104 (96-108) mmol/L Carbon Dioxide 30 H (22-29) mmol/L Anion Gap 11 L (12-20) BUN 9 (9-16) mg/dL Creatinine 0.68 (0.5-1.4) mg/dL Estim Creat Clear Calc 129.0 Estimated GFR > 60 Random Glucose 103 (60-115) mg/dL Calcium 8.9 (8.4-10.2) mg/dL Total Bilirubin 0.3 (0.0-1.0) mg/dL AST 19 (5-31) U/L ALT 14 (0-31) U/L Alkaline Phosphatase 76 (39-117) U/L Total Protein 6.9 (6.5-8.0) g/dL Albumin 3.6 (3.5-5.0) g/dL Lipase 16 (8-78) U/L Independent Interpretation I performed an independent interpretation of an: CT Scan Independent Historian spoke with GI [employer] Chronic Conditions Patient?s care impacted by: Other (fibromyalgia/chronic pain) Medications Administered Discontinued Medications Generic Name Dose Route Start Last Admin Trade Name Freq PRN Reason Stop Dose Admin Sodium Chloride 1,000 mls @ 100 mls/hr 09/29/22 08:45 09/29/22 12:11 Ns IVCONT Infused .Q10H DUNG Infusion Iohexol 100 ml 09/29/22 10:51 09/29/22 10:51 Iohexol 350 Mg/Ml 100 Ml Infus..Btl IV 09/29/22 10:52 100 ml ONCE ONE Administration Lorazepam 0.5 mg 09/29/22 08:41 09/29/22 09:00 Lorazepam 2 Mg/Ml Vial IVPUSH 09/29/22 08:42 0.5 mg ONCE ONE Administration Lorazepam 0.5 mg 09/29/22 10:35 09/29/22 10:57 Lorazepam 2 Mg/Ml Vial IVPUSH 09/29/22 10:36 0.5 mg STAT STA Administration Morphine Sulfate 4 mg 09/29/22 08:41 09/29/22 08:59 Morphine Sulfate 4 Mg/Ml Cartridge IVPUSH 09/29/22 08:42 4 mg ONCE ONE Administration Protocol Morphine Sulfate 4 mg 09/29/22 10:35 01/17/23 10:57 Morphine Sulfate 4 Mg/Ml Cartridge IVPUSH 09/29/22 10:36 4 mg ONCE ONE Administration Protocol Discharge Plan Discharge Clinical Impression: Abdominal pain, Chronic pain, At risk for polypharmacy Patient Disposition: Home, Self-Care Instructions: Abdominal Pain (ED) Additional Instructions: follow up with [facility] specialist clear liquid diet return if worse Prescriptions: No Action Lidocaine Viscous 2 % solution 15 ml mucous membrane Q3H PRN (Reason: mouth pain) 10 Days Qty: 100 2RF alprazolam 0.5 mg tablet 0.5 mg PO BID 30 Days Qty: 60 1RF albuterol sulfate 2.5 mg /3 mL (0.083 %) solution for nebulization 2.5 mg inhalation Q4-6H PRN (Reason: shortness of breath or wheezing) 30 Days Qty: 90 3RF polyethylene glycol 3350 [Miralax] 17 gram powder in packet 17 g PO DAILY PRN (Reason: constipation) 30 Days Qty: 30 3RF Rx Instructions: Mixed 17 g into 8 oz of water once per day/as needed for constipation diclofenac sodium 50 mg tablet,delayed release (DR/EC) 50 mg PO BID 15 Days Qty: 30 0RF (DME) Ultra-Light Rollator Misc See Rx Instructions .Route Qty: 1 0RF Rx Instructions: As directed gabapentin 400 mg capsule See Rx Instructions PO .COMPLEX 30 Days Qty: 150 6RF Rx Instructions: PO; take 1 capsule in the morning, 2 capsules midday, 2 capsules in the p.m. ferrous sulfate 325 mg (65 mg iron) tablet 325 mg PO BID 30 Days Qty: 60 3RF magnesium hydroxide 400 mg/5 mL suspension 10 ml PO BID PRN (Reason: stomach upset) Qty: 355 3RF bismuth subsalicylate 262 mg tablet,chewable 2 tab PO QID 14 Days Qty: 112 0RF metronidazole 500 mg tablet 1,000 mg PO BID Qty: 56 0RF doxycycline hyclate 100 mg capsule 100 mg PO BID 14 Days Qty: 28 0RF albuterol sulfate 90 mcg/actuation HFA aerosol inhaler 2 puff inhalation Q6H PRN (Reason: shortness of breath or wheezing) 30 Days Qty: 8.5 1RF Flovent HFA 110 mcg/actuation HFA aerosol inhaler 2 puff inhalation BID methadone 40 mg tablet,soluble 51 mg PO DAILY baclofen 20 mg tablet 20 mg PO Q8H Qty: 90 1RF gabapentin 300 mg capsule 300 mg PO TID 30 Days Qty: 90 3RF (DME) blood pressure test kit-large Kit See Rx Instructions .Route Qty: 1 0RF Rx Instructions: As directed clotrimazole-betamethasone 1-0.05 % cream 1 appl topical BID PRN (Reason: skin irritation) 30 Days Qty: 45 2RF triamcinolone acetonide 0.025 % cream 1 appl topical DAILY PRN (Reason: skin irritation) 30 Days Qty: 80 3RF miscellaneous medical supply Misc 1 ea miscellaneous DAILY 99 Days Qty: 1 0RF Linzess 145 mcg capsule 145 mcg PO DAILY Qty: 30 2RF docusate sodium 100 mg capsule 200 mg PO BEDTIME Qty: 180 3RF hydrocortisone [Proctosol HC] 2.5 % cream with perineal applicator 1 appl NV BID-QID PRN (Reason: hemorrhoids) Qty: 30 2RF pantoprazole 40 mg tablet,delayed release (DR/EC) 40 mg PO DAILY Qty: 30 2RF Rx Instructions: take one tablet half an hour before breakfast ondansetron 4 mg tablet,disintegrating 4 mg PO Q6-8H PRN (Reason: nausea and vomiting) Qty: 14 0RF sucralfate 100 mg/mL suspension 10 ml PO BEDTIME Qty: 400 3RF Referrals: Rony Carr PA-C [Primary Care Provider] - 1 day Interventions: ED Discharge Assessment Last Done: 09/29/22 13:08 Discharge Date/Time: 09/29/22 13:08
[2022-09-29 08:52] LABS: MANUAL DIFF FLAG NO
[2022-09-29 08:53] LABS: Basophils Percent Auto 0.6 % (0-2); Eosinophils Absolute Auto 0.2 X10*3/uL (0.0-0.4); Hematocrit 30.8 % (37.0-47.0); Hemoglobin 9.3 g/dl (12.0-16.0); Imm Gran Abs Auto 0.01 X10*3/uL (0.00-0.03); Imm Gran Pct Auto 0.1 % (0.0-0.4); Lymphocytes Absolute Auto 1.3 X10*3/uL (1.2-4.9); Lymphocytes Percent Auto 19.3 % (20-40); Mean Corpuscular HGB Conc 30.2 g/dl (31.0-35.0); Mean Corpuscular Hemoglobin 22.2 pg (27.0-33.0); Mean Corpuscular Volume 73.7 fL (80.0-98.0); Monocytes Absolute Auto 0.5 X10*3/uL (0.1-1.2); Monocytes Percent Auto 7.6 % (2-11); Neutrophils Absolute Auto 4.8 x10*3/uL (2.0-8.3); Neutrophils Percent Auto 69.4 % (45-73); Red Blood Count 4.18 X10*6/uL (4.20-5.50); Red Cell Distribution Width 16.9 % (11.0-16.0); White Blood Count 6.9 X10*3/uL (4.8-10.8)
[2022-09-29] MEDS: Morphine Sulfate 4 MG/ML CARTRIDGE IVPUSH ×2 (08:59→10:57)
[2022-09-29] MEDS: 0.9 % Sodium Chloride 1,000 ML 100 ML IVCONT (09:00)
[2022-09-29] MEDS: LORazepam 2 MG/ML VIAL 0.5 MG IVPUSH ×2 (09:00→10:57)
[2022-09-29 09:51] LABS: Alanine Aminotransferase 14 U/L (0-31); Albumin Level 3.6 g/dL (3.5-5.0); Alkaline Phosphatase 76 U/L (39-117); Anion Gap 11 (12-20); Aspartate Amino Transferase 19 U/L (5-31); Bilirubin Total 0.3 mg/dL (0.0-1.0); Blood Urea Nitrogen 9 mg/dL (9-16); Calcium 8.9 mg/dL (8.4-10.2); Carbon Dioxide 30 mmol/L (22-29); Chloride 104 mmol/L (96-108); Estimated Glomerular Filt Rate > 60; Glucose Random 103 mg/dL (60-115); Lipase 16 U/L (8-78); Potassium 3.6 mmol/L (3.3-5.1); Sodium 141 mmol/L (135-145); Total Protein 6.9 g/dL (6.5-8.0)
[2022-09-29] MEDS: iohexoL 350 MG/ML 100 ML INFUS..BTL IV (10:51)
[2022-09-29 10:58] VITALS: BP 124/62; PULSE 82; RESP 18; O2SAT 97
== END 2022-09-29 13:08 | disposition home or self-care (01) ==
PROVIDERS: Emergency Provider Emergency Medicine; PCP Physician Assistant
DX: R10.12 Left upper quadrant pain (principal); G89.29 Other chronic pain; Z79.899 Other long term (current) drug therapy
CPT/HCPCS: 36415; 74177; 80053; 83690; 85025; 96361; 96374; 96375; 96376; 99284; J2060; J2270; Q9967

== ENCOUNTER 2022-09-30 06:10 | Emergency (ER) | payer MEDICARE, MEDICAID, SELFPAY ==
[2022-09-30 06:15] VITALS: BP 164/110; BP 185/82; PULSE 78; PULSE 82; RESP 20; TEMP 36.9; O2SAT 98; O2SAT 99; BMI 48.4
[2022-09-30 07:21] VITALS: BP 154/77; PULSE 59; RESP 14; O2SAT 97
--- NOTE | 2022-09-30 07:55 | ECG_ITS ---
Test Reason : QT Blood Pressure : / mmHG Vent. Rate : 087 BPM Atrial Rate : 087 BPM P-R Int : 160 ms QRS Dur : 086 ms QT Int : 356 ms P-R-T Axes : 027 013 028 degrees QTc Int : 428 ms Normal sinus rhythm Minimal voltage criteria for LVH, may be normal variant ( [place] product ) Borderline ECG When compared with ECG of 17-APR-2022 09:13, No significant change was found Referred By: Dawson Newby Electronically Signed By:ABIGAIL ROJAS MD
--- NOTE | 2022-09-30 07:58 | ED.ABDPAIN ---
HPI - Abdominal Pain General Chief Complaint: Abdominal Pain Stated Complaint: dizziness Time Seen by Provider: 09/30/22 07:43 Source: patient History of Present Illness HPI narrative: Patient with history of chronic abdominal pain with diagnosis of H pylori 1 month ago. She has been on antibiotics and recently switched from omeprazole to pantoprazole by her research pharmacist. She has had multiple visits to the emergency department with workups that have been negative. CT scan yesterday was normal. Lab work has been normal. She states she felt better after visit yesterday after IV fluids and IV morphine. But then last night she woke up at 3 in the morning and got anxious and had dry heaves and states the pain returned. She has not had upper endoscopy at this point. She states she feels chills but has not had documented fevers. There are no precipitating factors other than being anxious she is aware of. She is on methadone for the past 2 years. No recent changes to dosage. Abdominal pain is epigastric and right upper quadrant. No recent changes to the type of pain Related Data Home Medications Medication Instructions Recorded Confirmed fluticasone propionate 110 2 puff inhalation BID 07/03/20 02/19/22 mcg/actuation HFA aerosol inhaler (Flovent HFA) methadone 40 mg soluble tablet 51 mg PO DAILY 02/19/22 02/19/22 Previous Rx's Medication Instructions Recorded lidocaine HCl 2 % mucosal solution 15 ml mucous membrane Q3H PRN 12/03/20 (Lidocaine Viscous) mouth pain 10 days #100 mL alprazolam 0.5 mg tablet 0.5 mg PO BID 30 days #60 tabs 04/02/21 albuterol sulfate 2.5 mg/3 mL 2.5 mg (3 mL) inhalation Q4-6H PRN 06/16/21 (0.083 %) solution for nebulization shortness of breath or wheezing 30 days #90 mL baclofen 20 mg tablet 20 mg PO Q8H #90 tabs 07/03/21 polyethylene glycol 3350 17 gram 17 g PO DAILY PRN constipation 30 09/22/21 oral powder packet (Miralax) days #30 ea diclofenac sodium 50 mg 50 mg PO BID 15 days #30 tabs 10/06/21 tablet,delayed release miscellaneous medical supply 1 ea miscellaneous DAILY 99 days 10/06/21 #1 ea nehemiah (Ultra-Light Rollator misc) #1 ea 12/09/21 blood pressure test kit-large #1 ea 02/19/22 clotrimazole-betamethasone 1 1 appl topical BID PRN skin 02/19/22 %-0.05 % topical cream irritation 30 days #45 grams gabapentin 300 mg capsule 300 mg PO TID 30 days #90 caps 02/19/22 triamcinolone acetonide 0.025 % 1 appl topical DAILY PRN skin 02/19/22 topical cream irritation 30 days #80 grams gabapentin 400 mg capsule See Rx Instructions PO .COMPLEX 30 07/07/22 days #150 caps ferrous sulfate 325 mg (65 mg 325 mg PO BID 30 days #60 tabs 08/18/22 iron) tablet docusate sodium 100 mg capsule 200 mg PO BEDTIME #180 caps 08/24/22 hydrocortisone 2.5 % topical cream 1 appl [place] BID-QID PRN hemorrhoids 08/24/22 with perineal applicator #30 grams (Proctosol HC) linaclotide 145 mcg capsule 145 mcg PO DAILY #30 caps 08/24/22 (Linzess) magnesium hydroxide 400 mg/5 mL 10 ml PO BID PRN stomach upset 09/16/22 oral suspension #355 mL bismuth subsalicylate 262 mg 2 tab PO QID 14 days #112 tabs 09/18/22 chewable tablet metronidazole 500 mg tablet 1,000 mg PO BID #56 tabs 09/18/22 doxycycline hyclate 100 mg capsule 100 mg PO BID 14 days #28 caps 09/23/22 albuterol sulfate 90 mcg/actuation 2 puff inhalation Q6H PRN 09/25/22 aerosol inhaler shortness of breath or wheezing 30 days #8.5 grams ondansetron 4 mg disintegrating 4 mg PO Q6-8H PRN nausea and 09/29/22 tablet vomiting #14 tabs pantoprazole 40 mg tablet,delayed 40 mg PO DAILY #30 tabs 09/29/22 release sucralfate 100 mg/mL oral 10 ml PO BEDTIME #400 mL 09/29/22 suspension haloperidol 2 mg tablet 2 mg PO TID #30 tabs 09/30/22 lorazepam 1 mg tablet (Ativan) 1 mg PO TID PRN anxiety #14 tabs 09/30/22 Allergies Allergy/AdvReac Type Severity Reaction Status Date / Time latex [Latex] Allergy Mild RASH Verified 09/30/22 06:19 Benadryl Allergy Unknown Rash Verified 09/30/22 06:19 diphenhydramine Allergy Unknown HIVES Verified 09/30/22 06:19 [From Benadryl] Review of Systems Comments: Chills without documented fevers Comments: No chest pain Comments: No dyspnea Comments: Abdominal pain is described Comments: No urinary symptoms Comments: No musculoskeletal complaints Comments: No skin changes. History of lupus. Comments: Chronic headaches. Feeling lightheaded recently PMFSH Past Medical History Medical History Asthma Lupus Right shoulder pain Tinea Surgical History History of section History of umbilical hernia repair History of varicose vein ligation Plantar fasciitis of left foot Family History Family History Father High cholesterol High blood pressure Dementia Mother Diabetes Arthritis High blood pressure Paternal Grandmother Colon cancer Social History Social History Housing: House Alcohol intake: never Patient Tobacco Use Status: Never used Tobacco e-Cigarette/Vaping Use: Never Used Second Hand Smoke Exposure: No Substance Use Type: Opiates Advance Directives: No Current occupational status: unemployed Cognitive needs: Yes Hearing needs: No Vision needs: Yes Physical Exam ED Vital Signs: Vital Signs - 24 hr 09/30/22 06:15 09/30/22 07:21 09/30/22 09:50 Temperature 98.4 F Pulse Rate 78 59 61 Respiratory Rate 20 14 15 Blood Pressure 185/82 H 154/77 H 156/80 H Pulse Oximetry 98 97 99 Oxygen Delivery Method Room Air Room Air Room Air 09/30/22 11:46 Temperature 98.5 F Pulse Rate 67 Respiratory Rate 18 Blood Pressure 156/81 H Pulse Oximetry 98 Oxygen Delivery Method Room Air BMI result Body Mass Index 48.4 Const Other: Awake and alert. Anxious. Moaning. Resp Other: Clear and equal bilaterally without wheezes rales or rhonchi Cardio Other: Regular rate and rhythm without murmurs rubs or gallops GI Other: Soft. Epigastric tenderness with mild guarding but no rebound. No other tenderness although she points to right upper quadrant area is painful. No change with palpation. Remainder of abdominal exam is unremarkable Skin Other: Warm pink and dry without acute rash Neuro Other: Nonfocal neuro exam Psych Other: Appears very anxious Course Course Course Narrative: 08:39. EKG shows normal sinus rhythm without ischemia or dysrhythmia. QTC is 428 which is similar to prior. Will move for with haloperidol IV. Secondary review of old records show she had hell apparent all IV without issue in April of 2022. 12:30. Patient felt better after IV Haldol as far as her pain in her stomach was concerned, blood felt a little antsy so did not want anymore. She got Ativan and felt better. She now denies abdominal pain. I discussed strategy of treatment with her. She is agreeable to trying Haldol p.o. at home in addition to all of her current therapies. I will also give a short prescription for Ativan as I believe her anxiety is making her pain much worse. I discussed this with the patient and she agrees. Medical Decision Making Medical Decision Making MDM Narrative: Patient with acute on chronic abdominal pain with recent diagnosis of H pylori. Not tolerating treatment. She has had multiple visits to the emergency department and her symptoms appear exacerbated by anxiety. She is on adequate anti gastritis medication including high-dose pantoprazole and sucralfate along with milk of magnesia. She has been treated with IV fluids as well as IV opioids in the past. Do not see any evidence of treatment with IV droperidol or IV Haldol however. This may be a good had jumped. Will rehydrate and true haloperidol. In the meantime her lab work shows no significant changes without evidence of pancreatitis or acute blood loss. LFTs are unchanged. CT scan from yesterday reviewed which shows no significant abnormality. Medications Administered Discontinued Medications Generic Name Dose Route Start Last Admin Trade Name Freq PRN Reason Stop Dose Admin Haloperidol Lactate 2 mg 09/30/22 07:55 09/30/22 08:11 Haloperidol Lactate 5 Mg/Ml Vial IVPUSH 09/30/22 07:56 2 mg STAT STA Administration Haloperidol Lactate 2 mg 09/30/22 09:36 09/30/22 10:02 Haloperidol Lactate 5 Mg/Ml Vial IVPUSH 09/30/22 09:37 Not Given ONCE ONE Sodium Chloride 1,000 mls @ 999 mls/hr 09/30/22 08:00 09/30/22 09:12 Ns IV 09/30/22 09:00 Infused .Q1H1M DUNG Infusion Lorazepam 1 mg 09/30/22 09:36 09/30/22 09:57 Lorazepam 2 Mg/Ml Vial IVPUSH 09/30/22 09:37 1 mg ONCE ONE Administration Discharge Plan Discharge Clinical Impression: Chronic abdominal pain, H. pylori infection Patient Disposition: Home, Self-Care Instructions: Helicobacter Pylori (ED), Chronic Abdominal Pain (ED) Additional Instructions: Haloperidol is for pain and nausea. You can take this up to 4 times a day. Take it in addition to all of your other current medication. Ativan is for anxiety. It is likely anxiety is making your abdominal pain feel worse. It is not good for long-term treatment of anxiety but should be beneficial over the next several days. Call your research pharmacist for follow-up Prescriptions: New haloperidol 2 mg tablet 2 mg PO TID Qty: 30 0RF lorazepam [Ativan] 1 mg tablet 1 mg PO TID PRN (Reason: anxiety) Qty: 14 0RF No Action Lidocaine Viscous 2 % solution 15 ml mucous membrane Q3H PRN (Reason: mouth pain) 10 Days Qty: 100 2RF alprazolam 0.5 mg tablet 0.5 mg PO BID 30 Days Qty: 60 1RF albuterol sulfate 2.5 mg /3 mL (0.083 %) solution for nebulization 2.5 mg inhalation Q4-6H PRN (Reason: shortness of breath or wheezing) 30 Days Qty: 90 3RF polyethylene glycol 3350 [Miralax] 17 gram powder in packet 17 g PO DAILY PRN (Reason: constipation) 30 Days Qty: 30 3RF Rx Instructions: Mixed 17 g into 8 oz of water once per day/as needed for constipation diclofenac sodium 50 mg tablet,delayed release (DR/EC) 50 mg PO BID 15 Days Qty: 30 0RF (DME) Ultra-Light Rollator Misc See Rx Instructions .Route Qty: 1 0RF Rx Instructions: As directed gabapentin 400 mg capsule See Rx Instructions PO .COMPLEX 30 Days Qty: 150 6RF Rx Instructions: PO; take 1 capsule in the morning, 2 capsules midday, 2 capsules in the p.m. ferrous sulfate 325 mg (65 mg iron) tablet 325 mg PO BID 30 Days Qty: 60 3RF magnesium hydroxide 400 mg/5 mL suspension 10 ml PO BID PRN (Reason: stomach upset) Qty: 355 3RF bismuth subsalicylate 262 mg tablet,chewable 2 tab PO QID 14 Days Qty: 112 0RF metronidazole 500 mg tablet 1,000 mg PO BID Qty: 56 0RF doxycycline hyclate 100 mg capsule 100 mg PO BID 14 Days Qty: 28 0RF albuterol sulfate 90 mcg/actuation HFA aerosol inhaler 2 puff inhalation Q6H PRN (Reason: shortness of breath or wheezing) 30 Days Qty: 8.5 1RF Flovent HFA 110 mcg/actuation HFA aerosol inhaler 2 puff inhalation BID methadone 40 mg tablet,soluble 51 mg PO DAILY baclofen 20 mg tablet 20 mg PO Q8H Qty: 90 1RF gabapentin 300 mg capsule 300 mg PO TID 30 Days Qty: 90 3RF (DME) blood pressure test kit-large Kit See Rx Instructions .Route Qty: 1 0RF Rx Instructions: As directed clotrimazole-betamethasone 1-0.05 % cream 1 appl topical BID PRN (Reason: skin irritation) 30 Days Qty: 45 2RF triamcinolone acetonide 0.025 % cream 1 appl topical DAILY PRN (Reason: skin irritation) 30 Days Qty: 80 3RF miscellaneous medical supply Misc 1 ea miscellaneous DAILY 99 Days Qty: 1 0RF Linzess 145 mcg capsule 145 mcg PO DAILY Qty: 30 2RF docusate sodium 100 mg capsule 200 mg PO BEDTIME Qty: 180 3RF hydrocortisone [Proctosol HC] 2.5 % cream with perineal applicator 1 appl [place] BID-QID PRN (Reason: hemorrhoids) Qty: 30 2RF pantoprazole 40 mg tablet,delayed release (DR/EC) 40 mg PO DAILY Qty: 30 2RF Rx Instructions: take one tablet half an hour before breakfast ondansetron 4 mg tablet,disintegrating 4 mg PO Q6-8H PRN (Reason: nausea and vomiting) Qty: 14 0RF sucralfate 100 mg/mL suspension 10 ml PO BEDTIME Qty: 400 3RF
[2022-09-30] MEDS: Haloperidol Lactate 5 MG/ML VIAL 2 MG IVPUSH (08:11)
[2022-09-30] MEDS: 0.9 % Sodium Chloride 1,000 ML 999 ML IV (08:11)
[2022-09-30 09:50] VITALS: BP 156/80; PULSE 61; RESP 15; O2SAT 99
[2022-09-30] MEDS: LORazepam 2 MG/ML VIAL 1 MG IVPUSH (09:57)
[2022-09-30 11:46] VITALS: BP 156/81; PULSE 67; RESP 18; TEMP 36.9; O2SAT 98
[2022-09-30 12:47] VITALS: BP 143/73; PULSE 104; RESP 18; TEMP 36.9; O2SAT 100
== END 2022-09-30 12:48 | disposition home or self-care (01) ==
PROVIDERS: Emergency Provider Emergency Medicine; PCP Physician Assistant
DX: G89.29 Other chronic pain (principal); R10.9 Unspecified abdominal pain; A04.8 Other specified bacterial intestinal infections; F41.9 Anxiety disorder, unspecified; F11.20 Opioid dependence, uncomplicated; Z79.899 Other long term (current) drug therapy
CPT/HCPCS: 93005; 96361; 96374; 96375; 99284; J2060

== ENCOUNTER → 2022-10-05 09:41 | Outpatient (BNVA) | payer MEDICARE, MEDICAID, SELFPAY | PROVIDERS: PCP Physician Assistant; Visit Provider Nurse Practitioner Family | DX: K21.9 Gastro-esophageal reflux disease without esophagitis (principal); K59.03 Drug induced constipation; K86.89 Other specified diseases of pancreas; Z79.899 Other long term (current) drug therapy | CPT/HCPCS: 99212 ==

== ENCOUNTER 2022-10-15 10:05 | Day surgery (SDC) | payer MEDICARE, MEDICAID, SELFPAY ==
[2022-10-15 10:13] VITALS: BP 159/86; PULSE 83; RESP 16; TEMP 36.8; O2SAT 99; BMI 47.3
--- NOTE | 2022-10-15 10:35 | MHC.SHP ---
Pre-Procedural Eval Section A Date of Service: 10/15/22 Section B Chief Complaint: reflux,constipation Relevant Family History (Specify if Yes): No Relevant Social History: None Present Medications: see Short Stay Collaborative assessment Medical History: Significant History (Asthma Lupus Right shoulder pain Tinea) History of Previous Operations: Relevant previous surgery/procedure and date(s) (History of section History of umbilical hernia repair History of varicose vein ligation Plantar fasciitis of left foot) Allergies: Allergies Allergy/AdvReac Type Severity Reaction Status Date / Time latex [Latex] Allergy Mild RASH Verified 10/05/22 09:48 Benadryl Allergy Unknown Rash Verified 10/05/22 09:48 diphenhydramine Allergy Unknown HIVES Verified 10/05/22 09:48 [From Benadryl] Review of Systems Sugical H&P ROS: Negative: Constitution, Cardiovascular, Respiratory, Neurological, Psychiatric, Hem-Onc, Allergic/Immunologic, Gastrointestinal, Genitourinary, Musculoskeletal, Integumentary, Endocrine and Eyes/Ears/Nose/Throat Exam Surgical H&P Exam: Normal: HEENT, Normal: Heart, Normal: Lungs, Normal: Extremities, Normal: Abdomen, Normal: Skin and Normal: Neurological Plan Diagnosis/Plan: Unchanged I have reviewed the history and physical and performed a pertinent physical examination on my patient. No changes have occurred unless specified. Time Spent With Patient Time: Total time managing care of this patient today ____ minutes.
--- NOTE | 2022-10-15 10:37 | W.PM.OPN ---
Operative Note Operative Note Date of Service: 10/15/22 Narrative: Operative Information Procedure Description: EGD, Colonoscopy Indication: abdominal pain Anesthesia: MAC FLEXIBLE TRANSORAL UPPER GASTROINTESTINAL ENDOSCOPY AND COLONOSCOPY PROCEDURE NOTE UPPER ENDOSCOPY Consent: Indications for the procedure and potential complications of bleeding, perforation, reaction to medications and missed diagnosis were discussed with the patient and informed consent was obtained. Instrument: Olympus GIF H 190 J mid size upper endoscope Monitoring: Vital signs and clinical assessment, continuous EKG monitoring, Pulse oximetry, Carbon Dioxide monitoring and blood pressure monitoring were done throughout the procedure. Procedure: The patient was placed in the left lateral decubitis position and pre-procedure medications were administered and a bite block was placed. The endoscope was inserted into the mouth and advanced under direct vision to the third part of duodenum. A careful inspection was made as the upper endoscope was withdrawn including a retroflexed examination of the proximal stomach; Findings and interventions are described below. Findings: Larynx:normal Esophagus: GE junction at 38 cm, diaphragm hiatus at 38 cm, normal mucosa Stomach: Patchy erythema and scarring. Biopsies were obtained. Grade 2 flap valve on retroflexed examination of the cardia. The pylorus was very tight and was dilated with a 20 mm balloon, no tears seen Duodenum: Normal bulb and descending duodenum, bx taken Intervention: Biopsies as noted above, balloon dilation pylorus COLONOSCOPY Instrument: Olympus variable stiffness pediatric scope 190L Colonoscopy Monitoring: Vital signs and clinical assessment, continuous EKG monitoring, Pulse oximetry, Carbon Dioxide monitoring and blood pressure monitoring were done throughout the procedure. Colon withdrawal time was 10 minutes. Procedure: The patient was placed in the left lateral decubitis position and pre-procedure medications were administered. After a digital rectal examination of the ano-rectum, the video colonoscope was inserted into the rectum and advanced through the colon to the cecum/TI. The colonoscope was slowly withdrawn in a retrograde panoramic fashion and the colon mucosa was carefully examined including a retroflexed view of the rectum. Findings and interventions are described below. Procedure Difficulty:moderate Findings: Terminal Ileum-not intubated due to poor visualization Cecum: 6-8 mm sessile polyp removed with cold forceps Ascending Colon: normal Transverse Colon -normal Descending Colon: 10 mm sessile polyp removed with cold snare Sigmoid Colon: normal Rectum: Retroflexion with small internal hemorrhoids, grade I Anorectum - normal Colon preparation: [place] Bowel Preparation Scale Right colon; 1-2 Transverse colon: 2 Left colon; 1-2 (0 = Unprepared colon segment with mucosa not seen due to solid stool that cannot be cleared. 1 = Portion of mucosa of the colon segment seen, but other areas of the colon segment not well seen due to staining, residual stool and/or opaque liquid. 2 = Minor amount of residual staining, small fragments of stool and/or opaque liquid, but mucosa of colon segment seen well. 3 = Entire mucosa of colon segment seen well with no residual staining, small fragments of stool or opaque liquid) Impression and Post Procedure Diagnosis: Endoscopy Findings: atrophic gastritis tight pylorus Colonoscopy Findings: polyps internal hemorrhoids Plan: Await Pathology results Repeat Colonoscopy in 1 year due to polyps and fair prep or earlier if clinically indicated High fiber diet leaflet avoid straining at stool, epsom salts and sitz bath, anusol supps or cream Above findings were reviewed with the patient and relevant handouts were provided if indicated.
--- NOTE | 2022-10-15 10:41 | HO.ANESPROP2 ---
HPI - Anesthesia Eval Consult details Narrative: egd,colonoscopy PMFSH Active Problems Active Problems: All Active Problems (Updated 10/05/22 @ 10:36 by Stefanie Wray [facility]) GERD (gastroesophageal reflux disease) (Acute) Dysuria (Acute) HTN (hypertension) (Acute) Spondylosis without myelopathy or radiculopathy, lumbosacral region (Acute) Lumbar radiculopathy (Acute) RUSSELL (generalized anxiety disorder) (Acute) Grief (Acute) Right rotator cuff tear (Acute) Screening for diabetes mellitus (DM) (Acute) Screening for hypercholesterolemia (Acute) Screening for hypothyroidism (Acute) Lupus (systemic lupus erythematosus) (Acute) Colon cancer screening (Acute) Vaginitis (Acute) Sinusitis (Acute) Pharyngitis (Acute) Asthma (Acute) Constipation (Acute) Asthma (Acute) Opiate dependence (Acute) Breast cancer screening (Acute) MDD (major depressive disorder), recurrent episode, moderate (Acute) Edema (Acute) COVID-19 (Acute) Nausea (Acute) COVID-19 (Acute) Iron deficiency anemia (Acute) Obese (Acute) Tinea (Acute) Right shoulder pain (Acute) Past Medical History Medical History Asthma Lupus Right shoulder pain Tinea Family History Family History Father High cholesterol High blood pressure Dementia Mother Diabetes Arthritis High blood pressure Paternal Grandmother Colon cancer Family history of problems with anesthesia: No Surgical History Surgical History History of section History of umbilical hernia repair History of varicose vein ligation Plantar fasciitis of left foot History of Problems with Anesthesia: No Social History Social History Housing: House Alcohol intake: never Patient Tobacco Use Status: Never used Tobacco e-Cigarette/Vaping Use: Never Used Second Hand Smoke Exposure: No Use of substances other than those prescribed or required for medical reasons: Yes Substance Use Type: Opiates Have you been hit, kicked, punched, or otherwise hurt by someone within the past year? If so, by whom?: No Are you DNR?: No Advance Directives: No Advance Directives Information Provided: Yes Current occupational status: unemployed Cognitive needs: Yes Hearing needs: No Vision needs: Yes Meds Allergies Allergy/AdvReac Type Severity Reaction Status Date / Time latex [Latex] Allergy Mild RASH Verified 10/05/22 09:48 Benadryl Allergy Unknown Rash Verified 10/05/22 09:48 diphenhydramine Allergy Unknown HIVES Verified 10/05/22 09:48 [From Benadryl] Active Medications: Current Medications Lactated Ringer's (Lr) 1,000 mls @ 50 mls/hr IVCONT .Q20H [facility] Home Medications Medication Instructions Recorded Confirmed Last Taken Type fluticasone propionate 110 2 puff inhalation BID 07/03/20 02/19/22 Unknown History mcg/actuation HFA aerosol inhaler (Flovent HFA) methadone 40 mg soluble tablet 51 mg PO DAILY 02/19/22 02/19/22 Unknown History Exam Exam Date and Time: October 15, 2022 1041 Height,Weight and Vital Signs: Height 5 ft 2 in Weight 117.48 kg Last Vital Signs Temp 98.2 F 10/15/22 10:13 Pulse 83 10/15/22 10:13 Resp 16 10/15/22 10:13 BP 159/86 H 10/15/22 10:13 Pulse Ox 99 10/15/22 10:13 O2 Del Method 10/15/22 10:13 Airway Mallampati Class: II TM Dist: >3cm Neck ROM: Limited Heart: rrr Lungs: cta Assessment and Plan Final Anesthetic Review Family History of Problems with Anesthesia: No History of Problems with Anesthesia: No ASA Class: III Final Preanesthetic Review: No Changes in Pt Med Stat, Meds/Allgs Chart Reviewed, Consent Obtained/Reviewed and Anes Risks/Benef Reviewed Patient Risk: Intermediate Procedure Risk: Intermediate Anesthetic Plan Anesthetic Plan: Agree w/ Assess. and Plan Disposition: Standard PACU
[2022-10-15] MEDS: Lactated Ringers 1,000 ML 50 ML IVCONT (10:53)
[2022-10-15 12:00] VITALS: BP 134/80; PULSE 83; RESP 18; TEMP 37.2; O2SAT 99
[2022-10-15 12:15] VITALS: BP 146/86; PULSE 69; RESP 18; TEMP 36.6; O2SAT 97
== END 2022-10-15 12:50 | disposition home or self-care (01) ==
PROVIDERS: PCP Physician Assistant; Visit Provider Internal Medicine Gastroenterology
PROC: (CPT 43239; principal; 2022-10-15 12:30)
DX: R10.9 Unspecified abdominal pain (principal); K29.80 Duodenitis without bleeding; K21.9 Gastro-esophageal reflux disease without esophagitis; D12.4 Benign neoplasm of descending colon; K59.00 Constipation, unspecified; K63.5 Polyp of colon; K64.8 Other hemorrhoids
CPT/HCPCS: 43239; 45380; 45385; 88305; 88342; C1726; J2250

== ENCOUNTER 2022-11-09 11:01 | Outpatient (REF) | payer MEDICARE, MEDICAID, SELFPAY ==
--- NOTE | ~2022-11-09 | XR_ITS ---
EXAMINATION: XR SHOULDER, RIGHT CLINICAL INFORMATION: Pain right shoulder. M25.511 COMPARISON: Right shoulder radiographs 07/30/2021 TECHNIQUE: Right shoulder is imaged in 3 views. FINDINGS: No fracture, dislocation, destructive process. There are osteoarthritic changes glenohumeral joint with narrowing and subchondral sclerosis and osteophytes. There is also broad-based spurring greater tuberosity. The acromioclavicular alignment is normal. No definite rotator cuff calcifications visible. XR/XR shoulder RT min 2V IMPRESSION: 1. Osteoarthritis glenohumeral joint. 2. Spurring greater tuberosity. 3. No definite rotator cuff calcifications.
== END 2022-11-09 11:02 | disposition home or self-care (01) ==
LOC: HO.HOSX 11:01
PROVIDERS: Visit Provider Physician Assistant
DX: M75.101 Unspecified rotator cuff tear or rupture of right shoulder, not specified as traumatic (principal); M19.011 Primary osteoarthritis, right shoulder
CPT/HCPCS: 73030; 99202

== ENCOUNTER → 2022-11-16 11:31 | Outpatient (BNVA) | payer MEDICARE, MEDICAID, SELFPAY | PROVIDERS: PCP Physician Assistant; Visit Provider Nurse Practitioner Family | DX: K21.9 Gastro-esophageal reflux disease without esophagitis (principal); K59.03 Drug induced constipation; K58.1 Irritable bowel syndrome with constipation; D36.9 Benign neoplasm, unspecified site; Z98.890 Other specified postprocedural states | CPT/HCPCS: 99212 ==

== ENCOUNTER 2022-12-02 13:56 | Outpatient (REF) | payer MEDICARE, MEDICAID, SELFPAY ==
[2022-12-02 16:52] LABS: Iron 26 mcg/dL (30-160); Percent Iron Saturation 7 % (15-50); Total Iron Binding Capacity 377 mcg/dL (228-428); Unsaturated Iron Binding 351 ug/dL
== END 2022-12-02 13:57 | disposition home or self-care (01) ==
LOC: HO.HMGCLDS 13:56
PROVIDERS: PCP Physician Assistant; Visit Provider Physician Assistant
DX: D50.0 Iron deficiency anemia secondary to blood loss (chronic) (principal)
CPT/HCPCS: 36415; 83540

== ENCOUNTER 2022-12-10 13:20 | Outpatient (REF) | payer MEDICARE, MEDICAID, SELFPAY ==
--- NOTE | ~2022-12-10 | FL_ITS ---
EXAMINATION: FL ARTHROGRAM SHOULDER, RIGHT CLINICAL INFORMATION: Primary osteoarthritis. Severe pain. COMPARISON: Right shoulder 11/09/2022. TECHNIQUE: Following explaining fluoroscopy-guided right shoulder arthrogram procedure, benefits and risks, a written consent was obtained. Patient was placed supine on fluoroscopy table and an optimal site was selected and marked on the skin along the inferior glenohumeral joint. 1% lidocaine was injected at puncture site. A 20-gauge long needle was inserted from the skin into the inferior glenohumeral joint space and 2 mL of nonionic contrast was injected and single image obtained. Subsequently 80 mg of Depo-Medrol and 7 mL of 1% lidocaine was injected into the right shoulder joint and needle withdrawn. Complete hemostasis achieved with sterile Band-Aid applied postprocedure. Patient tolerated procedure extremely well. FINDINGS: There are no fractures or dislocations. No joint effusion is identified. No bone, joint or soft tissue abnormality is demonstrated. FLUOROSCOPY TIME: 1.2 minutes. DOSE AREA PRODUCT: 9.087 uGy-m2 (microgray-meter squared) FL/FL arthrogram shoulder RT IMPRESSION: Successful fluoroscopic-guided right shoulder steroid injection.
== END 2022-12-10 13:21 | disposition home or self-care (01) ==
LOC: HO.XRAY 13:20
PROVIDERS: Visit Provider Physician Assistant
DX: M19.011 Primary osteoarthritis, right shoulder (principal)
CPT/HCPCS: 23350; 73040

== ENCOUNTER → 2022-12-21 14:24 | Outpatient (BNVA) | payer MEDICARE, MEDICAID, SELFPAY | PROVIDERS: PCP Physician Assistant; Visit Provider Nurse Practitioner Family | DX: K59.03 Drug induced constipation (principal); K21.9 Gastro-esophageal reflux disease without esophagitis; R14.0 Abdominal distension (gaseous) | CPT/HCPCS: 99212 ==

== ENCOUNTER 2023-02-18 17:00 | Outpatient (RCR) | payer MEDICARE, MEDICAID, SELFPAY ==
--- NOTE | 2022-12-23 17:13 | MHC.PT.EP ---
[facility] [place] Office [place] Office [place] Office [address] Мария Valladares [address] [phone] F: [phone] F: [phone] F: [phone] F: [phone] Physical Therapy Plan of Care Date of Evaluation: Date of Surgery: Diagnosis: Unspecified rotator cuff tear or rupture of R shoulder. Assessment: Pt is a 52 y/o RHD female with lupus referred to PT for eval and treat of unspecified rotator cuff tear or rupture of R shoulder resulting in decreased tolerance and ability for reaching her head and back for hygiene and dressing, reaching high shelving, lifting objects of weight, rolling in bed, as well as disturbed sleep secondary to decreased R shoulder ROM and strength, decreased scapular posture, TTP of shoulder, long Hx of shoulder dysfunction, and pain. Frequency and Duration: The patient will be seen 2 x/ wk x 5 wks. Short Term Goals: Initiate HEP. Improve baseline pain to at most 6-8/10; initial: 8-10/10. improve R shoulder AROM flexion to at least 120 degrees; initial 45 deg. [employer] Goals: I with home program. Pt will be able to place objects on high shelves. Improve SPADI by at least 11% in order to demonstrate improved function. Pt will be able to dress pullovers with at most 3 /10 difficulty; initial: 8/10. Treatment Plan: Modalities to reduce pain, spasms and effusion. Manual therapy to restore motion and function. Therapeutic exercise to improve strength and flexibility. Neuromuscular re-education for posture and balance. Therapeutic activities to return to functional activities of daily living. Electronically signed by: Pollo Chu PT. Please sign and return to therapist. Thank you for your referral.
--- NOTE | 2023-03-31 13:52 | MHC.PT.DC ---
[facility] [place] Office [place] Office [place] Office [address] Мария Valladares 140 [facility] [phone] F: [phone] F: [phone] F: [phone] F: [phone] Physical Therapy Discharge Report Diagnosis: Unspecified rotator cuff tear or rupture of R shoulder. Date of Surgery: Date of Evaluation: 12/23/22 Date of Discharge: 03/31/23 Treatments to Date: 9 Cancellations to Date: No Shows to Date: Discharge Status: Recommend MD Follow-up Discharge Summary: Pt with poor home program compliance had been encouraged to f/u with her MD as she did not progress her function. Electronically signed by: Pollo Chu PT. Please sign and return to therapist. Thank you for your referral.
== END 2023-03-31 13:51 | disposition home or self-care (01) ==
LOC: HO.PTCHIC 17:00
PROVIDERS: PCP Physician Assistant; Visit Provider Physician Assistant
DX: M75.101 Unspecified rotator cuff tear or rupture of right shoulder, not specified as traumatic (principal)
CPT/HCPCS: 97014; 97110; 97140; 97161

== ENCOUNTER 2023-04-12 08:48 | Outpatient (REF) | payer MEDICARE, MEDICAID, SELFPAY | END 2023-04-12 08:49 | disposition home or self-care (01) | LOC: HO.HOSX 08:48 | PROVIDERS: Visit Provider Physician Assistant | DX: K21.9 Gastro-esophageal reflux disease without esophagitis (principal); K58.1 Irritable bowel syndrome with constipation; K86.89 Other specified diseases of pancreas; K59.03 Drug induced constipation; R10.9 Unspecified abdominal pain; R11.0 Nausea | CPT/HCPCS: 99212 ==

== ENCOUNTER 2023-04-12 12:58 | Outpatient (AMB) | payer MEDICARE, MEDICAID, SELFPAY ==
--- NOTE | 2023-04-12 13:06 | A.OFFVIS_ITS ---
Intake Vital Signs 04/12/23 13:07 Height 5 ft 2 in Weight 272 lb 7.861 oz BMI 49.8 BP 137/75 Blood Pressure Location Lt brachial Position Sitting Pulse 66 Intake Visit Reasons: r/s f/u Intake Note: Abril presents in office as a est.patient for a f/u for abdominal bloating. PT CC: Patient states that she can be a few weeks doing well but then she gets the abdominal pain with nausea again. She also reports occasional constipation. PT denies any other GI Issues Dental Instructor Required: No Accompanied by: Self / Same As Patient Allergies latex [Latex] Allergy (Mild, Verified 04/12/23 13:14) RASH Benadryl Allergy (Unknown, Verified 04/12/23 13:14) Rash diphenhydramine [From Benadryl] Allergy (Unknown, Verified 04/12/23 13:14) HIVES IV pain medication Allergy (Uncoded 12/21/22 14:30) Anxiety HPI r/s f/u HPI Details LAST VISIT Constipation Linzess 145 mcg daily. Patient also likes to use milk of magnesia on as needed basis. Patient was encouraged to increase fluid intake and activity to promote better bowel motility Abdominal bloating Discussed with patient avoiding dietary triggers. Abdominal bloating could be related due to pancreatic insufficiency and constipation. Patient was encouraged to continue taking her Creon GERD (gastroesophageal reflux disease) Continue avoiding dietary triggers and late night snacking. Staying upright for minimal 3 hours after meals discussed with patient. Patient was encouraged to take pantoprazole. Nexium was not covered by her insurance. Patient can also take sucralfate at bedtime. I will see her in 3 months, sooner on as needed basis. Patient is agreeable to this plan and verbalizes understanding of instructions. She was given the opportunity to ask questions and all questions answered. ? Thank you for allowing me to participate in her care. Plan Medications New linaclotide (Linzess) 145 mcg PO DAILY 90 caps 3RF K59.04 Refilled magnesium hydroxide 10 mL PO BID PRN 355 mL 3RF stomach upset pantoprazole take one tablet half an hour before breakfast 40 mg PO DAILY 90 tabs 2RF K21.9 Discontinued bismuth subsalicylate Discontinued Reason: Patient Completed Course 2 tabs PO QID 14 days 112 tabs 0RF A04.8 linaclotide (Linzess) Discontinued Reason: Doctor's Order 290 mcg PO QAM 30 caps 4RF K59.00 TODAY'S VISIT Patient is here today for follow-up. Patient reports that she has been feeling better. States that she is doing well for the most part, however she will occasionally have postprandial abdominal bloating, pain and nausea. For the most part patient has been doing well. Takes Creon every time she eats something. Patient states that when she has abdominal pain usually is after she eats something sweet. Patient states that she will have month she has and that is what she eats. Patient reports that she is taking pantoprazole in the morning and sucralfate at bedtime. Patient also admits that sometimes when she gets very anxious and nervous she will feel nauseous and will have upset stomach. Patient denies melena, hematochezia, unintentional weight loss or ribbon like stools. Colonoscopy in October patient had suboptimal prep and will need to repeat colonoscopy in October of 2023 [facility] Medical History Asthma Lupus Right shoulder pain Tinea Tubular adenoma Surgical History History of section History of umbilical hernia repair History of varicose vein ligation Plantar fasciitis of left foot Family History Father High cholesterol High blood pressure Dementia Mother Diabetes Arthritis High blood pressure Paternal Grandmother Colon cancer Social History Housing: House Alcohol intake: never Patient Tobacco Use Status: Never used Tobacco e-Cigarette/Vaping Use: Never Used Second Hand Smoke Exposure: No Substance Use Type: Opiates Current occupational status: unemployed Cognitive needs: Yes Hearing needs: No Vision needs: Yes Review of Systems Const Denies weight gain and Denies weight loss ENT Reports no additional complaints, Denies dysphagia and Denies odynophagia Card Reports no additional complaints Resp Reports no additional complaints GI Reports abdominal pain (Epigastric, occasional), Denies belching, Denies melena, Reports bloating (Occasional), Denies change in bowel habits, Denies dysphagia, Denies excessive flatus, Denies dyspepsia, Reports heartburn (Occasional), Denies diarrhea, Denies loose stools, Denies nausea, Denies odynophagia and Denies vomiting Reports no additional complaints Musc Reports no additional complaints Neuro Reports no additional complaints Psych Reports no additional complaints Endo Reports no additional complaints Physical Exam Vital Signs: BMI result Body Mass Index 49.8 Const General: healthy appearing, no acute distress and well developed Nutritional Appearance: obese Orientation/consciousness: patient oriented x3 HEENT Head: Yes normal to inspection, Yes normocephalic and Yes atraumatic Face and sinus: Yes normal facial exam Mouth: Normal oral and palatal mucosa present Throat: Yes posterior oropharynx normal, Yes tonsils normal and Yes uvula midline Eyes General: appearance normal, both eyes and all related structures Neck Neck: Yes normal visual inspection, Yes full ROM and Yes trachea midline Thyroid: Thyroid normal Resp Effort & Inspection: normal respiratory effort, able to speak in complete sentences, no tracheal deviation and symmetric chest movement Auscultation: clear to auscultation bilaterally Cardio Rate: regular rate Heart sounds: S1 normal heart sound present and S2 normal heart sound present GI Inspection: Yes normal to inspection, No distended and Yes obesity Palpation (GI): Soft to palpation, not firm, nontender and No hepatosplenomegaly present Auscultation: normal bowel sounds General: Yes no CVA tenderness Back/Spine/Pelvis Back: no CVA tenderness Skin General skin exam: elasticity normal, turgor normal and dry skin Neuro General: patient oriented x3 Psych Appearance: grossly normal Mental Status: mental status grossly normal Speech and movement: Normal speech and movement present Affect: normal affect Assessment & Plan Assessment & Plan (1) GERD (gastroesophageal reflux disease): Code(s): K21.9 - Gastro-esophageal reflux disease without esophagitis Qualifiers: Esophagitis presence: without esophagitis Qualified Code(s): K21.9 - Gastro-esophageal reflux disease without esophagitis Plan: Continue current treatment with pantoprazole and sucralfate. Patient was also encouraged to stay away from culprits like some. Eat small amount and more often. Discussed with patient the importance of staying upright for minimal 3 hours after meals. Will repeat H pylori test her patient's request. Patient did had upper endoscopy and biopsy showed in no H pylori. (2) Constipation: Code(s): K59.00 - Constipation, unspecified Qualifiers: Constipation type: drug induced constipation Qualified Code(s): K59.03 - Drug induced constipation Plan: Continue Linzess daily. Patient was also encouraged to increase fluid intake and activity to promote better bowel motility. (3) IBS (irritable bowel syndrome): Code(s): K58.9 - Irritable bowel syndrome without diarrhea Qualifiers: Irritable bowel syndrome type: with constipation Qualified Code(s): K58.1 - Irritable bowel syndrome with constipation Plan: Occasional abdominal bloating. Discussed with patient avoiding dietary triggers. Patient does have a list of food recommended. Low FODMAP diet discussed with patient. Discussed with patient losing weight. Patient will try to go for walks, will try eating smaller meals. I will see patient in 2 months, sooner on as needed basis. Patient is agreeable to this plan and verbalizes understanding of instructions. She was given the opportunity to ask questions and all questions answered. Thank you for allowing me to participate in her care Orders: Orders H pylori Ag Stool Today K21.9 - Gastro-esophageal reflux disease without esophagitis Medications: Refilled magnesium hydroxide 10 mL PO BID PRN 355 mL 3RF stomach upset sucralfate 10 mL PO BEDTIME 400 mL 3RF K21.9 - Gastro-esophageal reflux disease without esophagitis [id number] 36,000-114,000- 180,000 unit (Creon) 1 cap PO QID 120 caps 5RF K86.89 - Other specified diseases of pancreas Coding Level of Care Code Est Pt Level 3 (38186) Diagnoses GERD (gastroesophageal reflux disease) K21.9 Esophagitis presence: without esophagitis Constipation K59.03 Constipation type: drug induced constipation IBS (irritable bowel syndrome) K58.1 Irritable bowel syndrome type: with constipation Time Spent (min) 30 Comment 20 minutes spent with patient and additional 10 minutes spent reviewing her records
[2023-04-12 13:07] VITALS: BP 137/75; PULSE 66; BMI 49.8
== END 2023-04-12 13:37 | disposition home or self-care (01) ==
PROVIDERS: PCP Physician Assistant; Visit Provider Nurse Practitioner Family
DX: K21.9 Gastro-esophageal reflux disease without esophagitis (principal); K59.03 Drug induced constipation; K58.1 Irritable bowel syndrome with constipation
CPT/HCPCS: 99213

== ENCOUNTER 2023-05-14 13:56 | Outpatient (AMB) | payer MEDICARE, MEDICAID, SELFPAY ==
--- NOTE | 2023-05-14 14:02 | A.OFFVIS_ITS ---
Intake Vital Signs 05/14/23 14:07 Height 5 ft 2 in Weight 272 lb BMI 49.7 Intake Visit Reasons: OV-Right shoulder injection-last injection-12/10/22 Intake Note: Abril a 53 year old female who presents today for a follow up of right shoulder, last injection on 12/10/22. Patient reports fluoro guided injection provided her somewhat of relief. Her pain is located in her shoulder that radiates down to bicep area. States pain is getting worse. Limited ROM. Allergies latex [Latex] Allergy (Mild, Verified 05/14/23 14:07) RASH Benadryl Allergy (Unknown, Verified 05/14/23 14:07) Rash diphenhydramine [From Benadryl] Allergy (Unknown, Verified 05/14/23 14:07) HIVES IV pain medication Allergy (Uncoded 05/14/23 14:07) Anxiety HPI OV-Right shoulder injection-last injection-12/10/22 HPI Details 53-year-old female who returns to the office today for a follow-up of right shoulder pain. She had a fluoro guided injection on 12/10/22 which provided her relief for about 2 weeks. She continues to have worsening pain and limited ROM in her shoulder which radiates down to her bicep area. Her pain is aggravated at night. She does not have a history of diabetes. [facility] Medical History Asthma Lupus Right shoulder pain Tinea Tubular adenoma Surgical History History of section History of umbilical hernia repair History of varicose vein ligation Plantar fasciitis of left foot Family History Father High cholesterol High blood pressure Dementia Mother Diabetes Arthritis High blood pressure Paternal Grandmother Colon cancer Social History Housing: House Alcohol intake: never Patient Tobacco Use Status: Never used Tobacco e-Cigarette/Vaping Use: Never Used Second Hand Smoke Exposure: No Substance Use Type: Opiates Current occupational status: unemployed Cognitive needs: Yes Hearing needs: No Vision needs: Yes Review of Systems Const All systems reviewed & are unremarkable except as noted in HPI and below Physical Exam Vital Signs: BMI result Body Mass Index 49.7 Const General: cooperative and no acute distress Orientation/consciousness: patient oriented x3 Resp Effort & Inspection: normal respiratory effort and able to speak in complete sentences Cardio Peripheral pulses: Peripheral pulses 2+ throughout Neuro General: patient oriented x3 Extrem Other: Right shoulder normal to inspection. She has limited ROM. She is able to bring her to hand to her head and internal rotation to back pocket. She has good activation of rotator cuff muscles with significant pain. Office Procedures Joint Injection/Drain Joint Injection/Drain Primary Site: right shoulder Prep: site was prepped using aseptic technique, ethochloride spray was applied and injection warnings given Injected: 80 mg of, DepoMedrol, with 8 mL of, 1% plain lidocaine and in the subcromial space Approach Used: posterolateral Procedure: The patient tolerated the procedure well and there was some relief with the local anesthesia Coding 39886 - Glenohumeral/Tronchanteric Bursa/Intraarticular Procedure code (CPT) selection complete Results Reviewed Results Reviewed: 05/14/23 14:10 Lidocaine HCl 2 % MPF [Xylocaine 2 % MPF] 5 ml .ROUTE .STK-MED ONE methylPREDNISolone acetate [DEPO-MedroL] 80 mg .ROUTE .STK-MED ONE Assessment & Plan Assessment & Plan (1) Right rotator cuff tear: Code(s): M75.101 - Unspecified rotator cuff tear or rupture of right shoulder, not specified as traumatic Qualifiers: Rotator cuff tear extent: unspecified tear extent Rotator cuff tear trauma status: nontraumatic Qualified Code(s): M75.101 - Unspecified rotator cuff tear or rupture of right shoulder, not specified as traumatic (2) Arthritis of right glenohumeral joint: Code(s): M19.011 - Primary osteoarthritis, right shoulder Plan We discussed options today which include steroid injection. They did consent to move forward with the right shoulder injection, which was tolerated well. I recommended rest, ice and elevation and OTC anti-inflammatories PRN for discomfort. An MRI of the right shoulder was also ordered to further evaluate the integrity of RTC and surrounding structures. I will follow up with her once the scan is complete. Orders: Orders MR shoulder RT wo con Today M75.101 - Unspecified rotator cuff tear or rupture of right shoulder, not specified as traumatic PT Evaluation and Treatment Today M19.011 - Primary osteoarthritis, right shoulder, M75.101 - Unspecified rotator cuff tear or rupture of right shoulder, not specified as traumatic Patient Instructions: Scribed for Sinai Roberts PA-C, by Roberth Hassan medical and scientific illustrator, on 05/14/2023 at 2:00 PM EDITA. Sinai Sauceda PA-C, have personally reviewed and agree with the information entered by the scribe. Coding Level of Care Code Est Pt Level 3 (25591) Diagnoses Right rotator cuff tear M75.101 Rotator cuff tear extent: unspecified tear extent Rotator cuff tear trauma status: nontraumatic Arthritis of right glenohumeral joint M19.011 CPT Codes Coding - Joint 7: 58501 - Glenohumeral/Tronchanteric Bursa/Intraarticular ([id number])
[2023-05-14 14:07] VITALS: BMI 49.7
== END 2023-05-14 14:32 | disposition home or self-care (01) ==
PROVIDERS: PCP Physician Assistant; Visit Provider Physician Assistant
DX: M75.101 Unspecified rotator cuff tear or rupture of right shoulder, not specified as traumatic (principal); M19.011 Primary osteoarthritis, right shoulder
CPT/HCPCS: 20610; 99213

== ENCOUNTER → 2023-05-14 13:56 | Outpatient (BNVA) | payer MEDICARE, MEDICAID, SELFPAY | PROVIDERS: PCP Physician Assistant; Visit Provider Physician Assistant | DX: M75.101 Unspecified rotator cuff tear or rupture of right shoulder, not specified as traumatic (principal); M19.011 Primary osteoarthritis, right shoulder | CPT/HCPCS: 20610; 99212; J1040 ==

== ENCOUNTER 2023-06-07 15:32 | Outpatient (REF) | payer MEDICARE, MEDICAID, SELFPAY | END 2023-06-07 15:33 | disposition home or self-care (01) | LOC: HO.HOSX 15:32 | PROVIDERS: Visit Provider Physician Assistant | DX: Z13.89 Encounter for screening for other disorder (principal) ==

== ENCOUNTER 2023-08-25 06:09 | Outpatient (REF) | payer MEDICARE, SELFPAY | END 2023-08-25 06:10 | disposition home or self-care (01) | LOC: HO.HOSX 06:09 | PROVIDERS: Visit Provider Physician Assistant | DX: Z13.89 Encounter for screening for other disorder (principal) ==

== ENCOUNTER 2023-08-26 06:05 | Outpatient (REF) | payer MEDICARE, SELFPAY | END 2023-08-26 06:06 | disposition home or self-care (01) | LOC: HO.HOSX 06:05 | PROVIDERS: Visit Provider Physician Assistant | DX: Z13.89 Encounter for screening for other disorder (principal) ==

== ENCOUNTER 2023-09-03 11:56 | Outpatient (REF) | payer MEDICARE, SELFPAY | END 2023-09-03 11:57 | disposition home or self-care (01) | LOC: HO.HOSX 11:56 | PROVIDERS: Visit Provider Physician Assistant | DX: Z13.89 Encounter for screening for other disorder (principal) ==

== ENCOUNTER 2023-12-01 15:55 | Outpatient (AMB) | payer MEDICARE, SELFPAY ==
[2023-12-01 15:56] VITALS: BP 149/70; PULSE 87; BMI 49.4
--- NOTE | 2023-12-01 15:56 | MHC.OFFVIS ---
Intake Vital Signs 12/01/23 15:56 Height 5 ft 2 in Weight 269 lb 13.533 oz BMI 49.4 BP 149/70 H Blood Pressure Location Lt brachial Position Sitting Pulse 87 Pulse Source Pulse Oximeter Intake Visit Reasons: follow up 11/08/23 r/s Intake Note: Pt presents to the office today for a follow up. Pt states her constipation isnt as bad as it was before. She also states her acid reflux is also better than before but she states she will still get episodes of acid reflux.She states she does have nausea occasionally but denies any vomiting. Allergies latex [Latex] Allergy (Mild, Verified 12/01/23 15:58) RASH Benadryl Allergy (Unknown, Verified 12/01/23 15:58) Rash diphenhydramine [From Benadryl] Allergy (Unknown, Verified 12/01/23 15:58) HIVES IV pain medication Allergy (Uncoded 12/01/23 15:58) Anxiety HPI follow up 11/08/23 r/s HPI Details LAST VISIT: GERD (gastroesophageal reflux disease) Continue current treatment with pantoprazole and sucralfate. Patient was also encouraged to stay away from culprits like some. Eat small amount and more often. Discussed with patient the importance of staying upright for minimal 3 hours after meals. Will repeat H pylori test her patient's request. Patient did had upper endoscopy and biopsy showed in no H pylori. Constipation Continue Linzess daily. Patient was also encouraged to increase fluid intake and activity to promote better bowel motility. IBS (irritable bowel syndrome) Occasional abdominal bloating. Discussed with patient avoiding dietary triggers. Patient does have a list of food recommended. Low FODMAP diet discussed with patient. Discussed with patient losing weight. Patient will try to go for walks, will try eating smaller meals. I will see patient in 2 months, sooner on as needed basis. Patient is agreeable to this plan and verbalizes understanding of instructions. She was given the opportunity to ask questions and all questions answered. ? Thank you for allowing me to participate in her care Plan Orders Orders H pylori Ag Stool Today K21.9 - Gastro-esophageal reflux disease without esophagitis Medications Refilled magnesium hydroxide 10 mL PO BID PRN 355 mL 3RF stomach upset sucralfate 10 mL PO BEDTIME 400 mL 3RF K21.9 - Gastro-esophageal reflux disease without esophagitis [id number] 36,000-114,000- 180,000 unit (Creon) 1 cap PO QID 120 caps 5RF K86.89 - Other specified diseases of pancreas TODAY'S VISIT Patient is here today for follow-up. Patient missed couple of her appointments as she was going under lot of stress. Patient's mother few weeks ago. Patient reports that she now that she is taking her medications. She is able to move her bowels well taking Linzess daily. Patient states that sometimes she also take stool softeners to help her move her bowels better. Patient is taking Creon with food and states that she is feeling less bloated. Occasionally when patient is constipated when no bowel movement in 1-2 days patient is taking milk of magnesia with good effect. Patient denies any melena, hematochezia, unintentional weight loss or ribbon like stools. Patient reports that her symptoms of acid reflux are suppressed with pantoprazole. Patient reports to be taking it daily. Asking for refills on all her medications. Patient denies any nausea or vomiting. Denies dyspepsia, dysphagia or odynophagia. [facility] Medical History Tubular adenoma Lupus Asthma Tinea Right shoulder pain Surgical History History of varicose vein ligation Plantar fasciitis of left foot History of umbilical hernia repair History of section Family History Father High cholesterol High blood pressure Dementia Mother Diabetes Arthritis High blood pressure Paternal Grandmother Colon cancer Social History Housing: House Alcohol intake: never Patient Tobacco Use Status: Never used Tobacco e-Cigarette/Vaping Use: Never Used Second Hand Smoke Exposure: No Substance Use Type: Opiates Current occupational status: unemployed Cognitive needs: Yes Hearing needs: No Vision needs: Yes Review of Systems Const Denies weight gain and Denies weight loss ENT Reports no additional complaints, Denies dysphagia and Denies odynophagia Card Reports no additional complaints Resp Reports no additional complaints GI Denies abdominal pain, Denies belching, Denies melena, Reports bloating, Denies change in bowel habits, Reports constipation (Occasional), Denies dysphagia, Denies excessive flatus, Denies dyspepsia, Reports heartburn (Occasional), Denies diarrhea, Denies loose stools, Denies nausea, Denies odynophagia and Denies vomiting Reports no additional complaints Musc Reports no additional complaints Neuro Reports no additional complaints Psych Reports no additional complaints Endo Reports no additional complaints Physical Exam Vital Signs: Last Vital Signs Pulse 87 12/01/23 15:56 BP 149/70 H 12/01/23 15:56 BMI result Body Mass Index 49.4 Const General: healthy appearing and no acute distress Nutritional Appearance: obese Orientation/consciousness: patient oriented x3 Resp Effort & Inspection: normal respiratory effort, able to speak in complete sentences, no tracheal deviation and symmetric chest movement Auscultation: clear to auscultation bilaterally Cardio Rate: regular rate GI Inspection: Yes normal to inspection, No distended and Yes obesity Palpation (GI): Soft to palpation, not firm, nontender and No hepatosplenomegaly present Auscultation: normal bowel sounds General: Yes no CVA tenderness Back/Spine/Pelvis Back: no CVA tenderness Skin General skin exam: elasticity normal, turgor normal and dry skin Neuro General: patient oriented x3 Psych Appearance: grossly normal Mental Status: mental status grossly normal Assessment & Plan Assessment & Plan (1) GERD (gastroesophageal reflux disease): Code(s): K21.9 - Gastro-esophageal reflux disease without esophagitis Qualifiers: Esophagitis presence: without esophagitis Qualified Code(s): K21.9 - Gastro-esophageal reflux disease without esophagitis (2) Tubular adenoma of colon: Code(s): D12.6 - Benign neoplasm of colon, unspecified (3) Abdominal discomfort: Code(s): R10.9 - Unspecified abdominal pain (4) Constipation: Code(s): K59.00 - Constipation, unspecified Qualifiers: Constipation type: drug induced constipation Qualified Code(s): K59.03 - Drug induced constipation (5) IBS (irritable bowel syndrome): Code(s): K58.9 - Irritable bowel syndrome without diarrhea Qualifiers: Irritable bowel syndrome type: without diarrhea Qualified Code(s): K58.9 - Irritable bowel syndrome without diarrhea Plan Patient will continue taking Linzess daily. Patient was also encouraged to increase fluid intake and activity to promote better bowel motility continue taking pantoprazole. Patient was encouraged to avoid dietary triggers and late night snacking. Staying upright for minimal 3 hours after meals discussed with patient. Patient will return in 5 weeks so we can discuss going for colonoscopy and upper endoscopy. Patient had suboptimal prep on colonoscopy last year. Patient is leaving to go to [place] with her son and she would like to have it done when she gets back. Patient denies melena, hematochezia, unintentional weight loss or ribbon like stools. Patient is agreeable to this plan and verbalizes understanding of instructions. She was given the opportunity to ask questions and all questions answered. Thank you for allowing me to participate in her care Medications: Changed From ondansetron 4 mg PO Q6-8H 15 days PRN 60 tabs 3RF nausea and vomiting To ondansetron 4 mg PO Q6-8H PRN 60 tabs 3RF nausea and vomiting Refilled linaclotide (Linzess) 145 mcg PO DAILY 90 caps 3RF K59.04 - Chronic idiopathic constipation [id number] 36,000-114,000- 180,000 unit (Creon) 1 cap PO QID 120 caps 5RF K86.89 - Other specified diseases of pancreas magnesium hydroxide (Milk of Magnesia) 10 mL PO BID PRN 355 mL 0RF for indigestion pantoprazole 40 mg PO QAM 90 tabs 0RF K21.9 - Gastro-esophageal reflux disease without esophagitis sucralfate 10 mL PO BEDTIME 400 mL 3RF K21.9 - Gastro-esophageal reflux disease without esophagitis Coding Level of Care Code Est Pt Level 3 (99934) Diagnoses Gastroesophageal reflux disease without esophagitis K21.9 Esophagitis presence: without esophagitis Tubular adenoma of colon D12.6 Abdominal discomfort R10.9 Drug-induced constipation K59.03 Constipation type: drug induced constipation Irritable bowel syndrome without diarrhea K58.9 Irritable bowel syndrome type: without diarrhea Time Spent (min) 30 Comment 20 minutes spent with patient and additional 10 minutes spent reviewing her records
== END 2023-12-01 16:20 | disposition home or self-care (01) ==
PROVIDERS: PCP Physician Assistant; Visit Provider Nurse Practitioner Family
DX: K21.9 Gastro-esophageal reflux disease without esophagitis (principal); D12.6 Benign neoplasm of colon, unspecified; R10.9 Unspecified abdominal pain; K59.03 Drug induced constipation; K58.9 Irritable bowel syndrome, unspecified
CPT/HCPCS: 99213

== ENCOUNTER → 2023-12-01 15:55 | Outpatient (BNVA) | payer MEDICARE, SELFPAY | PROVIDERS: PCP Physician Assistant; Visit Provider Nurse Practitioner Family | DX: K21.9 Gastro-esophageal reflux disease without esophagitis (principal); K59.03 Drug induced constipation; K58.9 Irritable bowel syndrome, unspecified; R10.9 Unspecified abdominal pain; D12.6 Benign neoplasm of colon, unspecified | CPT/HCPCS: 99212 ==

== ENCOUNTER 2024-04-13 15:51 | Outpatient (AMB) | payer MEDICARE, MEDICAID, SELFPAY ==
--- NOTE | 2024-04-13 16:11 | AM.OFFWIN_ITS ---
Intake Vital Signs 3 04/13/24 16:12 Height 5 ft 2 in BP 160/90 H Blood Pressure Location Rt brachial Position Sitting Pulse 90 Pulse Source Pulse Oximeter Temp 98.3 F Temp Source Oral Pulse Oximetry (%) 96 Intake Visit Reasons: swelling entire left side of face Intake Note: pt is here for swelling on face, patient has lupus Patient Tobacco Use Status: Never used Tobacco Allergies latex [Latex] Allergy (Mild, Verified 04/13/24 16:12) RASH Benadryl Allergy (Unknown, Verified 04/13/24 16:12) Rash diphenhydramine [From Benadryl] Allergy (Unknown, Verified 04/13/24 16:12) HIVES IV pain medication Allergy (Uncoded 12/01/23 15:58) Anxiety Do you need a note to return to daycare/school/sports/work: No HPI HPI Comments 2 History of Present Illness0 Details 54 y/o female patient who presents to [facility] with c/o Tooth infection associated with facial/Jaw swelling since yesterday. Pt did call her Dentist who informed her to go to ED for treatment. Pt does have poor dental with multiple caries and Gum infections. Has h/o Substance abuse, and currently on methadone. [facility] Medical History Tubular adenoma Lupus Asthma Tinea Right shoulder pain Surgical History History of varicose vein ligation Plantar fasciitis of left foot History of umbilical hernia repair History of section Family History Father High cholesterol High blood pressure Dementia Mother Diabetes Arthritis High blood pressure Paternal Grandmother Colon cancer Social History Housing: House Alcohol intake: never Patient Tobacco Use Status: Never used Tobacco e-Cigarette/Vaping Use: Never Used Second Hand Smoke Exposure: No Substance Use Type: Opiates Current occupational status: unemployed Cognitive needs: Yes Hearing needs: No Vision needs: Yes Review of Systems Const All systems reviewed & are unremarkable except as noted in HPI and below Physical Exam Vital Signs: Last Vital Signs Temp 98.3 F 04/13/24 16:12 Pulse 90 04/13/24 16:12 BP 160/90 H 04/13/24 16:12 Pulse Ox 96 04/13/24 16:12 Const General: comfortable and no acute distress Nutritional Appearance: obese Orientation/consciousness: patient oriented x3 HEENT Head: Yes normocephalic Face images: 2 1. Facial edema, tender to touch and maxilla tenderness. Mouth: tongue normal, moist mucous membranes, no drooling, malodorous breath and restricted motion (Due to jaw/facial swelling) Teeth and gingiva: abnormal tooth and associated gingiva, caries, gingiva abnormal (Upper Gum infection with few teeth missing and some broken half) edematous, diffusely erythematous and tender and poor dentition Throat: Yes other (Unable to visualize due to severe swelling and edema left jaw) Resp Effort & Inspection: normal respiratory effort and able to speak in complete sentences Cardio Heart sounds: S1 normal heart sound present and S2 normal heart sound present Neuro General: patient oriented x3, gait normal and moves all extremities Psych Speech and movement: Normal speech and movement present Assessment & Plan Assessment & Plan (1) Dental abscess: Code(s): K04.7 - Periapical abscess without sinus Plan: Advised Pt to go to the ED for further evaluation and treatment. She will need CT scan of the head/face to r/o any sinus tract infection. Advised to follow up with Dentist Ordered PCN and Prednisone Ordered Naproxen for pain relief and swelling. Medications: New 2 penicillin V potassium 500 mg PO TID 10 days 30 tabs 0RF K04.7 - Periapical abscess without sinus prednisone 50 mg PO DAILY 5 days 5 tabs 0RF K04.7 - Periapical abscess without sinus, R60.0 - Localized edema naproxen 500 mg PO BID 20 tabs 0RF K04.7 - Periapical abscess without sinus Coding Level of Care Code Est Pt Level 3 (31037) Diagnoses Dental abscess K04.7 Time Spent (min) 15
[2024-04-13 16:12] VITALS: BP 160/90; PULSE 90; TEMP 36.8; O2SAT 96
== END 2024-04-13 16:56 | disposition home or self-care (01) ==
PROVIDERS: PCP Physician Assistant; Visit Provider Nurse Practitioner Family
DX: K04.7 Periapical abscess without sinus (principal)
CPT/HCPCS: 99213

== ENCOUNTER 2024-05-17 13:45 | Outpatient (AMB) | payer MEDICARE, SELFPAY ==
[2024-05-17 13:45] VITALS: BP 112/70; PULSE 78; O2SAT 96; BMI 49.7
--- NOTE | 2024-05-17 13:45 | MHC.PC.OV ---
Vital Signs 05/17/24 13:45 Height 5 ft 2 in Weight 271 lb 8 oz BMI 49.7 BP 112/70 Blood Pressure Location Lt brachial Position Sitting Pulse 78 Pulse Source Pulse Oximeter Pulse Oximetry (%) 96 Oxygen Delivery Method Room Air Intake Visit Reasons: PE - see comments Larder Cook Required: No Accompanied by: Self / Same As Patient Allergies latex [Latex] Allergy (Mild, Verified 05/17/24 13:56) RASH Benadryl Allergy (Unknown, Verified 05/17/24 13:56) Rash diphenhydramine [From Benadryl] Allergy (Unknown, Verified 05/17/24 13:56) HIVES IV pain medication Allergy (Uncoded 05/17/24 13:56) Anxiety Medication List - Last Reconciled 05/17/24 by Rony Carr PA-C albuterol sulfate 2.5 mg (3 mL) inhalation Q4-6H PRN 30 days albuterol sulfate 90 mcg/actuation 2 puffs inhalation Q6H PRN 30 days baclofen 20 mg PO Q8H blood pressure test kit-large As directed clotrimazole-betamethasone 1-0.05 % 1 appl topical BID PRN 30 days diclofenac sodium 50 mg PO BID 15 days docusate sodium 200 mg (2 x 100 mg) PO BEDTIME ferrous sulfate 325 mg PO BID 30 days fluticasone propionate 110 mcg/actuation 2 puffs inhalation BID 30 days gabapentin 300 mg PO TID 30 days gabapentin PO; take 1 capsule in the morning, 2 capsules midday, 2 capsules in the p.m. 30 days haloperidol 2 mg PO TID hydrocortisone 2.5% 1 appl DC Q8-12H lidocaine HCl 2% (Lidocaine Viscous) 15 mL mucous membrane Q3H PRN 10 days linaclotide (Linzess) 145 mcg PO DAILY ivpraj-sppxzvlq-olbjjks 36,000-114,000- 180,000 unit (Creon) 1 cap PO QID lorazepam 1 mg PO BID PRN 7 days magnesium hydroxide (Milk of Magnesia) 10 mL PO BID PRN methadone 51 mg PO DAILY miscellaneous medical supply 1 ea miscellaneous DAILY 99 days naproxen 500 mg PO BID ondansetron 4 mg PO Q6-8H PRN pantoprazole 40 mg PO QAM penicillin V potassium 500 mg PO TID 10 days prednisone 50 mg PO DAILY 5 days sucralfate 10 mL PO BEDTIME triamcinolone acetonide 0.025% 1 appl topical DAILY PRN 30 days walker (Ultra-Light Rollator misc) As directed Tobacco use date assessed: 11/24/22 HPI PE - see comments HPI Details Patient is a 54-year-old female here today for routine annual physical..? patient's past medical history significant for lupus,? opiate dependence, obesity, generalized anxiety disorder CHRONIC MEDICAL CONDITIONS-- > . Lupus: was seeing the [facility] in [place] though has lost followup.? She plans on re-establishing care with arthritis treatment center..? Currently managing her pain with muscle relaxer, high-dose gabapentin, Tylenol and NSAID. ... Opiate dependence:? Patient continues to be followed by a methadone clinic in [facility].? She is interested in weaning down her methadone dosage.? Current dose methadone 53 mg. ?She has been sober for street drugs over 2 years .. Anxiety/ major depression:? Patient continues on PRN use of lorazepam for sleep and anxiety.? She reports her methadone clinic does know about her anxiety treatment. ?She does follow a therapist at the methadone clinic.? .. Obesity:? She understands her BMI is well over 30 and attributes some of her recent weight gain to methadone use. She reports she is somewhat physically active doing [employer] classes several times a week. She is interested in starting a GLP 1 to help her lose weight. .. Asthma: She reports her asthma has been well controlled as of late. Does use an albuterol inhaler on a limited basis. Denies any nighttime awakenings or recent asthma exacerbations.. Colorectal cancer screening: Did get colonoscopy in 2021 polyp found needed repeat in 1 year due to poor prep Mammogram: need up-to-date mammogram Vaccines: Needs up-to-date pneumonia, tetanus. Considering shingles and flu vaccines - DECLINES VACCINES AT THIS TIME [facility] Medical History Tubular adenoma Lupus Asthma Tinea Right shoulder pain Surgical History History of varicose vein ligation Plantar fasciitis of left foot History of umbilical hernia repair History of section Family History Father High cholesterol High blood pressure Dementia Mother Diabetes Arthritis High blood pressure Paternal Grandmother Colon cancer Social History Housing: House Alcohol intake: never Patient Tobacco Use Status: Never used Tobacco e-Cigarette/Vaping Use: Never Used Second Hand Smoke Exposure: No Substance Use Type: Opiates Current occupational status: unemployed Cognitive needs: Yes Hearing needs: No Vision needs: Yes Questionnaire PHQ-9 Over the last 2 weeks, how often have you been bothered by any of the following problems? 1. Little interest or pleasure in doing things: several days 2. Feeling down, depressed, or hopeless: not at all 3. Trouble falling or staying asleep, or sleeping too much: not at all 4. Feeling tired or having little energy: more than half the days 5. Poor appetite or overeating: nearly every day 6. Feeling bad about yourself - or that you are a failure or have let yourself or your family down: several days 7. Trouble concentrating on things, such as reading the newspaper or watching television: more than half the days 8. Moving or speaking so slowly that other people could have noticed. Or the opposite - being so fidgety or restless that you have been moving around a lot more than usual: several days 9. Thoughts that you would be better off or of hurting yourself in some way: not at all Total score: 10 Depression Screening Interpretation: Positive Depression Screening Follow-up: Existing condition and In treatment Depression Screening Done: Yes 27339 - PHQ-9 Billing: Yes Source: Developed by Drs. To eLnz, Lorin Delgado, Yaw Francis and colleagues, with an educational rhiannon from [employer]. Thrive Questionnaire Date Thrive assessed: 05/17/24 I am a: Patient What is your living situation today?: I have a steady place to live Within the past 12 months, did the food you bought not last and you didn't have the money to get more?: Never true Within the past 12 months, did you worry whether your food would run out before you got money to buy more?: Never true Do you have trouble paying for medicines?: No Do you have trouble getting transportation to medical appointments?: No Do you have trouble paying your heating and electricity bill?: No Do you have trouble taking care of your child, family member or friend?: No Do you have trouble with day-to-day activities such as bathing, preparing meals, shopping, managing finances, etc.?: No Are you currently unemployed and looking for a job?: No Are you interested in more education?: No Please select the resources that you would like help with: None Currently or been in a relationship where the following occur: No concerns reported THRIVE Score: 0 AUDIT C Alcohol Use Questionnaire (AUDIT-C) 1. How often do you have a drink containing alcohol?: Never 3. How often do you have six or more drinks on one occasion?: Never Total Score: 0 RUSSELL-7 AMB Questionnaire RUSSELL-7 Date RUSSELL - 7 assessed: 05/17/24 Feeling nervous, anxious, or on edge: 2 = More than half the days Not being able to stop or control worryin = Nearly every day Worrying too much about different things: 3 = Nearly every day Trouble relaxin = Nearly every day Being so restless that it is hard to sit still: 0 = Not at all Becoming easily annoyed or irritable: 3 = Nearly every day Feeling afraid as if something awful might happen: 0 = Not at all Total RUSSELL-7 score (0-4 normal; 5-9 mild; 10-14 moderate; 15-21 severe): 14 Source: Developed by Drs. To Lenz, Lorin Delgado, Yaw Francis and colleagues, with an educational rhiannon from [employer]. RUSSELL-7 Assessment Billing RUSSELL-7 Assessment Tool: RUSSELL-7 Assessment 31645 ACT Questionnaire In the past 4 weeks, how much of the time did your asthma keep you from getting as much done at work, school or at home?: None of the time During the past 4 weeks, how often have you had shortness of breath?: 1-2 times a week During the past 4 weeks, how often did your asthma symptoms wake you up at night or earlier than usual in the morning?: Not at all During the past 4 weeks, how often have you had to use your rescue inhaler or nebulizer medication?: Not at all How would you rate your asthma control during the past 4 weeks?: Completely controlled ACT Interpretation: Negative Score: 24 Review of Systems Const Denies body aches, Denies chills, Denies excessive sweating, Denies fatigue, Denies fever(s) and Denies headache(s) Eyes Denies blurry vision ENT Denies dysphagia, Denies vertigo, Denies dizziness, Denies headache(s), Denies hearing loss and Denies tinnitus Card Denies chest pain, Denies chest pain with activity, Denies syncope, Denies irregular heart rhythm and Denies dyspnea Resp Denies chest congestion, Denies cough, Denies hemoptysis, Denies dyspnea and Denies wheezing GI Denies abdominal pain, Denies melena, Denies hematochezia, Denies coffee ground emesis, Denies dysphagia, Denies diarrhea, Denies nausea and Denies vomiting Denies urinary frequency, Denies dysuria, Denies urinary hesitancy and Denies urinary urgency Musc Denies arthralgias, Denies limited range of motion, Denies muscle cramps and Denies muscle weakness Skin/Breast Denies rash and Denies skin ulcer Neuro Denies Abnormal speech present, Denies confusion, Denies vertigo, Denies dizziness, Denies syncope, Denies headache(s), Denies memory loss and Denies seizure-like activity Psych Denies anxiety, Denies confusion, Denies depression, Denies memory loss, Denies panic attacks and Denies paranoia Endo Denies excessive sweating, Denies fatigue, Denies flushing, Denies polydipsia and Denies polyuria Aller/Immun Denies wheezing Physical exam (Primary Care) Vital Signs: Last Vital Signs Pulse 78 05/17/24 13:45 BP 112/70 05/17/24 13:45 Pulse Ox 96 05/17/24 13:45 Oxygen Delivery Method Room Air 05/17/24 13:45 BMI result Body Mass Index 49.7 BMI Assessment/Plan discussion: High BMI High, discussed plan: lifestyle, weight reduction, dietary and physical activity Tobacco/Smoking Status: Tobacco use Status Tobacco use date assessed 11/24/22 05/17/24 13:45 Patient Tobacco Use Status Never used Tobacco 05/17/24 13:45 e-Cigarette/Vaping Use Never Used 05/17/24 13:45 PHQ-9: PHQ-9 Score PHQ-9: Total score 10 05/17/24 13:59 Depression Screening Interpretation: Positive Depression Screening Follow-up: Existing condition and In treatment Thrive Assessment: Date of Thrive Assessment Date Thrive assessed 05/17/24 05/17/24 13:56 Currently or been in a relationship where the following occur: No concerns reported Const General: cooperative, comfortable, no acute distress, alert and awake; No confusion Orientation/consciousness: oriented to person, oriented to place, patient oriented x3 and No confusion HENMT Head: Yes normocephalic Ears: external ears normal and TM's normal bilaterally Face and sinus: No sinus tenderness Mouth: Normal oral and palatal mucosa present and tongue normal Teeth and gingiva: dentition normal and gingiva normal Throat: Yes posterior oropharynx normal, Yes tonsils normal and Yes uvula midline Eyes Conjunctivae: conjunctivae normal Sclerae: sclerae normal Pupils: Equal, round and reactive pupils present EOM: EOMs intact bilaterally Direct Ophthalmoscopy: No no photophobia Neck Neck: Yes no lymphadenopathy, No tender and Yes no JVD Thyroid: Thyroid normal Carotids: no bruits Chest Chest palpation & inspection: no tenderness Resp Effort & Inspection: normal respiratory effort, no audible wheezes, not labored and no stridor Auscultation: no crackles, no rales, no rhonchi and no wheezes Cardio Jugular venous distension: no JVD Rate: regular rate, not bradycardic and not tachycardic Rhythm: regular rhythm Bruits: no carotid bruits Peripheral pulses: Peripheral pulses 2+ throughout GI Inspection: Yes normal to inspection, No abdominal wall ecchymosis and No visible herniation Palpation (GI): Soft to palpation, nontender, no guarding, not rigid and No hepatosplenomegaly present Auscultation: normoactive bowel sounds General: Yes no CVA tenderness Back/Spine/Pelvis Back: no CVA tenderness and No back tenderness Cervical Spine: cervical ROM normal Thoracic/Lumbar Spine: thoracic and lumbar spine normal to inspection, straight leg raise negative bilaterally, No thoraco-lumbar ROM limited and No lumbar spinal tenderness Skin Lesions: no lesions Rashes: no rashes Wounds: no wounds Neuro General: oriented to person, oriented to place, patient oriented x3, CN's II-XI intact bilaterally and No confusion Cranial nerves: Yes Equal, round and reactive pupils present and Yes Normal accommodation reflex present Cognition (Neuro): normal cognition Speech: No Abnormal speech present Gait exam (Neuro): Normal gait present Motor exam (neuro): 5/5 motor strength present throughout Extrem Right upper extremity: full ROM; no cyanosis Left upper extremity: full ROM; no cyanosis Right lower extremity: no edema Left lower extremity: no edema Psych Appearance: grossly normal Mental Status: mental status grossly normal Affect: normal affect Attitude: cooperative Thought process: Normal thought process present Assessment and Plan Assessment & Plan (1) Annual physical exam: Code(s): Z00.00 - Encounter for general adult medical examination without abnormal findings (2) Borderline high cholesterol: Code(s): E78.9 - Disorder of lipoprotein metabolism, unspecified Plan: Patient has a history of borderline high total cholesterol. Will recheck fasting lipid panel to ensure stable. Goal LDL to be below 160 (3) Elevated fasting blood sugar: Code(s): R73.01 - Impaired fasting glucose Plan: Patient has a history of elevated fasting blood sugar. Will check A1c. Does have family history of type 2 diabetes as well. She reports she has been eating well though continues to gained a small amount of weight that she attributes to methadone side effect. (4) Breast cancer screening: Code(s): Z12.39 - Encounter for other screening for malignant neoplasm of breast Qualifiers: Breast cancer screening modality: mammogram Qualified Code(s): Z12.31 - Encounter for screening mammogram for malignant neoplasm of breast Plan: Willing to get mammogram (5) Colon cancer screening: Code(s): Z12.11 - Encounter for screening for malignant neoplasm of colon Plan: Patient is followed by gastroenterology and is due for colonoscopy. Will call her gastroenterology specialty. (6) GERD (gastroesophageal reflux disease): Code(s): K21.9 - Gastro-esophageal reflux disease without esophagitis Qualifiers: Esophagitis presence: without esophagitis Qualified Code(s): K21.9 - Gastro-esophageal reflux disease without esophagitis Plan: Continues to upper GI symptoms of GERD. Followed by gastroenterology in on high-dose PPI therapy and Carafate. Did have upper endoscopy which was fairly normal with the exception of positive H pylori, colonoscopy did show polyps though had poor prep. (7) Lupus (systemic lupus erythematosus): Code(s): M32.9 - Systemic lupus erythematosus, unspecified Qualifiers: Systemic lupus erythematosus organ involvement: unspecified Systemic lupus erythematosus type: unspecified Qualified Code(s): M32.9 - Systemic lupus erythematosus, unspecified Plan: Continues to follow Rheumatology. Continues to manage her pain with muscle relaxer, NSAID and gabapentin. Also continues on methadone for opiate dependency which does help some of her pain. (8) Iron deficiency anemia: Code(s): D50.9 - Iron deficiency anemia, unspecified Qualifiers: Iron deficiency anemia type: chronic blood loss Qualified Code(s): D50.0 - Iron deficiency anemia secondary to blood loss (chronic) Plan: Noted microcytic anemia as of late. Will check iron levels. (9) Obese: Code(s): E66.9 - Obesity, unspecified Qualifiers: Body mass index: BMI 45.0-49.9 Obesity classification: adult class 3 (BMI >= 40) Obesity type: due to excess calories Serious obesity comorbidity presence: with serious comorbidity Qualified Code(s): E66.01 - Morbid (severe) obesity due to excess calories; Z68.42 - Body mass index [BMI] 45.0-49.9, adult Plan: Patient has had a difficult time losing weight. She reports she walks and does [employer] classes. She can bones some healthy eating habits. She attributes some of weight gain to methadone use. She is interested in starting a GLP 1 to help with weight loss. Will start Wegovy 0.25 weekly and follow-up with patient in 6 weeks for weight check in. (10) HTN (hypertension): Code(s): I10 - Essential (primary) hypertension Qualifiers: Hypertension type: primary hypertension Qualified Code(s): I10 - Essential (primary) hypertension Plan: Blood pressure today in office acceptable. Was previously on blood pressure medication though has stopped these medication and has been able to manage her blood pressure with lifestyle modifications. Advised patient to monitor blood pressure at home with goal blood pressure to be below 140/90 (11) Asthma: Code(s): J45.909 - Unspecified asthma, uncomplicated Qualifiers: Asthma complication type: uncomplicated Asthma persistence: intermittent Asthma severity: mild Qualified Code(s): J45.20 - Mild intermittent asthma, uncomplicated Plan: She reports her asthma is fairly well controlled with current maintenance inhaler. Denies any nighttime awakenings (12) Opiate dependence: Code(s): F11.20 - Opioid dependence, uncomplicated Qualifiers: Substance use status: uncomplicated Qualified Code(s): F11.20 - Opioid dependence, uncomplicated Plan: She has been sober from street drugs over 2 years. Continues on methadone and now her dose at 53 mg. Orders: Orders Microalbumin, Random (w Creat) 05/17/24 I10 - Essential (primary) hypertension Complete Blood Count no Diff 05/17/24 K21.9 - Gastro-esophageal reflux disease without esophagitis MM screening mammo BI 05/17/24 Z12.31 - Encounter for screening mammogram for malignant neoplasm of breast Lipid Panel 05/17/24 E78.9 - Disorder of lipoprotein metabolism, unspecified Hemoglobin A1c 05/17/24 R73.01 - Impaired fasting glucose Comprehensive [place]. Panel Fast 05/17/24 R73.01 - Impaired fasting glucose IRON PROFILE 05/17/24 D50.0 - Iron deficiency anemia secondary to blood loss (chronic), D50.9 - Iron deficiency anemia, unspecified Medications: New semaglutide (weight loss) (Rosio) administer weeks 1 through 4 of therapy 0.25 mg (0.5 mL) subcut QWEEK 2 mL 0RF 4 weeks E66.01 - Morbid (severe) obesity due to excess calories, E78.9 - Disorder of lipoprotein metabolism, unspecified, I10 - Essential (primary) hypertension, Z68.42 - Body mass index [BMI] 45.0-49.9, adult Changed From fluticasone propionate 110 mcg/actuation 2 puffs inhalation BID 30 days 12 grams 6RF J45.909 - Unspecified asthma, uncomplicated To fluticasone propionate 110 mcg/actuation 2 puffs inhalation BID 12 grams 6RF 30 days J45.909 - Unspecified asthma, uncomplicated Refilled gabapentin 300 mg PO TID 90 caps 0RF 30 days M54.16 - Radiculopathy, lumbar region albuterol sulfate 90 mcg/actuation 2 puffs inhalation Q6H PRN 8.5 grams 3RF shortness of breath or wheezing 30 days J45.909 - Unspecified asthma, uncomplicated baclofen 20 mg PO Q8H 90 tabs 1RF M32.9 - Systemic lupus erythematosus, unspecified diclofenac sodium 50 mg PO BID 30 tabs 0RF 15 days G89.29 - Other chronic pain, M25.511 - Pain in right shoulder Discontinued penicillin V potassium Discontinued Reason: Doctor's Order 500 mg PO TID 10 days 30 tabs 0RF K04.7 - Periapical abscess without sinus prednisone Discontinued Reason: Doctor's Order 50 mg PO DAILY 5 days 5 tabs 0RF K04.7 - Periapical abscess without sinus, R60.0 - Localized edema naproxen Discontinued Reason: Doctor's Order 500 mg PO BID 20 tabs 0RF K04.7 - Periapical abscess without sinus Patient Instructions: Goal: Blood pressure to remain below 140/90 Barriers: Adherence to physical activity and healthy eating habits Coding Level of Care Code Est Pt Prev Care 40-64y(65529) Diagnoses Annual physical exam Z00.00 Borderline high cholesterol E78.9 Elevated fasting blood sugar R73.01 Encounter for screening mammogram for malignant neoplasm of breast Z12.31 Breast cancer screening modality: mammogram Colon cancer screening Z12.11 Gastroesophageal reflux disease without esophagitis K21.9 Esophagitis presence: without esophagitis Systemic lupus erythematosus, unspecified SLE type, unspecified organ involvement status M32.9 Systemic lupus erythematosus organ involvement: unspecified Systemic lupus erythematosus type: unspecified Iron deficiency anemia due to chronic blood loss D50.0 Iron deficiency anemia type: chronic blood loss Class 3 severe obesity due to excess calories with serious comorbidity and body mass index (BMI) of 45.0 to 49.9 in adult E66.01; Z68.42 Body mass index: BMI 45.0-49.9 Obesity classification: adult class 3 (BMI >= 40) Obesity type: due to excess calories Serious obesity comorbidity presence: with serious comorbidity Primary hypertension I10 Hypertension type: primary hypertension Mild intermittent asthma without complication J45.20 Asthma complication type: uncomplicated Asthma persistence: intermittent Asthma severity: mild Uncomplicated opioid dependence F11.20 Substance use status: uncomplicated Additional Codes RUSSELL-7 Assessment Billing - RUSSELL-7 Assessment Tool: RUSSELL-7 Assessment [id number] ([id number])
== END 2024-05-17 14:17 | disposition home or self-care (01) ==
PROVIDERS: PCP Physician Assistant; Visit Provider Physician Assistant
DX: Z00.00 Encounter for general adult medical examination without abnormal findings (principal); E78.9 Disorder of lipoprotein metabolism, unspecified; R73.01 Impaired fasting glucose; M32.9 Systemic lupus erythematosus, unspecified; K21.9 Gastro-esophageal reflux disease without esophagitis; D50.0 Iron deficiency anemia secondary to blood loss (chronic); E66.01 Morbid (severe) obesity due to excess calories; Z68.42 Body mass index [BMI] 45.0-49.9, adult; I10 Essential (primary) hypertension; J45.20 Mild intermittent asthma, uncomplicated; F11.20 Opioid dependence, uncomplicated
CPT/HCPCS: 99396

== ENCOUNTER 2025-05-22 14:53 | Outpatient (AMB) | payer MEDICARE, MEDICAID, SELFPAY ==
--- NOTE | 2025-05-22 14:54 | MHC.PC.OV ---
Intake Visit Reasons: Med review Upper Inspector Required: No Ampoule Washing Machine Operator: Not Required per policy Accompanied by: Self / Same As Patient Allergies latex (Latex) Allergy (Mild, Verified 05/22/25 14:55) RASH Benadryl Allergy (Unknown, Verified 05/22/25 14:55) Rash diphenhydramine (From Benadryl) Allergy (Unknown, Verified 05/22/25 14:55) HIVES IV pain medication Allergy (Uncoded 05/22/25 14:55) Anxiety Medication List - Last Reconciled 05/22/25 by Rony Carr PA-C albuterol sulfate 2.5 mg (3 mL) inhalation Q4-6H PRN 30 days albuterol sulfate 90 mcg/actuation 2 puffs inhalation Q6H PRN 30 days baclofen 20 mg PO Q8H blood pressure test kit-large As directed clotrimazole-betamethasone 1-0.05 % 1 appl topical BID PRN 30 days diclofenac sodium 50 mg PO BID 15 days docusate sodium 200 mg (2 x 100 mg) PO BEDTIME ferrous sulfate 325 mg PO BID 30 days fluticasone propionate 110 mcg/actuation 2 puffs inhalation BID 30 days gabapentin PO; take 1 capsule in the morning, 2 capsules midday, 2 capsules in the p.m. 30 days gabapentin 300 mg PO TID 30 days haloperidol 2 mg PO TID hydrocortisone 2.5% 1 appl [place] Q8-12H [Incontinence pads As directed] lidocaine HCl 2% (Lidocaine Viscous) 15 mL mucous membrane Q3H PRN 10 days linaclotide (Linzess) 145 mcg PO DAILY jcmaum-jknzxujv-klboddx 36,000-114,000- 180,000 unit (Creon) 1 cap PO QID lorazepam 1 mg PO BID PRN magnesium hydroxide (Milk of Magnesia) 10 mL PO BID PRN 90 days methadone 51 mg PO DAILY miscellaneous medical supply 1 ea miscellaneous DAILY 99 days nebulizers (AeroEclipse II Nebulizer) As directed ondansetron 4 mg PO Q6-8H PRN pantoprazole 40 mg PO QAM Shower Chair Need for bariatric shower chair sucralfate 10 mL PO BEDTIME triamcinolone acetonide 0.025% 1 appl topical DAILY PRN 30 days [Urinary incontinence pads As directed] walker (Ultra-Light Rollator misc) As directed walker Need for regular walker Tobacco use date assessed: 05/22/25 Dental Screening Dental Screen Date: 05/22/25 Did you have a dental visit in the last 12 months?: Yes Did you have a dental problem in the last 6 months where you did not have access to dental care?: No Was dental information given to patient?: Patient has dentist HPI Med review HPI Details Patient is a 55-year-old female whom has a past medical history significant for obesity, lupus, hypertension, opiate use disorder and major depressive disorder. She reports having increased anxiety and depression lately due to personal issues going on at home with her son. She admits to using a bit more lorazepam as of lately .. Opiate dependency: Continues follow up with her methadone clinic. She plans on weaning off methadone. .. Lupus: Has a history of SLE in his not seen a business continuity management director in quite some time. She is asking for a referral to business continuity management director. Continues to have joint pains which may multifactorial opiate dependency kind of fibromyalgia ect.. [facility] Medical History (Updated 02/28/25 @ 10:55 by Rony Carr PA-C) Tubular adenoma Lupus Asthma Tinea Right shoulder pain Surgical History History of colonoscopy (~10/15/22) History of varicose vein ligation Plantar fasciitis of left foot History of umbilical hernia repair History of section Family History Father High cholesterol High blood pressure Dementia Mother Diabetes Arthritis High blood pressure Paternal Grandmother Colon cancer Social History Housing: House Alcohol intake: never Patient Tobacco Use Status: Never used Tobacco e-Cigarette/Vaping Use: Never Used Second Hand Smoke Exposure: No Substance Use Type: Opiates service: No Current occupational status: unemployed Cognitive needs: Yes Hearing needs: No Vision needs: Yes Questionnaire PHQ-9 Over the last 2 weeks, how often have you been bothered by any of the following problems? 1. Little interest or pleasure in doing things: more than half the days 2. Feeling down, depressed, or hopeless: several days 3. Trouble falling or staying asleep, or sleeping too much: nearly every day 4. Feeling tired or having little energy: nearly every day 5. Poor appetite or overeating: nearly every day 6. Feeling bad about yourself - or that you are a failure or have let yourself or your family down: not at all 7. Trouble concentrating on things, such as reading the newspaper or watching television: not at all 8. Moving or speaking so slowly that other people could have noticed. Or the opposite - being so fidgety or restless that you have been moving around a lot more than usual: not at all 9. Thoughts that you would be better off or of hurting yourself in some way: not at all Total score: 12 Depression Screening Interpretation: Positive Depression Screening Follow-up: Existing condition and In treatment Depression Screening Done: Yes 66536 - PHQ-9 Billing: Yes Source: Developed by Drs. To Lenz, Lorin Delgado, Yaw Francis and colleagues, with an educational rhiannon from [employer]. Thrive Questionnaire Date Thrive assessed: 05/22/25 I am a: Patient What is your living situation today?: I have a steady place to live Within the past 12 months, did the food you bought not last and you didn't have the money to get more?: Never true Within the past 12 months, did you worry whether your food would run out before you got money to buy more?: Never true Do you have trouble paying for medicines?: No Do you have trouble getting transportation to medical appointments?: Yes Do you have trouble paying your heating and electricity bill?: No Do you have trouble taking care of your child, family member or friend?: No Do you have trouble with day-to-day activities such as bathing, preparing meals, shopping, managing finances, etc.?: Yes Are you currently unemployed and looking for a job?: No Are you interested in more education?: No Please select the resources that you would like help with: None Currently or been in a relationship where the following occur: No concerns reported THRIVE Score: 1 AUDIT C Alcohol Use Questionnaire (AUDIT-C) 1. How often do you have a drink containing alcohol?: Never Total Score: 0 RUSSELL-7 AMB Questionnaire RUSSELL-7 Date RUSSELL - 7 assessed: 05/22/25 Feeling nervous, anxious, or on edge: 1 = Several days Not being able to stop or control worryin = Not at all Worrying too much about different things: 0 = Not at all Trouble relaxin = Nearly every day Being so restless that it is hard to sit still: 3 = Nearly every day Becoming easily annoyed or irritable: 3 = Nearly every day Feeling afraid as if something awful might happen: 0 = Not at all Total RUSSELL-7 score (0-4 normal; 5-9 mild; 10-14 moderate; 15-21 severe): 10 Source: Developed by Drs. To Lenz, Lorin Delgado, Yaw Francis and colleagues, with an educational rhiannon from [employer]. Review of Systems Const Denies headache(s) Eyes Denies loss of vision ENT Denies vertigo, Denies dizziness, Denies headache(s) and Denies sore throat Card Denies chest pain, Denies leg edema and Denies lightheadedness Resp Denies cough, Denies hemoptysis and Denies wheezing GI Denies abdominal pain, Denies melena, Denies constipation, Denies diarrhea and Denies vomiting Denies urinary frequency, Denies dysuria and Denies urinary urgency Musc Reports back pain, Reports arthralgias, Denies joint swelling, Denies numbness and Denies tingling Neuro Denies behavioral changes, Denies vertigo, Denies dizziness, Denies headache(s), Denies loss of vision, Denies memory loss, Denies numbness and Denies tingling Psych Reports anxiety, Denies behavioral changes, Denies depression, Denies memory loss and Reports panic attacks Miky/Lymph Denies easy bleeding and Denies easy bruising Aller/Immun Denies wheezing Physical exam (Primary Care) Tobacco/Smoking Status: Tobacco use Status Tobacco use date assessed 05/22/25 05/22/25 15:02 Patient Tobacco Use Status Never used Tobacco 05/22/25 15:02 e-Cigarette/Vaping Use Never Used 05/22/25 15:02 PHQ-9: PHQ-9 Score PHQ-9: Total score 12 05/22/25 15:02 Depression Screening Interpretation: Positive Depression Screening Follow-up: Existing condition and In treatment Thrive Assessment: Date of Thrive Assessment Date Thrive assessed 05/22/25 05/22/25 15:02 Currently or been in a relationship where the following occur: No concerns reported Telehealth Telehealth Telehealth Platform: Telephone Location of provider rendering services: practice address Location of patient: address on file Patient Identification confirmed using: Name, : Yes Telehealth method: voice only Patient verbally consented to treatment: Yes Patient verbally consented to billing insurance company: Yes Patient informed of any privacy concerns related to visit: Yes Minutes spent on Phone/Video with Pt.: 11 Coding Level of Care Code Tele Est Pt Level 4 (49845) Diagnoses MDD (major depressive disorder), recurrent episode, moderate F33.1 RUSSELL (generalized anxiety disorder) F41.1 Uncomplicated opioid dependence F11.20 Substance use status: uncomplicated Systemic lupus erythematosus, unspecified SLE type, unspecified organ involvement status M32.9 Systemic lupus erythematosus type: unspecified Systemic lupus erythematosus organ involvement: unspecified Additional Codes PHQ-9 - 38505 - PHQ-9 Billing: Yes ([id number]) Assessment & Plan Assessment & Plan (1) MDD (major depressive disorder), recurrent episode, moderate: Code(s): F33.1 - Major depressive disorder, recurrent, moderate Category: Medical Plan: Patient reports having personal issues with her son as of late, not interested in any daily anxiety are depression medication at this time. Has a referral in to see a mental health therapist. (2) RUSSELL (generalized anxiety disorder): Code(s): F41.1 - Generalized anxiety disorder Category: Medical Plan: Patient does have a history of anxiety to which he uses lorazepam on an as needed basis. She usually gets 14 tablets of lorazepam for 30 day supply. Again as above has been having personal issues at home with her son which is causing increased anxiety and admits to using a bit more lorazepam lately. (3) Opiate dependence: Code(s): F11.20 - Opioid dependence, uncomplicated Category: Medical Qualifiers: Substance use status: uncomplicated Qualified Code(s): F11.20 - Opioid dependence, uncomplicated Plan: Patient continues to follow methadone clinic and continues to wean down on lower doses of methadone. She plans on weaning completely off methadone (4) Lupus (systemic lupus erythematosus): Code(s): M32.9 - Systemic lupus erythematosus, unspecified Category: Medical Qualifiers: Systemic lupus erythematosus type: unspecified Systemic lupus erythematosus organ involvement: unspecified Qualified Code(s): M32.9 - Systemic lupus erythematosus, unspecified Plan: Patient has a history lupus, is interested in being evaluated by a business continuity management director again. Will refer to [place] [facility] for evaluation. Orders: Orders Complete Blood Count no Diff Today J45.20 - Mild intermittent asthma, uncomplicated Microalbumin, Random (w Creat) Today I10 - Essential (primary) hypertension Comprehensive [place]. Panel Fast Today Z13.1 - Encounter for screening for diabetes mellitus IRON PROFILE Today D50.0 - Iron deficiency anemia secondary to blood loss (chronic), D50.9 - Iron deficiency anemia, unspecified Referrals Rheumatology Referral M32.9 - Systemic lupus erythematosus, unspecified Medications: Changed From lorazepam 1 mg PO BID PRN 4 tabs 0RF anxiety F41.1 - Generalized anxiety disorder To lorazepam 1 mg PO BID PRN 14 tabs 3RF anxiety 30 days F41.1 - Generalized anxiety disorder Refilled clotrimazole-betamethasone 1-0.05 % 1 appl topical BID PRN 45 grams 2RF skin irritation 30 days B35.9 - Dermatophytosis, unspecified gabapentin PO; take 1 capsule in the morning, 2 capsules midday, 2 capsules in the p.m. 150 caps 3RF 30 days M32.9 - Systemic lupus erythematosus, unspecified
== END 2025-05-22 15:28 | disposition home or self-care (01) ==
LOC: HO.HMCH 14:53
PROVIDERS: PCP Physician Assistant; Visit Provider Physician Assistant
DX: F33.1 Major depressive disorder, recurrent, moderate (principal); F41.1 Generalized anxiety disorder; F11.20 Opioid dependence, uncomplicated; M32.9 Systemic lupus erythematosus, unspecified

== ENCOUNTER → 2025-05-22 14:53 | Outpatient (BNVA) | payer MEDICARE, MEDICAID, SELFPAY | PROVIDERS: PCP Physician Assistant; Visit Provider Physician Assistant | DX: I10 Essential (primary) hypertension (principal); E66.9 Obesity, unspecified; F41.9 Anxiety disorder, unspecified; F11.20 Opioid dependence, uncomplicated; M32.9 Systemic lupus erythematosus, unspecified; F33.1 Major depressive disorder, recurrent, moderate; F41.1 Generalized anxiety disorder; B35.9 Dermatophytosis, unspecified; J45.20 Mild intermittent asthma, uncomplicated | CPT/HCPCS: 96127 ==

== ENCOUNTER 2025-06-14 11:23 | Outpatient (AMB) | payer MEDICARE, MEDICAID, SELFPAY ==
--- NOTE | 2025-06-14 11:24 | A.OFFPC_ITS ---
Intake Visit Reasons: Med review - see comments Allergies latex (Latex) Allergy (Mild, Verified 06/14/25 11:55) RASH Benadryl Allergy (Unknown, Verified 06/14/25 11:55) Rash diphenhydramine (From Benadryl) Allergy (Unknown, Verified 06/14/25 11:55) HIVES IV pain medication Allergy (Uncoded 06/14/25 11:55) Anxiety Medication List - Last Reconciled 06/14/25 by Rony Carr PA-C albuterol sulfate 2.5 mg (3 mL) inhalation Q4-6H PRN 30 days albuterol sulfate 90 mcg/actuation 2 puffs inhalation Q6H PRN 30 days baclofen 20 mg PO Q8H blood pressure test kit-large As directed clotrimazole-betamethasone 1-0.05 % 1 appl topical BID PRN 30 days diclofenac sodium 50 mg PO BID 15 days docusate sodium 200 mg (2 x 100 mg) PO BEDTIME ferrous sulfate 325 mg PO BID 30 days fluticasone propionate 110 mcg/actuation 2 puffs inhalation BID 30 days gabapentin PO; take 1 capsule in the morning, 2 capsules midday, 2 capsules in the p.m. 30 days gabapentin 300 mg PO TID 30 days haloperidol 2 mg PO TID hydrocortisone 2.5% 1 appl [place] Q8-12H [Incontinence pads As directed] lidocaine HCl 2% (Lidocaine Viscous) 15 mL mucous membrane Q3H PRN 10 days [lift recliner As directed] linaclotide (Linzess) 145 mcg PO DAILY vndatr-knuakhrp-ojjzgqw 36,000-114,000- 180,000 unit (Creon) 1 cap PO QID lorazepam 1 mg PO BID PRN 30 days magnesium hydroxide (Milk of Magnesia) 10 mL PO BID PRN 90 days methadone 51 mg PO DAILY miscellaneous medical supply 1 ea miscellaneous DAILY 99 days nebulizers (AeroEclipse II Nebulizer) As directed ondansetron 4 mg PO Q6-8H PRN pantoprazole 40 mg PO QAM Shower Chair Need for bariatric shower chair [shower chair As directed] sucralfate 10 mL PO BEDTIME triamcinolone acetonide 0.025% 1 appl topical DAILY PRN 30 days [Urinary incontinence pads As directed] walker (Ultra-Light Rollator misc) As directed walker Need for regular walker Tobacco use date assessed: 06/14/25 Dental Screening Dental Screen Date: 06/14/25 Did you have a dental visit in the last 12 months?: Yes Did you have a dental problem in the last 6 months where you did not have access to dental care?: No Was dental information given to patient?: Patient has dentist HPI Med review - see comments HPI Details Patient is a 55-year-old female being evaluated today via telephone. Patient has a past medical history significant for obesity, lupus, hypertension, opiate use disorder , generalized anxiety disorder and major depressive disorder. .. Opiate dependency: Continues follow up with her methadone clinic. She plans on weaning off methadone. .. Lupus: Has an upcoming appointment with her certifed refrigeration operator in August. Has a history of SLE in his not seen a certifed refrigeration operator in quite some time. She is asking for a referral to certifed refrigeration operator. Continues to have joint pains which may multifactorial opiate dependency kind of fibromyalgia ect.. PFSH Medical History Tubular adenoma Lupus Asthma Tinea Right shoulder pain Surgical History History of colonoscopy (~10/15/22) History of varicose vein ligation Plantar fasciitis of left foot History of umbilical hernia repair History of section Family History Father High cholesterol High blood pressure Dementia Mother Diabetes Arthritis High blood pressure Paternal Grandmother Colon cancer Social History Housing: House Alcohol intake: never Patient Tobacco Use Status: Never used Tobacco e-Cigarette/Vaping Use: Never Used Second Hand Smoke Exposure: No Substance Use Type: Opiates service: No Current occupational status: unemployed Cognitive needs: Yes Hearing needs: No Vision needs: Yes Questionnaire PHQ-9 Over the last 2 weeks, how often have you been bothered by any of the following problems? 1. Little interest or pleasure in doing things: more than half the days 2. Feeling down, depressed, or hopeless: several days 3. Trouble falling or staying asleep, or sleeping too much: nearly every day 4. Feeling tired or having little energy: nearly every day 5. Poor appetite or overeating: nearly every day 6. Feeling bad about yourself - or that you are a failure or have let yourself or your family down: not at all 7. Trouble concentrating on things, such as reading the newspaper or watching te levision: not at all 8. Moving or speaking so slowly that other people could have noticed. Or the opposite - being so fidgety or restless that you have been moving around a lot more than usual: not at all 9. Thoughts that you would be better off or of hurting yourself in some way: not at all Total score: 12 Depression Screening Interpretation: Positive Depression Screening Follow-up: Existing condition and In treatment Depression Screening Done: Yes 79091 - PHQ-9 Billing: Yes Source: Developed by Drs. To Lenz, Lorin Delgado, Yaw Francis and colleagues, with an educational rhiannon from [employer]. Thrive Questionnaire Date Thrive assessed: 05/22/25 I am a: Patient What is your living situation today?: I have a steady place to live Within the past 12 months, did the food you bought not last and you didn't have the money to get more?: Never true Within the past 12 months, did you worry whether your food would run out before you got money to buy more?: Never true Do you have trouble paying for medicines?: No Do you have trouble getting transportation to medical appointments?: Yes Do you have trouble paying your heating and electricity bill?: No Do you have trouble taking care of your child, family member or friend?: No Do you have trouble with day-to-day activities such as bathing, preparing meals, shopping, managing finances, etc.?: Yes Are you currently unemployed and looking for a job?: No Are you interested in more education?: No Please select the resources that you would like help with: None Currently or been in a relationship where the following occur: No concerns reported THRIVE Score: 1 AUDIT C Alcohol Use Questionnaire (AUDIT-C) 1. How often do you have a drink containing alcohol?: Never 3. How often do you have six or more drinks on one occasion?: Never Total Score: 0 RUSSELL-7 AMB Questionnaire RUSSELL-7 Date RUSSELL - 7 assessed: 05/22/25 Feeling nervous, anxious, or on edge: 1 = Several days Not being able to stop or control worryin = Not at all Worrying too much about different things: 0 = Not at all Trouble relaxin = Nearly every day Being so restless that it is hard to sit still: 3 = Nearly every day Becoming easily annoyed or irritable: 3 = Nearly every day Feeling afraid as if something awful might happen: 0 = Not at all Total RUSSELL-7 score (0-4 normal; 5-9 mild; 10-14 moderate; 15-21 severe): 10 Source: Developed by Drs. To Lenz, Lorin Delgado, Yaw Francis and colleagues, with an educational rhiannon from [employer]. RUSSELL-7 Assessment Billing RUSSELL-7 Assessment Tool: RUSSELL-7 Assessment 43918 Review of Systems Const Denies headache(s) Eyes Denies loss of vision ENT Denies vertigo, Denies dizziness, Denies headache(s) and Denies sore throat Card Denies chest pain, Denies leg edema and Denies lightheadedness Resp Denies cough, Denies hemoptysis and Denies wheezing GI Denies abdominal pain, Denies melena, Denies constipation, Denies diarrhea and Denies vomiting Denies urinary frequency, Denies dysuria and Denies urinary urgency Musc Denies arthralgias, Denies joint swelling, Denies numbness and Denies tingling Neuro Denies behavioral changes, Denies vertigo, Denies dizziness, Denies headache(s), Denies loss of vision, Denies memory loss, Denies numbness and Denies tingling Psych Denies anxiety, Denies behavioral changes, Denies depression, Denies memory loss and Denies panic attacks Miky/Lymph Denies easy bleeding and Denies easy bruising Aller/Immun Denies wheezing Physical exam (Primary Care) Tobacco/Smoking Status: Tobacco use Status Tobacco use date assessed 06/14/25 06/14/25 11:26 Patient Tobacco Use Status Never used Tobacco 06/14/25 11:26 e-Cigarette/Vaping Use Never Used 06/14/25 11:26 PHQ-9: PHQ-9 Score PHQ-9: Total score 12 06/14/25 11:26 Depression Screening Interpretation: Positive Depression Screening Follow-up: Existing condition and In treatment Thrive Assessment: Date of Thrive Assessment Date Thrive assessed 05/22/25 06/14/25 11:26 Currently or been in a relationship where the following occur: No concerns reported Telehealth Telehealth Telehealth Platform: Telephone Location of provider rendering services: practice address Location of patient: address on file Patient Identification confirmed using: Name, : Yes Telehealth method: voice only Patient verbally consented to treatment: Yes Patient verbally consented to billing insurance company: Yes Patient informed of any privacy concerns related to visit: Yes Minutes spent on Phone/Video with Pt.: 11 Coding Level of Care Code Tele Est Pt Level 3 (47716) Diagnoses RUSSELL (generalized anxiety disorder) F41.1 Systemic lupus erythematosus, unspecified SLE type, unspecified organ involvement status M32.9 Systemic lupus erythematosus type: unspecified Systemic lupus erythematosus organ involvement: unspecified Additional Codes PHQ-9 - 16445 - PHQ-9 Billing: Yes ([id number]) RUSSELL-7 Assessment Billing - RUSSELL-7 Assessment Tool: RUSSELL-7 Assessment 06022 ([id number]) Assessment & Plan Assessment & Plan (1) RUSSELL (generalized anxiety disorder): Code(s): F41.1 - Generalized anxiety disorder Category: Medical Plan: Patient does have a history of anxiety to which he uses lorazepam on an as needed basis. She usually gets 14 tablets of lorazepam for 30 day supply. Again as above has been having personal issues at home with her son which is causing increased anxiety and admits to using a bit more lorazepam lately. (2) Lupus (systemic lupus erythematosus): Code(s): M32.9 - Systemic lupus erythematosus, unspecified Category: Medical Qualifiers: Systemic lupus erythematosus type: unspecified Systemic lupus erythematosus organ involvement: unspecified Qualified Code(s): M32.9 - Systemic lupus erythematosus, unspecified Plan: Patient has a history lupus, is interested in being evaluated by a certifed refrigeration operator again. Will refer to [place] [facility] for evaluation. Medications: Refilled hydrocortisone 2.5% 1 appl [place] Q8-12H 30 grams 3RF K64.9 - Unspecified hemorrhoids clotrimazole-betamethasone 1-0.05 % 1 appl topical BID PRN 45 grams 2RF skin irritation 30 days B35.9 - Dermatophytosis, unspecified
== END 2025-06-14 13:41 | disposition home or self-care (01) ==
LOC: HO.HMCH 11:23
PROVIDERS: PCP Physician Assistant; Visit Provider Physician Assistant
DX: F41.1 Generalized anxiety disorder (principal); M32.9 Systemic lupus erythematosus, unspecified

== ENCOUNTER → 2025-06-14 11:23 | Outpatient (BNVA) | payer MEDICARE, MEDICAID, SELFPAY | PROVIDERS: PCP Physician Assistant; Visit Provider Physician Assistant | DX: I10 Essential (primary) hypertension (principal); F41.1 Generalized anxiety disorder; F32.9 Major depressive disorder, single episode, unspecified; F11.20 Opioid dependence, uncomplicated; M32.9 Systemic lupus erythematosus, unspecified; K64.9 Unspecified hemorrhoids; B35.9 Dermatophytosis, unspecified | CPT/HCPCS: 96127 ==

== ENCOUNTER 2025-07-05 08:23 | Outpatient (REF) | payer MEDICARE, MEDICAID, SELFPAY ==
--- NOTE | ~2025-07-05 | XR_ITS ---
EXAMINATION: XR KNEE 3 VIEWS RIGHT HISTORY: M17.11 - Unilateral primary osteoarthritis, right knee COMPARISON: Comparison is made with the prior standing AP views of both knees dated 02/03/2019 and the prior examination of the left knee dated 06/02/2018. FINDINGS: Standing AP views of both knees and additional lateral and sunrise patellar views of the right knee are submitted. Osseous mineralization is normal. There is no fracture or dislocation. There is severe tricompartmental osteoarthritis with joint space narrowing and osteophyte formation. The soft tissues are unremarkable. There is no joint effusion. XR/XR knee RT 3V IMPRESSION: Severe tricompartmental osteoarthritis. Electronically signed by: To Wood MD 07/05/2025 03:24 PM EDT
== END 2025-07-05 08:24 | disposition home or self-care (01) ==
LOC: HO.HOSX 08:23
PROVIDERS: Visit Provider Physician Assistant
DX: M17.11 Unilateral primary osteoarthritis, right knee (principal)
CPT/HCPCS: 20610; 73562; 99212; J0665; J1100; J2003

== ENCOUNTER 2025-07-05 15:04 | Outpatient (AMB) | payer MEDICARE, MEDICAID, SELFPAY ==
--- NOTE | 2025-07-05 15:12 | A.OFFVIS_ITS ---
Intake Visit Reasons: New prob- Rt knee pain Intake Note: Abril is a 55 year old female who presents today as an established patient, new problem visit to evaluate right knee pain. Patient reports bilateral knee pain, with the right being the worse. States constant pain that is located at the anterior aspect of knee. Complaints of knees giving out. History of cortisone injections in the past that provided somewhat of relief. She uses a walker with prolong ambulation. Finds very little relief with Aleve and gabapentin. Allergies latex (Latex) Allergy (Mild, Verified 07/05/25 15:14) RASH Benadryl Allergy (Unknown, Verified 07/05/25 15:14) Rash diphenhydramine (From Benadryl) Allergy (Unknown, Verified 07/05/25 15:14) HIVES IV pain medication Allergy (Uncoded 07/05/25 15:14) Anxiety Medication List - Last Reconciled 07/08/25 by Sinai Roberts PA-C albuterol sulfate 2.5 mg (3 mL) inhalation Q4-6H PRN 30 days albuterol sulfate 90 mcg/actuation 2 puffs inhalation Q6H PRN 30 days baclofen 20 mg PO Q8H blood pressure test kit-large As directed clotrimazole-betamethasone 1-0.05 % 1 appl topical BID PRN 30 days diclofenac sodium 50 mg PO BID 15 days docusate sodium 200 mg (2 x 100 mg) PO BEDTIME ferrous sulfate 325 mg PO BID 30 days fluticasone propionate 110 mcg/actuation 2 puffs inhalation BID 30 days gabapentin PO; take 1 capsule in the morning, 2 capsules midday, 2 capsules in the p.m. 30 days gabapentin 300 mg PO TID 30 days haloperidol 2 mg PO TID hydrocortisone 2.5% 1 appl AR Q8-12H [Incontinence pads As directed] lidocaine HCl 2% (Lidocaine Viscous) 15 mL mucous membrane Q3H PRN 10 days [lift recliner As directed] linaclotide (Linzess) 145 mcg PO DAILY dcjdsm-kgncexhd-llepcik (pork) 36,000-114,000- 180,000 unit (Creon) 1 cap PO QID lorazepam 1 mg PO BID PRN 30 days magnesium hydroxide (Milk of Magnesia) 10 mL PO BID PRN 90 days methadone 51 mg PO DAILY miscellaneous medical supply 1 ea miscellaneous DAILY 99 days nebulizers (AeroEclipse II Nebulizer) As directed ondansetron 4 mg PO Q6-8H PRN pantoprazole 40 mg PO QAM Shower Chair Need for bariatric shower chair [shower chair As directed] sucralfate 10 mL PO BEDTIME triamcinolone acetonide 0.025% 1 appl topical DAILY PRN 30 days [Urinary incontinence pads As directed] walker (Ultra-Light Rollator misc) As directed walker Need for regular walker HPI HPI New prob- Rt knee pain: Details: 55 yo female returns to the office today for right knee pain. She denies injury. She states she has been experiencing pain in the right knee for several years. The pain is worse with stairs and going from a seated to a standing position. She states the pain is located along the anterior portion of the knee. She has had injections in the past with minimal relief. [facility] Medical History Tubular adenoma Lupus Asthma Tinea Right shoulder pain Surgical History History of colonoscopy (~10/15/22) History of varicose vein ligation Plantar fasciitis of left foot History of umbilical hernia repair History of section Family History Father High cholesterol High blood pressure Dementia Mother Diabetes Arthritis High blood pressure Paternal Grandmother Colon cancer Social History Housing: House Alcohol intake: never Patient Tobacco Use Status: Never used Tobacco e-Cigarette/Vaping Use: Never Used Second Hand Smoke Exposure: No Substance Use Type: Opiates service: No Current occupational status: unemployed Cognitive needs: Yes Hearing needs: No Vision needs: Yes Review of Systems Const All systems reviewed & are unremarkable except as noted in HPI and below Physical Exam Extrem Other: Right knee normal to inspection. Lateral retropatellar tenderness present. ROm full with crepitus. Calf supple non tender, NVI. Office Procedures AMB Joint Injection/Aspiration Joint Injection/Aspiration Primary Site: right knee Prep: site was prepped using aseptic technique, ethochloride spray was applied and injection warnings given Injected: 40 mg of, with 3 mL of, 1% plain lidocaine, 0.25% bupivacaine, in the joint and decadron Approach Used: anterolateral Coding 05330 - Glenohumeral/Tronchanteric Bursa/Intraarticular Procedure code (CPT) selection complete Results Reviewed Results Reviewed: Xrays were obtained in the office today and personally reviewed by me of the right knee show severe media compartment and PF compartment oa with varus deformity. Assessment & Plan Assessment & Plan (1) Osteoarthritis of right knee: Code(s): M17.11 - Unilateral primary osteoarthritis, right knee Category: Medical Plan: We discussed options which include PT and injections . She would like to proceed with steroid injection today which she tolerated well. An order for PT was placed and she will contact their office to make an appt. We also discussed the benefits of continued weight management . We also dicussed the role of gel injections if the steroid does not help . She will contact our office to discuss. Orders: Orders XR knee RT 3V 07/05/25 M17.11 - Unilateral primary osteoarthritis, right knee Coding Level of Care Code Est Pt Level 3 (27788) Complex EM visit Add On G2211 Diagnoses Osteoarthritis of right knee M17.11 CPT Codes Coding - Joint 7: 29816 - Glenohumeral/Tronchanteric Bursa/Intraarticular ([id number])
== END 2025-07-05 16:04 | disposition home or self-care (01) ==
LOC: HO.HOS 15:04
PROVIDERS: PCP Physician Assistant; Visit Provider Physician Assistant
DX: M17.11 Unilateral primary osteoarthritis, right knee (principal)
CPT/HCPCS: 20610; 99213

== ENCOUNTER → 2025-07-05 15:06 | Outpatient (BNV) | payer MEDICARE, MEDICAID, SELFPAY | PROVIDERS: Visit Provider Radiology Diagnostic Radiology | DX: M17.11 Unilateral primary osteoarthritis, right knee (principal) | CPT/HCPCS: 73562 ==